=== PATIENT | male | born 1980 | race Caucasian/White ===

== ENCOUNTER → 2020-07-21 14:50 | Outpatient (BNVA) | payer OTHER, SELFPAY | PROVIDERS: PCP Internal Medicine Geriatric Medicine; Referring Provider Internal Medicine Geriatric Medicine; Visit Provider Nurse Practitioner | DX: Z76.89 Persons encountering health services in other specified circumstances (principal) ==

== ENCOUNTER 2020-07-30 10:14 | Outpatient (REF) | payer OTHER, SELFPAY | END 2020-07-30 10:15 | disposition home or self-care (01) | LOC: HO.LAB 10:14 | PROVIDERS: Visit Provider Internal Medicine | DX: Z20.828 Contact with and (suspected) exposure to other viral communicable diseases (principal) | CPT/HCPCS: C9803; U0003 ==

== ENCOUNTER 2021-03-08 15:12 | Emergency (ER) | payer SELFPAY | END 2021-03-08 18:16 | disposition left against medical advice (07) | PROVIDERS: Emergency Provider Emergency Medicine; PCP Internal Medicine Geriatric Medicine | DX: L60.0 Ingrowing nail (principal) ==

== ENCOUNTER 2021-12-03 12:38 | Emergency (ER) | payer MEDICAID, SELFPAY ==
--- NOTE | ~2021-12-03 | US_ITS ---
EXAMINATION: US ABDOMEN LIMITED CLINICAL INFORMATION: Right upper quadrant pain. COMPARISON: 04/14/2019 abdominal ultrasound TECHNIQUE: Real-time imaging of the right upper quadrant abdominal viscera. FINDINGS: PANCREAS: Limited assessment due to overlying bowel gas but where seen the body is grossly unremarkable LIVER: The liver is normal in size. The liver contour is normal. Parenchymal echogenicity is normal. A 1.5 cm slightly hyperechoic possible hemangioma in the posterior right lobe the liver similar to the 2019 study. No new suspicious hepatic lesion. There is no intrahepatic biliary duct dilatation seen. GALLBLADDER: Normal. The gallbladder is physiologically distended without evidence of stones, sludge, polyps, wall thickening or pericholecystic fluid. COMMON BILE DUCT: Normal in caliber measuring 0.2 cm in diameter. RIGHT KIDNEY: Normal. No hydronephrosis. No renal calculi or focal parenchymal lesions. The kidney measures 11.5 cm in maximum dimension. FREE FLUID: None. US/US abdomen limited IMPRESSION: No acute intra-abdominal process. 1.5 cm echogenic probable hemangioma in the posterior right lobe of the liver similar to the prior 2019 study.
[2021-12-03 13:03] VITALS: BP 109/71; PULSE 75; RESP 16; TEMP 35.9; O2SAT 95; BMI 25.4
--- NOTE | 2021-12-03 13:45 | ED_ITS ---
HPI - Abdominal Pain General Chief Complaint: Abdominal Pain Stated Complaint: Gallstones? Time Seen by Provider: 12/03/21 13:27 Source: patient Mode of arrival: ambulatory Limitations: no limitations History of Present Illness HPI narrative: Patient is a 41-year-old male with past medical history of irritable bowel syndrome. He presents emergency department today for evaluation of right upper quadrant pain. The onset of pain was 4 months ago, although it has been increasingly worse over the past 4 days was evaluated at [facility] at PCP office yesterday and there was concern for gallstones. He states that since the medical provider pressed over his right upper quadrant the pain has been significantly worse, and he was advised to come to the emergency department for worsening pain. He reports associated nausea and vomiting in addition to diarrhea but he has a history of irritable bowel syndrome. The nausea and vomiting does seem to be worsened normal. Pain is made worse with prolonged sitting, certain movements. Denies fevers, chills, weight loss, chest pain, palpitations, shortness of breath, difficulty breathing, cough, recent illness, hematuria, urinary frequency/hesitancy/urgency. Related Data Allergies Allergy/AdvReac Type Severity Reaction Status Date / Time cat dander [CAT] Allergy Intermediate SNEEZING, Verified 07/21/20 14:51 THROAT SWOLLEN tacrolimus [From PROTOPIC] Allergy Intermediate HEADACHE,DI Verified 07/21/20 14:51 ZZY,N/V DUST Allergy Intermediate SNEEZING Uncoded 05/13/20 16:41 Review of Systems Review of Systems Constitutional : No Weight loss, No Fever, No Chills ENT/Mouth :? No sore throat, No Rhinorrhea Eyes: No Swelling, No Redness Cardiovascular : No Chest Pain, No SOB, No Edema Respiratory : No Cough, No Sputum, No Wheezing Gastrointestinal : Positive Nausea, Positive Vomiting, positive Diarrhea, positive abdominal pain, No Hematochezia, No Melena Genitourinary : No Dysuria, No Urinary Frequency, No Hematuria, No Urgency? Musculoskeletal : No joint pain, No Myalgias, No Joint Swelling Skin : No Skin Lesions, No rash Neuro : No Weakness, No Numbness, No Dizziness, No Headache Psych : No Anxiety/Panic, No Depression Heme/Lymph: No Bruising, No Lymphadenopathy Endocrine : No Polyuria, No Polydipsia Yes all other systems are reviewed and are negative PMFSH Past Medical History Attestation statement: The following information was validated with the patient. Source: old records reviewed Surgical History H/O esophagogastroduodenoscopy History of colonoscopy Hx of appendectomy Family History Family History Father No problems noted. Mother Mental health problem Fibromyalgia Cancer Maternal Grandfather Cancer Social History Social History Household Members: None Housing: Apartment Alcohol intake: never Patient Tobacco Use Status: Current everyday Tobacco user Use of substances other than those prescribed or required for medical reasons: No Substance Use Type: Marijuana Advance Directives: No Advance Directives Information Provided: No Physical Exam ED Vital Signs: Vital Signs - 24 hr 12/03/21 13:03 12/03/21 14:29 Temperature 96.7 F L 98.5 F Pulse Rate 75 68 Respiratory Rate 16 18 Blood Pressure 109/71 107/65 Pulse Oximetry 95 98 BMI result Body Mass Index 25.4 Vital signs have been reviewed as normal and appeared to be correct. Blood pressure normal.? Heart rate normal.? Respiration rate normal. Temperature norm al.? Oxygen saturation normal. Appearance: Alert.?Oriented to person, place and time. No acute distress.?Normal affect. Eyes: Pupils equal, round and reactive to light.? ENT: Pharynx normal.?? Neck: Normal inspection.? Neck supple.?? CVS: Heart sounds normal. Normal heart rate and rhythm.? Pulses normal.?? Respiratory: No respiratory distress.? Lung sounds clear to auscultation bilaterally?? Abdomen: Soft, RUW tenderness, + Harvey's sign. Normoactive bowel sounds. No pulsatile mass.?? Skin: Skin warm and dry.? Normal skin color.? Normal skin turgor.?? Extremities: No lower extremity edema.? Neuro: Moves all extremities spontaneously. Sensation intact bilaterally. CN II- XII intact. No focal neuro deficits. Ambulates with normal steady gait. Course Course Course Narrative: Patient is a 41-year-old male who is well appearing, nontoxic, afebrile. Hist ory physical exam concerning for cholelithiasis/cholecystitis. Will obtain CBC, CMP, lipase, right upper quadrant ultrasound in addition to urinalysis. Of note patient is on Truvada for HIV prophylaxis, states he has been on this medication for 4 years, therefore will assess LFTs for hepatotoxicity. Ketorolac for pain. Disposition pending results Reevaluation(s) Reevaluation #1: CBC is overall unremarkable mild anemia hemoglobin 13.6 and hematocrit 39.3. Urinalysis reveals no signs of infection or microscopic hematuria. Ultrasound of the right upper quadrant reveals no acute intra-abdominal process. 1.5 cm echogenic probable hemangioma in the right posterior lobe of the liver seen similarly in 2019. CMP is normal, liver function test without concern, lipase is normal. At this time the cause for his pain and symptoms is unclear, although it may be related to his IBS. He is overall well-appearing, nontoxic, afebrile, tolerating p.o. fluids and food. He is already prescribed anti- inflammatories home. Discussed all findings with patient, reviewed plan of care for discharge home and outpatient follow-up with primary care provider. Discussed reasons to return back to the emergency department. MDM - Abdominal Pain Medical Records Attestation: I reviewed the patient's medical records. Lab Data Attestation: I reviewed the patient's lab results. Result diagrams: 12/03/21 14:44 12/03/21 14:44 Labs: Lab Results 12/03/21 12/03/21 12/03/21 Range/Units 14:44 14:44 14:44 WBC 7.8 (4.8-10.8) X10*3/uL RBC 4.06 L (4.60-5.80) X10*6/uL Hgb 13.6 L (14.0-18.0) g/dl Hct 39.3 L (42.0-52.0) % MCV 96.8 (80.0-98.0) fL MCH 33.5 H (27.0-33.0) pg MCHC 34.6 (31.0-36.0) g/dl RDW 11.5 (11.0-16.0) % Plt Count 199 (160-400) X10*3/uL MPV 9.8 (9.4-12.4) fL Immature Gran % (Auto) 0.1 (0.0-0.4) % Neut % (Auto) 63.9 (45-73) % Lymph % (Auto) 24.4 (20-40) % [place] % (Auto) 8.8 (2-11) % Eos % (Auto) 2.0 (0-4) % Baso % (Auto) 0.8 (0-2) % Lymph # (Auto) 1.9 (1.2-4.9) X10*3/uL [place] # (Auto) 0.7 (0.1-1.2) X10*3/uL Eos # (Auto) 0.2 (0.0-0.4) X10*3/uL Baso # (Auto) 0.1 (0.0-0.2) X10*3/uL Abs Immat Gran (auto) 0.01 (0.00-0.03) X10*3/uL Absolute Neuts (auto) 5.0 (2.0-8.3) x10*3/uL Absolute Nucleated RBC 0.000 (0.0-0.012) X10*3/uL Nucleated RBC % (auto) 0.0 (0.0-0.2) /100WBC Sodium 140 (135-145) mmol/L Potassium 3.7 (3.3-5.1) mmol/L Chloride 108 (96-108) mmol/L Carbon Dioxide 24 (22-29) mmol/L Anion Gap 12 (12-20) BUN 16 (9-16) mg/dL Creatinine 1.20 (0.5-1.4) mg/dL Estim Creat Clear Calc 83.6 Estimated GFR > 60 Random Glucose 68 (60-115) mg/dL Calcium 9.1 (8.4-10.2) mg/dL Total Bilirubin 0.3 (0.0-1.0) mg/dL AST 15 (5-37) U/L ALT 14 (0-40) U/L Alkaline Phosphatase 55 (39-117) U/L Total Protein 7.1 (6.5-8.0) g/dL Albumin 4.5 (3.5-5.0) g/dL Lipase 24 (8-78) U/L Urine Color YELLOW Urine Appearance CLEAR Urine pH 6.0 (5.0-8.0) Ur Specific [place] 1.010 (1.005-1.025) Urine Protein NEG (NEG-TRACE) MG/DL Urine Glucose (UA) NEG (NEG) MG/DL Urine Ketones NEG (NEG) MG/DL Urine Blood NEG (NEG) Urine Nitrite NEG (NEG) Ur Leukocyte Esterase NEG (NEG) Imaging Data US - abdomen: Radiologist's impression: US/US abdomen limited IMPRESSION: No acute intra-abdominal process. 1.5 cm echogenic probable hemangioma in the posterior right lobe of the liver similar to the prior 2019 study. Discharge Plan Discharge Clinical Impression: Abdominal pain Patient Disposition: Home, Self-Care Instructions: Acute Abdominal Pain (ED), Abdominal Pain (ED) Additional Instructions: Please contact your primary care provider to schedule a follow-up visit within 2-3 days. You may return to the emergency department with any new or worsening symptoms or concerns. Stand Alone Forms: Work/School Release Interventions: ED Discharge Assessment Last Done: 12/03/21 16:17 Discharge Date/Time: 12/03/21 16:18
[2021-12-03] MEDS: Ondansetron ODT 4 MG TAB.RAPDIS TRANSLINGU (14:28)
[2021-12-03] MEDS: Ketorolac Tromethamine 30 MG/ML VIAL IM (14:28)
[2021-12-03 14:29] VITALS: BP 107/65; PULSE 68; RESP 18; TEMP 36.9; O2SAT 98
--- NOTE | 2021-12-03 14:32 | PC.NURSE ---
ruq pain x 4 months. pt has f/u with deborah sandoval and PCP for IBS. no active vomiting. no grimace noted.
[2021-12-03 14:49] LABS: MANUAL DIFF FLAG NO
[2021-12-03 14:50] LABS: Basophils Absolute Auto 0.1 X10*3/uL (0.0-0.2); Basophils Percent Auto 0.8 % (0-2); Eosinophils Absolute Auto 0.2 X10*3/uL (0.0-0.4); Hematocrit 39.3 % (42.0-52.0); Hemoglobin 13.6 g/dl (14.0-18.0); Imm Gran Abs Auto 0.01 X10*3/uL (0.00-0.03); Imm Gran Pct Auto 0.1 % (0.0-0.4); Lymphocytes Absolute Auto 1.9 X10*3/uL (1.2-4.9); Lymphocytes Percent Auto 24.4 % (20-40); Mean Corpuscular HGB Conc 34.6 g/dl (31.0-36.0); Mean Corpuscular Hemoglobin 33.5 pg (27.0-33.0); Mean Corpuscular Volume 96.8 fL (80.0-98.0); Mean Platelet Volume 9.8 fL (9.4-12.4); Monocytes Absolute Auto 0.7 X10*3/uL (0.1-1.2); Monocytes Percent Auto 8.8 % (2-11); Neutrophils Percent Auto 63.9 % (45-73); Platelet Count 199 X10*3/uL (160-400); Red Blood Count 4.06 X10*6/uL (4.60-5.80); Red Cell Distribution Width 11.5 % (11.0-16.0); White Blood Count 7.8 X10*3/uL (4.8-10.8)
[2021-12-03 14:52] LABS: Appearance Urine CLEAR; Color Urine YELLOW; Glucose Urine UA NEG (NEG); Leukocyte Esterase Urine NEG (NEG); Nitrite Urine NEG (NEG); Urine Blood NEG (NEG); Urine Ketones NEG (NEG); Urine Protein NEG (NEG-TRACE)
[2021-12-03 15:29] LABS: Alanine Aminotransferase 14 U/L (0-40); Albumin Level 4.5 g/dL (3.5-5.0); Alkaline Phosphatase 55 U/L (39-117); Anion Gap 12 (12-20); Aspartate Amino Transferase 15 U/L (5-37); Bilirubin Total 0.3 mg/dL (0.0-1.0); Blood Urea Nitrogen 16 mg/dL (9-16); Calcium 9.1 mg/dL (8.4-10.2); Carbon Dioxide 24 mmol/L (22-29); Chloride 108 mmol/L (96-108); Creatinine Clr Calc Pharmacy 83.6; Estimated Glomerular Filt Rate > 60; Glucose Random 68 mg/dL (60-115); Lipase 24 U/L (8-78); Potassium 3.7 mmol/L (3.3-5.1); Sodium 140 mmol/L (135-145); Total Protein 7.1 g/dL (6.5-8.0)
== END 2021-12-03 16:18 | disposition home or self-care (01) ==
PROVIDERS: Nurse Practitioner Family; Emergency Provider Emergency Medicine; PCP Internal Medicine Geriatric Medicine
DX: R10.11 Right upper quadrant pain (principal); F17.200 Nicotine dependence, unspecified, uncomplicated; F12.90 Cannabis use, unspecified, uncomplicated
CPT/HCPCS: 36415; 76705; 80053; 81003; 83690; 85025; 96372; 99284; J1885

== ENCOUNTER 2021-12-14 07:21 | Outpatient (REF) | payer MEDICAID, SELFPAY ==
--- NOTE | ~2021-12-14 | US_ITS ---
EXAMINATION: US ABDOMEN COMPLETE CLINICAL INFORMATION: Right upper quadrant pain. Rule out gallstones. COMPARISON: Limited abdominal ultrasound 12/03/2021. Ultrasound abdomen 04/14/2019. CT abdomen and pelvis 11/29/2017. TECHNIQUE: Real-time imaging of the abdominal viscera. FINDINGS: PANCREAS: Normal. No abnormal mass or peripancreatic inflammatory change. ABDOMINAL AORTA: The proximal, mid, and distal segments are normal in caliber. INFERIOR VENA CAVA: Visualized portions are normal. LIVER: There is again noted be calcification likely representing calcified granuloma measuring 7 mm in diameter. The liver is normal in size. The liver contour is normal. Parenchymal echogenicity is normal. No focal hepatic lesion. There is no intrahepatic biliary duct dilatation seen. GALLBLADDER: Normal. The gallbladder is physiologically distended without evidence of stones, sludge, polyps, wall thickening or pericholecystic fluid. COMMON BILE DUCT: Normal in caliber measuring 0.4 cm in diameter. RIGHT KIDNEY: Normal. No hydronephrosis. No renal calculi or focal parenchymal lesions. The kidney measures 11.4 cm in maximum dimension. LEFT KIDNEY: Normal. No hydronephrosis. No renal calculi or focal parenchymal lesions. The kidney measures 11.7 cm in maximum dimension. SPLEEN: Normal. The spleen measures 12.2 cm in maximum dimension. FREE FLUID: None. US/US abdomen complete IMPRESSION: No significant abnormality on abdominal ultrasound study. No evidence of acute cholecystitis or pancreatitis.
== END 2021-12-14 07:22 | disposition home or self-care (01) ==
LOC: HO.US 07:21
PROVIDERS: Visit Provider Emergency Medicine
DX: R10.11 Right upper quadrant pain (principal)
CPT/HCPCS: 76700

== ENCOUNTER → 2022-01-06 12:32 | Outpatient (BNVA) | payer MEDICAID, SELFPAY | PROVIDERS: PCP Internal Medicine Geriatric Medicine; Referring Provider Internal Medicine Geriatric Medicine; Visit Provider Nurse Practitioner | DX: K58.2 Mixed irritable bowel syndrome (principal); K21.9 Gastro-esophageal reflux disease without esophagitis; R11.2 Nausea with vomiting, unspecified | CPT/HCPCS: 99212 ==

== ENCOUNTER → 2022-07-26 15:28 | Outpatient (BNVA) | payer MEDICAID, SELFPAY | PROVIDERS: PCP Family Medicine; Visit Provider Urology | DX: N52.9 Male erectile dysfunction, unspecified (principal) | CPT/HCPCS: 99202 ==

== ENCOUNTER → 2022-10-04 13:58 | Outpatient (BNVA) | payer MEDICAID, SELFPAY | PROVIDERS: PCP Family Medicine; Visit Provider Anesthesiology | DX: M46.1 Sacroiliitis, not elsewhere classified (principal); M53.3 Sacrococcygeal disorders, not elsewhere classified; M47.816 Spondylosis without myelopathy or radiculopathy, lumbar region; M47.812 Spondylosis without myelopathy or radiculopathy, cervical region; E83.42 Hypomagnesemia; G89.4 Chronic pain syndrome | CPT/HCPCS: 99202 ==

== ENCOUNTER → 2022-11-28 07:58 | Outpatient (BNVA) | payer MEDICAID, SELFPAY | PROVIDERS: PCP Family Medicine; Visit Provider Nurse Practitioner | DX: K58.2 Mixed irritable bowel syndrome (principal); K21.9 Gastro-esophageal reflux disease without esophagitis; R11.2 Nausea with vomiting, unspecified; R19.7 Diarrhea, unspecified | CPT/HCPCS: 99212 ==

== ENCOUNTER 2022-11-28 08:50 | Outpatient (REF) | payer MEDICAID, SELFPAY ==
[2022-11-28 09:50] LABS: C Reactive Protein < 0.10 mg/dL (< or = 0.50)
== END 2022-11-28 08:51 | disposition home or self-care (01) ==
LOC: HO.LAB 08:50
PROVIDERS: PCP Family Medicine; Visit Provider Nurse Practitioner
DX: K58.2 Mixed irritable bowel syndrome (principal); K21.9 Gastro-esophageal reflux disease without esophagitis; R11.2 Nausea with vomiting, unspecified; R19.7 Diarrhea, unspecified
CPT/HCPCS: 36415; 86140

== ENCOUNTER 2022-12-21 12:05 | Outpatient (REF) | payer MEDICAID, SELFPAY ==
--- NOTE | 2022-12-21 09:45 | EMG_ITS ---
Bilateral median and ulnar motor and sensory studies were performed. Bilateral radial sensory studies were performed and paraspinal muscles were tested with a needle. IMPRESSION: Mild right ulnar neuropathy across cubital tunnel. Otherwise no significant abnormality was noted. MD HILDA Carroll/ESE / [id number]
== END 2022-12-21 12:06 | disposition home or self-care (01) ==
LOC: HO.NEURO 12:05
PROVIDERS: Visit Provider Registered Nurse Community Health
DX: G56.03 Carpal tunnel syndrome, bilateral upper limbs (principal)
CPT/HCPCS: 95886; 95911

== ENCOUNTER → 2023-01-11 14:09 | Outpatient (REF) | payer MEDICAID, SELFPAY | LOC: HO.SL 14:09 | PROVIDERS: PCP Family Medicine; Visit Provider Family Medicine | DX: R06.83 Snoring (principal); G47.30 Sleep apnea, unspecified | CPT/HCPCS: 95806 ==

== ENCOUNTER 2023-01-11 14:47 | Outpatient (REF) | payer MEDICAID, SELFPAY ==
[2022-12-21 14:37] LABS: Adenovirus F 40/41 Not Detected (Not Detect.); Astrovirus Not Detected (Not Detect.); Campylobacter Not Detected (Not Detect.); Cryptosporidium Not Detected (Not Detect.); Cyclospora cayetanensis Not Detected (Not Detect.); E. coli EAEC Not Detected (Not Detect.); E. coli EPEC Not Detected (Not Detect.); E. coli ETEC Not Detected (Not Detect.); E. coli STEC Not Detected (Not Detect.); Entamoeba histolytica Not Detected (Not Detect.); Giardia lamblia Not Detected (Not Detect.); Norovirus GI/GII Not Detected (Not Detect.); Plesiomonas shigelloides Not Detected (Not Detect.); Rotavirus A Not Detected (Not Detect.); Salmonella Not Detected (Not Detect.); Sapovirus Not Detected (Not Detect.); Shigella sp./EIEC Not Detected (Not Detect.); Vibrio Not Detected (Not Detect.); Vibrio Cholerae Not Detected (Not Detect.); Yersinia enterocolitica Not Detected (Not Detect.)
[2022-12-27 00:29] LABS: Calprotectin, Fecal 97 mcg/g
[2022-12-29 16:59] LABS: Pancreatic Elastase-1 107 mcg/g
--- NOTE | ~2023-01-11 | MR_ITS ---
EXAMINATION: MR LUMBAR SPINE WITHOUT CONTRAST CLINICAL INFORMATION: Chronic lower back pain with sciatica. COMPARISON: Lumbar spine MRI from 05/02/2018. TECHNIQUE: MRI of the lumbar spine was obtained using routine sequences without contrast. FINDINGS: Normal anatomic alignment. The intervertebral discs largely remain of normal height and signal. Minimal disc degeneration from L1-L5. Associated minimal mixed Modic type discogenic endplate changes from L2-L4. No suspicious marrow edema. The vertebral body heights are well-maintained. The conus medullaris terminates at the level of L1. The distal spinal cord is normal in appearance. 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 No significant abnormalities of the paraspinal musculature. Limited evaluation of the intra-abdominal structures without significant abnormalities. The abdominal aorta is of normal contour and caliber. AXIAL SPINAL LEVELS: L1-L2: Normal annular contour. There is no facet joint arthropathy. There is no neural foraminal stenosis. There is no spinal canal stenosis. L2-L3: Normal annular contour. There is no facet joint arthropathy. There is no neural foraminal stenosis. There is no spinal canal stenosis. L3-L4: Shallow diffuse disc bulge. There is mild left and no right facet joint arthropathy. There is no neural foraminal stenosis. There is no spinal canal stenosis. L4-L5: Mild diffuse disc bulge with slight osseous ridging and shallow central disc protrusion. There is no facet joint arthropathy. There is mild left and no right neural foraminal stenosis. There is no spinal canal stenosis. L5-S1: Normal annular contour. There is no facet joint arthropathy. There is no neural foraminal stenosis. There is no spinal canal stenosis. 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 No overt spinal canal stenosis or nerve root compression. Overall, degenerative changes appear similar to exam from 2018.
== END 2023-01-11 14:48 | disposition home or self-care (01) ==
LOC: HO.MRI 14:47
PROVIDERS: Nurse Practitioner; PCP Family Medicine; Visit Provider Family Medicine
DX: R19.7 Diarrhea, unspecified (principal); K58.2 Mixed irritable bowel syndrome; M54.50 Low back pain, unspecified
CPT/HCPCS: 72148; 82656; 83993; 87507

== ENCOUNTER → 2023-01-12 09:35 | Outpatient (BNVA) | payer MEDICAID, SELFPAY | PROVIDERS: PCP Family Medicine; Referring Provider Family Medicine; Visit Provider Nurse Practitioner | DX: K21.9 Gastro-esophageal reflux disease without esophagitis (principal); K58.2 Mixed irritable bowel syndrome; R11.2 Nausea with vomiting, unspecified | CPT/HCPCS: 99212 ==

== ENCOUNTER 2023-02-06 08:19 | Emergency (ER) | payer MEDICAID, SELFPAY ==
--- NOTE | ~2023-02-06 | XR_ITS ---
EXAMINATION: XR CHEST CLINICAL INFORMATION: Right-sided pleuritic chest pain COMPARISON: None available. TECHNIQUE: 2 views of the chest were obtained. FINDINGS: No significant abnormality is noted involving the heart, lungs, mediastinum, bony thorax or soft tissues. XR/XR chest 2V IMPRESSION: Unremarkable chest examination.
[2023-02-06 08:23] VITALS: BP 107/69; PULSE 96; RESP 18; TEMP 36.9; O2SAT 95; BMI 25.1
--- NOTE | 2023-02-06 09:01 | ED.ABDPAIN ---
HPI - Abdominal Pain General Chief Complaint: Abdominal Pain Stated Complaint: R Side Pain X 1 Year Time Seen by Provider: 02/06/23 08:43 Source: patient Mode of arrival: ambulatory Limitations: no limitations History of Present Illness HPI narrative: Patient with right lower chest pain and right upper quadrant pain for one year, now getting worse. Patient just had MRI of lumbar spine, multiple CT and US of upper quadrant, has had prior scarring of his liver with prior abnormal LFTs MD elicited complaint: abdominal pain Onset (ago): year(s) Pain Consistency: constant Related Data Home Medications Medication Instructions Recorded Confirmed acetaminophen 500 mg tablet 1,000 mg PO Q8H PRN fever 01/06/22 11/28/22 emtricitabine 200 mg-tenofovir 1 tab PO DAILY 01/06/22 11/28/22 disoproxil fumarate 300 mg tablet levocetirizine 5 mg tablet 5 mg PO QPM 01/06/22 11/28/22 montelukast 10 mg tablet 10 mg PO QPM 01/06/22 11/28/22 nicotine 21 mg/24 hr daily 1 patch topical DAILY 01/06/22 11/28/22 transdermal patch tadalafil 20 mg tablet (Cialis) 20 mg PO DAILY PRN 01/06/22 11/28/22 nabumetone 500 mg tablet 500 mg PO BID PRN 07/26/22 11/28/22 albuterol sulfate 90 mcg/actuation 2 puff inhalation Q4-6H PRN 10/04/22 11/28/22 aerosol inhaler (ProAir HFA) dicyclomine 20 mg tablet 20 mg PO QID PRN 10/04/22 11/28/22 peg [id number] 1 1 drp ophthalmic (eye) TID-QID 10/04/22 11/28/22 %-0.2 %-0.2 % eye drops (Artificial Tears ([id number])) vardenafil 10 mg tablet 10 mg PO DAILY PRN 10/04/22 11/28/22 atomoxetine 40 mg capsule 40 mg PO QAM 01/12/23 (Strattera) baclofen 10 mg tablet 5 mg PO TID PRN 01/12/23 doxepin 10 mg capsule 10 mg PO BEDTIME 01/12/23 duloxetine 30 mg capsule,delayed 30 mg PO DAILY 01/12/23 release fluticasone propionate 50 1 spray intranasal DAILY 01/12/23 mcg/actuation nasal spray,suspension (Allergy Relief (fluticasone)) magnesium 250 mg tablet 250 mg PO DAILY 01/12/23 sertraline 50 mg tablet 50 mg PO BEDTIME 01/12/23 Previous Rx's Medication Instructions Recorded pantoprazole 40 mg tablet,delayed 40 mg PO BID 30 days #60 tabs 11/13/22 release (Protonix) eluxadoline 75 mg tablet (Viberzi) 75 mg PO BID #60 tabs 11/28/22 metoclopramide HCl 5 mg tablet 5 mg PO QIDACHS #120 tabs 11/28/22 (Reglan) simethicone 180 mg capsule 180 mg PO QID 30 days #120 caps 11/28/22 [id number] 1 cap PO . qidac 30 days #120 caps 01/09/23 24,000-76,000-120,000 unit capsule,delayed rel (Creon) rabeprazole 20 mg tablet,delayed 20 mg PO BID 30 days #60 tabs 01/12/23 release (AcipHex) rifaximin 550 mg tablet (Xifaxan) 550 mg PO BID 14 days #28 tabs 01/12/23 naproxen 500 mg tablet (Naprosyn) 500 mg PO BID #20 tabs 02/06/23 Allergies Allergy/AdvReac Type Severity Reaction Status Date / Time cat dander [CAT] Allergy Intermediate SNEEZING, Verified 02/06/23 08:27 THROAT SWOLLEN tacrolimus [From PROTOPIC] Allergy Intermediate HEADACHE,DI Verified 02/06/23 08:27 ZZY,N/V seafood Allergy Mild unknown Verified 02/06/23 08:27 Seasonal Allergies Allergy Unknown Sneezing Verified 02/06/23 08:27 DUST Allergy Intermediate SNEEZING Uncoded 11/28/22 08:09 Review of Systems Review of Systems Yes all other systems are reviewed and are negative Comments: right sided abdominal pain into lower chest PMFSH Past Medical History Medical History History of anal fissures Surgical History H/O esophagogastroduodenoscopy H/O rectal sphincterotomy History of colonoscopy Hx of appendectomy Family History Family History Father No problems noted. Mother Mental health problem Fibromyalgia Cancer Maternal Grandfather Cancer Social History Social History Household Members: None Housing: Apartment Alcohol intake: never Patient Tobacco Use Status: Current everyday Tobacco user Smoked in Last 30 Days: Yes Use of substances other than those prescribed or required for medical reasons: Yes Substance Use Type: Marijuana Substance Use Frequency: Socially Substance Use Frequency Other:: daily Advance Directives: No Advance Directives Information Provided: Yes Physical Exam ED Vital Signs: Vital Signs - 24 hr 02/06/23 08:23 02/06/23 10:00 Temperature 98.5 F 98.5 F Pulse Rate 96 Respiratory Rate 18 18 Blood Pressure 107/69 99/53 L Pulse Oximetry 95 98 Oxygen Delivery Method Room Air Room Air BMI result Body Mass Index 25.1 Const Other: anxious, pain out of proportion to physical findings General: healthy appearing Nutritional Appearance: average body habitus Orientation/consciousness: oriented to person and patient oriented x3 Limitations: no limitations HENMT Head: Yes normal to inspection Ears: external ears normal General nose exam: Normal external nose present Mouth: Normal oral and palatal mucosa present and oropharynx normal Throat: Yes posterior oropharynx normal Eyes General: appearance normal, both eyes and all related structures Neck Neck: Yes normal visual inspection Chest Chest palpation & inspection: normal inspection of the chest Resp Auscultation: clear to auscultation bilaterally Cardio Jugular venous distension: no JVD Rate: regular rate Rhythm: regular rhythm Heart sounds: S1 normal heart sound present and S2 normal heart sound present GI Other: right upper quadrant tenderness Inspection: Yes normal to inspection Palpation (GI): Soft to palpation, Tenderness to palpation present (GI) and No hepatosplenomegaly present Auscultation: normal bowel sounds General: Yes no CVA tenderness Back/Spine/Pelvis Back: no CVA tenderness Skin General skin exam: no rashes or lesions noted Neuro General: oriented to person and patient oriented x3 Cranial nerves: Yes CN's II-XII intact bilaterally Motor exam (neuro): 5/5 motor strength present throughout Extrem General: Yes normal to inspection Psych Appearance: grossly normal Course Reevaluation(s) Reevaluation #1: Patient with long standing right sided discomfort. Prior work up had chronic scaring or liver and a nodule that has not changed. I do not feel this is related to his pain today will dc on NSAIDs and have him follow up with his doctor Time: 10:39 Medical Decision Making Differential Diagnosis Differential Diagnoses: The differential diagnosis associated with the presentation includes (Costrochondritis, pneumonia, biliary colic, pyelonephritis, renal colic were all considered) Admission/Observation Consideration of admission/observation: Escalation of care including admission/observation considered (42 yo male with known liver scaring now with RUQ pain, admission was considered) Lab Data MDM Lab Attestation statement: I reviewed the patient's lab results. 02/06/23 09:18 02/06/23 09:18 Labs: Lab Results 02/06/23 02/06/23 02/06/23 Range/Units 09:18 09:18 09:28 WBC 6.1 (4.8-10.8) X10*3/uL RBC 3.31 L (4.60-5.80) X10*6/uL Hgb 10.8 L D (14.0-18.0) g/dl Hct 32.8 L (42.0-52.0) % MCV 99.1 H (80.0-98.0) fL MCH 32.6 (27.0-33.0) pg MCHC 32.9 (31.0-36.0) g/dl RDW 12.2 (11.0-16.0) % Plt Count 209 (160-400) X10*3/uL MPV 9.4 (9.4-12.4) fL Immature Gran % (Auto) 0.3 (0.0-0.4) % Neut % (Auto) 68.6 (45-73) % Lymph % (Auto) 19.3 L (20-40) % [place] % (Auto) 10.5 (2-11) % Eos % (Auto) 0.8 (0-4) % Baso % (Auto) 0.5 (0-2) % Lymph # (Auto) 1.2 (1.2-4.9) X10*3/uL [place] # (Auto) 0.6 (0.1-1.2) X10*3/uL Eos # (Auto) 0.1 (0.0-0.4) X10*3/uL Baso # (Auto) 0.0 (0.0-0.2) X10*3/uL Abs Immat Gran (auto) 0.02 (0.00-0.03) X10*3/uL Absolute Neuts (auto) 4.2 (2.0-8.3) x10*3/uL Absolute Nucleated RBC 0.000 (0.0-0.012) X10*3/uL Nucleated RBC % (auto) 0.0 (0.0-0.2) /100WBC Sodium 140 (135-145) mmol/L Potassium 4.2 (3.3-5.1) mmol/L Chloride 109 H (96-108) mmol/L Carbon Dioxide 25 (22-29) mmol/L Anion Gap 10 L (12-20) BUN 12 (9-16) mg/dL Creatinine 1.10 (0.5-1.4) mg/dL Estim Creat Clear Calc 90.3 Estimated GFR > 60 Random Glucose 101 (60-115) mg/dL Calcium 9.0 (8.4-10.2) mg/dL Total Bilirubin 0.4 (0.0-1.0) mg/dL AST 27 (5-37) U/L ALT 45 H (0-40) U/L Alkaline Phosphatase 118 H (39-117) U/L Total Protein 6.9 (6.5-8.0) g/dL Albumin 3.9 (3.5-5.0) g/dL Lipase 8 (8-78) U/L Urine Color Yellow Urine Appearance Clear Urine pH 6.0 (5.0-9.0) Ur Specific [place] 1.025 (1.005-1.025) Urine Protein Negative (Neg-Trace) mg/dL Urine Glucose (UA) Negative (Negative) mg/dL Urine Ketones Trace (Negative) mg/dL Urine Blood Negative (Negative) Urine Nitrite Negative (Negative) Ur Leukocyte Esterase Negative (Negative) Independent Interpretation I performed an independent interpretation of an: Plain X-Ray (no infiltrate or PTX) External Record Review External record reviewed: Outpatient record and Prior outpatient labs Tests considered The following testing was considered but not selected: I considered a CT of the Abd and an Ultrasound but patient has had these multiple times, labs normal except for mild LFT elevation, no fever, normal vitals Medications Administered Discontinued Medications Generic Name Dose Route Start Last Admin Trade Name Jakobq PRN Reason Stop Dose Admin Ketorolac Tromethamine 60 mg 02/06/23 09:07 02/06/23 09:24 Ketorolac Tromethamine 60 Mg/2 Ml Vial IM 02/06/23 09:08 60 mg ONCE ONE Administration Discharge Plan Discharge Clinical Impression: Costochondritis, Abnormal LFTs (liver function tests) Patient Disposition: Home, Self-Care Instructions: Costochondritis (ED) Prescriptions: New naproxen [Naprosyn] 500 mg tablet 500 mg PO BID Qty: 20 0RF No Action pantoprazole [Protonix] 40 mg tablet,delayed release (DR/EC) 40 mg PO BID 30 Days Qty: 60 6RF Hold Instructions: Doctor's Order Creon 24,000-76,000 -120,000 unit capsule,delayed release(DR/EC) 1 cap PO . qidac 30 Days Qty: 120 3RF Rx Instructions: administer with meals and/or snacks levocetirizine 5 mg tablet 5 mg PO QPM emtricitabine-tenofovir (TDF) 200-300 mg tablet 1 tab PO DAILY montelukast 10 mg tablet 10 mg PO QPM acetaminophen 500 mg tablet 1,000 mg PO Q8H PRN (Reason: fever) tadalafil [Cialis] 20 mg tablet 20 mg PO DAILY PRN nicotine 21 mg/24 hr patch 24 hour 1 patch topical DAILY duloxetine 30 mg capsule,delayed release(DR/EC) 30 mg PO DAILY Viberzi 75 mg tablet 75 mg PO BID Qty: 60 3RF Rx Instructions: must administer with a meal/food metoclopramide HCl [Reglan] 5 mg tablet 5 mg PO QIDACHS Qty: 120 3RF Rx Instructions: Provider aware of possible interaction and is monitoring simethicone 180 mg capsule 180 mg PO QID 30 Days Qty: 120 3RF Rx Instructions: after meals nabumetone 500 mg tablet 500 mg PO BID PRN vardenafil 10 mg tablet 10 mg PO DAILY PRN Artificial Tears([id number]) 1-0.2-0.2 % drops 1 drp ophthalmic (eye) TID-QID dicyclomine 20 mg tablet 20 mg PO QID PRN albuterol sulfate [ProAir HFA] 90 mcg/actuation HFA aerosol inhaler 2 puff inhalation Q4-6H PRN atomoxetine [Strattera] 40 mg capsule 40 mg PO QAM sertraline 50 mg tablet 50 mg PO BEDTIME baclofen 10 mg tablet 5 mg PO TID PRN doxepin 10 mg capsule 10 mg PO BEDTIME fluticasone propionate [Allergy Relief (fluticasone)] 50 mcg/actuation spray,suspension 1 spray intranasal DAILY Rx Instructions: administer into each nostril magnesium 250 mg tablet 250 mg PO DAILY rabeprazole [AcipHex] 20 mg tablet,delayed release (DR/EC) 20 mg PO BID 30 Days Qty: 60 6RF Xifaxan 550 mg tablet 550 mg PO BID 14 Days Qty: 28 0RF Referrals: Shannen Orellana MD [Primary Care Provider] - 5 days
[2023-02-06 09:22] LABS: MANUAL DIFF FLAG NO
[2023-02-06] MEDS: Ketorolac Tromethamine 60 MG/2 ML VIAL IM (09:24)
[2023-02-06 09:32] LABS: Basophils Percent Auto 0.5 % (0-2); Eosinophils Absolute Auto 0.1 X10*3/uL (0.0-0.4); Eosinophils Percent Auto 0.8 % (0-4); Hematocrit 32.8 % (42.0-52.0); Hemoglobin 10.8 g/dl (14.0-18.0); Imm Gran Abs Auto 0.02 X10*3/uL (0.00-0.03); Imm Gran Pct Auto 0.3 % (0.0-0.4); Lymphocytes Absolute Auto 1.2 X10*3/uL (1.2-4.9); Lymphocytes Percent Auto 19.3 % (20-40); Mean Corpuscular HGB Conc 32.9 g/dl (31.0-36.0); Mean Corpuscular Hemoglobin 32.6 pg (27.0-33.0); Mean Corpuscular Volume 99.1 fL (80.0-98.0); Mean Platelet Volume 9.4 fL (9.4-12.4); Monocytes Absolute Auto 0.6 X10*3/uL (0.1-1.2); Monocytes Percent Auto 10.5 % (2-11); Neutrophils Absolute Auto 4.2 x10*3/uL (2.0-8.3); Neutrophils Percent Auto 68.6 % (45-73); Platelet Count 209 X10*3/uL (160-400); Red Blood Count 3.31 X10*6/uL (4.60-5.80); Red Cell Distribution Width 12.2 % (11.0-16.0); White Blood Count 6.1 X10*3/uL (4.8-10.8)
[2023-02-06 09:38] LABS: Alanine Aminotransferase 45 U/L (0-40); Albumin Level 3.9 g/dL (3.5-5.0); Alkaline Phosphatase 118 U/L (39-117); Anion Gap 10 (12-20); Aspartate Amino Transferase 27 U/L (5-37); Bilirubin Total 0.4 mg/dL (0.0-1.0); Blood Urea Nitrogen 12 mg/dL (9-16); Carbon Dioxide 25 mmol/L (22-29); Chloride 109 mmol/L (96-108); Creatinine Clr Calc Pharmacy 90.3; Estimated Glomerular Filt Rate > 60; Glucose Random 101 mg/dL (60-115); Lipase 8 U/L (8-78); Potassium 4.2 mmol/L (3.3-5.1); Sodium 140 mmol/L (135-145); Total Protein 6.9 g/dL (6.5-8.0)
[2023-02-06 09:54] LABS: Appearance Urine Clear; Color Urine Yellow; Glucose Urine UA Negative (Negative); Leukocyte Esterase Urine Negative (Negative); Nitrite Urine Negative (Negative); Specific Gravity - Urine 1.025 (1.005-1.025); Urine Blood Negative (Negative); Urine Ketones Trace mg/dL (Negative); Urine Protein Negative (Neg-Trace)
[2023-02-06 10:00] VITALS: BP 99/53; RESP 18; TEMP 36.9; O2SAT 98
--- NOTE | 2023-02-06 10:51 | PC.NURSE ---
Pt c/o 06/05 pain to right side ABD. verbalized hx of IBS and appendectomy. Pain meds administered with some effect 02/03. X-ray negative.
== END 2023-02-06 11:13 | disposition home or self-care (01) ==
PROVIDERS: Emergency Provider Emergency Medicine; PCP Family Medicine
DX: M94.0 Chondrocostal junction syndrome [Tietze] (principal); R79.89 Other specified abnormal findings of blood chemistry; R07.89 Other chest pain; Z79.899 Other long term (current) drug therapy
CPT/HCPCS: 36415; 71046; 80053; 81003; 83690; 85025; 96372; 99284; J1885

== ENCOUNTER 2023-02-22 11:21 | Emergency (ER) | payer MEDICAID, SELFPAY ==
--- NOTE | ~2023-02-22 | US_ITS ---
EXAMINATION: US ABDOMEN LIMITED CLINICAL INFORMATION: Right upper quadrant pain. COMPARISON: Abdominal ultrasound dated 12/14/2022. TECHNIQUE: Real-time imaging of the right upper quadrant abdominal viscera. FINDINGS: PANCREAS: Visualized portions unremarkable. LIVER: Small echogenic focus in the left lobe measures 0.9 cm. A less echogenic homogeneous focus in the right lobe posteriorly measures 1.4 cm. Color Doppler showed no abnormal vascular flow. GALLBLADDER: Unremarkable. COMMON BILE DUCT: Normal in caliber measuring 0.5 cm in diameter. RIGHT KIDNEY: 12.2 cm. Unremarkable. FREE FLUID: None. US/US abdomen limited IMPRESSION: Small echogenic calcification the left lobe without interval change. Probable small right hepatic hemangioma demonstrated benign features. No other significant abnormality.
[2023-02-22 11:35] VITALS: BP 128/73; PULSE 92; RESP 16; TEMP 36.6; O2SAT 96; BMI 25.7
--- NOTE | 2023-02-22 11:37 | ED.GENADULT ---
HPI - General Adult General Stated complaint: r side pain into back and abd Related Data Home Medications Medication Instructions Recorded Confirmed acetaminophen 500 mg tablet 1,000 mg PO Q8H PRN fever 01/06/22 11/28/22 emtricitabine 200 mg-tenofovir 1 tab PO DAILY 01/06/22 11/28/22 disoproxil fumarate 300 mg tablet levocetirizine 5 mg tablet 5 mg PO QPM 01/06/22 11/28/22 montelukast 10 mg tablet 10 mg PO QPM 01/06/22 11/28/22 nicotine 21 mg/24 hr daily 1 patch topical DAILY 01/06/22 11/28/22 transdermal patch tadalafil 20 mg tablet (Cialis) 20 mg PO DAILY PRN 01/06/22 11/28/22 nabumetone 500 mg tablet 500 mg PO BID PRN 07/26/22 11/28/22 albuterol sulfate 90 mcg/actuation 2 puff inhalation Q4-6H PRN 10/04/22 11/28/22 aerosol inhaler (ProAir HFA) dicyclomine 20 mg tablet 20 mg PO QID PRN 10/04/22 11/28/22 peg [id number] 1 1 drp ophthalmic (eye) TID-QID 10/04/22 11/28/22 %-0.2 %-0.2 % eye drops (Artificial Tears ([id number])) vardenafil 10 mg tablet 10 mg PO DAILY PRN 10/04/22 11/28/22 atomoxetine 40 mg capsule 40 mg PO QAM 01/12/23 (Strattera) baclofen 10 mg tablet 5 mg PO TID PRN 01/12/23 doxepin 10 mg capsule 10 mg PO BEDTIME 01/12/23 duloxetine 30 mg capsule,delayed 30 mg PO DAILY 01/12/23 release fluticasone propionate 50 1 spray intranasal DAILY 01/12/23 mcg/actuation nasal spray,suspension (Allergy Relief (fluticasone)) magnesium 250 mg tablet 250 mg PO DAILY 01/12/23 sertraline 50 mg tablet 50 mg PO BEDTIME 01/12/23 Previous Rx's Medication Instructions Recorded pantoprazole 40 mg tablet,delayed 40 mg PO BID 30 days #60 tabs 11/13/22 release (Protonix) eluxadoline 75 mg tablet (Viberzi) 75 mg PO BID #60 tabs 11/28/22 metoclopramide HCl 5 mg tablet 5 mg PO QIDACHS #120 tabs 11/28/22 (Reglan) simethicone 180 mg capsule 180 mg PO QID 30 days #120 caps 11/28/22 [id number] 1 cap PO . qidac 30 days #120 caps 01/09/23 24,000-76,000-120,000 unit capsule,delayed rel (Creon) rabeprazole 20 mg tablet,delayed 20 mg PO BID 30 days #60 tabs 01/12/23 release (AcipHex) rifaximin 550 mg tablet (Xifaxan) 550 mg PO BID 14 days #28 tabs 01/12/23 naproxen 500 mg tablet (Naprosyn) 500 mg PO BID #20 tabs 02/06/23 Allergies Allergy/AdvReac Type Severity Reaction Status Date / Time cat dander [CAT] Allergy Intermediate SNEEZING, Verified 02/22/23 11:40 THROAT SWOLLEN tacrolimus [From PROTOPIC] Allergy Intermediate HEADACHE,DI Verified 02/22/23 11:40 ZZY,N/V seafood Allergy Mild unknown Verified 02/22/23 11:40 Seasonal Allergies Allergy Unknown Sneezing Verified 02/22/23 11:40 DUST Allergy Intermediate SNEEZING Uncoded 02/22/23 11:40 PMFSH Past Medical History Medical History History of anal fissures Surgical History H/O esophagogastroduodenoscopy H/O rectal sphincterotomy History of colonoscopy Hx of appendectomy Family History Family History Father No problems noted. Mother Mental health problem Fibromyalgia Cancer Maternal Grandfather Cancer Social History Social History Household Members: None Housing: Apartment Alcohol intake: never Patient Tobacco Use Status: Current everyday Tobacco user Substance Use Type: Marijuana Course Course Course Narrative: This is an RME: Additional HPI, ROS, PE not included below will be deferred to primary provider. 42 year old male with a PMH of IBS, OCD, PTSD, GERD, and erectile dysfuction, and chronic pain syndrome presents with right sided abdominal pain that radiates to the back. Patient denies changes in urination, history of kidney stones. Patient denies nausea, vomiting, fever, chills. History of appendectomy. Plan: labs: urine. Imaging: Discharge Plan Discharge Prescriptions: No Action pantoprazole [Protonix] 40 mg tablet,delayed release (DR/EC) 40 mg PO BID 30 Days Qty: 60 6RF Hold Instructions: Doctor's Order Creon 24,000-76,000 -120,000 unit capsule,delayed release(DR/EC) 1 cap PO . qidac 30 Days Qty: 120 3RF Rx Instructions: administer with meals and/or snacks naproxen [Naprosyn] 500 mg tablet 500 mg PO BID Qty: 20 0RF levocetirizine 5 mg tablet 5 mg PO QPM emtricitabine-tenofovir (TDF) 200-300 mg tablet 1 tab PO DAILY montelukast 10 mg tablet 10 mg PO QPM acetaminophen 500 mg tablet 1,000 mg PO Q8H PRN (Reason: fever) tadalafil [Cialis] 20 mg tablet 20 mg PO DAILY PRN nicotine 21 mg/24 hr patch 24 hour 1 patch topical DAILY duloxetine 30 mg capsule,delayed release(DR/EC) 30 mg PO DAILY Viberzi 75 mg tablet 75 mg PO BID Qty: 60 3RF Rx Instructions: must administer with a meal/food metoclopramide HCl [Reglan] 5 mg tablet 5 mg PO QIDACHS Qty: 120 3RF Rx Instructions: Provider aware of possible interaction and is monitoring simethicone 180 mg capsule 180 mg PO QID 30 Days Qty: 120 3RF Rx Instructions: after meals nabumetone 500 mg tablet 500 mg PO BID PRN vardenafil 10 mg tablet 10 mg PO DAILY PRN Artificial Tears([id number]) 1-0.2-0.2 % drops 1 drp ophthalmic (eye) TID-QID dicyclomine 20 mg tablet 20 mg PO QID PRN albuterol sulfate [ProAir HFA] 90 mcg/actuation HFA aerosol inhaler 2 puff inhalation Q4-6H PRN atomoxetine [Strattera] 40 mg capsule 40 mg PO QAM sertraline 50 mg tablet 50 mg PO BEDTIME baclofen 10 mg tablet 5 mg PO TID PRN doxepin 10 mg capsule 10 mg PO BEDTIME fluticasone propionate [Allergy Relief (fluticasone)] 50 mcg/actuation spray,suspension 1 spray intranasal DAILY Rx Instructions: administer into each nostril magnesium 250 mg tablet 250 mg PO DAILY rabeprazole [AcipHex] 20 mg tablet,delayed release (DR/EC) 20 mg PO BID 30 Days Qty: 60 6RF Xifaxan 550 mg tablet 550 mg PO BID 14 Days Qty: 28 0RF
[2023-02-22 12:02] LABS: Basophils Percent Auto 0.1 % (0-2); Eosinophils Percent Auto 0.1 % (0-4); Hemoglobin 12.1 g/dl (14.0-18.0); Imm Gran Abs Auto 0.05 X10*3/uL (0.00-0.03); Imm Gran Pct Auto 0.3 % (0.0-0.4); Lymphocytes Absolute Auto 0.9 X10*3/uL (1.2-4.9); Lymphocytes Percent Auto 6.3 % (20-40); MANUAL DIFF FLAG SCAN; Mean Corpuscular HGB Conc 32.7 g/dl (31.0-36.0); Mean Corpuscular Hemoglobin 32.5 pg (27.0-33.0); Mean Corpuscular Volume 99.5 fL (80.0-98.0); Mean Platelet Volume 9.2 fL (9.4-12.4); Monocytes Absolute Auto 0.3 X10*3/uL (0.1-1.2); Monocytes Percent Auto 2.3 % (2-11); Neutrophils Absolute Auto 13.4 x10*3/uL (2.0-8.3); Neutrophils Percent Auto 90.9 % (45-73); Platelet Count 293 X10*3/uL (160-400); Red Blood Count 3.72 X10*6/uL (4.60-5.80); SCAN SMEAR FLAG 1; White Blood Count 14.7 X10*3/uL (4.8-10.8)
[2023-02-22 12:23] LABS: Alanine Aminotransferase 47 U/L (0-40); Albumin Level 4.3 g/dL (3.5-5.0); Alkaline Phosphatase 137 U/L (39-117); Anion Gap 14 (12-20); Aspartate Amino Transferase 25 U/L (5-37); Bilirubin Total 0.3 mg/dL (0.0-1.0); Blood Urea Nitrogen 13 mg/dL (9-16); Calcium 9.7 mg/dL (8.4-10.2); Carbon Dioxide 24 mmol/L (22-29); Chloride 106 mmol/L (96-108); Creatinine Clr Calc Pharmacy 101.3; Estimated Glomerular Filt Rate > 60; Glucose Random 112 mg/dL (60-115); Magnesium 2.1 mg/dL (1.6-2.6); Potassium 4.1 mmol/L (3.3-5.1); SLIDE REVIEW VERIFIED; Sodium 140 mmol/L (135-145); Total Protein 7.9 g/dL (6.5-8.0)
--- NOTE | 2023-02-22 14:37 | PC.NURSE ---
pt informed online tutor that he can't wait anymore and decided to leave the ER
== END 2023-02-22 14:53 | disposition left against medical advice (07) ==
PROVIDERS: Physician Assistant; Emergency Provider Emergency Medicine; PCP Family Medicine
DX: R10.11 Right upper quadrant pain (principal)
CPT/HCPCS: 36415; 76705; 80053; 83735; 85025; 99282; 99284

== ENCOUNTER 2023-03-09 10:47 | Outpatient (REF) | payer MEDICAID, SELFPAY ==
--- NOTE | ~2023-03-09 | CT_ITS ---
EXAMINATION: CT ABDOMEN WITHOUT AND WITH CONTRAST CLINICAL INFORMATION: Abdominal pain. COMPARISON: Abdominal ultrasound 02/22/2023. CT abdomen and pelvis 11/29/2017. TECHNIQUE: Contiguous axial thin section helical images of the abdomen were performed before and after the administration of 85 mL of Omnipaque 350 intravenous contrast. The data set was reformatted in the coronal and sagittal planes and reviewed on an independent workstation. This CT examination was performed using dose optimization techniques as appropriate, variously including the following: *Automated exposure control *Adjustment of mA and/or kV according to patient size (this includes techniques or standardized protocols for targeted exams where dose is matched to indication/reason for exam; i.e. extremities or head) *Use of iterative reconstruction technique DLP: 845 mGy-cm FINDINGS: LUNG BASES: No suspicious lung nodules. LIVER, GALLBLADDER, AND BILIARY TREE: Small calcifications in the left hepatic lobe likely reflect prior infection or involuted hemangioma.. Small hemangioma in segment 7 is decreased in size compared to 11/29/2017. Small cyst in segment 4. No suspicious liver mass. No ductal dilatation. PANCREAS: No discrete pancreatic mass. No ductal dilatation. SPLEEN: Unremarkable. ADRENAL GLANDS AND KIDNEYS: No adrenal mass. No nephrolithiasis. Symmetric nephrograms. No hydroureteronephrosis. No discrete renal mass. No perinephric stranding. BOWEL LOOPS: Included segments of small and large bowel are normal in caliber. No mesenteric mass or fluid. LYMPH NODES: No adenopathy. VASCULAR: No aortic aneurysm. BONES: No suspicious osseous lesions. CT/CT abdomen wo/w IV con IMPRESSION: No explanation for abdominal pain. Fleischner guidelines were followed.
[2023-03-09] MEDS: iohexoL 350 MG/ML 100 ML INFUS..BTL IV (11:56)
== END 2023-03-09 10:48 | disposition home or self-care (01) ==
LOC: HO.CT 10:47
PROVIDERS: Visit Provider Family Medicine
DX: R10.9 Unspecified abdominal pain (principal); D18.03 Hemangioma of intra-abdominal structures; G89.29 Other chronic pain
CPT/HCPCS: 74170; Q9967

== ENCOUNTER 2023-03-12 11:58 | Outpatient (REF) | payer MEDICAID, SELFPAY ==
[2023-03-12 14:50] LABS: MANUAL DIFF FLAG NO
[2023-03-12 14:58] LABS: Basophils Absolute Auto 0.1 X10*3/uL (0.0-0.2); Basophils Percent Auto 0.9 % (0-2); Eosinophils Absolute Auto 0.1 X10*3/uL (0.0-0.4); Eosinophils Percent Auto 0.9 % (0-4); Hematocrit 43.7 % (42.0-52.0); Hemoglobin 14.1 g/dl (14.0-18.0); Imm Gran Abs Auto 0.01 X10*3/uL (0.00-0.03); Imm Gran Pct Auto 0.2 % (0.0-0.4); Lymphocytes Absolute Auto 1.7 X10*3/uL (1.2-4.9); Lymphocytes Percent Auto 29.2 % (20-40); Mean Corpuscular HGB Conc 32.3 g/dl (31.0-36.0); Mean Corpuscular Hemoglobin 32.4 pg (27.0-33.0); Mean Corpuscular Volume 100.5 fL (80.0-98.0); Mean Platelet Volume 10.3 fL (9.4-12.4); Monocytes Absolute Auto 0.6 X10*3/uL (0.1-1.2); Monocytes Percent Auto 9.5 % (2-11); Neutrophils Absolute Auto 3.4 x10*3/uL (2.0-8.3); Neutrophils Percent Auto 59.3 % (45-73); Platelet Count 223 X10*3/uL (160-400); Red Blood Count 4.35 X10*6/uL (4.60-5.80); Red Cell Distribution Width 12.4 % (11.0-16.0); White Blood Count 5.8 X10*3/uL (4.8-10.8)
[2023-03-12 15:39] LABS: Alanine Aminotransferase 47 U/L (0-40); Albumin Level 4.9 g/dL (3.5-5.0); Alkaline Phosphatase 100 U/L (39-117); Aspartate Amino Transferase 20 U/L (5-37); Bilirubin Direct 0.2 mg/dL (0.0-0.5); Bilirubin Total 0.4 mg/dL (0.0-1.0); C Reactive Protein < 0.10 mg/dL (< or = 0.50); Lipase 13 U/L (8-78); Total Protein 8.1 g/dL (6.5-8.0)
== END 2023-03-12 11:59 | disposition home or self-care (01) ==
LOC: HO.CHCLDS 11:58
PROVIDERS: Visit Provider Registered Nurse
DX: R10.11 Right upper quadrant pain (principal)
CPT/HCPCS: 36415; 80076; 83690; 85025; 86140

== ENCOUNTER 2023-05-07 16:16 | Outpatient (REF) | payer MEDICAID, SELFPAY ==
[2023-05-07 18:07] LABS: MANUAL DIFF FLAG NO
[2023-05-07 18:11] LABS: Basophils Absolute Auto 0.1 X10*3/uL (0.0-0.2); Eosinophils Absolute Auto 0.3 X10*3/uL (0.0-0.4); Eosinophils Percent Auto 4.4 % (0-4); Hematocrit 41.1 % (42.0-52.0); Hemoglobin 14.1 g/dl (14.0-18.0); Imm Gran Abs Auto 0.01 X10*3/uL (0.00-0.03); Imm Gran Pct Auto 0.2 % (0.0-0.4); Immature Retic Fraction 2.9 % (2.3-13.4); Lymphocytes Absolute Auto 2.4 X10*3/uL (1.2-4.9); Lymphocytes Percent Auto 38.2 % (20-40); Mean Corpuscular HGB Conc 34.3 g/dl (31.0-36.0); Mean Corpuscular Hemoglobin 32.2 pg (27.0-33.0); Mean Corpuscular Volume 93.8 fL (80.0-98.0); Mean Platelet Volume 10.6 fL (9.4-12.4); Monocytes Absolute Auto 0.5 X10*3/uL (0.1-1.2); Monocytes Percent Auto 8.1 % (2-11); Neutrophils Percent Auto 48.1 % (45-73); Platelet Count 191 X10*3/uL (160-400); Red Blood Count 4.38 X10*6/uL (4.60-5.80); Red Cell Distribution Width 12.1 % (11.0-16.0); Reticulocyte Percent 0.7 % (0.5-1.8); Reticulocytes Absolute 0.032 X10*6/uL (0.026-0.095); White Blood Count 6.3 X10*3/uL (4.8-10.8)
[2023-05-07 19:05] LABS: Folate 13.9 ng/mL (> or = 4.0); Vitamin B12 1015 pg/mL (200-900)
== END 2023-05-07 16:17 | disposition home or self-care (01) ==
LOC: HO.CHCLDS 16:16
PROVIDERS: Visit Provider Family Medicine
DX: D75.89 Other specified diseases of blood and blood-forming organs (principal)
CPT/HCPCS: 36415; 82607; 82746; 85025; 85045

== ENCOUNTER 2023-05-25 15:02 | Outpatient (REF) | payer MEDICAID, SELFPAY ==
[2023-05-25 17:22] LABS: MANUAL DIFF FLAG NO
[2023-05-25 17:51] LABS: Basophils Absolute Auto 0.1 X10*3/uL (0.0-0.2); Basophils Percent Auto 0.9 % (0-2); Eosinophils Absolute Auto 0.4 X10*3/uL (0.0-0.4); Eosinophils Percent Auto 5.3 % (0-4); Hematocrit 46.1 % (42.0-52.0); Hemoglobin 15.8 g/dl (14.0-18.0); Imm Gran Abs Auto 0.01 X10*3/uL (0.00-0.03); Imm Gran Pct Auto 0.1 % (0.0-0.4); Lymphocytes Absolute Auto 2.4 X10*3/uL (1.2-4.9); Lymphocytes Percent Auto 29.6 % (20-40); Mean Corpuscular HGB Conc 34.3 g/dl (31.0-36.0); Mean Corpuscular Hemoglobin 31.7 pg (27.0-33.0); Mean Corpuscular Volume 92.4 fL (80.0-98.0); Mean Platelet Volume 10.5 fL (9.4-12.4); Monocytes Absolute Auto 0.7 X10*3/uL (0.1-1.2); Monocytes Percent Auto 8.4 % (2-11); Neutrophils Absolute Auto 4.5 x10*3/uL (2.0-8.3); Neutrophils Percent Auto 55.7 % (45-73); Platelet Count 232 X10*3/uL (160-400); Red Blood Count 4.99 X10*6/uL (4.60-5.80); Red Cell Distribution Width 12.1 % (11.0-16.0); White Blood Count 8.1 X10*3/uL (4.8-10.8)
[2023-05-25 18:18] LABS: Erythrocyte Sedimentation Rate 1 MM/HR (0-15)
[2023-05-25 19:20] LABS: Anion Gap 17 (12-20); Blood Urea Nitrogen 11 mg/dL (9-16); C Reactive Protein < 0.10 mg/dL (< or = 0.50); Calcium 10.2 mg/dL (8.4-10.2); Carbon Dioxide 24 mmol/L (22-29); Chloride 105 mmol/L (96-108); Estimated Glomerular Filt Rate > 60; Potassium 3.7 mmol/L (3.3-5.1); Sodium 142 mmol/L (135-145)
[2023-05-25 19:39] LABS: Glucose Random 55 mg/dL (60-115)
[2023-05-25 19:45] LABS: Vitamin B12 970 pg/mL (200-900)
== END 2023-05-25 15:03 | disposition home or self-care (01) ==
LOC: HO.CHCLDS 15:02
PROVIDERS: Visit Provider Internal Medicine
DX: K12.0 Recurrent oral aphthae (principal)
CPT/HCPCS: 36415; 80048; 82607; 85025; 85652; 86140

== ENCOUNTER 2023-06-15 08:29 | Outpatient (REF) | payer MEDICAID, SELFPAY ==
--- NOTE | 2023-06-15 08:33 | EMG_ITS ---
Chief complaint: Left hand numbness/pain Compared to past EMG, done by Dr. Rogel in 12/21/2022, left upper extremity within normal. Reason for referral: Evaluate for Carpal Tunnel Syndrome Referred by: Dr. Orellana Procedure done: Left upper extremity NCS/EMG Precautions and/or limitations: None The limb temperature was monitored continuously and remained between 32-36 degrees C during the performance of the NCS. FINDINGS: All motor and sensory nerves tested showed normal latencies, amplitudes and conduction velocities. Concentric needle EMG was performed in selected muscles of the left upper extremity and cervical paraspinals. Study did not reveal signs of electric abnormalities as shown in the table below. Nerve Conduction Studies Anti Sensory Summary Table ?Stim Site NR Onset (ms) Norm Onset (ms) Peak (ms) Norm Peak (ms) O-P Amp (?V) Norm O-P Amp Site1 Site2 Delta-0 (ms) Dist (cm) Nj (m/s) Norm Nj (m/s) Left Median Anti Sensory (2nd Digit) Wrist ? 2.3 3.1 <3.6 35.2 >10 Wrist 2nd Digit 2.3 14.0 61 Left Ulnar Anti Sensory (5th Digit) Wrist ? 2.6 3.2 <3.7 24.1 >15.0 Wrist 5th Digit 2.6 14.0 54 Motor Summary Table ?Stim Site NR Onset (ms) Norm Onset (ms) O-P Amp (mV) Norm O-P Amp iAmp (mV) Amp (1st) (%) Site1 Site2 Delta-0 (ms) Dist (cm) Nj (m/s) Norm Nj (m/s) Left Median Motor (Abd Poll Brev) Wrist ? 3.7 <3.9 8.2 >4.5 9.8 100.0 Elbow Wrist 4.3 23.0 53 >45 Elbow ? 8.0 8.2 9.6 100.0 Left Ulnar Motor (Abd Dig Minimi) Wrist ? 2.6 <3.0 10.0 >5 12.3 100.0 B Elbow Wrist 3.6 20.0 56 >45 B Elbow ? 6.2 8.4 10.9 84.0 A Elbow B Elbow 1.5 10.0 67 >45 A Elbow ? 7.7 7.5 10.2 75.0 Comparison Summary Table ?Stim Site NR Peak (ms) Norm Peak (ms) P-T Amp (?V) Site1 Site2 Delta-P (ms) Norm Delta (ms) Left Median/Radial Dig I Comparison (Digit 1 - 10cm) Median ? 2.5 <2.9 47.4 Median Radial -0.3 Radial ? 2.8 <2.8 21.8 EMG ?Side Muscle Nerve Root Ins Act Fibs Psw Amp Dur Poly Recrt Int Pat Comment Left 1stDorInt Ulnar C8-T1 Nml Nml Nml Nml Nml 0 Nml Complete Left FlexCarRad Median C6-7 Nml Nml Nml Nml Nml 0 Nml Complete Left Biceps Musculocut C5-6 Nml Nml Nml Nml Nml 0 Nml Complete Left Triceps Radial C6-7-8 Nml Nml Nml Nml Nml 0 Nml Complete Left Deltoid Axillary C5-6 Nml Nml Nml Nml Nml 0 Nml Complete Paraspinal EMG ?Side Muscle Nerve Root Ins Act Fibs Psw Comment Left Cervical Upper Rami Nml Nml Nml Left Cervical Mid Rami Nml Nml Nml Left Cervical Lower Rami Nml Nml Nml IMPRESSION: 1. This is a normal study. 2. There is no electrodiagnostic evidence for median neuropathy, ulnar neuropathy, brachial plexopathy, or cervical radiculopathy. Thank you for your kind referral. Nina Grijalva MD, EDGARDO Board Certified, [place] [employer] and [employer] (ABPMR) Board Certified, [place] Board [employer] Electrodiagnostic Medicine (ABEM) CODIN [id number] MTDD
== END 2023-06-15 08:30 | disposition home or self-care (01) ==
LOC: HO.NEURO 08:29
PROVIDERS: PCP Family Medicine; Visit Provider Family Medicine
DX: R20.0 Anesthesia of skin (principal); R20.2 Paresthesia of skin
CPT/HCPCS: 95886; 95909

== ENCOUNTER → 2023-06-15 08:33 | Outpatient (BNV) | payer MEDICAID, SELFPAY | PROVIDERS: PCP Family Medicine; Visit Provider Physical Medicine & Rehabilitation | DX: M79.642 Pain in left hand (principal); R20.2 Paresthesia of skin | CPT/HCPCS: 95886; 95909 ==

== ENCOUNTER 2023-08-14 00:50 | Emergency (ER) | payer MEDICAID, SELFPAY ==
--- NOTE | ~2023-08-14 | CT_ITS ---
EXAMINATION: CT ABDOMEN AND PELVIS WITH CONTRAST CLINICAL INFORMATION: Severe right groin pain and reducible hernia site COMPARISON: 03/09/2023 TECHNIQUE: Multidetector volumetric images were obtained from the superior aspect of the liver through the pubic symphysis following administration 85 mL of Omnipaque 350 intravenous contrast. Sagittal and coronal reformatted images were obtained on the technologist's workstation. Oral contrast: No This CT examination was performed using dose optimization techniques as appropriate, variously including the following: *Automated exposure control *Adjustment of mA and/or kV according to patient size (this includes techniques or standardized protocols for targeted exams where dose is matched to indication/reason for exam; i.e. extremities or head) *Use of iterative reconstruction technique DLP: 506 mGy-cm FINDINGS: LUNG BASES: The visualized lung bases are unremarkable. LIVER, GALLBLADDER, AND BILIARY TREE: The liver is normal in size, shape, and attenuation. Mild periportal edema. No focal hepatic lesion or biliary ductal dilatation is present. The gallbladder is unremarkable with no evidence of radiopaque gallstones, gallbladder wall thickening, or obvious pericholecystic inflammatory changes. PANCREAS: Unremarkable. SPLEEN: Unremarkable. ADRENAL GLANDS: Unremarkable. KIDNEYS AND URETERS: The kidneys are normal in size, shape, and attenuation. No hydronephrosis, hydroureter, or calculi seen. No perinephric stranding. BLADDER: Unremarkable. GASTROINTESTINAL TRACT: No bowel related abnormalities. Appendectomy. ABDOMINAL WALL: There is an oval hypodense structure or fluid collection in the right inguinal canal measuring 2.9 x 1.5 x 1.8 cm. No significant hernia is evident. LYMPH NODES: Normal. VASCULAR: Unremarkable. PELVIC VISCERA: Unremarkable. OSSEOUS STRUCTURES: No acute or suspicious osseous abnormalities. CT/CT abdomen pelvis w IV con IMPRESSION: * There is an oval hypodense structure or fluid collection in the right inguinal canal measuring 2.9 x 1.5 x 1.8 cm. This could represent a spermatic cord hydrocele, fluid within a persistent processes vaginalis or small hernia, lymphocele, or possibly an undescended testicle. Please correlate with physical exam. * No additional acute findings within the abdomen or pelvis. Fleischner guidelines were followed.
--- NOTE | ~2023-08-14 | US_ITS ---
EXAMINATION: US SCROTUM CLINICAL INFORMATION: Pain and swelling x4 days. COMPARISON: None available. TECHNIQUE: A sonogram of the scrotum was performed assessing chaudhry-scale appearance and color Doppler flow. Spectral Doppler analysis of the arterial and venous flow were performed in the testes bilaterally. FINDINGS: RIGHT: Right testicle measures 5.6 x 3.0 x 3.7 cm, volume 32.5 mL. No focal testicular parenchymal lesions are visualized. Spectral Doppler analysis of the arterial and venous flow is normal in the right testis. Right epididymal head is normal in size. There are small epididymal head cyst measuring 0.2 x 0.2 x 0.2 cm and 0.1 x 0.1 x 0.2 cm. No right hydrocele or varicocele is seen. Right epididymal Doppler flow is normal.. There is fluid collection seen in the right inguinal canal LEFT: Left testicle measures 5.5 x 2.5 x 3.2 cm, volume 23.5 mL. No focal testicular parenchymal lesions are visualized. Spectral Doppler analysis of the arterial and venous flow is normal in the left testis. Incidental finding of a small scrotal pieter along the mid scrotum. Left epididymal head is normal in size. No left hydrocele or varicocele is seen. Left epididymal Doppler flow is normal. US/US scrotum doppler IMPRESSION: Right epididymal cyst. Small fluid collection noted in the right inguinal canal. Small left scrotal pole. Normal testes and epididymis ultrasound with normal venous and arterial Doppler flow.
--- NOTE | ~2023-08-14 | US_ITS ---
EXAMINATION: US SCROTUM CLINICAL INFORMATION: Pain and swelling x4 days. COMPARISON: None available. TECHNIQUE: A sonogram of the scrotum was performed assessing chaudhry-scale appearance and color Doppler flow. Spectral Doppler analysis of the arterial and venous flow were performed in the testes bilaterally. FINDINGS: RIGHT: Right testicle measures 5.6 x 3.0 x 3.7 cm, volume 32.5 mL. No focal testicular parenchymal lesions are visualized. Spectral Doppler analysis of the arterial and venous flow is normal in the right testis. Right epididymal head is normal in size. There are small epididymal head cyst measuring 0.2 x 0.2 x 0.2 cm and 0.1 x 0.1 x 0.2 cm. No right hydrocele or varicocele is seen. Right epididymal Doppler flow is normal.. There is fluid collection seen in the right inguinal canal LEFT: Left testicle measures 5.5 x 2.5 x 3.2 cm, volume 23.5 mL. No focal testicular parenchymal lesions are visualized. Spectral Doppler analysis of the arterial and venous flow is normal in the left testis. Incidental finding of a small scrotal pieter along the mid scrotum. Left epididymal head is normal in size. No left hydrocele or varicocele is seen. Left epididymal Doppler flow is normal. US/US scrotum IMPRESSION: Right epididymal cyst. Small fluid collection noted in the right inguinal canal. Small left scrotal pole. Normal testes and epididymis ultrasound with normal venous and arterial Doppler flow.
[2023-08-14 01:13] VITALS: BP 110/79; PULSE 98; RESP 20; TEMP 36.5; O2SAT 98; BMI 26.5
--- NOTE | 2023-08-14 02:03 | MHC.EDTECH ---
Patient urine sample collected and sent to lab .
[2023-08-14 02:11] LABS: Appearance Urine Clear; Color Urine Yellow; Glucose Urine UA Negative (Negative); Leukocyte Esterase Urine Negative (Negative); Nitrite Urine Negative (Negative); PH 6.5 (5.0-9.0); Urine Blood Negative (Negative); Urine Ketones Negative (Negative); Urine Protein Negative (Neg-Trace)
[2023-08-14 02:16] LABS: Bacteria Urine None Seen (None Seen); Hyaline Casts Urine 0-2 /LPF (0-2); RBC Urine 0-2 /HPF (0-2); Squamous Epithelial Cell Urine 0-2 /HPF (0-2); WBC Urine 0-5 /HPF (0-5)
--- NOTE | 2023-08-14 03:50 | ED.ABDPAIN ---
HPI - Abdominal Pain General Chief Complaint: General Medical Stated Complaint: hernia Time Seen by Provider: 08/14/23 03:27 Source: patient and old records reviewed Mode of arrival: ambulatory Limitations: no limitations History of Present Illness HPI narrative: 43 yo male with PMH Of OCD, hypomagnesemia, PTSD, chronic pain syndrome, GERD, IBS, prior appendectomy, states he was bent down on Sunday and felt something tear and pull in the right lower groin. He was told by his PCP he has a herni and needs an US. He states he has no issues urinating but he cannot have a BM. He notes the pain is so bad he cannot walk. He notes there has been no mass or anything popped out in the groin. He feels the area in his groin is tingly and numb MD elicited complaint: abdominal pain Pertinent past history: none Onset (ago): day(s) (3) Pain Consistency: constant Location: RLQ Severity: severe Quality: stabbing and fullness Radiation: none Migration to: no migration Exacerbating factors: movement Relieving factors: rest Context: other (started with bending forward) Associated symptoms: other (tingling in area) Related Data Home Medications Medication Instructions Recorded Confirmed acetaminophen 500 mg tablet 1,000 mg PO Q8H PRN fever 01/06/22 11/28/22 emtricitabine 200 mg-tenofovir 1 tab PO DAILY 01/06/22 11/28/22 disoproxil fumarate 300 mg tablet levocetirizine 5 mg tablet 5 mg PO QPM 01/06/22 11/28/22 montelukast 10 mg tablet 10 mg PO QPM 01/06/22 11/28/22 nicotine 21 mg/24 hr daily 1 patch topical DAILY 01/06/22 11/28/22 transdermal patch tadalafil 20 mg tablet (Cialis) 20 mg PO DAILY PRN 01/06/22 11/28/22 nabumetone 500 mg tablet 500 mg PO BID PRN 07/26/22 11/28/22 albuterol sulfate 90 mcg/actuation 2 puff inhalation Q4-6H PRN 10/04/22 11/28/22 aerosol inhaler (ProAir HFA) dicyclomine 20 mg tablet 20 mg PO QID PRN 10/04/22 11/28/22 peg [id number] 1 1 drp ophthalmic (eye) TID-QID 10/04/22 11/28/22 %-0.2 %-0.2 % eye drops (Artificial Tears ([id number])) vardenafil 10 mg tablet 10 mg PO DAILY PRN 10/04/22 11/28/22 atomoxetine 40 mg capsule 40 mg PO QAM 01/12/23 (Strattera) baclofen 10 mg tablet 5 mg PO TID PRN 01/12/23 doxepin 10 mg capsule 10 mg PO BEDTIME 01/12/23 duloxetine 30 mg capsule,delayed 30 mg PO DAILY 01/12/23 release fluticasone propionate 50 1 spray intranasal DAILY 01/12/23 mcg/actuation nasal spray,suspension (Allergy Relief (fluticasone)) magnesium 250 mg tablet 250 mg PO DAILY 01/12/23 sertraline 50 mg tablet 50 mg PO BEDTIME 01/12/23 Previous Rx's Medication Instructions Recorded pantoprazole 40 mg tablet,delayed 40 mg PO BID 30 days #60 tabs 11/13/22 release (Protonix) eluxadoline 75 mg tablet (Viberzi) 75 mg PO BID #60 tabs 11/28/22 [id number] 1 cap PO . qidac 30 days #120 caps 01/09/23 24,000-76,000-120,000 unit capsule,delayed rel (Creon) rabeprazole 20 mg tablet,delayed 20 mg PO BID 30 days #60 tabs 01/12/23 release (AcipHex) rifaximin 550 mg tablet (Xifaxan) 550 mg PO BID 14 days #28 tabs 01/12/23 naproxen 500 mg tablet (Naprosyn) 500 mg PO BID #20 tabs 02/06/23 metoclopramide HCl 5 mg tablet 5 mg PO QID #120 tabs 06/27/23 simethicone 180 mg capsule 180 mg PO QID #120 caps 07/27/23 Allergies Allergy/AdvReac Type Severity Reaction Status Date / Time cat dander [CAT] Allergy Intermediate SNEEZING, Verified 02/22/23 11:40 THROAT SWOLLEN tacrolimus [From PROTOPIC] Allergy Intermediate HEADACHE,DI Verified 02/22/23 11:40 ZZY,N/V seafood Allergy Mild unknown Verified 02/22/23 11:40 Seasonal Allergies Allergy Unknown Sneezing Verified 02/22/23 11:40 DUST Allergy Intermediate SNEEZING Uncoded 02/22/23 11:40 Review of Systems Review of Systems Constitutional : No Weight loss, No Fever, No Chills ENT/Mouth : No sore throat, No Rhinorrhea Eyes: No Swelling, No Redness Cardiovascular : No Chest Pain, No SOB, NoEdema Respiratory : No Cough, No Sputum, No Wheezing Gastrointestinal : no Nausea, no Vomiting, no Diarrhea, positive abdominal Pain, No Hematochezia, No Melena Genitourinary : No Dysuria, No Urinary Frequency, No Hematuria, No Urgency Musculoskeletal : No joint pain, No Myalgias, No Joint Swelling Skin : No Skin Lesions, No rash Neuro : No Weakness, No Numbness, No Dizziness, No Headache Psych : No Anxiety/Panic, No Depression All other systems reviewed and are negative. [facility] Past Medical History Attestation statement: The following information was validated with the patient. Medical History History of anal fissures Surgical History H/O rectal sphincterotomy H/O esophagogastroduodenoscopy History of colonoscopy Hx of appendectomy Family History Family History Father No problems noted. Mother Mental health problem Fibromyalgia Cancer Maternal Grandfather Cancer Social History Social History Household Members: None Housing: Apartment Alcohol intake: never Patient Tobacco Use Status: Current everyday Tobacco user Smoked in Last 30 Days: Yes Use of substances other than those prescribed or required for medical reasons: No Substance Use Type: Marijuana Advance Directives: No Advance Directives Information Provided: No Physical Exam ED Vital Signs: Vital Signs - 24 hr 08/14/23 01:13 08/14/23 03:57 08/14/23 05:15 Temperature 97.7 F 98.8 F 97.9 F Pulse Rate 98 77 69 Respiratory Rate 20 16 16 Blood Pressure 110/79 108/78 106/73 Pulse Oximetry 98 98 93 Oxygen Delivery Method Room Air Room Air Room Air BMI result Body Mass Index 26.5 Appearance: Alert. Oriented X3. No acute distress. Eyes: Pupils equal, round and reactive to light. ENT: Pharynx normal. Neck: Normal inspection. Neck supple. CVS: Normal heart rate and rhythm. Pulses normal. Respiratory: No respiratory distress. Breath sounds normal. Abdomen: Soft and overly tender in right groin, no spermatic cord ttp, R scrotum feels normal, I feel a hernia but it is soft and not protruding only noticeable when he coughs. There is no incarceration. He states the area is tingling and numb but on exam he jumps with any palpation to touch Skin: Skin warm and dry. Normal skin color. Normal skin turgor. Extremities: No lower extremity edema. No calf ttp Neuro: Oriented X 3. No motor deficit. No sensory deficit. Course Course Course Narrative: given CT scan will obtain US of scrotum Reevaluation(s) Reevaluation #1: signed out to Dr. Reis pending US and Dr. Severino input. Medical Decision Making Medical Decision Making [facility] Narrative: 43 yo male with PMH Of OCD, hypomagnesemia, PTSD, chronic pain syndrome, GERD, IBS, prior appendectomy here with very marked ttp in R groin area but no overt incarcerated hernia noted and scrotal/spermatic cord area is not ttp. At this time labs, UA, CT scan for missed pathology such as muscle tear, hernia, mass ordered. Differential Diagnosis Differential Diagnoses: The differential diagnosis associated with the presentation includes hernia, muscle tear, abdominal wall strain Admission/Observation Consideration of admission/observation: Escalation of care including admission/observation considered Consult Healthcare Provider Management of the patient was discussed with: Steward/Stewardess Banquet (Dr. Severino to see patient) Lab Data [facility] Lab Attestation statement: I reviewed the patient's lab results. 08/14/23 03:53 08/14/23 03:53 Labs: Lab Results 08/14/23 08/14/23 Range/Units 02:03 03:53 WBC 7.3 (4.8-10.8) X10*3/uL RBC 3.55 L D (4.60-5.80) X10*6/uL Hgb 11.9 L D (14.0-18.0) g/dl Hct 36.0 L D (42.0-52.0) % MCV 101.4 H (80.0-98.0) fL MCH 33.5 H (27.0-33.0) pg MCHC 33.1 (31.0-36.0) g/dl RDW 11.7 (11.0-16.0) % Plt Count 193 (160-400) X10*3/uL MPV 9.8 (9.4-12.4) fL Immature Gran % (Auto) 0.4 (0.0-0.4) % Neut % (Auto) 51.5 (45-73) % Lymph % (Auto) 32.1 (20-40) % [place] % (Auto) 9.6 (2-11) % Eos % (Auto) 5.4 H (0-4) % Baso % (Auto) 1.0 (0-2) % Lymph # (Auto) 2.3 (1.2-4.9) X10*3/uL [place] # (Auto) 0.7 (0.1-1.2) X10*3/uL Eos # (Auto) 0.4 (0.0-0.4) X10*3/uL Baso # (Auto) 0.1 (0.0-0.2) X10*3/uL Abs Immat Gran (auto) 0.03 (0.00-0.03) X10*3/uL Absolute Neuts (auto) 3.8 (2.0-8.3) x10*3/uL Absolute Nucleated RBC 0.020 H (0.0-0.012) X10*3/uL Nucleated RBC % (auto) 0.3 H (0.0-0.2) /100WBC Sodium 142 (135-145) mmol/L Potassium 4.1 (3.3-5.1) mmol/L Chloride 108 (96-108) mmol/L Carbon Dioxide 24 (22-29) mmol/L Anion Gap 14 (12-20) BUN 17 H (9-16) mg/dL Creatinine 1.06 (0.5-1.4) mg/dL Estim Creat Clear Calc 92.7 Estimated GFR > 60 Random Glucose 91 (60-115) mg/dL Calcium 9.3 D (8.4-10.2) mg/dL Magnesium 2.3 (1.6-2.6) mg/dL Total Bilirubin 0.4 (0.0-1.0) mg/dL Direct Bilirubin 0.1 (0.0-0.5) mg/dL AST 21 (5-37) U/L ALT 42 H (0-40) U/L Alkaline Phosphatase 62 (39-117) U/L Total Protein 6.8 (6.5-8.0) g/dL Albumin 4.4 (3.5-5.0) g/dL Urine Color Yellow Urine Appearance Clear Urine pH 6.5 (5.0-9.0) Ur Specific [place] 1.010 (1.005-1.025) Urine Protein Negative (Neg-Trace) mg/dL Urine Glucose (UA) Negative (Negative) mg/dL Urine Ketones Negative (Negative) mg/dL Urine Blood Negative (Negative) Urine Nitrite Negative (Negative) Ur Leukocyte Esterase Negative (Negative) Urine RBC 0-2 (0-2) /HPF Urine WBC 0-5 (0-5) /HPF Ur Squamous Epith Cells 0-2 (0-2) /HPF Urine Bacteria None Seen (None Seen) Hyaline Casts 0-2 (0-2) /LPF Independent Interpretation I performed an independent interpretation of an: Ultrasound and CT Scan (CT scan fluid collection) Radiology Impression Discussion of test interpretation with radiology: I have reviewed the radiologist's reading. External Record Review External record reviewed: Inpatient record Medications Administered Discontinued Medications Generic Name Dose Route Start Last Admin Trade Name Freq PRN Reason Stop Dose Admin Sodium Chloride 1,000 mls @ 999 mls/hr 08/14/23 03:45 08/14/23 04:55 Ns IV 08/14/23 04:45 Infused .Q1H1M ANDRESSA Infusion Iohexol 85 ml 08/14/23 05:06 08/14/23 05:07 Iohexol 350 Mg/Ml 100 Ml Infus..Btl IV 08/14/23 05:07 85 ml ONCE ONE Administration Morphine Sulfate 4 mg 08/14/23 04:10 08/14/23 04:18 Morphine Sulfate 4 Mg/Ml Cartridge IVPUSH 08/14/23 04:11 4 mg ONCE ONE Administration Protocol Ondansetron HCl 4 mg 08/14/23 04:10 08/14/23 04:18 Ondansetron Hcl 4 Mg/2 Ml Vial IVPUSH 08/14/23 04:11 4 mg ONCE ONE Administration Discharge Plan Discharge Clinical Impression: Groin pain Qualifiers: Laterality: right Qualified Code(s): R10.31 - Right lower quadrant pain Patient Disposition: Still a Patient Prescriptions: No Action pantoprazole [Protonix] 40 mg tablet,delayed release (DR/EC) 40 mg PO BID 30 Days Qty: 60 6RF Hold Instructions: Doctor's Order Creon 24,000-76,000 -120,000 unit capsule,delayed release(DR/EC) 1 cap PO . qidac 30 Days Qty: 120 3RF Rx Instructions: administer with meals and/or snacks metoclopramide HCl 5 mg tablet 5 mg PO QID Qty: 120 3RF simethicone 180 mg capsule 180 mg PO QID Qty: 120 3RF naproxen [Naprosyn] 500 mg tablet 500 mg PO BID Qty: 20 0RF levocetirizine 5 mg tablet 5 mg PO QPM emtricitabine-tenofovir (TDF) 200-300 mg tablet 1 tab PO DAILY montelukast 10 mg tablet 10 mg PO QPM acetaminophen 500 mg tablet 1,000 mg PO Q8H PRN (Reason: fever) tadalafil [Cialis] 20 mg tablet 20 mg PO DAILY PRN nicotine 21 mg/24 hr patch 24 hour 1 patch topical DAILY duloxetine 30 mg capsule,delayed release(DR/EC) 30 mg PO DAILY Viberzi 75 mg tablet 75 mg PO BID Qty: 60 3RF Rx Instructions: must administer with a meal/food nabumetone 500 mg tablet 500 mg PO BID PRN vardenafil 10 mg tablet 10 mg PO DAILY PRN Artificial Tears(dr-qqbo-tzwj) 1-0.2-0.2 % drops 1 drp ophthalmic (eye) TID-QID dicyclomine 20 mg tablet 20 mg PO QID PRN albuterol sulfate [ProAir HFA] 90 mcg/actuation HFA aerosol inhaler 2 puff inhalation Q4-6H PRN atomoxetine [Strattera] 40 mg capsule 40 mg PO QAM sertraline 50 mg tablet 50 mg PO BEDTIME baclofen 10 mg tablet 5 mg PO TID PRN doxepin 10 mg capsule 10 mg PO BEDTIME fluticasone propionate [Allergy Relief (fluticasone)] 50 mcg/actuation spray,suspension 1 spray intranasal DAILY Rx Instructions: administer into each nostril magnesium 250 mg tablet 250 mg PO DAILY rabeprazole [AcipHex] 20 mg tablet,delayed release (DR/EC) 20 mg PO BID 30 Days Qty: 60 6RF Xifaxan 550 mg tablet 550 mg PO BID 14 Days Qty: 28 0RF
[2023-08-14] MEDS: 0.9 % Sodium Chloride 1,000 ML 999 ML IV (03:54)
[2023-08-14 03:57] VITALS: BP 108/78; PULSE 77; RESP 16; TEMP 37.1; O2SAT 98
[2023-08-14 03:59] LABS: MANUAL DIFF FLAG NO
--- NOTE | 2023-08-14 04:00 | PC.NURSE ---
pt from home reporting onset of lower abdominal pain since sunday. pt reports speaking to pcp who recommended pt be seen by provider in ed. pt denies n/v/d at this time. pt reports pain radiates to the left upper leg. pt reports pain worsens with ambulation and movement and reports pain subsides with rest. IV established and labs obtained at this time. pt given warm blanket.
[2023-08-14 04:02] LABS: Basophils Absolute Auto 0.1 X10*3/uL (0.0-0.2); Eosinophils Absolute Auto 0.4 X10*3/uL (0.0-0.4); Eosinophils Percent Auto 5.4 % (0-4); Hemoglobin 11.9 g/dl (14.0-18.0); Imm Gran Abs Auto 0.03 X10*3/uL (0.00-0.03); Imm Gran Pct Auto 0.4 % (0.0-0.4); Lymphocytes Absolute Auto 2.3 X10*3/uL (1.2-4.9); Lymphocytes Percent Auto 32.1 % (20-40); Mean Corpuscular HGB Conc 33.1 g/dl (31.0-36.0); Mean Corpuscular Hemoglobin 33.5 pg (27.0-33.0); Mean Corpuscular Volume 101.4 fL (80.0-98.0); Mean Platelet Volume 9.8 fL (9.4-12.4); Monocytes Absolute Auto 0.7 X10*3/uL (0.1-1.2); Monocytes Percent Auto 9.6 % (2-11); NRBC Pct Auto 0.3 /100WBC (0.0-0.2); Neutrophils Absolute Auto 3.8 x10*3/uL (2.0-8.3); Neutrophils Percent Auto 51.5 % (45-73); Platelet Count 193 X10*3/uL (160-400); Red Blood Count 3.55 X10*6/uL (4.60-5.80); Red Cell Distribution Width 11.7 % (11.0-16.0); White Blood Count 7.3 X10*3/uL (4.8-10.8)
[2023-08-14 04:14] LABS: Alanine Aminotransferase 42 U/L (0-40); Albumin Level 4.4 g/dL (3.5-5.0); Alkaline Phosphatase 62 U/L (39-117); Anion Gap 14 (12-20); Aspartate Amino Transferase 21 U/L (5-37); Bilirubin Direct 0.1 mg/dL (0.0-0.5); Bilirubin Total 0.4 mg/dL (0.0-1.0); Blood Urea Nitrogen 17 mg/dL (9-16); Calcium 9.3 mg/dL (8.4-10.2); Carbon Dioxide 24 mmol/L (22-29); Chloride 108 mmol/L (96-108); Creatinine Clr Calc Pharmacy 92.7; Estimated Glomerular Filt Rate > 60; Glucose Random 91 mg/dL (60-115); Magnesium 2.3 mg/dL (1.6-2.6); Potassium 4.1 mmol/L (3.3-5.1); Sodium 142 mmol/L (135-145); Total Protein 6.8 g/dL (6.5-8.0)
[2023-08-14] MEDS: Morphine Sulfate 4 MG/ML CARTRIDGE IVPUSH (04:18)
[2023-08-14] MEDS: ondansetron HCL 4 MG/2 ML VIAL IVPUSH (04:18)
[2023-08-14] MEDS: iohexoL 350 MG/ML 100 ML INFUS..BTL 85 ML IV (05:07)
[2023-08-14 05:15] VITALS: BP 106/73; PULSE 69; RESP 16; TEMP 36.6; O2SAT 93
[2023-08-14 07:39] VITALS: BP 130/84; PULSE 64; RESP 16; TEMP 36.9; O2SAT 93
--- NOTE | 2023-08-14 07:39 | PM.CNGS ---
History of Present Illness Consult details Consult date: 08/14/23 Narrative: 43-year-old male referred for right groin pain. He had noticed this about 4-5 days ago. He said this started when he bent his torso at that time. He denies any GI complaints. He denies nausea or vomiting. He does not notice any mass in the area. He says the pain seems to radiate to the medial thigh as well. In view of the persistence of pain, he came to the emergency room early this morning. He denies any systemic symptoms. Review of Systems Constitutional: Constitutional: Denies chills and Denies fever(s) Cardiovascular: Cardiovascular: Denies chest pain, Denies dyspnea and Denies dyspnea on exertion Respiratory: Respiratory: Denies cough, Denies dyspnea and Denies dyspnea on exertion Gastrointestinal: Gastrointestinal: Denies hematochezia and Denies change in bowel habits Genitourinary: Genitourinary: Denies hematuria and Denies difficulty urinating Musculoskeletal: Musculoskeletal: Reports back pain, Reports myalgias, Reports arthralgias and Reports limited range of motion Neurologic: Denies focal weakness and Denies convulsions Psychiatric: Psychiatric: Denies depression and Denies mood swings PMF Past Medical History Medical History (Updated 08/15/23 @ 00:02 by Helena Starkey) Right groin pain History of anal fissures Family History Family History Father No problems noted. Mother Mental health problem Fibromyalgia Cancer Maternal Grandfather Cancer Surgical History Surgical History H/O rectal sphincterotomy H/O esophagogastroduodenoscopy History of colonoscopy Hx of appendectomy Social History Social History Household Members: None Housing: Apartment Alcohol intake: never Patient Tobacco Use Status: Current everyday Tobacco user Smoked in Last 30 Days: Yes Use of substances other than those prescribed or required for medical reasons: No Substance Use Type: Marijuana Advance Directives: No Advance Directives Information Provided: No Meds Allergies Allergy/AdvReac Type Severity Reaction Status Date / Time cat dander [CAT] Allergy Intermediate SNEEZING, Verified 02/22/23 11:40 THROAT SWOLLEN tacrolimus [From PROTOPIC] Allergy Intermediate HEADACHE,DI Verified 02/22/23 11:40 ZZY,N/V seafood Allergy Mild unknown Verified 02/22/23 11:40 Seasonal Allergies Allergy Unknown Sneezing Verified 02/22/23 11:40 DUST Allergy Intermediate SNEEZING Uncoded 02/22/23 11:40 Home Medications Medication Instructions Recorded Confirmed Last Taken Type acetaminophen 500 mg tablet 1,000 mg PO Q8H PRN fever 01/06/22 11/28/22 Unknown History emtricitabine 200 mg-tenofovir 1 tab PO DAILY 01/06/22 11/28/22 Unknown History disoproxil fumarate 300 mg tablet levocetirizine 5 mg tablet 5 mg PO QPM 01/06/22 11/28/22 Unknown History montelukast 10 mg tablet 10 mg PO QPM 01/06/22 11/28/22 Unknown History nicotine 21 mg/24 hr daily 1 patch topical DAILY 01/06/22 11/28/22 Unknown History transdermal patch tadalafil 20 mg tablet (Cialis) 20 mg PO DAILY PRN 01/06/22 11/28/22 Unknown History nabumetone 500 mg tablet 500 mg PO BID PRN 07/26/22 11/28/22 Unknown History albuterol sulfate 90 mcg/actuation 2 puff inhalation Q4-6H PRN 10/04/22 11/28/22 Unknown History aerosol inhaler (ProAir HFA) dicyclomine 20 mg tablet 20 mg PO QID PRN 10/04/22 11/28/22 Unknown History peg [id number] 1 1 drp ophthalmic (eye) TID-QID 10/04/22 11/28/22 Unknown History %-0.2 %-0.2 % eye drops (Artificial Tears ([id number])) vardenafil 10 mg tablet 10 mg PO DAILY PRN 10/04/22 11/28/22 Unknown History atomoxetine 40 mg capsule 40 mg PO QAM 01/12/23 Unknown History (Strattera) baclofen 10 mg tablet 5 mg PO TID PRN 01/12/23 Unknown History doxepin 10 mg capsule 10 mg PO BEDTIME 01/12/23 Unknown History duloxetine 30 mg capsule,delayed 30 mg PO DAILY 01/12/23 Unknown History release fluticasone propionate 50 1 spray intranasal DAILY 01/12/23 Unknown History mcg/actuation nasal spray,suspension (Allergy Relief (fluticasone)) magnesium 250 mg tablet 250 mg PO DAILY 01/12/23 Unknown History sertraline 50 mg tablet 50 mg PO BEDTIME 01/12/23 Unknown History Physical Exam Vital Signs: Vital Signs: Last Vital Signs Temp 97.9 F 08/14/23 05:15 Pulse 69 08/14/23 05:15 Resp 16 08/14/23 05:15 BP 106/73 08/14/23 05:15 Pulse Ox 93 08/14/23 05:15 O2 Del Method Room Air 08/14/23 05:15 BMI result Body Mass Index 26.5 Const: General: comfortable and no acute distress Orientation/consciousness: patient oriented x3 Neck: Neck: Yes no lymphadenopathy Resp: Auscultation: clear to auscultation bilaterally Cardio: Rhythm: regular rhythm GI: Other: Point tenderness in a small area of the right groin, no palpable mass, no mass on Valsalva, no significant tenderness in the scrotum or testicle, no skin changes Palpation (GI): Soft to palpation, nontender and no guarding Neuro: General: patient oriented x3 Results Labs 08/14/23 03:53 08/14/23 03:53 Labs: Abnormal lab results 08/14/23 Range/Units 03:53 RBC 3.55 L D (4.60-5.80) X10*6/uL Hgb 11.9 L D (14.0-18.0) g/dl Hct 36.0 L D (42.0-52.0) % MCV 101.4 H (80.0-98.0) fL MCH 33.5 H (27.0-33.0) pg Eos % (Auto) 5.4 H (0-4) % Absolute Nucleated RBC 0.020 H (0.0-0.012) X10*3/uL Nucleated RBC % (auto) 0.3 H (0.0-0.2) /100WBC BUN 17 H (9-16) mg/dL ALT 42 H (0-40) U/L Short CBC 08/14/23 Range/Units 03:53 WBC 7.3 (4.8-10.8) X10*3/uL Hgb 11.9 L D (14.0-18.0) g/dl Hct 36.0 L D (42.0-52.0) % Plt Count 193 (160-400) X10*3/uL BMP 08/14/23 03:53 Sodium 142 Potassium 4.1 Chloride 108 Carbon Dioxide 24 BUN 17 H Creatinine 1.06 Calcium 9.3 D Liver Function 08/14/23 Range/Units 03:53 Total Bilirubin 0.4 (0.0-1.0) mg/dL Direct Bilirubin 0.1 (0.0-0.5) mg/dL AST 21 (5-37) U/L ALT 42 H (0-40) U/L Alkaline Phosphatase 62 (39-117) U/L Albumin 4.4 (3.5-5.0) g/dL Urine 08/14/23 Range/Units 02:03 Urine Color Yellow Urine Appearance Clear Urine pH 6.5 (5.0-9.0) Ur Specific [place] 1.010 (1.005-1.025) Urine Protein Negative (Neg-Trace) mg/dL Urine Glucose (UA) Negative (Negative) mg/dL All other labs normal. Imaging Abdomen CT scan report/results: report reviewed and image reviewed CT scan - pelvis: report reviewed and image reviewed US - pelvic: report reviewed and image reviewed Additional studies: Laboratory Results WBC 7.3 X10*3/uL (4.8-10.8) 08/14/23 03:53 RBC 3.55 X10*6/uL (4.60-5.80) L D 08/14/23 03:53 Hgb 11.9 g/dl (14.0-18.0) L D 08/14/23 03:53 Hct 36.0 % (42.0-52.0) L D 08/14/23 03:53 MCV 101.4 fL (80.0-98.0) H 08/14/23 03:53 MCH 33.5 pg (27.0-33.0) H 08/14/23 03:53 MCHC 33.1 g/dl (31.0-36.0) 08/14/23 03:53 RDW 11.7 % (11.0-16.0) 08/14/23 03:53 Plt Count 193 X10*3/uL (160-400) 08/14/23 03:53 MPV 9.8 fL (9.4-12.4) 08/14/23 03:53 Immature Gran % (Auto) 0.4 % (0.0-0.4) 08/14/23 03:53 Neut % (Auto) 51.5 % (45-73) 08/14/23 03:53 Lymph % (Auto) 32.1 % (20-40) 08/14/23 03:53 [place] % (Auto) 9.6 % (2-11) 08/14/23 03:53 Eos % (Auto) 5.4 % (0-4) H 08/14/23 03:53 Baso % (Auto) 1.0 % (0-2) 08/14/23 03:53 Lymph # (Auto) 2.3 X10*3/uL (1.2-4.9) 08/14/23 03:53 [place] # (Auto) 0.7 X10*3/uL (0.1-1.2) 08/14/23 03:53 Eos # (Auto) 0.4 X10*3/uL (0.0-0.4) 08/14/23 03:53 Baso # (Auto) 0.1 X10*3/uL (0.0-0.2) 08/14/23 03:53 Abs Immat Gran (auto) 0.03 X10*3/uL (0.00-0.03) 08/14/23 03:53 Absolute Neuts (auto) 3.8 x10*3/uL (2.0-8.3) 08/14/23 03:53 Absolute Nucleated RBC 0.020 X10*3/uL (0.0-0.012) H 08/14/23 03:53 Nucleated RBC % (auto) 0.3 /100WBC (0.0-0.2) H 08/14/23 03:53 Sodium 142 mmol/L (135-145) 08/14/23 03:53 Potassium 4.1 mmol/L (3.3-5.1) 08/14/23 03:53 Chloride 108 mmol/L (96-108) 08/14/23 03:53 Carbon Dioxide 24 mmol/L (22-29) 08/14/23 03:53 Anion Gap 14 (12-20) 08/14/23 03:53 BUN 17 mg/dL (9-16) H 08/14/23 03:53 Creatinine 1.06 mg/dL (0.5-1.4) 08/14/23 03:53 Estim Creat Clear Calc 92.7 08/14/23 03:53 Estimated GFR > 60 08/14/23 03:53 Random Glucose 91 mg/dL (60-115) 08/14/23 03:53 Calcium 9.3 mg/dL (8.4-10.2) D 08/14/23 03:53 Magnesium 2.3 mg/dL (1.6-2.6) 08/14/23 03:53 Total Bilirubin 0.4 mg/dL (0.0-1.0) 08/14/23 03:53 Direct Bilirubin 0.1 mg/dL (0.0-0.5) 08/14/23 03:53 AST 21 U/L (5-37) 08/14/23 03:53 ALT 42 U/L (0-40) H 08/14/23 03:53 Alkaline Phosphatase 62 U/L (39-117) 08/14/23 03:53 Total Protein 6.8 g/dL (6.5-8.0) 08/14/23 03:53 Albumin 4.4 g/dL (3.5-5.0) 08/14/23 03:53 Urine Color Yellow 08/14/23 02:03 Urine Appearance Clear 08/14/23 02:03 Urine pH 6.5 (5.0-9.0) 08/14/23 02:03 Ur Specific [place] 1.010 (1.005-1.025) 08/14/23 02:03 Urine Protein Negative mg/dL (Neg-Trace) 08/14/23 02:03 Urine Glucose (UA) Negative mg/dL (Negative) 08/14/23 02:03 Urine Ketones Negative mg/dL (Negative) 08/14/23 02:03 Urine Blood Negative (Negative) 08/14/23 02:03 Urine Nitrite Negative (Negative) 08/14/23 02:03 Ur Leukocyte Esterase Negative (Negative) 08/14/23 02:03 Urine RBC 0-2 /HPF (0-2) 08/14/23 02:03 Urine WBC 0-5 /HPF (0-5) 08/14/23 02:03 Ur Squamous Epith Cells 0-2 /HPF (0-2) 08/14/23 02:03 Urine Bacteria None Seen (None Seen) 08/14/23 02:03 Hyaline Casts 0-2 /LPF (0-2) 08/14/23 02:03 Impressions Abdomen/Pelvis CT 08/14/23 05:04 IMPRESSION: * There is an oval hypodense structure or fluid collection in the right inguinal canal measuring 2.9 x 1.5 x 1.8 cm. This could represent a spermatic cord hydrocele, fluid within a persistent processes vaginalis or small hernia, lymphocele, or possibly an undescended testicle. Please correlate with physical exam. * No additional acute findings within the abdomen or pelvis. Fleischner guidelines were followed. Scrotum Ultrasound 08/14/23 06:45 IMPRESSION: Right epididymal cyst. Small fluid collection noted in the right inguinal canal. Small left scrotal pole. Normal testes and epididymis ultrasound with normal venous and arterial Doppler flow. Assessment and Plan (1) Right groin pain: Status: Acute He is here because of right groin pain of about 45 days duration. He denies any precipitating factors although he does state that this have started when he was bending over. I have reviewed this ultrasound as well as his CAT scan. There is no obvious hernia. There is a small fluid collection for 2 cm in diameter in the right groin that may represent fluid within up patent processus vaginalis. There are no inflammatory changes. There was no torsion of the testicle. His labs are unremarkable His exam is overall benign. I explained to him that at this time, it does not appear that he will require any surgical intervention. I told him to do warm compresses the area. He may benefit from additional pain medications. He says he will be unable to work because of this pain for now. I told him that I will see him in the office follow-up so we can re-evaluate him down the line. He may may benefit from consultation with the urologist down the line if this does not resolve. He is comfortable with the plan. I have reviewed the above with the ER staff. Procedures Date of Service Date of Service: 08/22/23
== END 2023-08-14 08:23 | disposition home or self-care (01) ==
PROVIDERS: Emergency Provider Emergency Medicine; PCP Family Medicine
DX: R10.31 Right lower quadrant pain (principal); R10.30 Lower abdominal pain, unspecified; R10.2 Pelvic and perineal pain; F17.200 Nicotine dependence, unspecified, uncomplicated; Z71.6 Tobacco abuse counseling; Z79.899 Other long term (current) drug therapy
CPT/HCPCS: 36415; 74177; 76870; 80048; 80076; 81001; 83735; 85025; 93975; 96361; 96374; 96375; 99284; J2270; J2405; Q9967

== ENCOUNTER → 2023-08-14 03:29 | Outpatient (BNV) | payer MEDICAID, SELFPAY | PROVIDERS: Emergency Provider Emergency Medicine; PCP Family Medicine; Visit Provider Surgery | DX: R10.31 Right lower quadrant pain (principal) | CPT/HCPCS: 99283 ==

== ENCOUNTER 2023-10-11 15:09 | Outpatient (REF) | payer MEDICAID, SELFPAY ==
[2023-10-11 17:25] LABS: MANUAL DIFF FLAG NO
[2023-10-11 17:33] LABS: Basophils Absolute Auto 0.1 X10*3/uL (0.0-0.2); Eosinophils Absolute Auto 0.3 X10*3/uL (0.0-0.4); Hematocrit 43.4 % (42.0-52.0); Hemoglobin 14.9 g/dl (14.0-18.0); Imm Gran Abs Auto 0.01 X10*3/uL (0.00-0.03); Imm Gran Pct Auto 0.1 % (0.0-0.4); Lymphocytes Absolute Auto 2.3 X10*3/uL (1.2-4.9); Lymphocytes Percent Auto 28.4 % (20-40); Mean Corpuscular HGB Conc 34.3 g/dl (31.0-36.0); Mean Corpuscular Hemoglobin 32.7 pg (27.0-33.0); Mean Corpuscular Volume 95.2 fL (80.0-98.0); Mean Platelet Volume 10.2 fL (9.4-12.4); Monocytes Absolute Auto 0.6 X10*3/uL (0.1-1.2); Monocytes Percent Auto 7.7 % (2-11); Neutrophils Absolute Auto 4.8 x10*3/uL (2.0-8.3); Neutrophils Percent Auto 58.8 % (45-73); Platelet Count 255 X10*3/uL (160-400); Red Blood Count 4.56 X10*6/uL (4.60-5.80); Red Cell Distribution Width 11.4 % (11.0-16.0); White Blood Count 8.2 X10*3/uL (4.8-10.8)
[2023-10-11 17:56] LABS: Alanine Aminotransferase 26 U/L (0-40); Albumin Level 4.7 g/dL (3.5-5.0); Alkaline Phosphatase 74 U/L (39-117); Anion Gap 11 (12-20); Aspartate Amino Transferase 24 U/L (5-37); Bilirubin Total 0.2 mg/dL (0.0-1.0); Blood Urea Nitrogen 10 mg/dL (9-16); Calcium 9.3 mg/dL (8.4-10.2); Carbon Dioxide 23 mmol/L (22-29); Chloride 109 mmol/L (96-108); Cholesterol 190 mg/dL (<200); Estimated Glomerular Filt Rate > 60; Glucose Random 96 mg/dL (60-115); HDL Cholesterol 32 mg/dL (>40); LDL Cholesterol Calculated 117 mg/dL (<100); Potassium 3.8 mmol/L (3.3-5.1); Sodium 139 mmol/L (135-145); Total Protein 7.4 g/dL (6.5-8.0); Triglycerides 209 mg/dL (<150)
[2023-10-11 18:13] LABS: TSH reflex Free T4 1.23 uIU/mL (0.32-4.0)
== END 2023-10-11 15:10 | disposition home or self-care (01) ==
LOC: HO.CHCLDS 15:09
PROVIDERS: Visit Provider Family Medicine
DX: Z13.39 Encounter for screening examination for other mental health and behavioral disorders (principal); Z13.220 Encounter for screening for lipoid disorders; Z13.29 Encounter for screening for other suspected endocrine disorder
CPT/HCPCS: 36415; 80053; 80061; 84443; 85025

== ENCOUNTER 2023-11-01 09:30 | Outpatient (REF) | payer MEDICAID, SELFPAY ==
--- NOTE | ~2023-11-01 | XR_ITS ---
EXAMINATION: XR FOOT, RIGHT CLINICAL INFORMATION: Pain. COMPARISON: None available. TECHNIQUE: AP, lateral, and oblique views of the right foot. FINDINGS: The request reads only pain. It does not describe exactly where pathology is suspected, limiting the study. Recommend clinical correlation. The bones and soft tissues appear unremarkable. No fracture appreciated. Alignment is anatomic. Joint spaces are maintained. XR/XR foot RT min 3V IMPRESSION: Normal plain film examination of the right foot.
--- NOTE | ~2023-11-01 | XR_ITS ---
EXAMINATION: XR FOOT, LEFT CLINICAL INFORMATION: Pain. COMPARISON: None available. TECHNIQUE: AP, lateral, and oblique views of the left foot. FINDINGS: The request reads only pain. It does not describe exactly where pathology is suspected, limiting the study. Recommend clinical correlation. The bones and soft tissues appear unremarkable. No fracture appreciated. Alignment is anatomic. Joint spaces are maintained. XR/XR foot LT min 3V IMPRESSION: Normal plain film examination of the left foot.
--- NOTE | ~2023-11-01 | MR_ITS ---
EXAMINATION: MR CERVICAL SPINE WITHOUT CONTRAST CLINICAL INFORMATION: Cervical radiculopathy COMPARISON: None TECHNIQUE: MRI of the cervical spine was obtained using routine sequences without contrast. FINDINGS: Motion degraded examination. Normal anatomic alignment. No suspicious marrow signal or focal osseous lesion. No significant marrow edema. The vertebral body heights are maintained. The intervertebral discs are of normal height and signal. The cervical spinal cord is normal in caliber and signal Limited evaluation of the soft tissues of the neck without demonstrated abnormalities. The flow voids of the major cervical vessels are maintained. Normal appearance of the cervicomedullary junction and visualized posterior fossa SPINAL LEVELS: C2-C3: No significant spinal canal or neuroforaminal narrowing C3-C4: No significant spinal canal or neuroforaminal narrowing. Mild facet arthropathy. C4-C5: No significant spinal canal or neuroforaminal narrowing. Mild facet arthropathy. C5-C6: Mild facet arthropathy and right greater than left uncovertebral hypertrophy. Moderate to severe right neural foraminal narrowing and mild left neural foraminal narrowing. No significant spinal canal stenosis. C6-C7: Mild uncovertebral hypertrophy. Mild bilateral neural foraminal narrowing. No significant spinal canal stenosis. C7-T1: No significant spinal canal or neuroforaminal narrowing MR/MR cervical spine wo con IMPRESSION: Motion degraded examination. At C5-C6, there is moderate to severe right foraminal narrowing, primarily on the basis of uncovertebral hypertrophy. Additional mild degenerative changes of the cervical spine as detailed above. No significant spinal canal stenosis, cord compression, or additional high-grade foraminal stenosis
== END 2023-11-01 09:31 | disposition home or self-care (01) ==
LOC: HO.MRI 09:30
PROVIDERS: PCP Family Medicine; Visit Provider Family Medicine
DX: M79.671 Pain in right foot (principal); M79.672 Pain in left foot; M54.12 Radiculopathy, cervical region
CPT/HCPCS: 72141; 73630

== ENCOUNTER 2023-11-07 10:00 | Outpatient (REF) | payer MEDICAID, SELFPAY ==
[2023-11-07 14:24] LABS: Hemoglobin 14.5 g/dl (14.0-18.0); Mean Corpuscular HGB Conc 34.5 g/dl (31.0-36.0); Mean Corpuscular Volume 95.7 fL (80.0-98.0); Mean Platelet Volume 9.8 fL (9.4-12.4); Platelet Count 222 X10*3/uL (160-400); Red Blood Count 4.39 X10*6/uL (4.60-5.80); White Blood Count 7.8 X10*3/uL (4.8-10.8)
[2023-11-07 14:53] LABS: C Reactive Protein < 0.10 mg/dL (< or = 0.50); Iron 128 mcg/dL (45-160); Percent Iron Saturation 46 % (15-50); Total Iron Binding Capacity 278 mcg/dL (228-428); Unsaturated Iron Binding 150 ug/dL
[2023-11-07 15:12] LABS: Vitamin B12 571 pg/mL (200-900)
[2023-11-08 12:44] LABS: Transglutaminase IgA <1.0 U/mL
[2023-11-08 13:43] LABS: Immunoglobulin A 167 mg/dL (47-310)
== END 2023-11-07 10:01 | disposition home or self-care (01) ==
LOC: HO.CHCLDS 10:00
PROVIDERS: Visit Provider Nurse Practitioner
DX: R10.11 Right upper quadrant pain (principal); R11.0 Nausea; K58.0 Irritable bowel syndrome with diarrhea
CPT/HCPCS: 36415; 82607; 82784; 83540; 85027; 86140; 86364

== ENCOUNTER 2023-11-21 08:50 | Outpatient (AMB) | payer MEDICAID, SELFPAY ==
--- NOTE | 2023-11-21 09:00 | A.OFFVIS_ITS ---
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 States his right is worse. Patient states his symptoms started in 2018 ago and has worsen since. He explains he has pinched nerve on his neck and has numbness that radiated down his right arm to his hand, weakness and hand cramping. He starting using braces at night time about 2 weeks however it has not made a different. 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 He complains of having numbness in his thumb, index, and middle fingers bilat erally, though his primary complaint is of pain & numbness in his right arm. He also reports a hx of a pinched nerve in his neck, and feels numbness radiate from his neck down his right arm & into his hand. He says his numbness is accompanied by aching & an occasional stabbing pain radiating from his right shoulder down into his fingers, along with hand weakness and a heavy feeling in his arm. He also demonstrated a tiger claw position of his fingers and said that his fingers will get stuck like this in both hands. He also says that he gets these symptoms bilaterally, but was told that the study that he just had on the left arm was negative. He believes there was a positive finding in the study of his right arm previously. He says his NCS done in 2017 found carpal tunnel syndrome, but his recent NCS found no evidence of this. He has a hx of CPS, OCD, & PTSD. He says he has been seen by Pain Management here at [facility] in the past, and is scheduled to see a different pain management c [place] outside of [place]. [facility] Medical History (Updated 11/21/23 @ 09:38 by Epifanio Mosqueda) Right groin pain History of anal fissures Surgical History H/O rectal sphincterotomy H/O esophagogastroduodenoscopy History of colonoscopy Hx of appendectomy Family History Father No problems noted. Mother Mental health problem Fibromyalgia Cancer Maternal Grandfather Cancer Social History (Updated 11/21/23 @ 09:09 by Jen Carias [facility]) Household Members: None Housing: Apartment Alcohol intake: never Patient Tobacco Use Status: Current everyday Tobacco user Substance Use Type: Marijuana Current occupational status: unemployed Current occupation: left handed Review of Systems Const All systems reviewed & are unremarkable except as noted in HPI and below Physical Exam Vital Signs: BMI result Body Mass Index 27.3 Const General: cooperative, healthy appearing and no acute distress Orientation/consciousness: patient oriented x3 HEENT Head: Yes normocephalic and Yes atraumatic Eyes EOM: EOMs intact bilaterally Resp Effort & Inspection: normal respiratory effort and able to speak in complete sentences Cardio Jugular venous distension: no JVD Skin General skin exam: turgor normal Rashes: no rashes Neuro General: patient oriented x3 Extrem Other: Evaluation of Bilateral Upper Extremity: The patient is alert, oriented, and in no acute distress Neuro: Median, Ulnar, Radial nerves motor and sensory intact and sensation is normal to the tips of all digits No thenar or intrinsic wasting Good APB muscle belly firing and good finger cross Vascular: Cap refill brisk ROM: He can make a fist and extend all his digits No locking or catching. Smooth and full range of motion at the wrist bilaterally and without discomfort. Skin: No lacerations or abrasions. General: No Ecchymosis. No Erythema or evidence of infection. Nerve Conduction Studies: Bilateral IMPRESSION: Mild right ulnar neuropathy across cubital tunnel. Otherwise no significant abnormality was noted. Bert Rogel MD 12/21/2022 Left side only IMPRESSION: 1. This is a normal study. 2. There is no electrodiagnostic evidence for median neuropathy, ulnar neuropathy, brachial plexopathy, or cervical radiculopathy. Nina Grijalva MD, EDGARDO 06/15/23 Psych Appearance: grossly normal Affect: normal affect Attitude: cooperative Assessment & Plan Assessment & Plan (1) Cubital tunnel syndrome on right: Code(s): G56.21 - Lesion of ulnar nerve, right upper limb (2) Right arm pain: Code(s): M79.601 - Pain in right arm (3) Right arm numbness: Code(s): R20.0 - Anesthesia of skin Plan Assessment & Plan: 1. Right arm pain & numbness Radiating from his shoulders down to his forearms, wrist and ultimately the thumb index and middle fingers of his hands Symptoms intermittent, but daily Accompanied by pain Etiology unclear, though patient reports a hx of a pinched nerve in his neck Bilateral NCS from 12/21/22 negative for carpal tunnel syndrome bilaterally, and positive for mild right cubital tunnel syndrome. No cubital tunnel symptoms on exam or history. Most recent NCS of the left upper extremity on on 06/15/2023 was within normal limits I spent some time educating him about carpal tunnel and cubital tunnel syndromes, how they present clinically, expected findings on nerve conduction study and typical treatments. I am not recommending operative treatment for either these conditions, and the patient reports that he has not interested in surgery. I discussed a referral to Pain Management for evaluation, but the patient reports he had been seen there and was not satisfied. It looks like they reviewed a C-spine MRI with him. He reports being dissatisfied with [facility] over these issues and notes that he has an appointment at an outside Pain Management facility in the near future He can follow up prn 2. Right cubital tunnel syndrome, mild but asymptomatic Seen on NCS on 12/21/22 No complaints of problems with ulnar-sided hand numbness of numbness in the small finger? I educated him about this condition, and discussed treatment options if he develops any new or worsening symptoms. Scribed for Shelley Galeas MD by Epifanio Mosqueda, medical laboratory technologist, on 11/21/23 at 9:25 AM, EST. Coding Level of Care Code New Pt Level 3 (94587) Diagnoses Cubital tunnel syndrome on right G56.21 Right arm pain M79.601 Right arm numbness R20.0
[2023-11-21 09:01] VITALS: BMI 27.3
== END 2023-11-21 10:49 | disposition home or self-care (01) ==
PROVIDERS: PCP Family Medicine; Visit Provider Orthopaedic Surgery
DX: G56.21 Lesion of ulnar nerve, right upper limb (principal)
CPT/HCPCS: 99203

== ENCOUNTER → 2023-11-21 08:50 | Outpatient (BNVA) | payer MEDICAID, SELFPAY | PROVIDERS: PCP Family Medicine; Visit Provider Orthopaedic Surgery | DX: G56.03 Carpal tunnel syndrome, bilateral upper limbs (principal); M79.601 Pain in right arm; R20.0 Anesthesia of skin | CPT/HCPCS: 99202 ==

== ENCOUNTER 2023-11-26 15:31 | Outpatient (REF) | payer MEDICAID, SELFPAY ==
[2023-12-01 00:44] LABS: Calprotectin, Fecal 100 mcg/g
== END 2023-11-26 15:32 | disposition home or self-care (01) ==
LOC: HO.CHCLNP 15:31
PROVIDERS: Visit Provider Nurse Practitioner
DX: R10.11 Right upper quadrant pain (principal); K58.0 Irritable bowel syndrome with diarrhea; R11.0 Nausea
CPT/HCPCS: 83993

== ENCOUNTER 2024-01-16 10:40 | Outpatient (REF) | payer MEDICAID, SELFPAY ==
--- NOTE | ~2024-01-16 | XR_ITS ---
Exam: X-rays bilateral knees INDICATION: Bilateral knee pain, limited ambulation. Order states chronic pain in both knees, limited ambulation. Patient states he has had problems with his knees as a child, but last 2 years pain has gotten worse. COMPARISON: None TECHNIQUE: 2 views of the left knee. 4 views of the right knee. FINDINGS: Left knee: Trace joint effusion. Mild narrowing of the medial compartment with tiny medial marginal osteophytes. Right knee: Mild to moderate narrowing of the medial compartment with tiny medial marginal osteophytes. Trace joint effusion. XR/XR knee RT 3V IMPRESSION: Mild degenerative changes in the bilateral knees, right greater than left.
--- NOTE | ~2024-01-16 | XR_ITS ---
Exam: X-rays bilateral knees INDICATION: Bilateral knee pain, limited ambulation. Order states chronic pain in both knees, limited ambulation. Patient states he has had problems with his knees as a child, but last 2 years pain has gotten worse. COMPARISON: None TECHNIQUE: 2 views of the left knee. 4 views of the right knee. FINDINGS: Left knee: Trace joint effusion. Mild narrowing of the medial compartment with tiny medial marginal osteophytes. Right knee: Mild to moderate narrowing of the medial compartment with tiny medial marginal osteophytes. Trace joint effusion. XR/XR knee LT 2V IMPRESSION: Mild degenerative changes in the bilateral knees, right greater than left.
== END 2024-01-16 10:41 | disposition home or self-care (01) ==
LOC: HO.HHCX 10:40
PROVIDERS: Visit Provider Internal Medicine
DX: M25.561 Pain in right knee (principal); M25.562 Pain in left knee; G89.29 Other chronic pain
CPT/HCPCS: 73560; 73562

== ENCOUNTER 2024-01-22 10:02 | Outpatient (REF) | payer MEDICAID, SELFPAY ==
[2024-01-22 15:21] LABS: Estimated Glomerular Filt Rate > 60
[2024-01-22 16:44] LABS: CT PCR NOT DETECTED (Not Detect.); NG PCR NOT DETECTED (Not Detect.)
[2024-01-23 08:47] LABS: ~HepC Num1 0.11 S/CO (0.00-0.79); ~Hepatitis C Antibody Nonreactive (Nonreactive)
[2024-01-23 09:16] LABS: Syphilis Screen Reactive (Nonreactive)
[2024-01-26 12:39] LABS: HIV RNA PCR Qn Copies NOT DETECTED copies/mL (NOT DETECTED); HIV RNA PCR Qn Log Copies NOT DETECTED (NOT DETECTED)
[2024-01-27 15:08] LABS: RPR Quantitative Reactive 1:1 (Nonreactive)
[2024-01-27 15:09] LABS: T.Pallidum Particle Agg Test Reactive (Nonreactive)
== END 2024-01-22 10:03 | disposition home or self-care (01) ==
LOC: HO.CHCLDS 10:02
PROVIDERS: Visit Provider Family Medicine
DX: Z11.3 Encounter for screening for infections with a predominantly sexual mode of transmission (principal); Z11.4 Encounter for screening for human immunodeficiency virus [HIV]
CPT/HCPCS: 0353U; 36415; 82565; 86592; 86780; 86803; 87536

== ENCOUNTER 2024-01-24 09:12 | Outpatient (AMB) | payer MEDICAID, SELFPAY ==
--- NOTE | 2024-01-24 09:22 | A.OFFVIS_ITS ---
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 He states he has mental health issues. He states that he has same sex partners. Currently does not have a partner. He states that he feels problem with erections started in 2012 after an appendectomy he was instructed not engage in sexual activity however he did not follow instructions, and after that time he began having problems with maintaining an erection. He states he was seen in the emergency room in July, groin pain and cyst. I have reviewed those records, he had a CT abdomen pelvis which noted a cyst along the spermatic cord and a scrotal ultrasound the testicles were normal. He states that he pain has improved but he continues to feel something in that area on the right side. He also complains of hesitancy with urination. Urinalysis is within normal limits, negative for leukocytes or blood. Discussed trial of Flomax 0.4 mg daily, will check baseline, sex hormones and PSA, follow-up CT pelvis. [facility] Medical History Right groin pain History of anal fissures Surgical History H/O rectal sphincterotomy H/O esophagogastroduodenoscopy History of colonoscopy Hx of appendectomy Family History Father No problems noted. Mother Mental health problem Fibromyalgia Cancer Maternal Grandfather Cancer Social History Household Members: None Housing: Apartment Alcohol intake: never Patient Tobacco Use Status: Current everyday Tobacco user Substance Use Type: Marijuana Current occupational status: unemployed Current occupation: left handed Review of Systems Const All systems reviewed & are unremarkable except as noted in HPI and below Reports no additional complaints Eyes Reports no additional complaints ENT Reports no additional complaints Card Reports no additional complaints Resp Reports no additional complaints GI Reports no additional complaints Reports as per HPI Musc Reports no additional complaints Skin/Breast Reports system reviewed and no additional complaints, except as documented Neuro Reports no additional complaints Psych Reports no additional complaints Endo Reports no additional complaints Jake/Lymph Reports no additional complaints Aller/Immun Reports no additional complaints Physical Exam Const General: healthy appearing, no acute distress and well developed Orientation/consciousness: patient oriented x3 HEENT Head: Yes normocephalic and Yes atraumatic Eyes Conjunctivae: conjunctivae normal Neck Neck: Yes normal visual inspection Chest Chest palpation & inspection: normal inspection of the chest Resp Effort & Inspection: normal respiratory effort Cardio Jugular venous distension: no JVD GI Inspection: Yes normal to inspection Palpation (GI): Soft to palpation Other: Testicles are normal to palpation had I do not feel cyst along the spermatic the Scrotum: scrotum normal Skin General skin exam: no rashes or lesions noted Neuro General: patient oriented x3 Extrem General: No pedal edema Psych Appearance: grossly normal Affect: normal affect Results AMB Urinalysis, Automated UA Leukoctes 0 Abel/uL Last Edit by YISSEL Box on 01/24/24 09:42 UA Nitrite Negative Last Edit by YISSEL Box on 01/24/24 09:42 UA Urobilinogen 0.2 mg/dL Last Edit by YISSEL Box on 01/24/24 09:4 2 UA Protein 0 mg/dL Last Edit by YISSEL Box on 01/24/24 09:42 UA pH 6.0 Last Edit by YISSEL Box on 01/24/24 09:42 UA Blood 0 Gibson/uL Last Edit by YISSEL Box on 01/24/24 09:42 UA Specific Douglas 1.015 Last Edit by YISSEL Box on 01/24/24 09: 42 UA Ketone Negative Last Edit by YISSEL Box on 01/24/24 09:42 UA Bilirubin 0 mg/dL Last Edit by YISSEL Box on 01/24/24 09:42 UA Glucose 0 mg/dL Last Edit by YISSEL Box on 01/24/24 09:42 Results Reviewed Results Reviewed: Laboratory Last Values Urine pH (Auto) 6.0 01/24/24 09:41 Specific Douglas (Auto) 1.015 01/24/24 09:41 Urine Protein (Auto) 0 mg/dL 01/24/24 09:41 Glucose (UA)(Auto) 0 mg/dL 01/24/24 09:41 Urine Ketones (Auto) Negative 01/24/24 09:41 Urine Blood (Auto) 0 Gibson/uL 01/24/24 09:41 Urine Nitrite (Auto) Negative 01/24/24 09:41 Urine Bilirubin (Auto) 0 mg/dL 01/24/24 09:41 Urine Urobilinogen (Auto) 0.2 mg/dL 01/24/24 09:41 Leukocyte Esterase (Auto) 0 Abel/uL 01/24/24 09:41 Date of Service: 08/14/23 EXAMINATION: CT ABDOMEN AND PELVIS WITH CONTRAST CLINICAL INFORMATION: Severe right groin pain and reducible hernia site COMPARISON: 03/09/2023 TECHNIQUE: Multidetector volumetric images were obtained from the superior aspect of the liver through the pubic symphysis following administration 85 mL of Omnipaque 350 intravenous contrast. Sagittal and coronal reformatted images were obtained on the technologist's workstation. Oral contrast: No This CT examination was performed using dose optimization techniques as appropriate, variously including the following: *Automated exposure control *Adjustment of mA and/or kV according to patient size (this includes techniques or standardized protocols for targeted exams where dose is matched to indication/reason for exam; i.e. extremities or head) *Use of iterative reconstruction technique DLP: 506 mGy-cm FINDINGS: LUNG BASES: The visualized lung bases are unremarkable. LIVER, GALLBLADDER, AND BILIARY TREE: The liver is normal in size, shape, and attenuation. Mild periportal edema. No focal hepatic lesion or biliary ductal dilatation is present. The gallbladder is unremarkable with no evidence of radiopaque gallstones, gallbladder wall thickening, or obvious pericholecystic inflammatory changes. PANCREAS: Unremarkable. SPLEEN: Unremarkable. ADRENAL GLANDS: Unremarkable. KIDNEYS AND URETERS: The kidneys are normal in size, shape, and attenuation. No hydronephrosis, hydroureter, or calculi seen. No perinephric stranding. BLADDER: Unremarkable. GASTROINTESTINAL TRACT: No bowel related abnormalities. Appendectomy. ABDOMINAL WALL: There is an oval hypodense structure or fluid collection in the right inguinal canal measuring 2.9 x 1.5 x 1.8 cm. No significant hernia is evident. LYMPH NODES: Normal. VASCULAR: Unremarkable. PELVIC VISCERA: Unremarkable. OSSEOUS STRUCTURES: No acute or suspicious osseous abnormalities. IMPRESSION: * There is an oval hypodense structure or fluid collection in the right inguinal canal measuring 2.9 x 1.5 x 1.8 cm. This could represent a spermatic cord hydrocele, fluid within a persistent processes vaginalis or small hernia, lymphocele, or possibly an undescended testicle. Please correlate with physical exam. * No additional acute findings within the abdomen or pelvis. Date of Service: 08/14/23 EXAMINATION: US SCROTUM CLINICAL INFORMATION: Pain and swelling x4 days. COMPARISON: None available. TECHNIQUE: A sonogram of the scrotum was performed assessing chaudhry-scale appearance and color Doppler flow. Spectral Doppler analysis of the arterial and venous flow were performed in the testes bilaterally. FINDINGS: RIGHT: Right testicle measures 5.6 x 3.0 x 3.7 cm, volume 32.5 mL. No focal testicular parenchymal lesions are visualized. Spectral Doppler analysis of the arterial and venous flow is normal in the right testis. Right epididymal head is normal in size. There are small epididymal head cyst measuring 0.2 x 0.2 x 0.2 cm and 0.1 x 0.1 x 0.2 cm. No right hydrocele or varicocele is seen. Right epididymal Doppler flow is normal.. There is fluid collection seen in the right inguinal canal LEFT: Left testicle measures 5.5 x 2.5 x 3.2 cm, volume 23.5 mL. No focal testicular parenchymal lesions are visualized. Spectral Doppler analysis of the arterial and venous flow is normal in the left testis. Incidental finding of a small scrotal pieter along the mid scrotum. Left epididymal head is normal in size. No left hydrocele or varicocele is seen. Left epididymal Doppler flow is normal. US/US scrotum doppler IMPRESSION: Right epididymal cyst. Small fluid collection noted in the right inguinal canal. Small left scrotal pole. Normal testes and epididymis ultrasound with normal venous and arterial Doppler flow. 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 - Other specified disorders of the male genital organs Category: Medical Plan tamsulosin, labs as noted below Orders: Orders AMB Urinalysis Automated 01/24/24 Z13.9 - Encounter for screening, unspecified Estradiol Ultra Sensitive 01/24/24 N52.9 - Male erectile dysfunction, unspecified Lutenizing Hormone 01/24/24 N52.9 - Male erectile dysfunction, unspecified Glucose Fasting 01/24/24 N52.9 - Male erectile dysfunction, unspecified PSA,Total (Free>4and<10) 01/24/24 Z12.5 - Encounter for screening for malignant neoplasm of prostate Prolactin 01/24/24 Z12.5 - Encounter for screening for malignant neoplasm of prostate Follicle Stimulating Hormone 01/24/24 Z12.5 - Encounter for screening for malignant neoplasm of prostate Testosterone, Free/Total 01/24/24 Z12.5 - Encounter for screening for malignant neoplasm of prostate CT pelvis wo IV con 01/24/24 M67.459 - Ganglion, unspecified hip, N50.89 - Other specified disorders of the male genital organs Medications: New tamsulosin (Flomax) 0.4 mg PO BEDTIME 30 caps 3RF Patient Instructions: The patient had an opportunity to ask questions regarding treatment plan. The patient expressed understanding and agreement with the above treatment plan. The patient is aware they should contact our office by phone for worsening of their current condition or the appearance of new symptoms. Compliance is encouraged with any medications and followup testing that is ordered. It is a privilege to be allowed the opportunity to participate in the urologic care of your patient. If you have any questions or concerns regarding treatment for the above conditions please do not hesitate to contact me. The office telephone contact is [phone]. This note is constructed in part using voice recognition software. While every effort has been made to ensure accuracy order takers supervisor errors may have been included. Yours sincerely, Lino Ruiz MD Coding Level of Care Code New Pt Level 4 (10033) Diagnoses Erectile dysfunction N52.9 Screening PSA (prostate specific antigen) Z12.5 Spermatic cord cyst N50.89
== END 2024-01-24 10:25 | disposition home or self-care (01) ==
PROVIDERS: PCP Family Medicine; Referring Provider Family Medicine; Visit Provider Urology
DX: N52.9 Male erectile dysfunction, unspecified (principal); Z12.5 Encounter for screening for malignant neoplasm of prostate; N50.89 Other specified disorders of the male genital organs
CPT/HCPCS: 99204

== ENCOUNTER → 2024-01-24 09:12 | Outpatient (BNVA) | payer MEDICAID, SELFPAY | PROVIDERS: PCP Family Medicine; Visit Provider Urology | DX: N52.9 Male erectile dysfunction, unspecified (principal); N50.89 Other specified disorders of the male genital organs; Z12.5 Encounter for screening for malignant neoplasm of prostate | CPT/HCPCS: 81003; 99202 ==

== ENCOUNTER 2024-03-12 09:49 | Outpatient (REF) | payer MEDICAID, SELFPAY ==
--- NOTE | ~2024-03-12 | MR_ITS ---
EXAMINATION: MR KNEE WITHOUT CONTRAST, RIGHT CLINICAL INFORMATION: Right knee pain and swelling. COMPARISON: Right knee radiographs dated 01/16/2024. TECHNIQUE: MRI of the knee without contrast was performed using routine sequences on a high-field scanner. FINDINGS: MENISCI: Medial Meniscus: Complex tearing of the meniscal body with attenuation and inner margin blunting as well as a dominant oblique tibial articular surface component. Medial extrusion of the meniscal body with a small meniscal flap anterior inferiorly. Adjacent anteromedial parameniscal cyst measuring up to 1.0 cm. Oblique inner margin tearing extends through the posterior horn and root with a tiny posterior parameniscal cyst measuring up to 0.2 cm. Lateral Meniscus: Intact LIGAMENTS: Cruciate: Increased T2 signal within the anterior cruciate ligament which could represent normal variation versus early mucoid degeneration. No acute injury. Intact posterior cruciate ligament. Collateral: Intact EXTENSOR MECHANISM: Small superior patellar enthesophyte. Intact quadriceps and patellar tendons. ARTICULAR CARTILAGE/BONE: Patellofemoral Compartment: Intact articular cartilage. Medial Compartment: Articular cartilage thinning and minimal signal heterogeneity with tiny marginal osteophytes. Lateral Compartment: Intact articular cartilage. JOINT FLUID AND BURSAE: Trace joint effusion. MR/MR knee RT wo con IMPRESSION: 1. Complex tearing of the medial meniscal body with attenuation and inner margin blunting as well as a dominant oblique tibial articular surface component. Medial extrusion of the meniscal body with a small anterior meniscal flap. Oblique inner margin tearing extends through the posterior horn and root with a tiny posterior parameniscal cyst. 2. Increased T2 signal within the anterior cruciate ligament which could represent normal variation versus early mucoid degeneration. No acute ligament injury. 3. Mild medial compartment arthrosis. Trace joint effusion.
== END 2024-03-12 09:50 | disposition home or self-care (01) ==
LOC: HO.MRI 09:49
PROVIDERS: PCP Family Medicine; Visit Provider Internal Medicine
DX: M25.561 Pain in right knee (principal); G89.29 Other chronic pain
CPT/HCPCS: 73721

== ENCOUNTER 2024-05-04 09:51 | Outpatient (REF) | payer MEDICAID, SELFPAY ==
--- NOTE | ~2024-05-04 | MR_ITS ---
EXAMINATION: MR KNEE WITHOUT CONTRAST, LEFT CLINICAL INFORMATION: Pain COMPARISON: X-ray 01/16/2024 TECHNIQUE: MRI of the knee without contrast was performed using routine sequences on a high-field scanner. FINDINGS: MENISCI: Medial Meniscus: Horizontal and superior surface tear in the posterior horn. Horizontal and undersurface tear in the body. Lateral Meniscus: Small cystic focus adjacent to the anterior root, could reflect a para meniscal cyst or ganglion cyst. Mild fraying/tear of the anterior root. Mild inner margin blunting in the anterior horn.. LIGAMENTS: Cruciate: Intact Collateral: Intact EXTENSOR MECHANISM: Intact ARTICULAR CARTILAGE/BONE: No evidence of significant arthropathy. No fracture. No aggressive marrow replacing lesion. JOINT FLUID AND BURSAE: Small joint fluid. No significant Guevara's cyst. MR/MR knee LT wo con IMPRESSION: 1. Tear of the posterior horn and body of the medial meniscus. 2. Mild fraying/tear of the anterior root of the lateral meniscus. Small cystic focus adjacent to the anterior root, could reflect a para meniscal cyst or ganglion cyst. Mild margin blunting in the anterior horn. Electronically signed by: Mejia Young MD 05/08/2024 04:52 PM EDT
== END 2024-05-04 09:52 | disposition home or self-care (01) ==
LOC: HO.MRI 09:51
PROVIDERS: PCP Family Medicine; Visit Provider Family Medicine
DX: M25.562 Pain in left knee (principal); G89.29 Other chronic pain
CPT/HCPCS: 73721

== ENCOUNTER 2024-05-06 09:53 | Outpatient (REF) | payer MEDICAID, SELFPAY ==
--- NOTE | ~2024-05-06 | XR_ITS ---
EXAMINATION: XR ELBOW, LEFT CLINICAL INFORMATION: Pain in the elbow COMPARISON: None available. TECHNIQUE: AP, lateral, and oblique views of the left elbow. FINDINGS: The bones and soft tissues are normal. No fracture or joint effusion. Alignment is anatomic. Joint spaces are maintained. XR/XR elbow LT min 3V IMPRESSION: Normal left elbow. Electronically signed by: Scott Robledo MD 05/21/2024 06:31 AM EDT
== END 2024-05-06 09:54 | disposition home or self-care (01) ==
LOC: HO.XRAY 09:53
PROVIDERS: PCP Family Medicine; Visit Provider Family Medicine
DX: M25.522 Pain in left elbow (principal); G89.29 Other chronic pain
CPT/HCPCS: 73080

== ENCOUNTER 2024-05-09 14:31 | Outpatient (REF) | payer MEDICAID, SELFPAY ==
--- NOTE | ~2024-05-09 | CT_ITS ---
EXAMINATION: CT PELVIS WITHOUT CONTRAST CLINICAL INFORMATION: Ganglion. COMPARISON: None available. TECHNIQUE: CT abdomen and pelvis 08/14/2023. Scrotal ultrasound 08/14/2023. This CT examination was performed using dose optimization techniques as appropriate, variously including the following: *Automated exposure control *Adjustment of mA and/or kV according to patient size (this includes techniques or standardized protocols for targeted exams where dose is matched to indication/reason for exam; i.e. extremities or head) *Use of iterative reconstruction technique DLP: 338 mGy-cm FINDINGS: The visualized bowel is unremarkable. The appendix appears to have been removed. No retroperitoneal lymphadenopathy is seen. Some minimal calcification is seen in the right common iliac artery. There is no ascites. The prostate and seminal vesicles appear unremarkable. A small ovoid fluid collection is again noted in the right inguinal canal which measures 2.9 x 1.2 x 1.7 cm possibly slightly smaller than prior. A tiny punctate calcification is seen at the inferior aspect of this. A testis is seen in each hemiscrotum. There is no ascites. Osseous structures are unremarkable. CT/CT pelvis wo IV con IMPRESSION: Small fluid collection in the right inguinal canal may be slightly smaller than prior. A concerning finding is not seen. Electronically signed by: Valdez Moya MD 07/10/2024 11:29 AM GURPREET
== END 2024-05-09 14:32 | disposition home or self-care (01) ==
LOC: HO.CT 14:31
PROVIDERS: PCP Family Medicine; Visit Provider Urology
DX: M67.4 Ganglion (principal); N50.89 Other specified disorders of the male genital organs
CPT/HCPCS: 72192

== ENCOUNTER 2024-08-13 09:31 | Outpatient (AMB) | payer MEDICAID, SELFPAY ==
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
[2024-08-13 10:03] VITALS: BP 123/75; PULSE 102; O2SAT 97; BMI 28.0
== END 2024-08-13 10:07 | disposition home or self-care (01) ==
PROVIDERS: PCP Family Medicine; Visit Provider Anesthesiology
DX: M54.12 Radiculopathy, cervical region (principal); M46.1 Sacroiliitis, not elsewhere classified; M06.9 Rheumatoid arthritis, unspecified; M53.3 Sacrococcygeal disorders, not elsewhere classified; G89.4 Chronic pain syndrome
CPT/HCPCS: 99214

== ENCOUNTER → 2024-08-13 09:31 | Outpatient (BNVA) | payer MEDICAID, SELFPAY | PROVIDERS: PCP Family Medicine; Visit Provider Anesthesiology | DX: M54.12 Radiculopathy, cervical region (principal); M46.1 Sacroiliitis, not elsewhere classified; M06.9 Rheumatoid arthritis, unspecified; M53.3 Sacrococcygeal disorders, not elsewhere classified; G89.4 Chronic pain syndrome | CPT/HCPCS: 99212 ==

== ENCOUNTER 2024-09-29 09:24 | Outpatient (AMB) | payer MEDICAID, SELFPAY ==
--- NOTE | 2024-09-29 09:25 | A.SPINEOV_ITS ---
Vital Signs 09/29/24 09:32 Height 5 ft 10 in Weight 195 lb BMI 28.0 Intake Visit Reasons: cervical radiculopathy Intake Note: Mr. Birmingham is here today c/o neck pain that radiates down to the arms. Satellite Television Installer Required: No Allergies cat dander [CAT] Allergy (Intermediate, Verified 09/29/24 09:33) SNEEZING, THROAT SWOLLEN tacrolimus [From PROTOPIC] Allergy (Intermediate, Verified 09/29/24 09:33) HEADACHE,DIZZY,N/V seafood Allergy (Mild, Verified 09/29/24 09:33) unknown Seasonal Allergies Allergy (Unknown, Verified 09/29/24 09:33) Sneezing DUST Allergy (Intermediate, Uncoded 08/13/24 10:02) SNEEZING Physical Exam Vital Signs: BMI result Body Mass Index 28.0 Assessment & Plan Assessment & Plan (1) Cervical radiculopathy: Code(s): M54.12 - Radiculopathy, cervical region Category: Medical Plan Dear Dr Ledesma, Thank you for referring MR Birmingham to our office today. He is a very nice 44-yea r-old gentleman who has had a year or more of right upper extremity pain and radiculopathy going down his arm into his hand with tingling and numbness of his index finger, thumb and middle finger. Had a similar event sometime in 2018 that resolved on its own. The pain has been persistent, he has had a lot of difficulty sleeping, doing any kind of activity or turning his head to the right will give him severe shooting pain down his arm. He underwent an MRI showing degenerative disc disease at C5-6 on the right with compression of the right C6 nerve root was sent for evaluation. To this point he has not done any dedicated conservative treatment other than tincture of time and medication trials including Celebrex, Motrin, Tylenol and gabapentin, muscle relaxers and tramadol. Most of these things are really helping him much at all. No myelopathic complaints. He has not done physical therapy because he has a severe social anxiety disorder that limits his ability to be interactive in groups or with people. PMH: He has a history of tendinitis in his feet, knee problems, PTSD, OCD, depression, anxiety, mood disorder, allergies, IBS, GERD, appendectomy, sphincterotomy. His chart lists a history of rheumatoid arthritis but he has never had a formal diagnosis made with that. No history of heart disease, pulmonary problems, liver disease, major abdominal surgery, kidney disease, coagulopathies, cancer Social hx: Smokes about 1 pack of cigarettes a day and smokes marijuana daily, no alcohol Medications: Watts-3, gabapentin, Cymbalta, Flexeril, Celebrex, Xyzal, Singulair, promethazine, doxepin, Truvada, vitamin-C, Bentyl, Lomotil Allergies: Seafood, cats, dust and Protopic Physical exam: Awake alert oriented no acute distress, some limitations of strength with pain with movement but no focal strength loss, reflexes are normal, Imaging review: Cervical MRI done at [place] shows mild degenerative disc disease throughout the cervical spine but at C5-6 on the right there is narrowing of the right C6 foramen. Impression: 44-year-old male, has had 1 year of right upper extremity radiculopathy going down into his thumb and index finger which seems consistent with a right C6 nerve root. He does have impingement at C5-6 on the right. Although it is not severe, there is compression and narrowing there that think would explain the symptoms. His quality of life does suffer significantly because of the pain, he can not turn his head and he has a lot of difficulty sleeping at night are doing much of activity throughout the day. He has tried multiple different medications and try to wait this out. Unfortunately is not getting better. We talked about options of conservative management including physical therapy, cortisone injections etc., but the patient has a severe anxiety disorder and going to multiple appointments makes this issue significantly worse. He is interested in the idea of surgery, so I will review his imaging with Dr. Lee. Typically he would offer anterior cervical fusion versus total disc arthroplasty. I will review with him see if this meets enough compression for surgical indication. In the meantime, the patient is not sure if he can even have surgery because he will need to find someone who can bring him to surgery and monitor him afterwards. I told him once he find someone who he thinks would be able to help him around the perioperative period, to give me a call and we can finalize a plan for him. I did also admonished him that despite his anxiety disorder, it is very likely the insurance company would not approve surgery without a minimum of at least some physical therapy. Thank you for allowing us to care for your patient. The total time spent with this visit with this patient was 45 minutes reviewing history, physical exam, cervical MRI imaging review, and implementation of treatment plan or further diagnostic testing Jordy Lee MD,PhD [facility] Coding Level of Care Code New Pt Level 4 (67827) Diagnoses Cervical radiculopathy M54.12
[2024-09-29 09:32] VITALS: BMI 28.0
--- OUTSIDE RECORDS SUMMARY | 2024-09-29 09:50 | XMS_ITS | Encounter Summary ---
Author Organization [employer] Address [address] [place] [address] Care Team Providers Care Claims Service Representative Name Role Phone Shannen Orellana MD Primary Care Provider [phone] Encounter Details Date Type Department Care Team ([facility] st Contact Info) Description 11/27/2023 Telephone [facility] MED & PEDS [address] [place], [place] [phone] Shannen Orellana MD [address] [place] [address] Social History Tobacco Use Types Packs/Day Years Used Date Smoking Tobacco: Every Day Cigarettes Passive Smoke Exposure: Current Smokeless Tobacco: Never Alcohol Use Standard Drinks/Week Comments Never 0 (1 standard drink = 0.6 oz pur e alcohol) Depression Answer Date Recorded Patient Health Questionnaire-9 Score 27 10/11/2023 Patient Health Questionnaire-9 Score 27 10/11/2023 Last PHQ-9: Questionnaire Data Not on file 0 10/11/2023 Housing Stability Answer Date Recorded What is your housing situation today? I have housing today, but I am worried about losing housing in the future 11/02/[address] you li ve. Do you have problems with any of the following? None of the above 11/02/2023 Food Insecurity Answer Date Recorded Within the past 12 months, y ou worried that your food would run out before you got money to buy more: Often true 11/02/2023 Within the past 12 months,th e food you bought just didn't last and you didn't have enough money to get more: Often true 03/2024 Transportation Answer Date Recorded In the past 12 months, has l ack of transportation kept you from medical appts, meetings, work or from getting things needed for daily living? Yes, it has kept me from medical appointments or getting medications. 10/05/2023 Utilities Answer Date Recorded In the past 12 months, has t he electric, gas, oil or water company threatened to shut off services in your home? No 06/11/2023 Depression Answer Date Recorded Patient Health Questionnaire-2 Score 6 10/11/2023 Sex and Gender Information Value Date Recorded Sex Assigned at Male 06/26/2022 10:15 AM EDT Legal Sex Male 10:15 AM EDT Gender Identity Male 06/26/2022 10:15 AM EDT Sexual Orientation Lesbian or Mcdowell 06/26/2022 10 :15 AM EDT documented as of this encounter Miscellaneous Notes * Telephone Encounter - Shannen Orellana MD - 12/05/2023 5:16 PM EDT Signed. * Telephone Encounter - Aziza Morales RN - 12/05/2023 3:28 PM EDT PERCY received a VM from pt requesting PCP to send order for MRI ordered by the pain specialist to [facility] he was scheduled a month from now for the MRI. Pt states he cannot wait for a whole month beforegetting his MRI done. PERCY reached out to fredis Wagner and spoke with [place] who states pt is scheduled for December and that appt will be kept. Pt should call to cancel an appt if able to get a sooner appt [place] [facility] Per [place] orders from the pain specialist includes MRI of the lumbar spine, MRI of thoracic spine and MRI of cervical spine with contrast. Per VM received, pt also requested for MRI of the hip. CM reached out to pt for clarification and also reason for request for referral to technology sales consultant but pt did not answer. PERCY LVM requesting a return call. * Telephone Encounter - Anu Owens - 12/03/2023 11:48 AM EDT Please sign office note of 11/25 to complete referrals. Thank you. * Telephone Encounter - Aziza Morales RN - 11/28/2023 3:49 PM EDT Please see referral for 04/02/23. Pt was referred for pruritic rash. PERCY reached out to the technology sales consultant office and was able to schedule pt an appt on 01/19/24 at 10:45am at their [place] office on [address] [place] [address]. P# [phone]. The technology sales consultant office is requesting for recent office note a ddressing these concerns. Pt has an upcoming f/u appt and can discuss with PCP. Office notes can befaxed to . Pt also states he was seen by Spine medicine and the specialist ordered MRI and the plan was for aninjection. Pt is requesting an appt to discuss with PCP if injection is needed since he c/o coccyx pain and not lower back pain. PERCY reached out to the office and spoke with [place] who states pt will be contacted by their radiology department to schedule an appt for the MRI. CM advised pt that message will be sent to PCP to review office notes and if PCP will like an appt to discuss sooner than scheduled appt, then CM will schedule the appt since there is no sooner available appt at this time. Ptverbalizes understanding and agrees to plan. * Telephone Encounter - Shannen Orellana MD - 11/28/2023 1:38 PM EDT Can you please get reason for referral to be able to add to his visit note, please and thanks! * Telephone Encounter - Aziza Morales RN - 11/28/2023 11:53 AM EDT Voice message received from patient, pt states he will need a new referral to allergy and immunology. Pt states he forgot to notify PCP during recent visit. Thanks * Telephone Encounter - Rhea Barnes - 11/27/2023 2:36 PM EDT TC from pt calling to inform was diagnosed with sacrum disorder. States would need to get an MRI and xray done . Please call pt to clarify . documented in this encounter Plan of Treatment Upcoming Encounters Date Type Department Care Team (Late st Contact Info) Description 09/29/2024 11:30 AM EST Office Visit [facility] MED [facility] PEDS [address] [place] [address] Maame Espinal MD [address] [place] [address] documented as of this encounter Visit Diagnoses Not on filedocumented in this encounter Additional Health Concerns Assessment Noted Time PHQ-9 Depression Total Score: 27 024 2:13 PM EST documented as of this encounter Care Teams Claims Service Representative Relationship Specialty Start Date End Date Shannen Orellana MD [address] [place] [phone] PCP - General Family Medicine 08/24/22 Geno Arriaga Independent Living InstructorTie Tamper 02/05/24 Maribell Rehman [address] [place] [phone] Psychologist 06/27/23 Larry Zaldivar Psychiatrist 06/27/24 documented as of this encounter
--- OUTSIDE RECORDS SUMMARY | 2024-09-29 09:50 | XMS_ITS | Encounter Summary ---
Author Organization [employer] Address [address] [place] [address] [address] [place] [address] Care Team Providers Care Laboratory Helper Name Role Phone Shannen Orellana MD Primary Care Provider [phone] Encounter Details Date Type Department Care Team (Late Contact Info) Description 01/29/2023 Orders Only [facility] MEDICINE [address] [place], [place] [phone] Carolynn Rodriguez MD [address] [place], [place] [phone] Social History Tobacco Use Types Packs/Day Years Used Date Smoking Tobacco: Every Day Cigarettes Passive Smoke Exposure: Never Smokeless Tobacco: Never Alcohol Use Standard Drinks/Week Comments Never 0 (1 standard drink = 0.6 oz pur e alcohol) Depression Answer Date Recorded Patient Health Questionnaire-9 Score 24 08/24/2022 Depression Answer Date Recorded Patient Health Questionnaire-2 Score 6 08/24/2022 Sex and Gender Information Value Date Recorded Sex Assigned at Male 06/26/2022 10:15 AM EDT Legal Sex Male 10:15 AM EDT Gender Identity Male 06/26/2022 10:15 AM EDT Sexual Orientation Lesbian or Mcdowell 06/26/2022 10 :15 AM EDT documented as of this encounter Plan of Treatment Upcoming Encounters Date Type Department Care Team (Late st Contact Info) Description 09/29/2024 11:30 AM EST Office Visit [facility] CH[facility] MED & PEDS [address] [place], [place] [phone] Maame Espinal MD [address] [place], [place] [phone] documented as of this encounter Visit Diagnoses Not on filedocumented in this encounter Additional Health Concerns Assessment Noted Time PHQ-9 Depression Total Score: 24 022 4:05 PM EST documented as of this encounter Care Teams Laboratory Helper Relationship Specialty Start Date End Date Shannen Orellana MD [address] [phone] PCP - General Family Medicine 08/24/22 Geno Arriaga Bar TenderSulfate Drier Machine Operator 02/05/24 Maribell Rehman [address] [place] [phone] Psychologist 06/27/23 Larry Zaldivar Psychiatrist 06/27/24 documented as of this encounter
--- OUTSIDE RECORDS SUMMARY | 2024-09-29 09:50 | XMS_ITS | Encounter Summary ---
Author Organization [employer] Address [address] [facility] [address] 7[address] [place] [address] Care Team Providers Care Information Management Manager Name Role Phone Shannen Orellana MD Primary Care Provider [phone] Reason for Visit * Reason Onset Date Comments PT1 09/23/2024 Encounter Details Date Type Department Care Team ([facility] Contact Info) Description 09/23/2024 Telephone [facility] MED & PEDS [address] [place], [place] [phone] Shannen Orellana MD 505 [place] [address] PT1 Social History Tobacco Use Types Packs/Day Years Used Date Smoking Tobacco: Every Day Cigarettes Passive Smoke Exposure: Current Smokeless Tobacco: Never Alcohol Use Standard Drinks/Week Comments Never 0 (1 standard drink = 0.6 oz pur e alcohol) Depression Answer Date Recorded Patient Health Questionnaire-9 Score 27 06/27/2024 Patient Health Questionnaire-9 Score 27 06/27/2024 Last PHQ-9: Questionnaire Data Not on file 1 08/27/2023 Housing Stability Answer Date Recorded What is [...] Date Recorded Patient Health Questionnaire-2 Score 6 06/27/2024 Sex and Gender Information Value Date Recorded Sex Assigned at Male 06/26/2022 10:15 AM EDT Legal Sex Male 10:15 AM EDT Gender Identity Male 06/26/2022 10:15 AM EDT Sexual Orientation Lesbian or Mcdowell 06/26/2022 10 :15 AM EDT documented as of this encounter Miscellaneous Notes * Telephone Encounter - Anu Owens - 09/25/2024 3:25 PM EST PT-1 submitted for patient. They will receive a letter of approval or denial in the mail. * Telephone Encounter - Eddie Mack - 09/23/2024 1:11 PM EST PT1 Renewal [facility] [address] [facility] [address] [facility] 505 [facility] [address] [facility] 230 [facility] [address] Pt also informed FD that there was one generated but it did not have the correct address. [address] [address] documented in this encounter Plan of Treatment Upcoming Encounters Date Type Department Care Team (Late st Contact Info) Description 09/29/2024 11:30 AM EST Office Visit [facility] MED & PEDS 505 [place] [address] Maame Espinal MD 505 [place] [address] documented as of this encounter Visit Diagnoses Not on filedocumented in this encounter Additional Health Concerns Assessment Noted Time PHQ-9 Depression Total Score: 27 024 9:53 AM EDT documented as of this encounter Care Teams Information Management Manager Relationship Specialty Start Date End Date Shannen Orellana MD [address] [place] [address] PCP - General Family Medicine 08/24/22 Geno Arriaga HangersmithSugar Cane Farm Manager 02/05/24 Maribell Rehman [address] [place] [address] Psychologist 06/27/23 Larry Zaldivar Psychiatrist 06/27/24 documented as of this encounter
--- OUTSIDE RECORDS SUMMARY | 2024-09-29 09:51 | XMS_ITS | Encounter Summary ---
Author Organization [employer] Address [address] [facility] [address] 7t [place] [address] Care Team Providers Care Bow Maker Gift Wrapping Name Role Phone Shannen Orellana MD Primary Care Provider [phone] Reason for Visit * Reason Onset Date Comments Referral 06/11/2023 Encounter Details Date Type Department Care Team ([facility] Contact Info) Description 06/11/2023 Telephone [facility] CH[facility] MED & PEDS 505 [place], [place] [phone] Shannen Orellana MD 505 [place] [address] Referral Social History Tobacco Use Types Packs/Day Years Used Date Smoking Tobacco: Every Day Cigarettes Passive Smoke Exposure: Current Smokeless Tobacco: Never Alcohol Use Standard Drinks/Week Comments Never 0 (1 standard drink = 0.6 oz pur e alcohol) Depression Answer Date Recorded Patient Health Questionnaire-9 Score 24 08/24/2022 Housing Stability Answer Date Recorded What is your housing situation today? I have gonz[place] ellison 06/11/[address] you li ve. Do you have problems with any of the following? None of the above 06/11/2023 Food Insecurity Answer Date Recorded Within the past 12 months, y ou worried that your food would run out before you got money to buy more: Never True 06/11/2023 Within the past 12 months,th e food you bought just didn't last and you didn't have enough money to get more: Never True Transportation Answer Date Recorded In the past 12 months, has l ack of transportation kept you from medical appts, meetings, work or from getting things needed for daily living? No 06/11/2023 Utilities Answer Date Recorded In the past [...] encounter Miscellaneous Notes * Telephone Encounter - Valentine Carnes - 06/11/2023 1:11 PM EDT Tc from pt requesting to add visits on referrals for documented in this encounter Plan of Treatment Upcoming Encounters Date Type Department Care Team ([facility] st Contact Info) Description 09/29/2024 11:30 AM EST Office Visit [facility] CH[facility] MED & PEDS 505 [place] [address] Maame Espinal MD 505 [place] [address] documented as of this encounter Visit Diagnoses Not on filedocumented in this encounter Additional Health Concerns Assessment Noted Time PHQ-9 Depression Total Score: 24 022 4:05 PM EST documented as of this encounter Care Teams Bow Maker Gift Wrapping Relationship Specialty Start Date End Date Shannen Orellana MD [address] [place] [address] PCP - General Family Medicine 08/24/22 Geno Arriaga Van Owner OperatorWorkers Compensation Claims Specialist 02/05/24 Maribell Rehman [address] [place] [address] Psychologist 06/27/23 Laryr Zaldivar Psychiatrist 06/27/24 documented as of this encounter
--- OUTSIDE RECORDS SUMMARY | 2024-09-29 09:51 | XMS_ITS | Encounter Summary ---
Author Organization [employer] Address [address] [facility] [address] 7t [place] [address] Care Team Providers Care Embroidery Designer Name Role Phone Shannen Orellana MD Primary Care Provider [phone] Reason for Visit * Reason Onset Date Comments PT-1 07/18/2023 Encounter Details Date Type Department Care Team ([facility] Contact Info) Description 07/18/2023 Telephone [facility] MEDICINE [address] [place] [address] Shannen Orellana MD [address] [place], [place] [phone] PT-1 Social History Tobacco Use Types Packs/Day Years Used Date Smoking Tobacco: Every Day Cigarettes Passive Smoke Exposure: Current Smokeless Tobacco: Never Alcohol Use Standard Drinks/Week Comments Never 0 (1 standard drink = 0.6 oz pur e alcohol) Depression Answer Date Recorded Patient Health Questionnaire-9 Score 24 08/24/2022 Housing Stability Answer Date Recorded What is your housing situation today? I have gonzalo ellison 06/11/[address] you [...] * Telephone Encounter - Anu Owens - 07/18/2023 9:47 AM EST PT-1 submitted for patient. They will receive a letter of approval or denial in the mail. * Telephone Encounter - Arturo Pena - 07/18/2023 8:06 AM EST Tc from patient requesting a PT-1 set up. PT1 Date: 08/07/2023 Time: 1:00 pm Visits:6 Address: [address] [place] [address] Facility: podiatry [facility] Chair: no Verification Engineer Needed: no documented in this encounter Plan of Treatment Upcoming Encounters Date Type Department Care Team (Late st Contact Info) Description 09/29/2024 11:30 AM EST Office Visit [facility] CHC MED & PEDS 505 [place] [address] Maame Espinal MD 505 [place] [address] documented as of this encounter Visit Diagnoses Not on filedocumented in this encounter Additional Health Concerns Assessment Noted Time PHQ-9 Depression Total Score: 24 022 4:05 PM EST documented as of this encounter Care Teams Embroidery Designer Relationship Specialty Start Date End Date Shannen Orellana MD [address] [place] [address] PCP - General Family Medicine 08/24/22 Geno Arriaga Supervisor Sulfuric Acid PlantProduction Machine Operator 02/05/24 Maribell Rehman [address] [place] [address] Psychologist 06/27/23 Larry Zaldivar Psychiatrist 06/27/24 documented as of this encounter
--- OUTSIDE RECORDS SUMMARY | 2024-09-29 09:51 | XMS_ITS | Encounter Summary ---
Author Organization [employer] Address [address] [facility] [address] 7t [place] [address] Care Team Providers Care Pipe Manufacture Supervisor Name Role Phone Shannen Orellana MD Primary Care Provider [phone] Reason for Visit * Reason Onset Date Comments PT-1 05/09/2024 Encounter Details Date Type Department Care Team ([facility] st Contact Info) Description 05/09/[address] [facility] MEDICINE 230 [place] [address] Shannen Orellana MD [address] [place] [address] PT-1 Social History Tobacco Use Types Packs/Day [...] encounter Miscellaneous Notes * Telephone Encounter - Misael Menchaca - 07/01/2024 1:40 PM EST Tc from pt regarding prior message pt states that the pt 1 did not go through. Pt checked online and saw thats nothing had changed. Contact pt at [phone] * Telephone Encounter - Tello Frazier - 05/09/2024 3:13 PM EDT Patient calling requesting PT1 Home Address verified: Y/N: Yes Provider name or facility name: [facility] Facility Address: [address] [place] [address] Escort needed: Y/N: No Do you have a wheelchair: Y/N: No If yes- Manual or electric: N/A Visits: 6 monthly Pt requesting call back if there are any issues with PT1. Contact pt at [phone]. documented in this encounter Plan of Treatment Upcoming Encounters Date Type Department Care Team ([facility] st Contact Info) Description 09/29/2024 11:30 AM EST Office Visit [facility] CHC MED & PEDS 505 [place] [address] Maame Espinal MD 505 [place], [place] [phone] documented as of this encounter Visit Diagnoses Not on filedocumented in this encounter Additional Health Concerns Assessment Noted Time PHQ-9 Depression Total Score: 27 024 2:13 PM EST documented as of this encounter Care Teams Pipe Manufacture Supervisor Relationship Specialty Start Date End Date Shannen Orellana MD [address] [place] [address] PCP - General Family Medicine 08/24/22 Geno Arriaga Section GangSupervisor Tank House 02/05/24 Maribell Rehman [address] [place] [address] Psychologist 06/27/23 Larry Zaldivar Psychiatrist 06/27/24 documented as of this encounter
--- OUTSIDE RECORDS SUMMARY | 2024-09-29 09:51 | XMS_ITS | Encounter Summary ---
Author Organization [employer] Address [address] [facility] [address] 7t [place] [address] Care Team Providers Care Steam Fitter Helper Name Role Phone Shannen Orellana MD Primary Care Provider [phone] Reason for Visit * Reason Comments Med Refill Encounter Details Date Type Department Care Team (Late Contact Info) Description 03/12/2023 Refill [facility] MED & PEDS 505 [place] [address] Name, MD Krzysztof [address] [place] [address] Social History Tobacco Use Types Packs/Day Years [...] or Mcdowell 06/26/2022 10 :15 AM EDT COVID-19 Exposure Response Date Recorded In the last 10 days, have yo u been in contact with someone who was confirmed or suspected to have Coronavirus/COVID-19? No / Unsure 03/01/2023 9:10 AM EDT documented as of this encounter Plan of Treatment Upcoming Encounters Date Type Department Care Team (Late Contact Info) Description 09/29/2024 11:30 AM EST Office Visit [facility] MED & PEDS [address] [place] [address] Maame Espinal MD 505 [place] [address] documented as of this encounter Visit Diagnoses Not on filedocumented in this encounter Additional Health Concerns Assessment Noted Time PHQ-9 Depression Total Score: 24 022 4:05 PM EST documented as of this encounter Care Teams Steam Fitter Helper Relationship Specialty Start Date End Date Shannen Orellana MD [address] [place] [address] PCP - General Family Medicine 08/24/22 Geno Arriaga Art ConservatorColor Sprayer 02/05/24 Maribell Rehman [address] [place] [address] Psychologist 06/27/23 Larry Zaldivar Psychiatrist 06/27/24 documented as of this encounter
--- OUTSIDE RECORDS SUMMARY | 2024-09-29 09:51 | XMS_ITS | Encounter Summary ---
Author Organization [employer] Address [address] [facility] [address] 7[address] [place] [address] Care Team Providers Care Ux Specialist Name Role Phone Shannen Orellana MD Primary Care Provider [phone] Reason for Visit * Reason Onset Date Comments Referral 06/11/2023 Encounter Details Date Type Department Care Team ([facility] Contact Info) Description 06/11/2023 Telephone [facility] CHC MED & PEDS 505 [place], [place] [phone] Shannen Orellana MD 505 [place] [address] Referral Social History Tobacco Use Types Packs/Day [...] Telephone Encounter - Valentine Carnes - 06/11/2023 1:15 PM EDT Tc from pt requesting add visits to referrals. Chronic low back pain. 01/29/2023 Pain Medicine Pain in both feet. 02/06/2023 Kary Mcghee documented in this encounter Plan of Treatment Upcoming Encounters Date Type Department Care Team (Late st Contact Info) Description 09/29/2024 11:30 AM EST Office Visit [facility] CHC MED & PEDS 505 [place] [address] Maame Espinal MD 505 [place] [address] documented as of this encounter Visit Diagnoses Not on filedocumented in this encounter Additional Health Concerns Assessment Noted Time PHQ-9 Depression Total Score: 24 022 4:05 PM EST documented as of this encounter Care Teams Ux Specialist Relationship Specialty Start Date End Date Shannen Orellana MD 230 [place] [address] PCP - General Family Medicine 08/24/22 Geno Arriaga Radiology Practitioner AssistantMachinist Mechanic 02/05/24 Maribell Rehman [address] [place] [address] Psychologist 06/27/23 Larry Zaldivar Psychiatrist 06/27/24 documented as of this encounter
--- OUTSIDE RECORDS SUMMARY | 2024-09-29 09:51 | XMS_ITS | Encounter Summary ---
Author Organization [employer] Address [address] [facility] [address] 7t [place] [address] Care Team Providers Care Interior Wall Assembler Name Role Phone Shannen Orellana MD Primary Care Provider [phone] Reason for Visit * Reason Onset Date Comments PT1 08/28/2024 Encounter Details Date Type Department Care Team ([facility] st Contact Info) Description 08/28/2024 Telephone [facility] MEDICINE 230 [place] [address] Shannen Orellana MD [address] [place] [address] PT1 Social History Tobacco Use Types Packs/Day [...] encounter Miscellaneous Notes * Telephone Encounter - Jaysoncheng Nolanarez - 08/28/2024 11:06 AM EST TC from pt states received letter from Denying PT1 to: Provider name or facility name: [facility] Address: [address] [place] [address] Pt states letter suggesting pcp office to contact directly to give them more details on why pt was referred to [facility] and medical issues behind the referral in order for them to cover transportation . documented in this encounter Plan of Treatment Upcoming Encounters Date Type Department Care Team ([facility] Contact Info) Description 09/29/2024 11:30 AM EST Office Visit [facility] CHC MED & PEDS 505 [place] [address] Maame Espinal MD 505 [place] [address] documented as of this encounter Visit Diagnoses Not on filedocumented in this encounter Additional Health Concerns Assessment Noted Time PHQ-9 Depression Total Score: 27 024 9:53 AM EDT documented as of this encounter Care Teams Interior Wall Assembler Relationship Specialty Start Date End Date Shannen Orellana MD [address] [place] [address] PCP - General Family Medicine 08/24/22 Geno Arriaga Deputy United States MarshalCivil Clerk 02/05/24 Maribell Rehman [address] [place] [address] Psychologist 06/27/23 Larry Zaldivar Psychiatrist 06/27/24 documented as of this encounter
--- OUTSIDE RECORDS SUMMARY | 2024-09-29 09:51 | XMS_ITS | Encounter Summary ---
Author Organization [employer] Address [address] [facility] [address] 7t [place] [address] Care Team Providers Care Deputy Director Of Nursing Name Role Phone Shannen Orellana MD Primary Care Provider [phone] Encounter Details Date Type Department Care Team ([facility] st Contact Info) Description 06/11/2023 Telephone [facility] CHC MED & PEDS [address] [place], [place] [phone] Shnanen Orellana MD [address] [place] [address] Social History Tobacco Use Types Packs/Day Years [...] Description 09/29/2024 11:30 AM EST Office Visit [facility] CHC MED & PEDS 505 [place] [address] Maame Espinal MD 505 [place] [address] documented as of this encounter Visit Diagnoses Not on filedocumented in this encounter Additional Health Concerns Assessment Noted Time PHQ-9 Depression Total Score: 24 022 4:05 PM EST documented as of this encounter Care Teams Deputy Director Of Nursing Relationship Specialty Start Date End Date Shannen Orellana MD [address] [place] [address] PCP - General Family Medicine 08/24/22 Geno Arriaga Sales Consultant InsuranceInstallation Supervisor 02/05/24 Maribell Rehman [address] [place] [address] Psychologist 06/27/23 Larry Zaldivar Psychiatrist 06/27/24 documented as of this encounter
--- OUTSIDE RECORDS SUMMARY | 2024-09-29 09:51 | XMS_ITS | Encounter Summary ---
Author Organization [employer] Address [address] [facility] [address] 7[address] [place] [address] Care Team Providers Care Record Producer Name Role Phone Shannen Orellana MD Primary Care Provider [phone] Reason for Visit * Reason Comments Med Refill Encounter Details Date Type Department Care Team ([facility] st Contact Info) Description 09/04/2024 Refill [facility] CHC MED & PEDS 505 [place], [place] [phone] Shannen Orellana MD 505 [place] [address] Social History Tobacco Use Types Packs/Day Years [...] Description 09/29/2024 11:30 AM EST Office Visit [facility] MED & PEDS 505 [place] [address] Maame Espinal MD 505 [place] [address] documented as of this encounter Visit Diagnoses Not on filedocumented in this encounter Additional Health Concerns Assessment Noted Time PHQ-9 Depression Total Score: 27 024 9:53 AM EDT documented as of this encounter Care Teams Record Producer Relationship Specialty Start Date End Date Shannen Orellana MD [address] [place] [address] PCP - General Family Medicine 08/24/22 Geno Arriaga Home Sales ConsultantChristian Science Nurse 02/05/24 Maribell Rehman [address] [place] [address] Psychologist 06/27/23 Larry Zaldivar Psychiatrist 06/27/24 documented as of this encounter
--- OUTSIDE RECORDS SUMMARY | 2024-09-29 09:51 | XMS_ITS | Encounter Summary ---
Author Organization [employer] Address [address] [facility] [address] 7[address] [place] [address] Care Team Providers Care Hydropulper Operator Name Role Phone Shannen Orellana MD Primary Care Provider [phone] Reason for Visit * Reason Onset Date Comments PT-1 03/20/2024 Encounter Details Date Type Department Care Team ([facility] st Contact Info) Description 03/20/2024 Telephone [facility] MEDICINE 230 [place] [address] Shannen Orellana MD [address] [place] [address] PT-1 Social History Tobacco Use Types Packs/Day [...] encounter Miscellaneous Notes * Telephone Encounter - Bonnie Ansari - 03/21/2024 9:27 AM EDT Tc from pt increase on visits for the Pt1 for [facility] Pt is requesting a call from someone * Telephone Encounter - Jass Edwards - 03/20/2024 1:52 PM EDT Patient calling requesting PT1 - Pt requested no additional passengers during transportation route. Home Address verified: Y/N: Yes Provider name or facility name: [facility]- Dr. Coulter Facility Address: [address] [place] [address] Escort needed: Y/N: No Do you have a wheelchair: Y/N: No If yes- Manual or electric: Visits: 2 times a month Date : 08/25/24 Time : 10am Provider name or facility name: [facility] - Dr. Patricia Facility Address: [address] [place] [address] Escort needed: Y/N: No Do you have a wheelchair: Y/N: No If yes- Manual or electric: Visits: (amount of visits) ( x monthly, weekly, daily) Date: 07/09/24 Time : 11am documented in this encounter Plan of Treatment Upcoming Encounters Date Type Department Care Team (Late st Contact Info) Description 09/29/2024 11:30 AM EST Office Visit [facility] CHC MED & PEDS 505 [place] [address] Maame Espinal MD 505 [place] [address] documented as of this encounter Visit Diagnoses Not on filedocumented in this encounter Additional Health Concerns Assessment Noted Time PHQ-9 Depression Total Score: 27 024 2:13 PM EST documented as of this encounter Care Teams Hydropulper Operator Relationship Specialty Start Date End Date Shannen Orellana MD [address] [place] [address] PCP - General Family Medicine 08/24/22 Geno Arriaga Mat MakerLayout Mechanic 02/05/24 Maribell Rehman [address] [place] [address] Psychologist 06/27/23 Larry Zaldivar Psychiatrist 06/27/24 documented as of this encounter
--- OUTSIDE RECORDS SUMMARY | 2024-09-29 09:51 | XMS_ITS | Encounter Summary ---
Author Organization [employer] Address [address] [facility] [address] 7[address] [place] [address] Care Team Providers Care Director Of Land Name Role Phone Shannen Orellana MD Primary Care Provider [phone] Reason for Visit * Reason Onset Date Comments Referral 07/18/2024 Encounter Details Date Type Department Care Team ([facility] st Contact Info) Description 07/18/2024 Telephone [facility] MEDICINE 230 [place] [address] Shannen Orellana MD [address] [place] [address] Referral Social History Tobacco Use Types Packs/Day [...] encounter Miscellaneous Notes * Telephone Encounter - Nadira Dominguez - 07/30/2024 2:46 PM EST Tc from pt returning call. Pt stated he is willing to go to [place] for podiatry. * Telephone Encounter - Anu Owens - 07/18/2024 2:46 PM EST Message left for patient asking if he is willing to travel to [place] for podiatry. * Telephone Encounter - Tello Frazier - 07/18/2024 12:15 PM EST Tc from pt calling in regards to podiatry referral stating he is [facility] be [facility]. If any questions you can contact pt at [phone]. documented in this encounter Plan of Treatment Upcoming Encounters Date Type Department Care Team ([facility] st Contact Info) Description 09/29/2024 11:30 AM EST Office Visit [facility] MED & PEDS 505 [place], [place] [phone] Maame Espinal MD 505 [place], [place] [phone] documented as of this encounter Visit Diagnoses Not on filedocumented in this encounter Additional Health Concerns Assessment Noted Time PHQ-9 Depression Total Score: 27 024 9:53 AM EDT documented as of this encounter Care Teams Director Of Land Relationship Specialty Start Date End Date Shannen Orellana MD [address] [place] [address] PCP - General Family Medicine 08/24/22 Geno Arriaga Test Engineering TechnicianCivil Engineering Project Manager 02/05/24 Maribell Rehman [address] [place] [address] Psychologist 06/27/23 Larry Zaldivar Psychiatrist 06/27/24 documented as of this encounter
--- OUTSIDE RECORDS SUMMARY | 2024-09-29 09:51 | XMS_ITS | Encounter Summary ---
Author Organization [employer] Address [address] [facility] 7t [place] [address] Care Team Providers Care Munitions Handler Supervisor Name Role Phone Shannen Orellana MD Primary Care Provider [phone] Encounter Details Date Type Department Care Team (Late st Contact Info) Description 02/29/2024 Orders Only [facility] CHC MED & PEDS 505 [place], [place] [phone] Maame Espinal MD 505 [place] [address] Social History Tobacco Use Types Packs/Day Years [...] Upcoming Encounters Date Type Department Care Team ([facility] st Contact Info) Description 09/29/2024 11:30 AM EST Office Visit [facility] CHC MED & PEDS 505 [place] [address] Maame Espinal MD [address] [place] [address] documented as of this encounter Visit Diagnoses Not on filedocumented in this encounter Additional Health Concerns Assessment Noted Time PHQ-9 Depression Total Score: 27 024 2:13 PM EST documented as of this encounter Care Teams Munitions Handler Supervisor Relationship Specialty Start Date End Date Shannen Orellana MD [address] [place] [address] PCP - General Family Medicine 08/24/22 Geno Arriaga Veneer Taping Machine OffbearerProgrammer 02/05/24 Maribell Rehman [address] [place] [address] Psychologist 06/27/23 Larry Zaldivar Psychiatrist 06/27/24 documented as of this encounter
--- OUTSIDE RECORDS SUMMARY | 2024-09-29 09:51 | XMS_ITS | Encounter Summary ---
Author Organization [employer] Address [address] [facility] [address] 7t [place] [address] Care Team Providers Care Flight Hostess Name Role Phone Shannen Orellana MD Primary Care Provider [phone] Reason for Visit * Reason Onset Date Comments Referral 07/02/2023 PT 1 Encounter Details Date Type Department Care Team ([facility] Contact Info) Description 07/02/2023 Telephone [facility] MEDICINE 230 [place] [address] Shannen Orellana MD [address] [place], [place] [phone] Referral (PT 1 1 of 2) Social History Tobacco Use Types Packs/Day Years [...] * Telephone Encounter - Anu Owens - 07/02/2023 10:31 AM EST PT-1 submitted for patient. They will receive a letter of approval or denial in the mail. * Telephone Encounter - Arturo Pena - 07/02/2023 9:40 AM EST Tc from patient requesting a PT 1 PT1 Date: 07/24 Time: 10:30 Visits: 6 Address: [address] [place] [address] Facility: [facility], Specialty: Pain Management with Wheel Chair: no Machine Dyer Needed: no documented in this encounter Plan of Treatment Upcoming Encounters Date Type Department Care Team (Late st Contact Info) Description 09/29/2024 11:30 AM EST Office Visit [facility] CHC MED & PEDS 505 [place] [address] Maame Espinal MD 505 [place] [address] documented as of this encounter Visit Diagnoses Not on filedocumented in this encounter Additional Health Concerns Assessment Noted Time PHQ-9 Depression Total Score: 24 022 4:05 PM EST documented as of this encounter Care Teams Flight Hostess Relationship Specialty Start Date End Date Shannen Orellana MD [address] [place] [address] PCP - General Family Medicine 08/24/22 Geno Arriaga Investor Relations SpecialistMill And Coal Transport Operator 02/05/24 Maribell Rehman [address] [place] [address] Psychologist 06/27/23 Larry Zaldivar Psychiatrist 06/27/24 documented as of this encounter
--- OUTSIDE RECORDS SUMMARY | 2024-09-29 09:51 | XMS_ITS | Encounter Summary ---
Author Organization [employer] Address [address] [facility] [address] 7t [place] [address] Care Team Providers Care Lead Network Engineer Name Role Phone Shannen Orellana MD Primary Care Provider [phone] Reason for Visit * Reason Onset Date Comments cart prep 09/26/2024 Encounter Details Date Type Department Care Team ([facility] Contact Info) Description 09/26/2024 Telephone [facility] CHC MED & PEDS 505 [place] [address] Shannen Orellana MD 505 [place] [address] cart prep (/) Social History Tobacco Use Types Packs/Day Years [...] encounter Miscellaneous Notes * Telephone Encounter - Renea Ahmadi [place] - 09/26/2024 11:43 AM EST .Chart Prep Labs: done Images: done Vaccines due: yes Referrals: complete Screenings: none Overdue care gaps: none documented in this encounter Plan of Treatment Upcoming Encounters Date Type Department Care Team ([facility] st Contact Info) Description 09/29/2024 11:30 AM EST Office Visit [facility] CHC MED & PEDS 505 [place] [address] Maame Espinal MD 505 [place] [address] documented as of this encounter Visit Diagnoses Not on filedocumented in this encounter Additional Health Concerns Assessment Noted Time PHQ-9 Depression Total Score: 27 024 9:53 AM EDT documented as of this encounter Care Teams Lead Network Engineer Relationship Specialty Start Date End Date Shannen Orellana MD [address] [place] [address] PCP - General Family Medicine 08/24/22 Geno Arriaga Rn ParalegalBanbury Mill Operator 02/05/24 Maribell Rehman [address] [place] [address] Psychologist 06/27/23 Larry Zaldivar Psychiatrist 06/27/24 documented as of this encounter
--- OUTSIDE RECORDS SUMMARY | 2024-09-29 09:51 | XMS_ITS | Encounter Summary ---
Author Organization [employer] Address [address] [facility] [address] 7t [place] [address] Care Team Providers Care Supervisor Drapery Hanging Name Role Phone Shannen Orellana MD Primary Care Provider [phone] Reason for Visit * Reason Onset Date Comments PT1 03/10/2024 Encounter Details Date Type Department Care Team ([facility] st Contact Info) Description 03/10/2024 Telephone [facility] MEDICINE 230 [place] [address] Shannen Orellana MD [address] [place] [address] PT1 Social History Tobacco Use Types Packs/Day [...] * Telephone Encounter - Valentine Carnes - 03/10/2024 2:27 PM EDT Patient calling requesting PT1 Home Address verified: Y/N: Yes Provider name or facility name: [facility] Address: [facility] [address], [place] [address] [address] [place] [address] Escort needed: Y/N: No Do you have a wheelchair: Y/N: No If yes- Manual or electric: No Visits: n/a documented in this encounter Plan of Treatment Upcoming Encounters Date Type Department Care Team (Late st Contact Info) Description 09/29/2024 11:30 AM EST Office Visit [facility] MED & PEDS 505 [place] [address] Maame Espinal MD 505 [place] [address] documented as of this encounter Visit Diagnoses Not on filedocumented in this encounter Additional Health Concerns Assessment Noted Time PHQ-9 Depression Total Score: 27 024 2:13 PM EST documented as of this encounter Care Teams Supervisor Drapery Hanging Relationship Specialty Start Date End Date Shannen Orellana MD [address] [place] [address] PCP - General Family Medicine 08/24/22 Geno Arriaga It Project LeadJunior Assistant Manager 02/05/24 Maribell Rehman [address] [place] [address] Psychologist 06/27/23 Larry Zaldivar Psychiatrist 06/27/24 documented as of this encounter
--- OUTSIDE RECORDS SUMMARY | 2024-09-29 09:51 | XMS_ITS | Encounter Summary ---
Author Organization [employer] Address [address] [facility] [address] 7t [place] [address] Care Team Providers Care Back Tender Fourdrinier Name Role Phone Shannen Orellana MD Primary Care Provider Reason for Visit * Reason Onset Date Comments Call Back Request 03/26/2024 Encounter Details Date Type Department Care Team ([facility] Contact Info) Description 03/26/2024 Telephone [facility] MEDICINE 230 [place] [address] Shannen Orellana MD [address] [place], [place] [phone] Call Back Request Social History Tobacco Use Types Packs/Day Years [...] * Telephone Encounter - Valentine Carnes - 03/26/2024 11:02 AM EDT Tc from pt returning call and requesting a call back, please see previous messages. documented in this encounter Plan of Treatment Upcoming Encounters Date Type Department Care Team ([facility] st Contact Info) Description 09/29/2024 11:30 AM EST Office Visit [facility] CHC MED & PEDS 505 [place] [address] Maame Espinal MD 505 [place] [address] documented as of this encounter Visit Diagnoses Not on filedocumented in this encounter Additional Health Concerns Assessment Noted Time PHQ-9 Depression Total Score: 27 024 2:13 PM EST documented as of this encounter Care Teams Back Tender Fourdrinier Relationship Specialty Start Date End Date Shannen Orellana MD [address] [place] [address] PCP - General Family Medicine 08/24/22 Geno Arriaga Hat Block Bench HandHospice Office Coordinator 02/05/24 Maribell Rehman [address] [place] [address] Psychologist 06/27/23 Larry Zaldivar Psychiatrist 06/27/24 documented as of this encounter
--- OUTSIDE RECORDS SUMMARY | 2024-09-29 09:51 | XMS_ITS | Encounter Summary ---
Author Organization [employer] Address [address] [facility] [address] 7t [place] [address] Care Team Providers Care Turret Lathe Set Up Operator Name Role Phone Shannen Orellana MD Primary Care Provider [phone] Reason for Visit * Reason Comments Med Refill Encounter Details Date Type Department Care Team ([facility] st Contact Info) Description 02/22/[address] [facility] MEDICINE 230 [place] [address] Shannen Orellana MD [address] [place], [place] [phone] Social History Tobacco Use Types Packs/Day Years [...] Upcoming Encounters Date Type Department Care Team ([facility] st Contact Info) Description 09/29/2024 11:30 AM EST Office Visit [facility] MED & PEDS 505 [place] [address] Maame Espinal MD 505 [place] [address] documented as of this encounter Visit Diagnoses Not on filedocumented in this encounter Additional Health Concerns Assessment Noted Time PHQ-9 Depression Total Score: 27 024 2:13 PM EST documented as of this encounter Care Teams Turret Lathe Set Up Operator Relationship Specialty Start Date End Date Shannen Orellana MD [address] [place] [address] PCP - General Family Medicine 08/24/22 Geno Arriaga Hot Wort SettlerArmature Tester 02/05/24 Maribell Rehman [address] [place] [address] Psychologist 06/27/23 Larry Zaldivar Psychiatrist 06/27/24 documented as of this encounter
--- OUTSIDE RECORDS SUMMARY | 2024-09-29 09:51 | XMS_ITS | Encounter Summary ---
Author Organization [employer] Address [address] [facility] [address] 7t [place] [address] Care Team Providers Care Customer Support Coordinator Name Role Phone Shannen Orellana MD Primary Care Provider Reason for Visit * Reason Onset Date Comments Med Refill 12/20/2023 Encounter Details Date Type Department Care Team ([facility] st Contact Info) Description 12/20/2023 Refill [facility] CHC MED & PEDS 505 [place] [address] Shannen Orellana MD 505 [place] [address] Pruritic rash Social History Tobacco Use Types Packs/Day Years [...] Upcoming Encounters Date Type Department Care Team ([facility] st Contact Info) Description 09/29/2024 11:30 AM EST Office Visit [facility] MED & PEDS 505 [place] [address] Maame Espinal MD 505 [place] [address] documented as of this encounter Visit Diagnoses Diagnosis Pruritic rash documented in this encounter Additional Health Concerns Assessment Noted Time PHQ-9 Depression Total Score: 27 024 2:13 PM EST documented as of this encounter Care Teams Customer Support Coordinator Relationship Specialty Start Date End Date Shannen Orellana MD [address] [place] [address] PCP - General Family Medicine 08/24/22 Geno Arriaga Numerical Control Drill Press OperatorDonor Relations Manager 02/05/24 Maribell Rehman [address] [place] [address] Psychologist 06/27/23 Larry Zaldivar Psychiatrist 06/27/24 documented as of this encounter
--- OUTSIDE RECORDS SUMMARY | 2024-09-29 09:51 | XMS_ITS | Encounter Summary ---
Author Organization [employer] Address [address] [facility] [facility] [address] 7t [place] [address] Care Team Providers Care Window Glazier Name Role Phone Shannen Orellana MD Primary Care Provider [phone] Reason for Visit * Reason Onset Date Comments ER Follow-up 08/14/2023 Encounter Details Date Type Department Care Team ([facility] Contact Info) Description 08/14/2023 Telephone [facility] CHC MED & PEDS 505 [place], [place] [phone] Shannen Orellana MD 505 [place] [address] ER Follow-up Social History Tobacco Use Types Packs/Day Years [...] encounter Miscellaneous Notes * Telephone Encounter - Kimberly Chester RN - 08/14/2023 4:18 PM EST TC placed to patient to follow up on reported ED visit. No answer. LM to call us back. Routing backto [facility] nurses to try again. * Telephone Encounter - Tello Frazier - 08/14/2023 8:26 AM EST Tc from pt calling to report ED visit on : Date: 08/14/23 Hospital: [facility] Seen for: Groin Pain documented in this encounter Plan of Treatment Upcoming Encounters Date Type Department Care Team (Late st Contact Info) Description 09/29/2024 11:30 AM EST Office Visit [facility] MED & PEDS 505 [place] [address] Maame Espinal MD 505 [place] [address] documented as of this encounter Visit Diagnoses Not on filedocumented in this encounter Additional Health Concerns Assessment Noted Time PHQ-9 Depression Total Score: 24 022 4:05 PM EST documented as of this encounter Care Teams Window Glazier Relationship Specialty Start Date End Date Shannen Orellana MD 230 [place] [address] PCP - General Family Medicine 08/24/22 Geno Arriaga Access NurseDirector Audience Marketing 02/05/24 Maribell Rehman [address] [place] [address] Psychologist 06/27/23 Larry Zaldivar Psychiatrist 06/27/24 documented as of this encounter
--- OUTSIDE RECORDS SUMMARY | 2024-09-29 09:51 | XMS_ITS | Encounter Summary ---
Author Organization [employer] Address [address] [facility] [address] 7t [place] [address] Care Team Providers Care Equipment Operation Instructor Name Role Phone Shannen Orellana MD Primary Care Provider [phone] Encounter Details Date Type Department Care Team ([facility] st Contact Info) Description 05/14/[address] [facility] CHC MED & PEDS 505 [place], [place] [phone] Shannen Orellana MD 505 [place] [address] Social History Tobacco Use Types Packs/Day Years [...] Telephone Encounter - Shannen Orellana MD - 09/12/2024 11:46 AM EST ERROR documented in this encounter Plan of Treatment Upcoming Encounters Date Type Department Care Team (Late st Contact Info) Description 09/29/2024 11:30 AM EST Office Visit [facility] MED & PEDS 505 [place] [address] Maame Espinal MD 505 [place] [address] documented as of this encounter Visit Diagnoses Not on filedocumented in this encounter Additional Health Concerns Assessment Noted Time PHQ-9 Depression Total Score: 27 024 2:13 PM EST documented as of this encounter Care Teams Equipment Operation Instructor Relationship Specialty Start Date End Date Shannen Orellana MD [address] [place] [address] PCP - General Family Medicine 08/24/22 Geno Arriaga Health/Safety Job TitlesAnalytics Lead 02/05/24 Maribell Rehman [address] [place] [address] Psychologist 06/27/23 Larry Zaldivar Psychiatrist 06/27/24 documented as of this encounter
--- OUTSIDE RECORDS SUMMARY | 2024-09-29 09:51 | XMS_ITS | Encounter Summary ---
Author Organization [employer] Address [address] [facility] [address] 7t [place] [address] Care Team Providers Care Tibco Developer Name Role Phone Shannen Orellana MD Primary Care Provider [phone] Reason for Visit * Reason Onset Date Comments Med Refill 02/19/2024 Encounter Details Date Type Department Care Team ([facility] st Contact Info) Description 02/19/2024 Refill [facility] [address] [place], [place] [phone] Dominick, Catia, OD [address] [place] [address] Social History Tobacco Use Types Packs/Day Years [...] 11:30 AM EST Office Visit [facility] MED & PEDS 505 [place] [address] Maame Espinal MD 505 [place] [address] documented as of this encounter Visit Diagnoses Not on filedocumented in this encounter Additional Health Concerns Assessment Noted Time PHQ-9 Depression Total Score: 27 024 2:13 PM EST documented as of this encounter Care Teams Tibco Developer Relationship Specialty Start Date End Date Shannen Orellana MD [address] [place] [address] PCP - General Family Medicine 08/24/22 Geno Arriaga Cutting InspectorChemotherapist 02/05/24 Maribell Rehman [address] [place] [address] Psychologist 06/27/23 Larry Zaldivar Psychiatrist 06/27/24 documented as of this encounter
--- OUTSIDE RECORDS SUMMARY | 2024-09-29 09:51 | XMS_ITS | Encounter Summary ---
Author Organization [employer] Address [address] [facility] [address] 7t [place] [address] Care Team Providers Care Business Intelligence Administrator Name Role Phone Shannen Orellana MD Primary Care Provider [phone] Reason for Visit * Reason Onset Date Comments Referral 07/02/2023 PT 1 2 of 2 Encounter Details Date Type Department Care Team ([facility] Contact Info) Description 07/02/2023 Telephone [facility] MEDICINE 230 [place] [address] Shannen Orellana MD [address] [place], [place] [phone] Referral (PT 1 2 of 2) Social History Tobacco Use Types [...] Telephone Encounter - Anu Owens - 07/02/2023 10:42 AM EST PT-1 submitted for patient. They will receive a letter of approval or denial in the mail. * Telephone Encounter - Arturo Pena - 07/02/2023 9:52 AM EST Tc from patient requesting PT 1 PT1 Date: 07/23 Time: 9:00 Visits:6 Address: [address] [place] [address] Facility[facility] Specialty : Orthopedic surgery with Dr. Galeas Wheel Chair: no Beekeeper Farmer Needed: no documented in this encounter Plan of Treatment Upcoming Encounters Date Type Department Care Team (Late st Contact Info) Description 09/29/2024 11:30 AM EST Office Visit [facility] CHC MED & PEDS 505 [place] [address] Maame Espinal MD 505 [place] [address] documented as of this encounter Visit Diagnoses Not on filedocumented in this encounter Additional Health Concerns Assessment Noted Time PHQ-9 Depression Total Score: 24 022 4:05 PM EST documented as of this encounter Care Teams Business Intelligence Administrator Relationship Specialty Start Date End Date Shannen Orellana MD [address] [place] [address] PCP - General Family Medicine 08/24/22 Geno Arriaga Screen Printing InspectorNote Taker 02/05/24 Maribell Rheman [address] [place] [address] Psychologist 06/27/23 Larry Zaldivar Psychiatrist 06/27/24 documented as of this encounter
--- OUTSIDE RECORDS SUMMARY | 2024-09-29 09:51 | XMS_ITS | Encounter Summary ---
Author Organization [employer] Address [address] [facility] [address] 7t [place] [address] Care Team Providers Care Junior Linux Systems Administrator Name Role Phone Shannen Orellana MD Primary Care Provider [phone] Reason for Visit * Reason Onset Date Comments Created in error 02/22/2024 Encounter Details Date Type Department Care Team ([facility] st Contact Info) Description 02/22/2024 Telephone [facility] MEDICINE 230 [place] [address] Shannen Orellana MD [address] [place] [address] Created in error Social History Tobacco Use Types Packs/Day Years [...] Upcoming Encounters Date Type Department Care Team ([facility] st Contact Info) Description 09/29/2024 11:30 AM EST Office Visit [facility] MED & PEDS 505 [place] [address] Maame Espinal MD 505 [place] [address] documented as of this encounter Visit Diagnoses Not on filedocumented in this encounter Additional Health Concerns Assessment Noted Time PHQ-9 Depression Total Score: 27 024 2:13 PM EST documented as of this encounter Care Teams Junior Linux Systems Administrator Relationship Specialty Start Date End Date Shannen Orellana MD [address] [place] [address] PCP - General Family Medicine 08/24/22 Geno Arriaga Research Engineer Marine EquipmentYeast Fermentation Attendant 02/05/24 Maribell Rehman [address] [place] [address] Psychologist 06/27/23 Larry Zaldivar Psychiatrist 06/27/24 documented as of this encounter
--- OUTSIDE RECORDS SUMMARY | 2024-09-29 09:51 | XMS_ITS | Encounter Summary ---
Author Organization [employer] Address [address] [facility] [address] 7t [place] [address] Care Team Providers Care Knockdown Man Name Role Phone Shannen Orellana MD Primary Care Provider [phone] Reason for Visit * Reason Onset Date Comments PT-1 08/13/2024 Encounter Details Date Type Department Care Team ([facility] Contact Info) Description 08/13/[address] [facility] MEDICINE 230 [place] [address] Shannen Orellana MD [address] [place] [address] PT-1 Social History Tobacco Use Types Packs/Day [...] encounter Miscellaneous Notes * Telephone Encounter - Tello Freddie - 08/13/2024 12:10 PM EST Patient calling requesting PT1 Home Address verified: Y/N: Yes Provider name or facility name: [facility] Facility Address: [address] [place] [address] Escort needed: Y/N: No Do you have a wheelchair: Y/N: No If yes- Manual or electric: N/A Visits: 4 times a month documented in this encounter Plan of Treatment Upcoming Encounters Date Type Department Care Team ([facility] st Contact Info) Description 09/29/2024 11:30 AM EST Office Visit [facility] CHC MED & PEDS 505 [place] [address] Maame Espinal MD 505 [place] [address] documented as of this encounter Visit Diagnoses Not on filedocumented in this encounter Additional Health Concerns Assessment Noted Time PHQ-9 Depression Total Score: 27 024 9:53 AM EDT documented as of this encounter Care Teams Knockdown Man Relationship Specialty Start Date End Date Shannen Orellana MD [address] [place] [address] PCP - General Family Medicine 12/29/22 Geno Arriaga Blanket WasherPail Bailer 02/05/24 Maribell Rehman [address] [place] [address] Psychologist 06/27/23 Larry Zaldivar Psychiatrist 06/27/24 documented as of this encounter
--- OUTSIDE RECORDS SUMMARY | 2024-09-29 09:51 | XMS_ITS | Encounter Summary ---
Author Organization [employer] Address [address] [facility] 7 [place] [address] Care Team Providers Care Mixing Machine Tender Cork Gasket Name Role Phone Shannen Orellana MD Primary Care Provider [phone] Encounter Details Date Type Department Care Team ([facility] Contact Info) Description 09/22/2022 Telephone [facility] MEDICINE [address] [place], [place] [phone] Shannen Orellana MD [address] [place] [address] Social History Tobacco Use Types Packs/Day Years [...] suspected to have Coronavirus/COVID-19? No / Unsure 08/24/2022 1:25 PM EST documented as of this encounter Plan of Treatment Upcoming Encounters Date Type Department Care Team ([facility] Contact Info) Description 09/29/2024 11:30 AM EST Office Visit [facility] CHC MED & PEDS [address] [place] [address] Maame Espinal MD [address] [place] [address] documented as of this encounter Visit Diagnoses Not on filedocumented in this encounter Additional Health Concerns Assessment Noted Time PHQ-9 Depression Total Score: 24 022 4:05 PM EST documented as of this encounter Care Teams Mixing Machine Tender Cork Gasket Relationship Specialty Start Date End Date Shannen Orellana MD [address] [place] [address] PCP - General Family Medicine 08/24/22 Geno Arriaga Canvas Baster JumpbastingEms Helicopter Pilot 02/05/24 Maribell Rehman [address] [place] [address] Psychologist 06/27/23 Larry Zaldivar Psychiatrist 06/27/24 documented as of this encounter
--- OUTSIDE RECORDS SUMMARY | 2024-09-29 09:51 | XMS_ITS | Encounter Summary ---
Author Organization [employer] Address [address] [facility] [address] 7t [place] [address] Care Team Providers Care Dehydrogenation Operator Head Name Role Phone Shannen Orellana MD Primary Care Provider Reason for Visit * Reason Onset Date Comments Call Back Request 04/21/2024 Encounter Details Date Type Department Care Team ([facility] Contact Info) Description 04/21/2024 Telephone [facility] MEDICINE [address] [place] [address] Shannen Orellana MD [address] [place], [place] [phone] Call Back Request Social History Tobacco Use [...] encounter Miscellaneous Notes * Telephone Encounter - Gita Alexandra RN - 04/22/2024 4:06 PM EDT Placed call to pt therapist who's name is Maribell. Maribell stated she has an ZEKE signed by pt and will email it to our facility so PCP can speak with Therapist. Maribell stated she is available any day around 9am. Reviewed schedule for PCP the rest of the week and informed Maribell if release is received prior to 04/24/24, PCP will try to call her as she has admin in the am. Maribell agrees with plan and [phone] is her direct number. * Telephone Encounter - Shannen Orellana MD - 04/22/2024 10:19 AM EDT Please verify if able to and request a call back number and appropriate time for call. If able carve out time in schedule for call will appreciate it, thanks! * Telephone Encounter - Bonnie Ansari - 04/21/2024 12:13 PM EDT Tc from [facility] Therapist requesting to speak with PCP or someone in regards to pt mental health andconcerns, sheet writer tried communicating with RN but call disconnected. documented in this encounter Plan of Treatment Upcoming Encounters Date Type Department Care Team (Late st Contact Info) Description 09/29/2024 11:30 AM EST Office Visit [facility] CHC MED & PEDS [address] [place] [address] Maame Espinal MD [address] [place] [address] documented as of this encounter Visit Diagnoses Not on filedocumented in this encounter Additional Health Concerns Assessment Noted Time PHQ-9 Depression Total Score: 27 024 2:13 PM EST documented as of this encounter Care Teams Dehydrogenation Operator Head Relationship Specialty Start Date End Date Shannen Orellana MD [address] [place] [address] PCP - General Family Medicine 08/24/22 Geno Arriaga Furnace And Wash Equipment OperatorArt Dealer 02/05/24 Maribell Rehman [address] [place] [address] Psychologist 06/27/23 Larry Zaldivar Psychiatrist 06/27/24 documented as of this encounter
--- OUTSIDE RECORDS SUMMARY | 2024-09-29 09:51 | XMS_ITS | Encounter Summary ---
Author Organization [employer] Address [address] [facility] [address] 7t [place] [address] Care Team Providers Care Court Crier Name Role Phone Shannen Orellana MD Primary Care Provider [phone] Reason for Visit * Reason Onset Date Comments PT1 02/11/2024 Encounter Details Date Type Department Care Team ([facility] Contact Info) Description 02/11/2024 Telephone [facility] MED & PEDS [address] [place] [address] Shannen Orellana MD [address] [place] [address] PT1 Social History Tobacco Use Types Packs/Day [...] * Telephone Encounter - Valentine Carnes - 03/18/2024 9:31 AM EDT Tc from pt calling again requesting increase visits to the max for [facility] and other locations. Pt stated if any questions please contact at [phone] * Telephone Encounter - Tello Frazier - 02/11/2024 10:11 AM EDT Tc from pt calling in regards to message prior, also wanted to increase frequency in visits to the maximum amount of visit. This includes PT-1 for [facility] [place] ([address] [place] [address]). If any questions please contact [t at [phone]. * Telephone Encounter - Rose Zuluaga - 02/11/2024 9:49 AM EDT Tc from pt requesting an increase on visits for two Pt1's. Location: [facility] and Curtis Wagner on [address] documented in this encounter Plan of Treatment Upcoming Encounters Date Type Department Care Team ([facility] st Contact Info) Description 09/29/2024 11:30 AM EST Office Visit [facility] CHC MED & PEDS [address] [place] [address] Maame Espinal MD 505 [place] [address] documented as of this encounter Visit Diagnoses Not on filedocumented in this encounter Additional Health Concerns Assessment Noted Time PHQ-9 Depression Total Score: 27 024 2:13 PM EST documented as of this encounter Care Teams Court Crier Relationship Specialty Start Date End Date Shannen Orellana MD [address] [place] [address] PCP - General Family Medicine 08/24/22 Geno Arriaga Water Resources Technical OfficerHand Etcher 02/05/24 Maribell Rehman [address] [place] [address] Psychologist 06/27/23 Larry Zaldivar Psychiatrist 06/27/24 documented as of this encounter
--- OUTSIDE RECORDS SUMMARY | 2024-09-29 09:51 | XMS_ITS | Encounter Summary ---
Author Organization [employer] Address [address] [facility] [address] [place] [address] Care Team Providers Care Sheet Metal Erector Name Role Phone Shannen Orellana MD Primary Care Provider [phone] Reason for Visit * Reason Onset Date Comments Nurse Triage 09/01/2024 Encounter Details Date Type Department Care Team ([facility] st Contact Info) Description 09/01/2024 Telephone [facility] MEDICINE [address] [place] [address] Shannen Orellana MD [address] [place] [address] Nurse Triage Social History Tobacco Use Types Packs/Day Years [...] Miscellaneous Notes * Telephone Encounter - Kimberly Pfeiffer RN - 09/03/2024 10:38 AM EST TC to pt as requested. No answer. VM box full, unable to leave message. * Telephone Encounter - Charley Kiran RN - 09/01/2024 5:21 PM EST Triage call Pt reports bilateral hand/wrist pain of a chronic nature. Pt has been seen for this foryears. Pt reports this pain has been worse for the last 2 weeks and Pt denies injury or over use ofhands. Pt reports the pain especially awakens him at night. Pt reports some numbness when using hands. Pt is taking gabapentin, cymbalta, celebrex and flexerill as prescribed with out relief. Pt is advised to try heat but, reports, I have tried everything . There are no available apts in [facility] tomorrow but, Pt is offered to come to [facility] this evening open till 8pm. Pt declines due to zoom meeting scheduled for 6pm. Pt is offered [facility] tomorrow as well hours 830am -800pm. Pt declines and reports the [facility] can not prescribe pain medication and that would be a waste of time. Pt asks why there are no apts available in [facility]. Pt is advised to call tomorrow or 09/03/24 AM for possible apt in [facility] SDCPt asks why another call. Pt is advised scenario writer is unable to create a miracle for an open apt at this time. Pt again is advised that there are no available apts in [facility] and the only option would be [facility] tonight or tomorrow or [facility] 09/03/24 which is not open for scheduling at this time . Pt is advised to be seen in ED or UC if needed but, doesn't agree to that. Pt requests to speak to sorority supervisor. Pt is advised that [facility] is closed at this time and the sorority supervisor is gone. Pt is advised to call inthe morning when supervisors for [facility] and [facility] are in and Pt can speak with them. Pt requests a call back from the sorority supervisor. Pt is again advised to call back in the morning and Gray Mixing Operator would be available at that time. Pt expressed that this chronic pain has not been addressed adequately. Pt requests that this conversation be documented . Pt is advised documentation will be done. Triage is ended. Protocol Used: Hand Pain (Adult) Protocol-Based Disposition: See in Office or Video Visit within 3 Days Video visit not offered Positive Triage Question: * Patient wants to be seen * All higher-acuity triage questions were negative Care Advice Discussed: * Reassurance and Education - Hand Pain * Pain Medicines * Pain Medicines - Extra Notes and Warnings * Expected Course * Reasons To Call Back - Moderate pain (such as interferes with normal activities) lasts over 3 days - Mild pain lasts over 7 days - Signs of infection occur (such as spreading redness, warmth, fever) - You become worse * Use a Cold Pack for Pain * Use Heat After 48 Hours for Pain * Telephone Encounter - Jayson Valle - 09/01/2024 4:30 PM EST TC from pt reporting having bone pain in fingers and wrist . Pt denies injuring himself . Duration 2 x weeks Also pt reports has been having muscle spasms for the past week / medication not helping . documented in this encounter Plan of Treatment Upcoming Encounters Date Type Department Care Team (Late st Contact Info) Description 09/29/2024 11:30 AM EST Office Visit [facility] CHC MED & PEDS [address] [place] [address] Maame Espinal MD [address] [place] [address] documented as of this encounter Visit Diagnoses Not on filedocumented in this encounter Additional Health Concerns Assessment Noted Time PHQ-9 Depression Total Score: 27 024 9:53 AM EDT documented as of this encounter Care Teams Sheet Metal Erector Relationship Specialty Start Date End Date Shannen Orellana MD [address] [place] [address] PCP - General Family Medicine 08/24/22 Geno Arriaga International Travel ConsultantManager Employee Benefits 02/05/24 Maribell Rehman [address] [place] [address] Psychologist 06/27/23 Larry Zaldivar Psychiatrist 06/27/24 documented as of this encounter
--- OUTSIDE RECORDS SUMMARY | 2024-09-29 09:51 | XMS_ITS | Encounter Summary ---
Author Organization [employer] Address [address] [facility] [address] 7[address] [place] [address] Care Team Providers Care Compounding Technician Name Role Phone Shannen Orellana MD Primary Care Provider [phone] Reason for Visit * Reason Onset Date Comments Med Refill 02/19/2024 Encounter Details Date Type Department Care Team ([facility] st Contact Info) Description 02/19/2024 Refill [facility] MEDICINE [address] [place] [address] Shannen Orellana MD [address] [place], [place] [phone] On pre-exposure prophylaxis for HIV Social History Tobacco Use Types Packs/Day Years [...] Upcoming Encounters Date Type Department Care Team ([facility] st Contact Info) Description 09/29/2024 11:30 AM EST Office Visit [facility] MED & PEDS [address] [place] [address] Maame Espinal MD [address] [place] [address] documented as of this encounter Visit Diagnoses Diagnosis On pre-exposure prophylaxis for HIV documented in this encounter Additional Health Concerns Assessment Noted Time PHQ-9 Depression Total Score: 27 024 2:13 PM EST documented as of this encounter Care Teams Compounding Technician Relationship Specialty Start Date End Date Shannen Orellana MD [address] [place] [address] PCP - General Family Medicine 08/24/22 Geno Arriaga Independent Sales RepresentativeReel Man 02/05/24 Maribell Rehman [address] [place] [address] Psychologist 06/27/23 Larry Zaldivar Psychiatrist 06/27/24 documented as of this encounter
--- OUTSIDE RECORDS SUMMARY | 2024-09-29 09:51 | XMS_ITS | Encounter Summary ---
Author Organization [employer] Address [address] [facility] [address] 7[address] [place] [address] Care Team Providers Care Smoke Eater Name Role Phone Shannen Orellana MD Primary Care Provider [phone] Reason for Visit * Reason Onset Date Comments Med Refill 11/22/2023 Encounter Details Date Type Department Care Team ([facility] st Contact Info) Description 11/22/2023 Refill [facility] MEDICINE [address] [place] [address] Name, MD Krzysztof [address] [place] [address] Social History Tobacco Use Types Packs/Day Years [...] Upcoming Encounters Date Type Department Care Team ([facility] st Contact Info) Description 09/29/2024 11:30 AM EST Office Visit [facility] MED & PEDS [address] [place] [address] Maame Espinal MD [address] [place] [address] documented as of this encounter Visit Diagnoses Not on filedocumented in this encounter Additional Health Concerns Assessment Noted Time PHQ-9 Depression Total Score: 27 024 2:13 PM EST documented as of this encounter Care Teams Smoke Eater Relationship Specialty Start Date End Date Shannen Orellana MD [address] [place] [address] PCP - General Family Medicine 08/24/22 Geno Arriaga File ClerkRotary Drum Dyer 02/05/24 Maribell Rehman [address] [place] [address] Psychologist 06/27/23 Larry Zaldivar Psychiatrist 06/27/24 documented as of this encounter
--- OUTSIDE RECORDS SUMMARY | 2024-09-29 09:51 | XMS_ITS | Encounter Summary ---
Author Organization [employer] Address [address] [facility] [address] 7t [place] [address] Care Team Providers Care Ammonia Box Tender Name Role Phone Shannen Orellana MD Primary Care Provider [phone] Reason for Visit * Reason Onset Date Comments Med Refill 06/11/2024 Encounter Details Date Type Department Care Team ([facility] st Contact Info) Description 06/11/2024 Refill [facility] MEDICINE [address] [place], [place] [phone] Carolynn Rodriguez MD [address] [place], [place] [phone] Social History Tobacco Use Types Packs/Day Years [...] Upcoming Encounters Date Type Department Care Team ([facility] st Contact Info) Description 09/29/2024 11:30 AM EST Office Visit [facility] MED & PEDS [address] [place] [address] Maame Espinal MD [address] [place] [address] documented as of this encounter Visit Diagnoses Not on filedocumented in this encounter Additional Health Concerns Assessment Noted Time PHQ-9 Depression Total Score: 27 024 2:13 PM EST documented as of this encounter Care Teams Ammonia Box Tender Relationship Specialty Start Date End Date Shannen Orellana MD [address] [place] [address] PCP - General Family Medicine 08/24/22 Geno Arriaga Assistant EngineerParts Counter Associate 02/05/24 Maribell Rehman [address] [place] [address] Psychologist 06/27/23 Larry Zaldivar Psychiatrist 06/27/24 documented as of this encounter
--- OUTSIDE RECORDS SUMMARY | 2024-09-29 09:51 | XMS_ITS | Clinical Summary ---
Author Organization [employer] Address [address] [place] [address] Care Team Providers Care Warehouse Director Name Role Phone Shannen Orellana MD Primary Care Provider [phone] Allergies Active Allergy Reactions Criticality Noted Date Comments Cat Dander High 02/06/2023 Other reaction(s): SNEEZING, THROAT SWOLLEN Dust Mite Extract High 11/28/2022 Other reaction(s): SNEEZING Fish-Derived Products 03/08/2018 Shellfish Allergy Unknown Low 02/06/2023 Tacrolimus Nausea And Vomiting High 01/02/2017 Other reaction(s): headaches, nausea Pt has all listed ??reaction to this medication Medications nicotine polacrilex (Commit) 4 MG lozenge take 1 lozenge by oral route every 1-2 hours dissolved slowly in the mouth for 6 weeks, then 1 lozenge every 2-4 hours for 3 weeks, then 1 lozenge every 4-8 hours for 2 weeks. 12/03/19 22 Active sucralfate (Carafate) 1 g tablet Take 1 g by mouth in the morning. 04/11/20 22 Active lidocaine (Lidoderm) 5 % patch Place 1 patch on the skin at bed time. 06/14/20 22 Active RABEprazole (Aciphex) 20 MG EC tablet Take 20 mg by mouth 2 times daily. 01/13/20 23 Active nicotine (Nicoderm, Step 1) 21 MG/24HR patch APPLY 1 PATCH TOPICALLY TO THE SKIN DAILY IN THE MORNING DIRECTED *DO NOT SMOKE WHILE USING PATCH* 30 patch 03/12/20 23 Active Artificial Tears 0.2-0.2-1 % solution Administer 1 drop into both eyes 4 times daily. 03/01/20 23 Active Diclofenac Sodium 1 % gelIndications: Right sided abdominal pain Apply to the affected area 2x/day prn 200 g 05/07/20 23 Active omega-3 acid ethyl esters (Lovaza) 1 g capsule Take 1 capsule (1 g) by mouth 2 times daily. 60 capsule 11 11/23/19 24 025 Active dextran 70-hypromellose (artificial tears) 0.1-0.3 % ophthalmic solution Administer 1 drop into both eyes if needed in the morning, at noon, in the evening, and at bedtime for dry eyes. 15 mL 11 12/19/19 24 025 Active albuterol 108 (90 Base) MCG/ACT inhaler Inhale 2 puffs every 6 (six) hours if needed. Active atomoxetine (Strattera) 80 MG capsule Take 80 mg by mouth in the morning. Active QUEtiapine (SEROquel) 100 MG tablet TAKE ONE TABLET EVERY NIGHT 01/29/20 24 Active Suprep Bowel Prep Kit 17.5-3.13-1.6 GM/177ML solution DRINK 177 ML DAILY FOR 2 DAYS 03/25/20 24 Active tamsulosin (Flomax) 0.4 MG 24 hr capsule Take 0.4 mg by mouth at bedtime. 01/25/20 24 Active hydrocortisone 2.5 % cream APPLY TO THE AFFECTED AREA(S) TWICE DAILY NEEDED 28.35 g 1 04/16/20 24 Active diphenoxylate-a tropine (Lomotil) 2.5-0.025 MG tabletIndicatio ns:Irritable bowel syndrome with diarrhea Take 1 tablet by mouth if needed in the morning, at noon, in the evening, and at bedtime for diarrhea. 120 tablet 2 06/12/20 24 Active dicyclomine (Bentyl) 20 MG tabletIndicatio ns:Irritable bowel syndrome with diarrhea Take 1 tablet (20 mg) by mouth before breakfast, before lunch, before evening meal, and at bedtime. 120 tablet 5 06/12/20 24 Active promethazine (Phenergan) 12.5 MG tablet Take 1 tablet (12.5 mg) by mouth every 6 (six) hours if needed for nausea or vomiting. 120 tablet 5 06/12/20 24 Active levocetirizine (Xyzal) 5 MG tabletIndicatio ns:Rhinosinusit is Take 1 tablet (5 mg) by mouth at bedtime. 90 tablet 1 06/12/20 24 Active doxepin (SINEquan) 25 MG capsuleIndicati ons:Pruritic rash Take 1 capsule (25 mg) by mouth at bedtime. 90 capsule 1 06/12/20 24 Active montelukast (Singulair) 10 MG tablet Take 1 tablet (10 mg) by mouth at bedtime. 90 tablet 1 06/12/20 24 Active celecoxib (CeleBREX) 200 MG capsuleIndicati ons:Other chronic pain,Continuous RUQ abdominal pain TAKE ONE CAPSULE TWICE DAILY 60 capsule 2 06/12/20 24 Active Simethicone Ultra Strength 180 MG capsule Take 1 capsule (180 mg) by mouth if needed in the morning, at noon, and at bedtime for flatulence. 90 capsule 3 06/12/20 24 Active doxycycline (Vibra-Tabs) 100 MG tablet 200 mg of doxycycline taken within 72 hours after sex. Take with a full glass of water and do not lie down for at least 30 minutes after. 20 tablet 11 06/12/20 24 Active vardenafil (Levitra) 10 MG tablet Take 1 tablet (10 mg) by mouth if needed for erectile dysfunction. 10 tablet 1 06/12/20 24 Active PARoxetine (Paxil) 10 MG tablet Take 10 mg by mouth in the morning. 06/11/20 24 Active gabapentin (Neurontin) 600 MG tablet Take 1 tablet (600 mg) by mouth 3 times daily. 90 tablet 1 06/27/20 24 Active cyclobenzaprine (Flexeril) 10 MG tabletIndicatio ns:Right flank pain, chronic Take 1 tablet (10 mg) by mouth 3 times daily. TAKE ONE TABLET THREE TIMES DAILY NEEDED FOR MUSCLE SPASMS 90 tablet 1 06/27/20 24 Active emtricitabine-t enofovir DF (Truvada) 200-300 MG tabletIndicatio ns:On pre-exposure prophylaxis for HIV TAKE 1 TABLET EVERY MORNING 30 tablet 2 07/07/20 24 Active minoxidil (Loniten) 2.5 MG tabletIndicatio ns:Alopecia areata Take 2 tablets (5 mg) by mouth Once per day. 60 tablet 3 07/08/20 24 025 Active hydroquinone 4 % creamIndication s:Melasma Apply topically 2 times daily. 30 mL 3 07/08/20 24 025 Active DULoxetine (Cymbalta) [address] capsule TAKE ONE CAPSULE BY MOUTH TWICE DAILY. DO NOT BREAK, CRUSH, DISSOLVE OR CHEW 180 capsule 1 07/14/20 24 Active Ascorbic Acid (vitamin C) 250 MG tabletIndicatio ns:Aphthous ulcer TAKE ONE TABLET EVERY MORNING 90 tablet 1 07/14/20 24 Active Sodium Fluoride 1.1 % cream Upper Tract teeth for 2 minutes, morning and night. Spit, do not rinse. Do not eat or drink anything for 30 minutes following use. 112 g 3 07/15/20 24 Active Sodium Fluoride (ACT Anticavity Fluoride Rinse) 0.05 % solution Used as directed 17 mL 3 07/15/20 24 Active fluticasone (Flonase) 50 MCG/ACT nasal spray INHALE ONE SPRAY IN EACH NOSTRIL TWICE DAILY 48 g 1 09/04/19 25 Active fluticasone (Flonase) 50 MCG/ACT nasal spray Administer 2 sprays into each nostril 2 times daily. Shake gently. Before first use, prime pump. After use, clean tip and replace cap. 16 g 5 11/23/19 24 025 Discontinued Active Problems Problem Noted Date Diagnosed Date Tendonitis 06/27/2024 Overview (06/28/2024): -Extrensor digitorum longus -Pt is aware of extended waiting time. Relevant orders: Referral to Podiatry Chest wall pain, chronic 06/27/2024 Assessment & Plan (06/28/2024 1:53 AM EDT): -Pt agreed on increasing dosage of Gabapentin from 300 to 600. If Gabapentin doesn't help with pain will consider increasing dosage to 800 or switching to Lyrical. -Advised pt to speak with his therapist of ways of managing his pain exacerbations. Relevant orders: Gabapentin (Neurontin) 600 MG tablet Cyclobenzaprine (Flexeril) 10 MG tablet Referral to Pain Medicine Fibromyalgia 06/27/2024 Chronic pain of left knee 04/07/2024 Assessment & Plan (04/10/2024 1:36 PM EDT): Prescribing Tramadol for Sx. Ordering MRI of left lower extremity for further evaluation. Relevant Medications: Tramadol (Ultram) 50 MG tablet Alopecia areata 04/07/2024 Assessment & Plan (04/10/2024 1:38 PM EDT): Referral to Dermatology for further evaluation of Sx. Chronic pain of both knees 01/16/2024 Assessment & Plan (01/16/2024 11:02 AM EDT): - most likely meniscal compromise, r/o OA - order x-rays - start with PT, hold off on weight lifting and other excerises at the gym - continue Tylenol or Celebrex PRN - f/u with PCP next month Mid back pain 12/05/2023 Assessment & Plan (04/10/2024 1:37 PM EDT): Prescribing Tramadol for Sx. Relevant Medications Tramadol (Ultram) 50 MG tablet Assessment & Plan (12/05/2023 5:16 PM EDT): Patient reports persistent thoracic pain, discuss with patient his MRI results cervical area. Foraminal stenosis of cervical region 11/27/2023 Disorder of sacrum 11/27/2023 Cubital tunnel syndrome, right 11/27/2023 Cervical radiculopathy 10/11/2023 Assessment & Plan (10/11/2023 2:53 PM EST): Patient is suffering from cervical radiculopathy that is interfering with daily life tasks. He reported he hadn't seen a surgeon because he didn't have insurance. At this time I ordered a MRI of Cervical Spine w/o contrast and referred him to general surgery. Overweight 10/11/2023 Assessment & Plan (06/28/2024 2:09 AM EDT): The pt was made aware that due to having Irritable Bowel syndrome Wegovy would not be the best choice. Discussed other potential medications with pt, but advised that he should speak with his psychiatrist first and get their approval. Macrocytosis 05/07/2023 Assessment & Plan (05/07/2023 4:49 PM EDT): Reports concern of macrocytosis noticed on labs drawn by BRANDING SPECIALIST. Will workup and f/up with results Abnormal LFTs (liver function tests) 02/28/2023 Spondylosis of lumbar region without myelopathy or radiculopathy 02/28/2023 Balanitis 02/28/2023 Costochondritis 02/28/2023 GERD (gastroesophageal reflux disease) Sacroiliitis 02/28/2023 OCD (obsessive compulsive disorder) 02/28/2023 PTSD (post-traumatic stress disorder) 02/28/2023 Trauma in childhood 02/28/2023 Spondylosis of cervical joint without myelopathy 02/28/2023 Pruritic rash 02/19/2023 Assessment & Plan (02/19/2023 2:43 PM EDT): Patient with diffused rash with unknown etiology with associated itchiness, fever, and sweating. At this point will start on cetirizine 10 mg, doxepin 25 mg , benadryl 25 mg and refer to prizer hand for further evaluation. Will resend x 5 day trial of prednisone 50 mg. Fever 02/19/2023 Assessment & Plan (02/19/2023 2:43 PM EDT): Will send labs. Right flank pain, chronic 02/06/2023 Assessment & Plan (05/07/2023 4:48 PM EDT): Reviewed imaging, no etiology of symptoms found, given hx likely MSK, will wait on pain management. Consider OMT or acupunture. Assessment & Plan (03/01/2023 10:02 AM EDT): Patient with chronic R sided flank pain exacerbated with sitting or changes in position. RUQ ultrasound revealed hemangioma. Will send for abdominal pelvic CT scan and start on short course of percocet 325 mg for x5 days and soma 350 mg. Assessment & Plan (02/06/2023 2:28 PM EDT): Patient with worsening R abdominal pain, will strongly benefit of inperson evaluation which I have requested MA to do. Also reviewed labs from ED, he denies getting imaging done for his pain, he has mild transaminitis, will order RUQ US Stat to [facility] [place] [place]. Sleep apnea 10/09/2022 Assessment & Plan (10/09/2022 5:19 PM EST): Hx of insomnia, reports prior hx of snoring, apneic episodes and waking up not well rested, will test for sleep apnea. Liver cyst 08/24/2022 Irritable bowel syndrome with diarrhea Assessment & Plan (02/06/2023 2:27 PM EDT): Patient with exacerbation of symptoms. Reports feels current GI in [facility] [place] [place] has not helped his symptoms and will want to see alternative provider in [place]. Assessment & Plan (08/24/2022 2:47 PM EST): Needs refill of his medication. Tenderness on examination. Insomnia 08/24/2022 Assessment & Plan (10/09/2022 5:17 PM EST): Will send trial of doxepin. Will send to sleep specialist and sleep study. F/u in 2-3 weeks to assess if meds have helped his symptoms Health maintenance examination 08/24/2022 Assessment & Plan (08/24/2022 2:45 PM EST): PHQ-9 done and review, patient with therapist & under treatment, Passive SI, no plan Will send for lipid panel IZ: will get influenza vaccination Smoker: restarted, aware of benefits of cessation Reviewed BMI with patient Patient on PrEP Rhinosinusitis 08/24/2022 Assessment & Plan (08/24/2022 2:47 PM EST): Reports more then 10 days of recurrent rhinosinusitis, will send abx and followup as needed Chronic pain of right ankle 08/24/2022 Assessment & Plan (08/24/2022 2:46 PM EST): Normal ROM, tenderness in base of 5th metarsal, anterior and middle lateral ligaments and navicular bone. Send X ray and to podiatry. Chronic pain syndrome 08/15/2022 Carpal tunnel syndrome 05/03/2017 Low back pain without sciatica 03/06/2017 Assessment & Plan (11/26/2023 7:26 PM EDT): Referred to chiropractor for severe mid back pain with cervical and lumbar radiculopathy, concern of progressive issues in his throacic back. Ordered an MRI of complete spine Assessment & Plan (10/09/2022 5:18 PM EST): Patient with chronic back pain, no improvement with conservative therapy, w/ radicular symptoms. Patient concerned of the lack of progress to help with his symptoms, at this point seems prudent to send for MRI of his back and pending results consider referral pain management to [facility] (reports poor rapport in [facility] [place] [place]/[facility]). 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/24 Encounters Date Type Department Care Team Description 09/26/2024 Telephone [facility] [address] [place] [address] Shannen Orellana MD cart prep (/) 09/23/2024 Telephone [facility] [address] [place] [address] Shannen Orellana MD PT1 09/04/2024 Refill [facility] [address] [place] [address] Shannen Orellana MD 09/01/2024 Telephone [facility] [address] [place], [place] [phone] Shannen Orellana MD Nurse Triage 08/28/2024 Patient Outreach [facility] [address] [place] [address] Shannen Orellana MD Care Coordination (CHW outreach for SDOH PT-1 - LVM ) 08/28/[address] [address] Shannen Orellana MD PT1 08/13/2024 Patient Outreach [facility] [address] [place] [address] Shannen Orellana MD Care Coordination (W outreach for [place] PT-1 - LVM ) 08/13/[address] [address] Shannen Orellana MD Order(s) 08/13/[address] [address] Shannen Orellana MD PT-1 07/30/2024 Telephone [facility] [address] [place] [address] Shannen Orellana MD 07/18/[address] [address] Shannen Orellana MD Referral 07/15/2024 8:30 AM EST Office Visit [facility] [address] [place] [address] Estephanie Perez DDS 07/12/2024 Refill [facility] [address] [place] [address] Shannen Orellana MD Aphthous ulcer 07/09/2024 Patient Outreach [facility] [address] [place] [address] Shannen Orellana MD Care Coordination ( Care Plan ) 07/09/2024 Telephone [facility] [address] [place] [address] Shannen Orellana MD 07/08/2024 9:00 AM EST Office Visit [facility] [address] [place] [address] Maame Espinal MD Alopecia areata (Primary Dx); Onur 07/08/2024 Travel 07/06/2024 Refill [facility] [address] [place] [address] Shannen Orellana MD On pre-exposure prophylaxis for HIV from Last 3 Months Immunizations Name Administration Dates Next Due Influenza Injectable Quadriv alant Preservative Free IIV4 MDCK 05/12/2020,06/03/2017 Influenza injectable quadriv alent IIV4 with preservative 08/24/2022 Influenza injectable quadriv alent preservative free 05/07/2023,06/27/2021,06/06/2019 Influenza, IIV3, injectable 06/06/2014 Influenza, seasonal, injecta ble, preservative free 06/27/2024 Moderna Covid-19 Vaccine 12+ 09/20/2020,08/23/20 Pfizer Covid-19 Vaccine 12+ 10/11/2023, Pneumococcal Conjugate PCV 20 06/27/2024 Smallpox Mpox, Live Attenuat ed, Preservative Free 05/16/2022,04/18/2022 Tdap 10/11/2023,04/03/2007 Social History Tobacco Use Types Packs/Day Years Used Date Smoking Tobacco: Every Day Cigarettes Passive Smoke Exposure: Current Smokeless Tobacco: Never Tobacco Cessation:Ready to Q uit: Not Asked; Counseling Given: Not Answered Alcohol Use Standard Drinks/Week Comments Never 0 [...] or Mcdowell 06/26/2022 10 :15 AM EDT Last Filed Vital Signs Vital Sign Reading Time Taken Comments Blood Pressure 124/70 07/15/2024 8:32 AM EST Pulse 97 07/08/2024 9:04 AM EST Temperature 36.7 ??C (98 ??F) 07/08/2024 9:04 AM EST Respiratory Rate 20 07/08/2024 9:04 AM EST Oxygen Saturation 98% 07/08/2024 9:04 AM EST Inhaled Oxygen Concentration - - Weight 88.5 kg (195 lb) 07/08/2024 9:04 AM EST Height 178 cm (5' 10.08 ) 07/08/2024 9:04 AM EST Body Mass Index 27.92 07/08/2024 9:04 AM EST Plan of Treatment Upcoming Encounters Date Type Department Care Team (Late st Contact Info) Description 09/29/2024 11:30 AM EST Office Visit [facility] [address] [place] [address] Maame Espinal MD [address] [place] [address] Health Maintenance Due Date Last Done Comments Family Planning (PISQ) 1995 Hepatitis A Vaccines (1 of 2 - Risk 2-dose series) 1999 Hepatitis B Vaccines (1 of 3 - 19+ 3-dose series) 1999 COVID-19 Vaccine ( season) 2024 10/11/2023, 06/27/2021, 09/20/2020, Additional history exists Dental Oral Exam 05/17/2024 11/14/2023, 08/24/2017 Dental Prophylaxis 05/17/2024 11/14/2023, 0 01/02/2019, 10/09/2017 SDOH Screening 10/05/2024 10/05/2023 Dental X-Ray: Bitewings 11/14/2024 11/14/2023, 08/24 Depression Monitoring (PHQ-9) 12/25/2024 06/27/2024, 06/27/2024 Alcohol/Substance Use Screening 06/27/2025 06/27/2024 Depression Screening 06/27/2025 06/27/2024, 06/27/20 24 Tobacco Screening 07/15/2025 07/15/2024 Dental X-Ray: Full Mouth 11/14/2026 11/14/2023, 07/28 Lipid Panel 10/11/2028 10/11/2023, 11/09/2021 Zoster Vaccines (1 of 2) 2030 DTaP/Tdap/Td Vaccines (3 - Td or Tdap) 10/11/2033 10/11/2023, 04/03/2007 RSV Patients and Patients Aged 60 years or older (1 - 1-dose 75+ series) 2055 HIV Screening Completed 01/22/2024, 01/26, 03/17/2022, Additional history exists Hepatitis C Screening Completed 01/22/2024 , 02/22/2023, 03/17/2022, Additional history exists Influenza Vaccine Completed 06/27/2024, , 08/24/2022, Additional history exists Pneumococcal Vaccine: Pediatrics (0 to 5 Years) and At-Risk Patients (6 to 49) Years) Completed 06/27/2024 HIB Vaccines Aged Out No longer eligi ble based on patient's age to complete this topic HPV Vaccines Aged Out No longer eligi ble based on patient's age to complete this topic IPV Vaccines Aged Out No longer eligi ble based on patient's age to complete this topic Meningococcal Vaccine Aged Out No mayte giovanna eligible based on patient's age to complete this topic RSV under 20 months Aged Out No longe r eligible based on patient's age to complete this topic Rotavirus Vaccines Aged Out No longer eligible based on patient's age to complete this topic Procedures Procedure Name Priority Date/Time Associated Diagnosis Comments 3 B(V) RESTORATIVE - RESIN-BASED COMPOSITE RESTORATIONS - DIRECT - RESIN-BASED COMPOSITE - ONE SURFACE, POSTERIOR Routine 07/15/2024 8:30 AM EST 6 F(V) RESTORATIVE - RESIN-BASED COMPOSITE RESTORATIONS - DIRECT - RESIN-BASED COMPOSITE - ONE SURFACE, ANTERIOR Routine 07/15/2024 8:30 AM EST 4 B(V) RESTORATIVE - RESIN-BASED COMPOSITE RESTORATIONS - DIRECT - RESIN-BASED COMPOSITE - ONE SURFACE, POSTERIOR Routine 07/15/2024 8:30 AM EST 5 B(V) RESTORATIVE - RESIN-BASED COMPOSITE RESTORATIONS - DIRECT - RESIN-BASED COMPOSITE - ONE SURFACE, POSTERIOR Routine 07/15/2024 8:30 AM EST HEPATITIS C AB W/REFL TO HCV RNA, QN, PCR Routine 01/22/2024 10:05 AM EDT Screening for STD (sexually transmitted disease) HIV 1 RNA, QUANTITATIVE REAL TIME PCR Routine 01/22/2024 10:05 AM EDT Screening for STD (sexually transmitted disease) PROPHYLAXIS - ADULT Routine 11/14/2023 9 :00 AM EDT DIAGNOSTIC - DIAGNOSTIC IMAGING - INTRAORAL - COMPREHENSIVE SERIES OF RADIOGRAPHIC IMAGES Routine 11/14/2023 9:00 AM EDT PERIODIC ORAL EVALUATION - ESTABLISHED PATIENT Routine 11/14/2023 9:00 AM EDT LIPID PANEL, STANDARD Routine 10/11/2023 3:14 PM EST Encounter for health-related screening from Last 3 Months or Most Recently Relevant to Health Maintenance Results * Hepatitis C Antibody with Reflex to HCV, RNA, Quantitative, Real-Time PCR (01/22/2024 10:05 AM EDT) Hepatitis C Antibody Nonreactive Nonreactive [facility] Comment:Antibodies to HCV no t detected; does not exclude early acuteHCV infection. Blood Venous blood specimen / Unknown 01/22/2024 10:05 AM EDT 01/22/2024 2:38 PM EDT Shannen Orellana MD LAB BLOOD ORDERABLES Final Re sult Performing Organization Address [facility]/ZIP Co de Phone Number [facility] [address] [place] [phone] * HIV-1 RNA, Quantitative, Real-Time PCR (01/22/2024 10:05 AM EDT) HIV RNA PCR Qn Copies NOT DETECTED NOT DETECTED copies/mL [facility] HIV RNA PCR Qn Log Copies NOT DETECTED NOT DETECTED [facility] Comment:Result Units: Log co pies/mLThis test was performed using Real-Time Polymerase ChainReaction.Reportable Range: 20 copies/mL to 10,000,000 copies/mL(1.30 log copies/mL to 7.00 log copies/mL).THIS TEST WAS PERFORMED AT:[facility] [email or web address] [place] [phone] RUSSELL MD Blood Venous blood specimen / Unknown 01/22/2024 10:05 AM EDT 01/22/2024 2:38 PM EDT us Shannen Orellana MD LAB BLOOD ORDERABLES Final Re sult Performing Organization Address [facility] Co de Phone Number [facility] [address] [place] [phone] * (ABNORMAL) Lipid Panel, Standard (10/11/2023 3:14 PM EST) Triglycerides 209(H) <150 mg/dL [facility] Comment:Desirable Triglyceri de: less than 150 mg/dLBorderline High Triglyceride 150-199 mg/dLHigh Triglyceride: 200-499 mg/dLVery High Triglyceride: greater than or equal to 5OO mg/dL Cholesterol 190 <200 mg/dL [facility] Comment:Desirable Cholestero l: less than 200 mg/dLBorderline High Cholesterol: 200-239 mg/dLHigh Cholesterol: greater than 239 mg/dL LDL Cholesterol Calculated 117(H) <100 mg/dL [facility] Comment:Desirable LDL: less than 100 mg/dLNear Optimal/Above Optimal LDL: 110- 129 mg/dLBorderline High LDL: 130-159 mg/dLHigh LDL: 160-189 mg/dLVery High LDL: greater than or equal to 190 mg/dL HDL Cholesterol 32(L) >40 mg/dL [facility] Comment:Desirable HDL: great er than 40 mg/dL Note: This HDL assay may give artificially low results in patients with liver disease. Blood Venous blood specimen / Unknown 10/11/2023 3:14 PM EST 10/11/2023 5:21 PM EST us Shannen Orellana MD LAB BLOOD ORDERABLES Final Re sult [facility] [address] [place] [phone] from Last 3 Months or Most Recently Relevant to Health Maintenance Insurance [facility] C3 DENTAL-[facility] MEDICAID STAND ADULT Care Teams Warehouse Director Relationship Specialty Start Date End Date Shannen Orellana MD [address] [place] [phone] PCP - General Family Medicine 08/24/22 Geno Arriaga Diamond Setter ApprenticeWax Machine Operator 02/05/24 Maribell Rehman [address] [place] [phone] Psychologist 06/27/23 Larry Zaldivar Psychiatrist 06/27/24
--- OUTSIDE RECORDS SUMMARY | 2024-09-29 09:52 | XMS_ITS | Encounter Summary ---
Author Organization [employer] [facility] Address [address] [place] [address] 7 [place] [address] Care Team Providers Care Control Board Operator Name Role Phone Shannen Orellana MD Primary Care Provider [phone] Encounter Details Date Type Department Care Team ([facility] Contact Info) Description 01/08/2023 Orders Only [facility] PEDS [address] [place] [address] Patricia De Jesus LPN Social History Tobacco Use Types Packs/Day Years [...] 09/29/2024 11:30 AM EST Office Visit [facility] [address] [place] [address] Maame Espinal MD [address] [place] [address] documented as of this encounter Procedures Procedure Name Priority Date/Time Associated Diagnosis Comments MR LUMBAR SPINE WO CONTRAST Routine 01/11/2023 3:42 PM EDT documented in this encounter Results * MR Lumbar Spine w/o Contrast (01/11/2023 3:42 PM EDT) Anatomical Region Laterality Modality Spine, L-spine Magnetic Resonan ce 01/11/2023 3:42 PM EDT Narrative 01/26/2023 4:37 AM EDT ? [facility] ?[address] ?[place] [address] ? Magnetic Resonance Report ? Signed ? Patient: Birmingham,Jonas ?MR#: [id number] ?? 25 ? : 1980 ?Acct:[id number] ? Age/Sex: 42 / M ?ADM Date: 01/11/23 ? Loc: HO.MRI ? Attending Dr: Shannen Orellana MD ? Ordering Physician: Shannen Orellana MD ?? Date of Service: 01/11/23 ?? Procedure(s): MR lumbar spine wo con ?? Accession Number(s): [id number] ? cc: Shannne Orellana MD ? EXAMINATION: ?? MR LUMBAR SPINE WITHOUT CONTRAST ? CLINICAL INFORMATION: ?? Chronic lower back pain with sciatica. ? COMPARISON: ?? Lumbar spine MRI from 05/02/2018. ? TECHNIQUE: ?? MRI of the lumbar spine was obtained using routine sequences without ?? contrast. ? FINDINGS: ?? Normal anatomic alignment. The intervertebral discs largely remain of ?? normal height and signal. Minimal disc degeneration from L1-L5. ?? Associated minimal mixed Modic type discogenic endplate changes from ?? L2-L4. No suspicious marrow edema. The vertebral body heights are ?? well-maintained. The conus medullaris terminates at the level of L1. ?? The distal spinal cord is normal in appearance. Small Tarlov cyst at ?? the level of S2. ? No significant abnormalities of the paraspinal musculature. Limited ?? evaluation of the intra-abdominal structures without significant ?? abnormalities. The abdominal aorta is of normal contour and caliber. ? AXIAL SPINAL LEVELS: ?? L1-L2: Normal annular contour. There is no facet joint arthropathy. ?? There is no neural foraminal stenosis. There is no spinal canal ?? stenosis. ? L2-L3: Normal annular contour. There is no facet joint arthropathy. ?? There is no neural foraminal stenosis. There is no spinal canal ?? stenosis. ? L3-L4: Shallow diffuse disc bulge. There is mild left and no right ?? facet joint arthropathy. There is no neural foraminal stenosis. There ?? is no spinal canal stenosis. ? L4-L5: Mild diffuse disc bulge with slight osseous ridging and shallow ?? central disc protrusion. There is no facet joint arthropathy. There is ?? mild left and no right neural foraminal stenosis. There is no spinal ?? canal stenosis. ? L5-S1: Normal annular contour. There is no facet joint arthropathy. ?? There is no neural foraminal stenosis. There is no spinal canal ?? stenosis. ? MR/MR lumbar spine wo con ?? IMPRESSION: ?? Mild multilevel degenerative spondyloarthropathy of the lumbar spine as ?? described in detail above. No overt spinal canal stenosis or nerve root ?? compression. ? Overall, degenerative changes appear similar to exam from 2018. ? Dictated By: ?Jonas Roldan DO ? Signed By: ?<Electronically signed by Jonas Roldan DO in OV> ? 01/26/23 0434 ? DD/ 1542 ? TD/TT: ? Dry Chain Operator: JL ? Procedure Note Perla, Candie - 01/26/2023 [place] [address] Magnetic Resonance Report Signed Patient: Jonas BirminghamMR#: [id number] 25 : 1980Acct:[id number] Age/Sex: 42 / MADM Date: 01/11/23 Loc: HO.MRI Attending Dr: Shannen Orellana MD Ordering Physician: Shannen Orellana MD Date of Service: 01/11/23 Procedure(s): MR lumbar spine wo con Accession Number(s): [id number] cc: Shannen Orellana MD EXAMINATION: MR LUMBAR SPINE WITHOUT CONTRAST CLINICAL INFORMATION: Chronic lower back pain with sciatica. COMPARISON: Lumbar spine MRI from 05/02/2018. TECHNIQUE: MRI of the lumbar spine was obtained using routine sequences without contrast. FINDINGS: Normal anatomic alignment. The intervertebral discs largely remain of normal height and signal. Minimal disc degeneration from L1-L5. Associated minimal mixed Modic type discogenic endplate changes from L2-L4. No suspicious marrow edema. The vertebral body heights are well-maintained. The conus medullaris terminates at the level of L1. The distal spinal cord is normal in appearance. 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 No significant abnormalities of the paraspinal musculature. Limited evaluation of the intra-abdominal structures without significant abnormalities. The abdominal aorta is of normal contour and caliber. AXIAL SPINAL LEVELS: L1-L2: Normal annular contour. There is no facet joint arthropathy. There is no neural foraminal stenosis. There is no spinal canal stenosis. L2-L3: Normal annular contour. There is no facet joint arthropathy. There is no neural foraminal stenosis. There is no spinal canal stenosis. L3-L4: Shallow diffuse disc bulge. There is mild left and no right facet joint arthropathy. There is no neural foraminal stenosis. There is no spinal canal stenosis. L4-L5: Mild diffuse disc bulge with slight osseous ridging and shallow central disc protrusion. There is no facet joint arthropathy. There is mild left and no right neural foraminal stenosis. There is no spinal canal stenosis. L5-S1: Normal annular contour. There is no facet joint arthropathy. There is no neural foraminal stenosis. There is no spinal canal stenosis. 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 No overt spinal canal stenosis or nerve root compression. Overall, degenerative changes appear similar to exam from 2018. Dictated By: Jonas Roldan DO Signed By: <Electronically signed by Jonas Roldan DO in OV> 01/26/23 0434 DD/ 1542 TD/TT: Dry Chain Operator: [facility] External Provider IMG MRI PROCEDURES Final Result documented in this encounter Visit Diagnoses Not on filedocumented in this encounter Additional Health Concerns Assessment Noted Time PHQ-9 Depression Total Score: 24 08/24/ 022 4:05 PM EST documented as of this encounter Care Teams Control Board Operator Relationship Specialty Start Date End Date Shannen Orellana MD [address] [place] [address] PCP - General Family Medicine 08/24/22 Geno Arriaga Middleware Solutions ArchitectPapier Mache' Molder 02/05/24 Maribell Rehman [address] [place] [address] Psychologist 06/27/23 Larry Zaldivar Psychiatrist 06/27/24 documented as of this encounter
== END 2024-09-29 10:18 | disposition home or self-care (01) ==
PROVIDERS: PCP Family Medicine; Referring Provider Anesthesiology; Visit Provider Physician Assistant
DX: M54.12 Radiculopathy, cervical region (principal)
CPT/HCPCS: 99204

== ENCOUNTER → 2024-09-29 09:24 | Outpatient (BNVA) | payer MEDICAID, SELFPAY | PROVIDERS: PCP Family Medicine; Referring Provider Anesthesiology; Visit Provider Physician Assistant | DX: M54.12 Radiculopathy, cervical region (principal) | CPT/HCPCS: 99212 ==

== ENCOUNTER 2024-10-03 10:16 | Outpatient (REF) | payer MEDICAID, SELFPAY ==
--- OUTSIDE RECORDS SUMMARY | 2024-10-03 11:12 | XMS_ITS | Encounter Summary ---
Author Organization [employer] Address [address] 7t [place] [address] Care Team Providers Care Nurse Orthopaedic Name Role Phone Shannen Orellana MD Primary Care Provider [phone] Reason for Visit * Reason Onset Date Comments Referral 06/11/2023 Encounter Details Date Type Department Care Team ([facility] Contact Info) Description 06/11/2023 Telephone [facility] CH[facility] MED & PEDS [address] [place], [place] [phone] Shannen Orellana MD [address] [place] [address] Referral Social History Tobacco Use Types Packs/Day [...] documented in this encounter Plan of Treatment Not on file documented as of this encounter Visit Diagnoses Not on filedocumented in this encounter Additional Health Concerns Assessment Noted Time PHQ-9 Depression Total Score: 24 022 4:05 PM EST documented as of this encounter Care Teams Nurse Orthopaedic Relationship Specialty Start Date End Date Shannen Orellana MD [address] [place] [address] PCP - General Family Medicine 08/24/22 Geno Arriaga Crusher Plant OperatorSecurity Sergeant 02/05/24 Maribell Rehman [address] [place] [address] Psychologist 06/27/23 Larry Zaldivar Psychiatrist 06/27/24 documented as of this encounter
--- OUTSIDE RECORDS SUMMARY | 2024-10-03 11:12 | XMS_ITS | Encounter Summary ---
Author Organization [employer] Address [address] 7t [place] [address] Care Team Providers Care Repairer Finished Metal Name Role Phone Shannen Orellana MD Primary Care Provider [phone] Encounter Details Date Type Department Care Team ([facility] st Contact Info) Description 06/11/2023 Telephone [facility] CH[facility] MED & PEDS [address] [place], [place] [phone] Shannen Orellana MD [address] [place] [address] Social History Tobacco Use Types Packs/Day Years [...] as of this encounter Plan of Treatment Not on file documented as of this encounter Visit Diagnoses Not on filedocumented in this encounter Additional Health Concerns Assessment Noted Time PHQ-9 Depression Total Score: 24 022 4:05 PM EST documented as of this encounter Care Teams Repairer Finished Metal Relationship Specialty Start Date End Date Shannen Orellana MD [address] [place] [address] PCP - General Family Medicine 08/24/22 Geno Arriaga Bench Tool MakerGmat Instructor 02/05/24 Maribell Rehman [address] [place] [address] Psychologist 06/27/23 Larry Zaldivar Psychiatrist 06/27/24 documented as of this encounter
--- OUTSIDE RECORDS SUMMARY | 2024-10-03 11:12 | XMS_ITS | Encounter Summary ---
Author Organization [employer] Address [address] [facility] 7t [place] [address] Care Team Providers Care Arborer Name Role Phone Shannen Orellana MD Primary Care Provider [phone] Reason for Referral * Consultation (Urgent) - Closed Specialty Diagnoses / Procedures Referred By Emil leal Referred To Contact Psychiatry / Behavioral Health Diagnoses PTSD (post-traumatic stress disorder) Brandie Guillen MD [address] [place] [address] Phone: tel: fax: Referral ID Status Reason Start Date Expiration Date V isits Requested Visits Authorized [id number] Closed Specialty Services Required 09/30/2024 09/30/2025 1 1 Encounter Details Date Type Department Care Team (Late st Contact Info) Description 09/30/2024 Orders Only [facility] [address] [place] [address] Brandie Guillen MD [address] [place], [place] [phone] PTSD (post-traumatic stress disorder) (Primary Dx) Social History Tobacco Use Types Packs/Day Years [...] as of this encounter Plan of Treatment Scheduled Referrals Name Type Priority Associated Diagnoses Order Schedule Referral to Behavioral Health Psychiatry Outpatient Referral Urgent PTSD (post-traumatic stress disorder) Expected: 09/30/2024 (Approximate), Expires: 09/30/2025 documented as of this encounter Visit Diagnoses Diagnosis PTSD (post-traumatic stress disorder)- Primary Posttraumatic stress disorder documented in this encounter Additional Health Concerns Assessment Noted Time PHQ-9 Depression Total Score: 27 024 9:53 AM EDT documented as of this encounter Care Teams Arborer Relationship Specialty Start Date End Date Shannen Orellana MD [address] [place] [address] PCP - General Family Medicine 08/24/22 Geno Arriaga Pizza DriverMarketing And Promotions Manager 02/05/24 Maribell Rehman [address] [place] [address] Psychologist 06/27/23 Larry Zaldivar Psychiatrist 06/27/24 documented as of this encounter
--- OUTSIDE RECORDS SUMMARY | 2024-10-03 11:12 | XMS_ITS | Encounter Summary ---
Author Organization [employer] Address [address] 7t [place] [address] Care Team Providers Care Top Icer Name Role Phone Shannen Orellana MD Primary Care Provider [phone] Reason for Visit * Reason Onset Date Comments ER Follow-up 08/14/2023 Encounter Details Date Type Department Care Team ([facility] Contact Info) Description 08/14/2023 Telephone [facility] MED & PEDS [address] [place], [place] [phone] Shannen Orellana MD [address] [place] [address] ER Follow-up Social History Tobacco Use Types [...] LM to call us back. Routing backto [facility] nurses to try again. * Telephone Encounter - Tello Frazier - 08/14/2023 8:26 AM EST Tc from pt calling to report ED visit on : Date: 08/14/23 Hospital: [facility] Seen for: Groin Pain documented in this encounter Plan of Treatment Not on file documented as of this encounter Visit Diagnoses Not on filedocumented in this encounter Additional Health Concerns Assessment Noted Time PHQ-9 Depression Total Score: 24 022 4:05 PM EST documented as of this encounter Care Teams Top Icer Relationship Specialty Start Date End Date Shannen Orellana MD [address] [place] [address] PCP - General Family Medicine 08/24/22 Geno Arriaga Foundry TenderLocket Maker 02/05/24 Maribell Rehman [address] [place] [address] Psychologist 06/27/23 Larry Zaldivar Psychiatrist 06/27/24 documented as of this encounter
--- OUTSIDE RECORDS SUMMARY | 2024-10-03 11:12 | XMS_ITS | Encounter Summary ---
Author Organization [employer] Address [address] 7t [place] [address] Care Team Providers Care Creative Technologist Name Role Phone Shannen Orellana MD Primary Care Provider [phone] Reason for Visit * Reason Comments Med Refill Encounter Details Date Type Department Care Team ([facility] st Contact Info) Description 02/22/2024 Refill [facility] MEDICINE [address] [place] [address] Shannen Orellana MD [address] [place], [place] [phone] Social History Tobacco Use Types Packs/Day Years [...] documented as of this encounter Care Teams Creative Technologist Relationship Specialty Start Date End Date Shannen Orellana MD [address] [place] [address] PCP - General Family Medicine 08/24/22 Geno Arriaga Stock Plan AdministratorCentrifugal Operator 02/05/24 Maribell Rehman [address] [place] [address] Psychologist 06/27/23 Larry Zaldivar Psychiatrist 06/27/24 documented as of this encounter
--- OUTSIDE RECORDS SUMMARY | 2024-10-03 11:12 | XMS_ITS | Encounter Summary ---
Author Organization [employer] Address [address] 7[address] [place] [address] Care Team Providers Care Seafood Manager Name Role Phone Shannen Orellana MD Primary Care Provider [phone] Reason for Visit * Reason Onset Date Comments Referral 06/11/2023 Encounter Details Date Type Department Care Team ([facility] Contact Info) Description 06/11/2023 Telephone [facility] MED & PEDS [address] [place], [place] [phone] Shannen Orellana MD 505 [place] [address] Referral Social History Tobacco Use Types Packs/Day [...] documented as of this encounter Care Teams Seafood Manager Relationship Specialty Start Date End Date Shannen Orellana MD [address] [place] [address] PCP - General Family Medicine 08/24/22 Geno Arriaga Clerical CoordinatorLine Servicer 02/05/24 Maribell Rehman [address] [place] [address] Psychologist 06/27/23 Larry Zaldivar Psychiatrist 06/27/24 documented as of this encounter
--- OUTSIDE RECORDS SUMMARY | 2024-10-03 11:12 | XMS_ITS | Encounter Summary ---
Author Organization [employer] Address [address] 7[address] [place] [address] Care Team Providers Care Director Of Pulmonary Unit Name Role Phone Shannen Orellana MD Primary Care Provider [phone] Reason for Visit * Reason Onset Date Comments Appointment Request 09/30/2024 Encounter Details Date Type Department Care Team ([facility] st Contact Info) Description 09/30/2024 Telephone [facility] MEDICINE [address] [place] [address] Shannen Orellana MD [address] [place] [address] Appointment Request Social History Tobacco Use Types Packs/Day [...] encounter Miscellaneous Notes * Telephone Encounter - Lexx Crawfords - 09/30/2024 12:45 PM EST Tc from pt stating that he had an appt yesterday schedule and had an uber ordered and a call centerrep placed pt on hold and then told pt that nurse should be reaching out to pt but nurse never did.Pt is requesting to r/s 09/29/2024 appt to something sooner. Pt declined 11/18/2024 appt because appt that schedule was from a triage call. Pt will need transportation to appt. documented in this encounter Plan of Treatment Not on file documented as of this encounter Visit Diagnoses Not on filedocumented in this encounter Additional Health Concerns Assessment Noted Time PHQ-9 Depression Total Score: 27 024 9:53 AM EDT documented as of this encounter Care Teams Director Of Pulmonary Unit Relationship Specialty Start Date End Date Shannen Orellana MD [address] [place] [address] PCP - General Family Medicine 08/24/22 Geno Arriaga Print DecoratorKnitting Machine Operator Automatic 02/05/24 Maribell Rehman [address] [place] [address] Psychologist 06/27/23 Larry Zaldivar Psychiatrist 06/27/24 documented as of this encounter
--- OUTSIDE RECORDS SUMMARY | 2024-10-03 11:12 | XMS_ITS | Encounter Summary ---
Author Organization [employer] Address [address] 7[address] [place] [address] Care Team Providers Care Homicide Squad Sergeant Name Role Phone Shannen Orellana MD Primary Care Provider [phone] Reason for Visit * Reason Onset Date Comments PT-1 08/13/2024 Encounter Details Date Type Department Care Team ([facility] Contact Info) Description 08/13/2024 Telephone [facility] MEDICINE [address] [place] [address] Shannen Orellana MD [address] [place] [address] PT-1 Social History Tobacco Use Types Packs/Day [...] Y/N: Yes Provider name or facility name: [facility] Facility Address: [address] [place] [address] Escort needed: Y/N: No Do you have [...] documented as of this encounter Care Teams Homicide Squad Sergeant Relationship Specialty Start Date End Date Shannen Orellana MD [address] [place] [address] PCP - General Family Medicine 08/24/22 Geno Arriaga Food And Nutrition ProfessorPromotions Executive 02/05/24 Maribell Marcusvaldezdeven [address] [place] [address] Psychologist 06/27/23 Larry Zaldivar Psychiatrist 06/27/24 documented as of this encounter
--- OUTSIDE RECORDS SUMMARY | 2024-10-03 11:12 | XMS_ITS | Encounter Summary ---
Author Organization [employer] Address [address] 7[address] [place] [address] Care Team Providers Care Phone Banker Name Role Phone Shannen Orellana MD Primary Care Provider [phone] Reason for Visit * Reason Onset Date Comments Nurse Triage 09/01/2024 Encounter Details Date Type Department Care Team ([facility] st Contact Info) Description 09/01/2024 Telephone [facility] MEDICINE [address] [place] [address] Shannen Orellana MD [address] [place] [address] Nurse Triage Social History Tobacco Use Types [...] . There are no available apts in [facility] tomorrow but, Pt is offered to come to [facility] this evening open till 8pm. Pt declines due to zoom meeting scheduled for 6pm. Pt is offered [facility] tomorrow as well hours 830am -800pm. Pt declines and reports the [facility] can not prescribe pain medication and that would be a waste of time. Pt asks why there are no apts available in [facility]. Pt is advised to call tomorrow or 09/03/24 AM for possible apt in [facility] SDCPt asks why another call. Pt is advised comic writer is unable to create a miracle for an open apt at this time. Pt again is advised that there are no available apts in [facility] and the only option would be [facility] ton or tomorrow or [facility] 09/03/24 which is not open for scheduling at this time . Pt is advised to be seen in ED or UC if needed but, doesn't agree to that. Pt requests to speak to form setter supervisor. Pt is advised that [facility] is closed at this time and the form setter supervisor is gone. Pt is advised to call inthe morning when supervisors for [facility] and [facility] are in and Pt can speak with them. Pt requests a call back from the form setter supervisor. Pt is again advised to call back in the morning and Feeder Operator would be available at that time. [...] Noted Time PHQ-9 Depression Total Score: 27 11/01/2 024 9:53 AM EDT documented as of this encounter Care Teams Phone Banker Relationship Specialty Start Date End Date Shannen Orellana MD [address] [place] [address] PCP - General Family Medicine 08/24/22 Geno Arriaga Terminal Operations ManagerLepidopterist 02/05/24 Maribell Rehman [address] [place] [address] Psychologist 06/27/23 Larry Zaldivar Psychiatrist 06/27/24 documented as of this encounter
--- OUTSIDE RECORDS SUMMARY | 2024-10-03 11:12 | XMS_ITS | Encounter Summary ---
Author Organization [employer] Address [address] 7[address] [place] [address] Care Team Providers Care Special Warfare Boat Operator Name Role Phone Shannen Orellana MD Primary Care Provider [phone] Reason for Visit * Reason Onset Date Comments Medication Question 09/30/2024 Encounter Details Date Type Department Care Team ([facility] Contact Info) Description 09/30/2024 Telephone [facility] MED & PEDS [address] [place], [place] [phone] Shannen Orellana MD [address] [place] [address] Medication Question Social History Tobacco Use Types Packs/Day Years [...] encounter Miscellaneous Notes * Telephone Encounter - Chelsy Corona RN - 09/30/2024 11:26 AM EST TC from [facility] with [facility] who called to inquire if the pt is currently active witha psychiatric provider and who is the pt PCP now that Dr. Orellana is on maternity leave. RN explained to Maribell that any [facility] provider can see the pt for any future concerns and that [facility] has a psychiatric provider the pt may benefit from. Internal Referral to will be placed by covering provider Brandie Guillen. RN called and spoke to Melissa in who will contact the pt to try and set upa telehealth appt with new psychiatric provider. * Telephone Encounter - Nadira Dominguez - 09/30/2024 8:41 AM EST Tc from [facility] with [facility] requesting to speak to provider regarding medication forpt mental health. Maribell stated it is urgent. Application Programmer Analyst advise will send a message high priority. Contact [phone] documented in this encounter Plan of Treatment Not on file documented as of this encounter Visit Diagnoses Not on filedocumented in this encounter Additional Health Concerns Assessment Noted Time PHQ-9 Depression Total Score: 27 024 9:53 AM EDT documented as of this encounter Care Teams Special Warfare Boat Operator Relationship Specialty Start Date End Date Shannen Orellana MD [address] [place] [address] PCP - General Family Medicine 08/24/22 Geno Arriaga Transportation EngineerHorticultural Farmworker 02/05/24 Maribell Rehman [address] [place] [address] Psychologist 06/27/23 Larry Zaldivar Psychiatrist 06/27/24 documented as of this encounter
--- OUTSIDE RECORDS SUMMARY | 2024-10-03 11:12 | XMS_ITS | Encounter Summary ---
Author Organization [employer] Address [address] [facility] [address] 7t [place] [address] Care Team Providers Care Welding Machine Tender Name Role Phone Shannen Orellana MD Primary Care Provider [phone] Reason for Visit * Reason Onset Date Comments Referral 07/02/2023 PT 1 1 Encounter Details Date Type Department Care Team ([facility] Contact Info) Description 07/02/2023 Telephone [facility] MEDICINE 230 [place] [address] Shannen Orellana MD [address] [place], [place] [phone] Referral (PT 1 1 of 2) Social [...] Date: 07/24 Time: 10:30 Visits: 6 Address: [address] [place] [address] Facility: [facility], Specialty: Pain Management with Wheel Chair: no Carbon Blocks Press Operator Needed: no documented in this encounter Plan of Treatment Not on file documented as of this encounter Visit Diagnoses Not on filedocumented in this encounter Additional Health Concerns Assessment Noted Time PHQ-9 Depression Total Score: 24 022 4:05 PM EST documented as of this encounter Care Teams Welding Machine Tender Relationship Specialty Start Date End Date Shannen Orellana MD [address] [place] [address] PCP - General Family Medicine 08/24/22 Geno Arriaga Health And Wellness DirectorTamping Machine Operator 02/05/24 Maribell Rehman [address] [place] [address] Psychologist 06/27/23 Larry Zaldivar Psychiatrist 06/27/24 documented as of this encounter
--- OUTSIDE RECORDS SUMMARY | 2024-10-03 11:12 | XMS_ITS | Encounter Summary ---
Author Organization [employer] Address [address] [facility] [address] 7t [place] [address] Care Team Providers Care Tungsten Tender Name Role Phone Shannen Orellana MD Primary Care Provider [phone] Reason for Visit * Reason Onset Date Comments Med Refill 02/19/2024 Encounter Details Date Type Department Care Team ([facility] st Contact Info) Description 02/19/2024 Refill [facility] MEDICINE 230 [place] [address] Shannen Orellana MD [address] [place], [place] [phone] On pre-exposure prophylaxis for HIV Social History [...] documented as of this encounter Care Teams Tungsten Tender Relationship Specialty Start Date End Date Shannen Orellana MD [address] [place] [address] PCP - General Family Medicine 08/24/22 Geno Arriaga Primary Care ProviderHat Block Maker 02/05/24 Maribell Agarwal Sherie [address] [place] [address] Psychologist 06/27/23 Larry Zaldivar Psychiatrist 06/27/24 documented as of this encounter
--- OUTSIDE RECORDS SUMMARY | 2024-10-03 11:12 | XMS_ITS | Encounter Summary ---
Author Organization [employer] Address [address] [facility] [address] 7t [place] [address] Care Team Providers Care Lamps Tester And Inspector Name Role Phone Shannen Orellana MD Primary Care Provider [phone] Reason for Visit * Reason Onset Date Comments Med Refill 12/20/2023 Encounter Details Date Type Department Care Team ([facility] st Contact Info) Description 12/20/[address] [facility] CHC MED & PEDS 505 [place] [address] Shannen Orellana MD 505 [place] [address] Pruritic rash Social History Tobacco Use Types [...] documented as of this encounter Care Teams Lamps Tester And Inspector Relationship Specialty Start Date End Date Shannen Orellana MD [address] [place] [address] PCP - General Family Medicine 08/24/22 Geno Arriaag Roof PainterResearch Assistant Member 02/05/24 Maribell Rehman [address] [place] [address] Psychologist 06/27/23 Larry Zaldivar Psychiatrist 06/27/24 documented as of this encounter
--- OUTSIDE RECORDS SUMMARY | 2024-10-03 11:12 | XMS_ITS | Encounter Summary ---
Author Organization [email or web address] Address [address] [facility] [address] 7t [place] [address] Care Team Providers Care Lock Master Name Role Phone Shannen Orellana MD Primary Care Provider [phone] Encounter Details Date Type Department Care Team ([facility] st Contact Info) Description 11/27/2023 Telephone [facility] CHC MED & PEDS 505 [place], [place] [phone] Shannen Orellana MD [address] [place] [address] Social History Tobacco Use Types Packs/Day Years [...] MRI ordered by the pain specialist to [facility] he was scheduled a month from now for the MRI. Pt states he cannot wait for a whole month beforegetting his MRI done. [facility] reached out to fredis Wagner and spoke with [place] who states pt is scheduled for December and that appt will be kept. Pt should call to cancel an appt if able to get a sooner app[place] [facility]. Per Czech orders from the pain specialist includes MRI of the lumbar spine, MRI of thoracic spine and MRI of cervical spine with contrast. Per VM received, pt also requested for MRI of the hip. CM reached out to pt for clarification and also reason for request for referral to electroencephalograph technician but pt did not answer. [facility] LVM requesting a return call. * Telephone Encounter - Anu Owens - 12/03/2023 11:48 AM EDT Please sign office note of 11/25 to complete referrals. Thank you. * Telephone Encounter - Aziza Morales RN - 11/28/2023 3:49 PM EDT Please see referral for 04/02/23. Pt was referred for pruritic rash. [facility] reached out to the electroencephalograph technician office and was able to schedule pt an appt on 01/19/24 at 10:45am at their [place] office on [address] [place] [address]. P# [phone]. The electroencephalograph technician office is requesting for recent office note [...] documented as of this encounter Care Teams Lock Master Relationship Specialty Start Date End Date Shannen Orellana MD [address] [place] [address] PCP - General Family Medicine 08/24/22 Geno Arriaga Multicultural ManagerSpecial Education Educational Assistant 02/05/24 Maribell Rehman [address] [place] [address] Psychologist 06/27/23 Larry Zaldivar Psychiatrist 06/27/24 documented as of this encounter
--- OUTSIDE RECORDS SUMMARY | 2024-10-03 11:12 | XMS_ITS | Encounter Summary ---
Author Organization [employer] Address [address] [facility] 7t [place] [address] Care Team Providers Care Cvor Nurse Name Role Phone Shannen Orellana MD Primary Care Provider [phone] Encounter Details Date Type Department Care Team (Late st Contact Info) Description 02/29/2024 Orders Only [facility] CHC MED & PEDS 505 [place], [place] [phone] Maame Espinal MD 505 [place] [address] Social History Tobacco Use Types Packs/Day Years [...] 10:15 AM EDT Sexual Orientation Lesbian or [place] 06/26/2022 10 :15 AM EDT documented as of this encounter Plan of Treatment Not on file documented as of this encounter Visit Diagnoses Not on filedocumented in this encounter Additional Health Concerns Assessment Noted Time PHQ-9 Depression Total Score: 27 024 2:13 PM EST documented as of this encounter Care Teams Cvor Nurse Relationship Specialty Start Date End Date Shannen Orellana MD [address] [place] [address] PCP - General Family Medicine 08/24/22 Geno Arriaga Personnel AssistantTown Clerk 02/05/24 Maribell Rehman [address] [place] [address] Psychologist 06/27/23 Larry Zaldivar Psychiatrist 06/27/24 documented as of this encounter
--- OUTSIDE RECORDS SUMMARY | 2024-10-03 11:12 | XMS_ITS | Encounter Summary ---
Author Organization [employer] Address [address] [facility] [address] 7t [place] [address] Care Team Providers Care Distance Education Director Name Role Phone Shannen Orellana MD Primary Care Provider [phone] Encounter Details Date Type Department Care Team (Late st Contact Info) Description 09/22/2022 Telephone [facility] 230 [place] [address] Shannen Orellana MD [address] [place] [address] Social History Tobacco Use Types Packs/Day Years [...] documented as of this encounter Care Teams Distance Education Director Relationship Specialty Start Date End Date Shannen Orellana MD 230 [place] [address] PCP - General Family Medicine 08/24/22 Geno Arriaga Acetylene CutterCommercial Real Estate Sales Manager 02/05/24 Maribell Rehman [address] [place] [address] Psychologist 06/27/23 Larry Zaldivar Psychiatrist 06/27/24 documented as of this encounter
--- OUTSIDE RECORDS SUMMARY | 2024-10-03 11:12 | XMS_ITS | Encounter Summary ---
Author Organization [employer] Address [address] [facility] [address] 7t [place] [address] Care Team Providers Care Bulk Driver Name Role Phone Shannen Orellana MD Primary Care Provider [phone] Reason for Visit * Reason Onset Date Comments PT-1 07/18/2023 Encounter Details Date Type Department Care Team ([facility] Contact Info) Description 07/18/2023 Telephone [facility] MEDICINE 230 [place] [address] Shannen Orellana MD [address] [place], [place] [phone] PT-1 Social History Tobacco Use Types Packs/Day [...] Date: 08/07/2023 Time: 1:00 pm Visits:6 Address: [address] [place] [address] Facility: podiatry [facility] Chair: no Hand Miter Operator Needed: no documented in this encounter Plan of Treatment Not on file documented as of this encounter Visit Diagnoses Not on filedocumented in this encounter Additional Health Concerns Assessment Noted Time PHQ-9 Depression Total Score: 24 022 4:05 PM EST documented as of this encounter Care Teams Bulk Driver Relationship Specialty Start Date End Date Shannen Orellana MD [address] [place] [address] PCP - General Family Medicine 08/24/22 Geno Arriaga Manager RelocationUx Ui Designer 02/05/24 Maribell Agarwal Sherie [address] [place] [address] Psychologist 06/27/23 Larry Zaldivar Psychiatrist 06/27/24 documented as of this encounter
--- OUTSIDE RECORDS SUMMARY | 2024-10-03 11:12 | XMS_ITS | Encounter Summary ---
Author Organization [employer] Address [address] [facility] [address] 7t [place] [address] Care Team Providers Care Conservation Technician Name Role Phone Shannen Orellana MD Primary Care Provider [phone] Reason for Visit * Reason Onset Date Comments PT1 08/28/2024 Encounter Details Date Type Department Care Team ([facility] st Contact Info) Description 08/28/2024 Telephone [facility] MEDICINE 230 [place] [address] Shannen Orellana MD [address] [place] [address] PT1 Social History Tobacco Use Types Packs/Day [...] encounter Miscellaneous Notes * Telephone Encounter - Jayson Leonard - 08/28/2024 11:06 AM EST TC from pt states received letter from Denying PT1 to: Provider name or facility name: [facility] Facility Address: [address] [place] [address] Pt states letter suggesting pcp office to contact directly to give them more details on why pt was referred to [facility] and medical issues behind the referral in order for them to cover transportation . documented in this encounter Plan of Treatment Not on file documented as of this encounter Visit Diagnoses Not on filedocumented in this encounter Additional Health Concerns Assessment Noted Time PHQ-9 Depression Total Score: 27 024 9:53 AM EDT documented as of this encounter Care Teams Conservation Technician Relationship Specialty Start Date End Date Shannen Orellana MD 230 [place] [address] PCP - General Family Medicine 08/24/22 Geno Arriaga Network Security OfficerCold Header Operator 02/05/24 Maribell Rehman [address] [place] [address] Psychologist 06/27/23 Larry Zaldivar Psychiatrist 06/27/24 documented as of this encounter
--- OUTSIDE RECORDS SUMMARY | 2024-10-03 11:12 | XMS_ITS | Encounter Summary ---
Author Organization [employer] Address [address] [facility] [address] 7t [place] [address] Care Team Providers Care Master Pilot Name Role Phone Shannen Orellana MD Primary Care Provider [phone] Reason for Visit * Reason Comments Med Refill Encounter Details Date Type Department Care Team ([facility] st Contact Info) Description 09/04/2024 Refill [facility] CHC MED & PEDS 505 [place], [place] [phone] Shannen Orellana MD 505 [place] [address] Social History Tobacco Use Types Packs/Day Years [...] documented as of this encounter Care Teams Master Pilot Relationship Specialty Start Date End Date Shannen Orellana MD [address] [place] [address] PCP - General Family Medicine 08/24/22 Geno Arriaga Clinical SupervisorPerformance Solutions Specialist 02/05/24 Maribell Rehman [address] [place] [address] Psychologist 06/27/23 Larry Zaldivar Psychiatrist 06/27/24 documented as of this encounter
--- OUTSIDE RECORDS SUMMARY | 2024-10-03 11:12 | XMS_ITS | Encounter Summary ---
Author Organization [employer] Address [address] [facility] [address] 7t [place] [address] Care Team Providers Care Regroover Name Role Phone Shannen Orellana MD Primary Care Provider [phone] Reason for Visit * Reason Onset Date Comments cart prep 09/26/2024 Encounter Details Date Type Department Care Team ([facility] Contact Info) Description 09/26/2024 Telephone [facility] CHC MED & PEDS 505 [place] [address] Shannen Orellana MD 505 [place] [address] cart prep (/) Social History Tobacco Use [...] documented as of this encounter Care Teams Regroover Relationship Specialty Start Date End Date Shannen Orellana MD [address] [place] [address] PCP - General Family Medicine 08/24/22 Geno Arriaga Fluid Pump OperatorAnimal Care Giver 02/05/24 Maribell Rehman [address] [place] [address] Psychologist 06/27/23 Larry Zaldivar Psychiatrist 06/27/24 documented as of this encounter
--- OUTSIDE RECORDS SUMMARY | 2024-10-03 11:12 | XMS_ITS | Encounter Summary ---
Author Organization [employer] Address [address] [facility] [address] 7t [place] [address] Care Team Providers Care Radio Board Operator Announcer Name Role Phone Shannen Orellana MD Primary Care Provider [phone] Reason for Visit * Reason Onset Date Comments Created in error 02/22/2024 Encounter Details Date Type Department Care Team ([facility] st Contact Info) Description 02/22/2024 Telephone [facility] MEDICINE 230 [place] [address] Shannen Orellana MD [address] [place] [address] Created in error Social History Tobacco Use [...] documented as of this encounter Care Teams Radio Board Operator Announcer Relationship Specialty Start Date End Date Shannen Orellana MD [address] [place] [address] PCP - General Family Medicine 08/24/22 Geno Arriaga Content StrategistMachine Filler Servicer 02/05/24 Maribell Rehman [address] [place] [address] Psychologist 06/27/23 Larry Zaldivar Psychiatrist 06/27/24 documented as of this encounter
--- OUTSIDE RECORDS SUMMARY | 2024-10-03 11:12 | XMS_ITS | Encounter Summary ---
Author Organization [employer] Address [address] [facility] 7t [place] [address] Care Team Providers Care Machine Ii Trimmer Name Role Phone Shannen Orellana MD Primary Care Provider [phone] Encounter Details Date Type Department Care Team (Late st Contact Info) Description 01/29/2023 Orders Only [facility] MEDICINE 230 [place], [place] [phone] Carolynn Rodriguez MD 230 [place], [place] [phone] Social History Tobacco Use Types Packs/Day Years [...] documented as of this encounter Care Teams Machine Ii Trimmer Relationship Specialty Start Date End Date Shannen Orellana MD [address] [place] [address] PCP - General Family Medicine 08/24/22 Geno Arriaga Glass Etcher HelperShip Scraper 02/05/24 Maribell Rehman [address] [place] [address] Psychologist 06/27/23 Larry Zaldivar Psychiatrist 06/27/24 documented as of this encounter
--- OUTSIDE RECORDS SUMMARY | 2024-10-03 11:12 | XMS_ITS | Encounter Summary ---
Author Organization [employer] Address [address] [facility] [address] 7t [place] [address] Care Team Providers Care Systems Architecture Analyst Name Role Phone Shannen Orellana MD Primary Care Provider Reason for Visit * Reason Onset Date Comments Call Back Request 03/26/2024 Encounter Details Date Type Department Care Team ([facility] Contact Info) Description 03/26/2024 Telephone [facility] MEDICINE 230 [place] [address] Shannen Orellana MD [address] [place], [place] [phone] Call Back Request Social History Tobacco Use [...] documented as of this encounter Care Teams Systems Architecture Analyst Relationship Specialty Start Date End Date Shannen Orellana MD [address] [place] [address] PCP - General Family Medicine 08/24/22 Geno Arriaga Drilling Machine RunnerHousekeeper 02/05/24 Maribell Rehman [address] [place] [address] Psychologist 06/27/23 Larry Zaldivar Psychiatrist 06/27/24 documented as of this encounter
--- OUTSIDE RECORDS SUMMARY | 2024-10-03 11:12 | XMS_ITS | Encounter Summary ---
Author Organization [employer] Address [address] [facility] [address] 7t [place] [address] Care Team Providers Care Chief Pilot Name Role Phone Shannen Orellana MD Primary Care Provider [phone] Reason for Visit * Reason Onset Date Comments PT1 03/10/2024 Encounter Details Date Type Department Care Team ([facility] st Contact Info) Description 03/10/2024 Telephone [facility] MEDICINE 230 [place] [address] Shannen Orellana MD [address] [place] [address] PT1 Social History Tobacco Use Types Packs/Day [...] name: Orthoped[facility] Rehab Facility Address: [facility] [address], [place] [address] [place] [address] Escort needed: Y/N: No Do you have [...] documented as of this encounter Care Teams Chief Pilot Relationship Specialty Start Date End Date Shannen Orellana MD 230 [place] [address] PCP - General Family Medicine 08/24/22 Geno Arriaga Show Design SupervisorDietitian Therapeutic 02/05/24 Maribell Rehman [address] [place] [address] Psychologist 06/27/23 Larry Zaldivar Psychiatrist 06/27/24 documented as of this encounter
--- OUTSIDE RECORDS SUMMARY | 2024-10-03 11:12 | XMS_ITS | Encounter Summary ---
Author Organization [employer] Address [address] [facility] [address] 7t [place] [address] Care Team Providers Care Gas Turbine Mechanic Name Role Phone Shannen Orellana MD Primary Care Provider [phone] Reason for Visit * Reason Onset Date Comments Referral 07/02/2023 PT 1 2 of 2 Encounter Details Date Type Department Care Team ([facility] Contact Info) Description 07/02/2023 Telephone [facility] MEDICINE 230 [place] [address] Shannen Orellana MD [address] [place], [place] [phone] Referral (PT 1 2 of 2) Social [...] PT1 Date: 07/23 Time: 9:00 Visits:6 Address: [address] [place] [address] Facility: [facility], Specialty : Orthopedic surgery with Dr. Galeas Wheel Chair: no City Weighmaster Needed: no documented in this encounter Plan of Treatment Not on file documented as of this encounter Visit Diagnoses Not on filedocumented in this encounter Additional Health Concerns Assessment Noted Time PHQ-9 Depression Total Score: 24 022 4:05 PM EST documented as of this encounter Care Teams Gas Turbine Mechanic Relationship Specialty Start Date End Date Shannen Orellana MD 230 [place] [address] PCP - General Family Medicine 08/24/22 Geno Arriaga Chemist HelperManager Telemetry 02/05/24 Maribell Fourniero Angelinerosemary [address] [place] [address] Psychologist 06/27/23 Larry Zaldivar Psychiatrist 06/27/24 documented as of this encounter
--- OUTSIDE RECORDS SUMMARY | 2024-10-03 11:12 | XMS_ITS | Encounter Summary ---
Author Organization [employer] Address [address] [facility] [address] 7t [place] [address] Care Team Providers Care General Scrap Worker Name Role Phone Shannen Orellana MD Primary Care Provider [phone] Reason for Visit * Reason Onset Date Comments PT-1 03/20/2024 Encounter Details Date Type Department Care Team ([facility] st Contact Info) Description 03/20/2024 Telephone [facility] MEDICINE 230 [place] [address] Shannen Orellana MD [address] [place] [address] PT-1 Social History Tobacco Use Types Packs/Day [...] increase on visits for the Pt1 for [facility] Pt is requesting a call from someone * Telephone Encounter - Jass Edwards - 03/20/2024 1:52 PM EDT Patient calling requesting PT1 - Pt requested no additional passengers during transportation route. Home Address verified: Y/N: Yes Provider name or facility name: [facility]- Dr. Coulter Facility Address: [address] [place] [address] Escort needed: Y/N: No Do you have a wheelchair: Y/N: No If yes- Manual or electric: Visits: 2 times a month Date : 08/25/24 Time : 10am Provider name or facility name: [facility] - Dr. Patricia Facility Address: [address] [place] [address] Escort needed: Y/N: No Do you have [...] documented as of this encounter Care Teams General Scrap Worker Relationship Specialty Start Date End Date Shannen Orellana MD [address] [place] [address] PCP - General Family Medicine 08/24/22 Geno Arriaga Sales And Retail Management RecruiterTransmission And Protection Engineer 02/05/24 Maribell Rehman [address] [place] [address] Psychologist 06/27/23 Larry Zaldivar Psychiatrist 06/27/24 documented as of this encounter
--- OUTSIDE RECORDS SUMMARY | 2024-10-03 11:12 | XMS_ITS | Encounter Summary ---
Author Organization [employer] Address [address] [facility] [address] 7t [place] [address] Care Team Providers Care Shutdown Planner Name Role Phone Shannen Orellana MD Primary Care Provider [phone] Reason for Visit * Reason Onset Date Comments PT1 09/23/2024 Encounter Details Date Type Department Care Team ([facility] Contact Info) Description 09/23/2024 Telephone [facility] CHC MED & PEDS 505 [place], [place] [phone] Shannen Orellana MD 505 [place] [address] PT1 Social History Tobacco Use Types Packs/Day [...] - 09/23/2024 1:11 PM EST PT1 [facility] [address] [facility] [address] [facility] [address] [facility] [address] [facility] 230 [facility] [address] Pt also informed FD that there was one generated but it did not have the correct address. [address] [address] documented in this encounter Plan of Treatment Not on file documented as of this encounter Visit Diagnoses Not on filedocumented in this encounter Additional Health Concerns Assessment Noted Time PHQ-9 Depression Total Score: 27 024 9:53 AM EDT documented as of this encounter Care Teams Shutdown Planner Relationship Specialty Start Date End Date Shannen Orellana MD 230 [place] [address] PCP - General Family Medicine 08/24/22 Geno Arriaga Junior [employer] Math TeacherCan Filling Room Sweeper 02/05/24 Maribell Rehman [address] [place] [address] Psychologist 06/27/23 Larry Zaldivar Psychiatrist 06/27/24 documented as of this encounter
--- OUTSIDE RECORDS SUMMARY | 2024-10-03 11:12 | XMS_ITS | Encounter Summary ---
Author Organization [employer] Address [address] 7t [place] [address] Care Team Providers Care Copy Writer Name Role Phone Shannen Orellana MD Primary Care Provider [phone] Reason for Visit * Reason Onset Date Comments Med Refill 02/19/2024 Encounter Details Date Type Department Care Team ([facility] st Contact Info) Description 02/19/2024 Refill [facility] OPTOMETRY [address] [place], [place] [phone] Dominick, Catia, OD [address] [place] [address] Social History Tobacco Use Types Packs/Day Years [...] documented as of this encounter Care Teams Copy Writer Relationship Specialty Start Date End Date Shannen Orellana MD [address] [place] [address] PCP - General Family Medicine 08/24/22 Geno Arriaga Senior Java ProgrammerHead Baker 02/05/24 Maribell Rehman [address] [place] [address] Psychologist 06/27/23 Larry Zaldivar Psychiatrist 06/27/24 documented as of this encounter
--- OUTSIDE RECORDS SUMMARY | 2024-10-03 11:12 | XMS_ITS | Encounter Summary ---
Author Organization [employer] Address [address] 7t [place] [address] Care Team Providers Care Blender Operator Name Role Phone Shannen Orellana MD Primary Care Provider [phone] Reason for Visit * Reason Onset Date Comments PT1 02/11/2024 Encounter Details Date Type Department Care Team ([facility] Contact Info) Description 02/11/2024 Telephone [facility] CHC MED & PEDS [address] [place] [address] Shannen Orellana MD [address] [place] [address] PT1 Social History Tobacco Use Types Packs/Day [...] requesting increase visits to the max for [facility] and other locations. Pt stated if any questions please contact at [phone] * Telephone Encounter - Tello Frazier - 02/11/2024 10:11 AM EDT Tc from pt calling in regards to message prior, also wanted to increase frequency in visits to the maximum amount of visit. This includes PT-1 for [facility] radiologist ([address] [place] [address]). If any questions please contact [t at [phone]. * Telephone Encounter - Rose Zuluaga - 02/11/2024 9:49 AM EDT Tc from pt requesting an increase on visits for two Pt1's. Location: [facility] and Curtis Wagner on [address] documented in this encounter Plan of Treatment Not on file documented as of this encounter Visit Diagnoses Not on filedocumented in this encounter Additional Health Concerns Assessment Noted Time PHQ-9 Depression Total Score: 27 024 2:13 PM EST documented as of this encounter Care Teams Blender Operator Relationship Specialty Start Date End Date Shannen Orellana MD [address] [place] [address] PCP - General Family Medicine 08/24/22 Geno Arriaga Curtain Hemmer AutomaticAircraft Avionics Technician 02/05/24 Maribell Rehman [address] [place] [address] Psychologist 06/27/23 Larry Zaldivar Psychiatrist 06/27/24 documented as of this encounter
--- OUTSIDE RECORDS SUMMARY | 2024-10-03 11:12 | XMS_ITS | Encounter Summary ---
Author Organization [employer] Address [address] 7t [place] [address] Care Team Providers Care Bench Repair Technician Name Role Phone Shannen Orellana MD Primary Care Provider [phone] Reason for Visit * Reason Comments Med Refill Encounter Details Date Type Department Care Team (Late st Contact Info) Description 03/12/2023 Refill [facility] CH[facility] MED & PEDS [address] [place] [address] Name, MD Krzysztof [address] [place] [address] Social History Tobacco Use Types Packs/Day Years [...] documented as of this encounter Care Teams Bench Repair Technician Relationship Specialty Start Date End Date Shannen Orellana MD [address] [place] [address] PCP - General Family Medicine 08/24/22 Geno Arriaga Market MasterAgricultural Researcher 02/05/24 Maribell Rehman [address] [place] [address] Psychologist 06/27/23 Larry Zaldivar Psychiatrist 06/27/24 documented as of this encounter
--- OUTSIDE RECORDS SUMMARY | 2024-10-03 11:13 | XMS_ITS | Encounter Summary ---
Author Organization [employer] Address [address] 7t [place] [address] Care Team Providers Care Conservation Enforcement Officer Name Role Phone Shannen Orellana MD Primary Care Provider [phone] Reason for Visit * Reason Onset Date Comments Call Back Request 04/21/2024 Encounter Details Date Type Department Care Team ([facility] Contact Info) Description 04/21/2024 Telephone [facility] [address] [place] [address] Shannen Orellana MD [address] [place], [place] [phone] Call Back Request Social History Tobacco Use [...] the am. Maribell agrees with plan and [phone] is her direct number. * Telephone Encounter - Shannen Orellana MD - 04/22/2024 10:19 AM EDT Please verify if able to and request a call back number and appropriate time for call. If able carve out time in schedule for call will appreciate it, thanks! * Telephone Encounter - Bonnie Ansari - 04/21/2024 12:13 PM EDT Tc from [facility] Therapist requesting to speak with PCP or someone in regards to pt mental health andconcerns, investment underwriter tried communicating with RN but call disconnected. documented in this encounter Plan of Treatment Not on file documented as of this encounter Visit Diagnoses Not on filedocumented in this encounter Additional Health Concerns Assessment Noted Time PHQ-9 Depression Total Score: 27 024 2:13 PM EST documented as of this encounter Care Teams Conservation Enforcement Officer Relationship Specialty Start Date End Date Shannen Orellana MD [address] [place] [address] PCP - General Family Medicine 08/24/22 Geno Arriaga Special Education Kindergarten TeacherVoice Intercept Technician 02/05/24 Maribell Rehman [address] [place] [address] Psychologist 06/27/23 Larry Zaldivar Psychiatrist 06/27/24 documented as of this encounter
--- OUTSIDE RECORDS SUMMARY | 2024-10-03 11:13 | XMS_ITS | Encounter Summary ---
Author Organization [employer] Address [address] 7t [place] [address] Care Team Providers Care Flatwork Tier Name Role Phone Shannen Orellana MD Primary Care Provider [phone] Reason for Visit * Reason Onset Date Comments Referral 07/18/2024 Encounter Details Date Type Department Care Team ([facility] st Contact Info) Description 07/18/2024 Telephone [facility] MED[facility] 230 [place] [address] Shannen Orellana MD [address] [place] [address] Referral Social History Tobacco Use Types Packs/Day [...] stated he is willing to go to [place] for podiatry. * Telephone Encounter - Anu Owens - 07/18/2024 2:46 PM EST Message left for patient asking if he is willing to travel to [place] for podiatry. * Telephone Encounter - Tello Frazier - 07/18/2024 12:15 PM EST Tc from pt calling in regards to podiatry referral stating he is [facility]. If any questions you can contact pt at [phone]. documented in this encounter Plan of Treatment Not on file documented as of this encounter Visit Diagnoses Not on filedocumented in this encounter Additional Health Concerns Assessment Noted Time PHQ-9 Depression Total Score: 27 024 9:53 AM EDT documented as of this encounter Care Teams Flatwork Tier Relationship Specialty Start Date End Date Shannen Orellana MD [address] [place] [address] PCP - General Family Medicine 08/24/22 Geno Arriaga Fish Hatchery SupervisorAgricultural Commodities Grader 02/05/24 Maribell Rehman [address] [place] [address] Psychologist 06/27/23 Larry Zaldivar Psychiatrist 06/27/24 documented as of this encounter
--- OUTSIDE RECORDS SUMMARY | 2024-10-03 11:13 | XMS_ITS | Encounter Summary ---
Author Organization [employer] Address [address] 7t [place] [address] Care Team Providers Care Cottonseed Meat Presser Name Role Phone Shannen Orellana MD Primary Care Provider [phone] Encounter Details Date Type Department Care Team ([facility] st Contact Info) Description 05/14/2024 Telephone [facility] CHC MED & PEDS [address] [place], [place] [phone] Shannen Orellana MD 505 [place] [address] Social History Tobacco Use Types Packs/Day Years [...] documented as of this encounter Care Teams Cottonseed Meat Presser Relationship Specialty Start Date End Date Shannen Orellana MD [address] [place] [address] PCP - General Family Medicine 08/24/22 Geno Arriaga Professor Of EngineeringRn Transitional 02/05/24 Maribell Rehman [address] [place] [address] Psychologist 06/27/23 Larry Zaldivar Psychiatrist 06/27/24 documented as of this encounter
--- OUTSIDE RECORDS SUMMARY | 2024-10-03 11:13 | XMS_ITS | Encounter Summary ---
Author Organization [employer] Address [address] 7t [place] [address] Care Team Providers Care Portal Administrator Name Role Phone Shannen Orellana MD Primary Care Provider [phone] Encounter Details Date Type Department Care Team (Late st Contact Info) Description 01/08/2023 Orders Only [facility] CHC MED & PEDS [address] [place] [address] Patricia De Jesus LPN Social History Tobacco [...] on file documented as of this encounter Procedures Procedure Name Priority Date/Time Associated Diagnosis Comments MR LUMBAR SPINE WO CONTRAST Routine 01/11/2023 3:42 PM EDT documented in this encounter Results * MR Lumbar Spine w/o Contrast (01/11/2023 3:42 PM EDT) Anatomical Region Laterality Modality Spine, L-spine Magnetic Resonan ce 01/11/2023 3:42 PM EDT Narrative 01/26/2023 4:37 AM EDT ? [facility] ?[address] ?[place] [address] ? Magnetic Resonance Report ? Signed ? Patient: Birmingham,Jonas ?MR#: [id number] ?? 25 ? : 1980 ?Acct:[id number] ? Age/Sex: 42 / M ?ADM Date: 01/11/23 ? Loc: HO.MRI ? Attending Dr: Shannen Orellana MD ? Ordering Physician: Shannen Orellana MD ?? Date of Service: 01/11/23 ?? Procedure(s): MR lumbar spine wo con ?? Accession Number(s): [id number] ? cc: Shannen Orellana MD ? EXAMINATION: ?? MR LUMBAR [...] 0434 ? DD/ 1542 ? TD/TT: ? Social Work Administrator: JL ? Procedure Note Donviridianater, Image - 01/26/2023 [place] [address] Magnetic Resonance Report Signed Patient: Jonas BirminghamMR#: [id number] 25 : 1980Acct:[id number] Age/Sex: 42 / MADM Date: 01/11/23 Loc: HO.MRI Attending Dr: Shannen Orellana MD Ordering Physician: Shannen Orellana MD Date of Service: 01/11/23 Procedure(s): MR lumbar spine wo con Accession Number(s): [id number] cc: Shannen Orellana MD EXAMINATION: MR LUMBAR [...] in OV> 01/26/23 0434 DD/ 1542 TD/TT: Social Work Administrator: DONTRELL [facility] External Provider IMG MRI PROCEDURES Final Result documented in this encounter Visit Diagnoses Not on filedocumented in this encounter Additional Health Concerns Assessment Noted Time PHQ-9 Depression Total Score: 24 022 4:05 PM EST documented as of this encounter Care Teams Portal Administrator Relationship Specialty Start Date End Date Shannen Orellana MD [address] [place] [address] PCP - General Family Medicine 08/24/22 Geno Arriaga Circuit Board Repair TechnicianLubricating Machine Tender 02/05/24 Maribell Rehman [address] [place] [address] Psychologist 06/27/23 Larry Zaldivar Psychiatrist 06/27/24 documented as of this encounter
--- OUTSIDE RECORDS SUMMARY | 2024-10-03 11:13 | XMS_ITS | Encounter Summary ---
Author Organization [employer] Address [address] 7t [place] [address] Care Team Providers Care Direct Chill Caster Name Role Phone Shannen Orellana MD Primary Care Provider [phone] Reason for Visit * Reason Onset Date Comments Med Refill 06/11/2024 Encounter Details Date Type Department Care Team ([facility] st Contact Info) Description 06/11/2024 Refill [facility] MEDICINE 230 [place], [place] [phone] Carolynn Rodriguez MD [address] [place], [place] [phone] Social History Tobacco Use Types Packs/Day Years [...] documented as of this encounter Care Teams Direct Chill Caster Relationship Specialty Start Date End Date Shannen Orellana MD [address] [place] [address] PCP - General Family Medicine 08/24/22 Geno Arriaga Toe PullerCounterintelligence Specialist 02/05/24 Maribell Rehman [address] [place] [address] Psychologist 06/27/23 Larry Zaldivar Psychiatrist 06/27/24 documented as of this encounter
--- OUTSIDE RECORDS SUMMARY | 2024-10-03 11:13 | XMS_ITS | Clinical Summary ---
Author Organization [employer] [facility] Address [address] [facility] 7t [place] [address] Care Team Providers Care Channeling Machine Runner Name Role Phone Shannen Orellana MD Primary Care Provider [phone] Allergies Active Allergy Reactions Criticality Noted Date Comments Cat Dander High 02/06/2023 Other reaction(s): SNEEZING, THROAT SWOLLEN Dust Mite Extract High 11/28/2022 Other reaction(s): SNEEZING Fish-Derived Products 03/08/2018 Shellfish Allergy Unknown Low 02/06/2023 Tacrolimus Nausea And Vomiting High 01/02/2017 Other reaction(s): headaches, nausea Pt has all listed ??reaction to this medication Medications * This document contains information received from the source organization and may not represent a complete record from that organization. nicotine polacrilex (Commit) 4 MG lozenge take [...] 24 Active Sodium Fluoride 1.1 % cream [place] teeth for 2 minutes, morning and night. [...] of macrocytosis noticed on labs drawn by TELEGRAPH INSPECTOR. Will workup and f/up with results Abnormal [...] , benadryl 25 mg and refer to broadcast meteorologist for further evaluation. Will resend x 5 [...] transaminitis, will order RUQ US Stat to [facility]. Sleep apnea 10/09/2022 Assessment & Plan (10/09/2022 5:19 PM EST): Hx of insomnia, reports prior hx of snoring, apneic episodes and waking up not well rested, will test for sleep apnea. Liver cyst 08/24/2022 Irritable bowel syndrome with diarrhea Assessment & Plan (02/06/2023 2:27 PM EDT): Patient with exacerbation of symptoms. Reports feels current GI in [facility] has not helped his symptoms and will want to see alternative provider in [place]. Assessment & Plan (08/24/2022 2:47 PM EST): [...] to Curtis Garcia (reports poor rapport in [facility]). 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/24 Encounters * This document contains information received from the source organization and may not represent a complete record from that organization. Date Type Department Care Team Description 09/30/2024 Orders Only [facility] [address] [place] [address] Brandie Guillen MD PTSD (post-traumatic stress disorder) (Primary Dx) 09/30/2024 Telephone [facility] [address] [place] [address] Shannen Orellana MD Appointment Request 09/30/2024 Telephone [facility]C MED & PEDS [address] [place] [address] Shannen Orellana MD Medication Question 09/26/2024 Telephone [facility] [address] [place] [address] Shannen Orellana MD cart prep (/) 09/23/2024 Telephone [facility] [address] [place] [address] Shannen Orellana MD PT1 09/04/2024 Refill [facility] [address] [place] [address] Shannen Orellana MD 09/01/2024 Telephone [facility] [address] [place] [address] Shannen Orellana MD Nurse Triage 08/28/2024 Patient Outreach [facility] [address] [place] [address] Shannen Orellana MD Care Coordination (CHW outreach for SDOH PT-1 - LVM ) 08/28/2024 Telephone [facility] [address] [place] [address] Shannen Orellana MD PT1 08/13/2024 Patient Outreach [facility] [address] [place] [address] Shannen Orellana MD Care Coordination (CHW outreach for SDOH PT-1 - LVM ) 08/13/[address] [address] Shannen Orellana MD Order(s) 08/13/2024 Telephone [facility] [address] [place] [address] Shannen Orellana MD PT-1 07/30/2024 Telephone [facility] [address] [place] [address] [phone] Shannen Orellana MD 07/18/[address] [address] Shannen Orellana MD Referral 07/15/2024 8:30 AM EST Office Visit [facility] [address] [place] [address] Estephanie Perez DDS 07/12/2024 Refill [facility] [address] [place] [address] Shannen Orellana MD Aphthous ulcer 07/09/2024 Patient Outreach [facility] [address] [place] [address] Shannen Orellana MD Care Coordination ( Care Plan ) 07/09/2024 Telephone [facility] [address] [place], [place] [phone] Shannen Orellana MD 07/08/2024 9:00 AM EST Office Visit [facility] [address] [place], [place] [phone] Maame Esipnal MD Alopecia areata (Primary Dx); Melasma 07/08/2024 Travel 07/06/2024 Refill [facility] [address] [place], [place] [phone] Shannen Orellana MD On pre-exposure prophylaxis for HIV from Last 3 Months Immunizations Name Administration Dates Next Due Influenza Injectable Quadriv alant Preservative Free IIV4 MDCK 05/12/2020,06/03/2017 Influenza injectable quadriv alent IIV4 with preservative 08/24/2022 Influenza injectable quadriv alent preservative free 05/07/2023,06/27/2021,06/06/2019 Influenza, IIV3, injectable 06/06/2014 Influenza, seasonal, injecta ble, preservative free 06/27/2024 Moderna Covid-19 Vaccine 12+ 09/20/2020,08/23/20 20 Pfizer Covid-19 Vaccine 12+ 10/11/2023, Pneumococcal Conjugate [...] 07/08/2024 9:04 AM EST Plan of Treatment Health Maintenance Due Date Last Done Comments [...] AM EDT) Hepatitis C Antibody Nonreactive Nonreactive [facility] Comment:Antibodies to HCV no t detected; does not exclude early acuteHCV infection. Blood Venous blood specimen / Unknown 01/22/2024 10:05 AM EDT 01/22/2024 2:38 PM EDT Shannen Orellana MD LAB BLOOD ORDERABLES Final Re sult Performing Organization Address [facility]/ZIP Co de Phone Number [facility] [address] [place] [phone] * HIV-1 RNA, Quantitative, Real-Time PCR (01/22/2024 10:05 AM EDT) Pathologist [facility] HIV RNA PCR Qn Copies NOT DETECTED NOT DETECTED copies/mL [facility] HIV RNA PCR Qn Log Copies NOT DETECTED NOT DETECTED [facility] Comment:Result Units: Log co pies/mLThis test was performed using Real-Time Polymerase ChainReaction.Reportable Range: 20 copies/mL to 10,000,000 copies/mL(1.30 log copies/mL to 7.00 log copies/mL).THIS TEST WAS PERFORMED AT:[employer] [place] [phone] RUSSELL MD Blood Venous blood specimen / Unknown 01/22/2024 10:05 AM EDT 01/22/2024 2:38 PM EDT Shannen Orellana MD LAB BLOOD ORDERABLES Final Re sult Performing Organization Address [facility]/ZIP Co de Phone Number [facility] [address] [place] [phone] * (ABNORMAL) Lipid Panel, Standard (10/11/2023 3:14 PM EST) Triglycerides 209(H) <150 mg/dL [facility] Comment:Desirable Triglyceri de: less than 150 mg/dLBorderline High Triglyceride 150-199 mg/dLHigh Triglyceride: 200-499 mg/dLVery High Triglyceride: greater than or equal to 5OO mg/dL Cholesterol 190 <200 mg/dL [facility] Comment:Desirable Cholestero l: less than 200 mg/dLBorderline High Cholesterol: 200-239 mg/dLHigh Cholesterol: greater than 239 mg/dL LDL Cholesterol Calculated 117(H) <100 mg/dL [facility] Comment:Desirable LDL: less than 100 mg/dLNear Optimal/Above Optimal LDL: 110- 129 mg/dLBorderline High LDL: 130-159 mg/dLHigh LDL: 160-189 mg/dLVery High LDL: greater than or equal to 190 mg/dL HDL Cholesterol 32(L) >40 mg/dL [facility] Comment:Desirable HDL: great er than 40 mg/dL Note: This HDL assay may give artificially low results in patients with liver disease. Blood Venous blood specimen / Unknown 10/11/2023 3:14 PM EST 10/11/2023 5:21 PM EST us Shannen Orellana MD LAB BLOOD ORDERABLES Final Re sult [facility] [address] [place] [phone] [phone] from Last 3 Months or Most Recently Relevant to Health Maintenance Insurance [facility] C[place] STAND ADULT [address] [place] [address] Care Teams Channeling Machine Runner Relationship Specialty Start Date End Date Shannen Orellana MD [address] [place] [address] PCP - General Family Medicine 08/24/22 Geno Arriaga Weigher And MixerDenture Waxer 02/05/24 Maribell Rehman [address] [place] [address] Psychologist 06/27/23 Larry Zaldivar Psychiatrist 06/27/24
--- OUTSIDE RECORDS SUMMARY | 2024-10-03 11:13 | XMS_ITS | Encounter Summary ---
Author Organization [employer] Address [address] 7t [place] [address] Care Team Providers Care Partner Integration Planner Name Role Phone Shannen Orellana MD Primary Care Provider [phone] Reason for Visit * Reason Onset Date Comments PT-1 05/09/2024 Encounter Details Date Type Department Care Team ([facility] st Contact Info) Description 05/09/2024 Telephone [facility] [address] [place] [address] Shannen Orellana MD [address] [place] [address] PT-1 Social History Tobacco Use Types Packs/Day [...] thats nothing had changed. Contact pt at [phone] * Telephone Encounter - Tello Frazier - 05/09/2024 3:13 PM EDT Patient calling requesting PT1 Home Address verified: Y/N: Yes Provider name or facility name: [facility] Facility Address: [address] [place] [address] Escort needed: Y/N: No Do you have a wheelchair: Y/N: No If yes- Manual or electric: N/A Visits: 6 monthly Pt requesting call back if there are any issues with PT1. Contact pt at [phone]. documented in this encounter Plan of Treatment Not on file documented as of this encounter Visit Diagnoses Not on filedocumented in this encounter Additional Health Concerns Assessment Noted Time PHQ-9 Depression Total Score: 27 024 2:13 PM EST documented as of this encounter Care Teams Partner Integration Planner Relationship Specialty Start Date End Date Shannen Orellana MD [address] [place] [address] PCP - General Family Medicine 08/24/22 Geno Arriaga Tobacco Wrapping Machine TenderMining Plant Operator 02/05/24 Maribell Rehman [address] [place] [address] Psychologist 06/27/23 Larry Zaldivar Psychiatrist 06/27/24 documented as of this encounter
--- OUTSIDE RECORDS SUMMARY | 2024-10-03 11:13 | XMS_ITS | Encounter Summary ---
Author Organization [employer] Address [address] [facility] [address] [place] [address] Care Team Providers Care C Architect Name Role Phone Shannen Orellana MD Primary Care Provider [phone] Reason for Visit * Reason Onset Date Comments Med Refill 11/22/2023 Encounter Details Date Type Department Care Team ([facility] st Contact Info) Description 11/22/2023 Refill [facility] MED[facility]INE [address] [place] [address] Name, MD Krzysztof [address] [place] [address] Social History Tobacco Use Types Packs/Day Years [...] documented as of this encounter Care Teams C Architect Relationship Specialty Start Date End Date Shannen Orellana MD [address] [place] [id number] PCP - General Family Medicine 08/24/22 Geno Arriaga Frame PolisherCertifed Refrigeration Operator 02/05/24 Maribell Rehman [address] [place] [id number] Psychologist 06/27/23 Larry Zaldivar Psychiatrist 06/27/24 documented as of this encounter
[2024-10-03 12:04] LABS: Glucose Fasting 82 mg/dL (60-99)
[2024-10-03 12:34] LABS: PSA,Total (Free>4and<10) 1.72 ng/mL (0.00-4.00)
[2024-10-04 08:53] LABS: Follicle Stimulating Hormone 5.1 mIU/mL (1.4-12.8); Lutenizing Hormone 7.1 mIU/mL (1.5-9.3); Prolactin 5.2 ng/mL (2.0-18.0)
[2024-10-09 15:49] LABS: Testosterone, Free 63.4 pg/mL (35.0-155.0); Testosterone, Total 511 ng/dL (250-1100)
[2024-10-12 04:17] LABS: Estradiol Ultra Sensitive 21 pg/mL (< OR = 29)
== END 2024-10-03 10:17 | disposition home or self-care (01) ==
LOC: HO.LAB 10:16
PROVIDERS: PCP Family Medicine; Visit Provider Urology
DX: N52.9 Male erectile dysfunction, unspecified (principal); Z12.5 Encounter for screening for malignant neoplasm of prostate
CPT/HCPCS: 36415; 82670; 82947; 83001; 83002; 84146; 84153; 84402; 84403

== ENCOUNTER 2025-01-23 15:11 | Outpatient (AMB) | payer MEDICAID, SELFPAY ==
--- NOTE | 2025-01-23 15:11 | MHC.OFFVIS ---
Intake Visit Reasons: follow up/CT/labs Intake Note: Patient presents today for follow up/CT/labs Urology Meds:None Allergies to Antibiotic:No Known Allergies Blood Thinner:None Photo Engraver Required: No Accompanied by: Self / Same As Patient Allergies cat dander [CAT] Allergy (Intermediate, Verified 01/23/25 15:14) SNEEZING, THROAT SWOLLEN tacrolimus [From PROTOPIC] Allergy (Intermediate, Verified 01/23/25 15:14) HEADACHE,DIZZY,N/V seafood Allergy (Mild, Verified 01/23/25 15:14) unknown Seasonal Allergies Allergy (Unknown, Verified 01/23/25 15:14) Sneezing DUST Allergy (Intermediate, Uncoded 08/13/24 10:02) SNEEZING HPI Comments Details: 01/23/25--March is present for telehealth visit. History of Present Illness The patient is a 44-year-old male presenting with follow-up concerns for groin pain and associated symptoms, including erectile dysfunction and numbness. He initially sought evaluation a year prior due to problems with erections, as well as fullness and pain in his groin. At that time, a CT scan of the pelvis identified a small fluid collection along the spermatic cord, which was considered not clinically significant. Since the last evaluation, the patient continues to report intermittent pain in the right groin which is less intensity. He reports persistent symptoms of numbness in the testicular region and hip, extending towards the thigh. Additionally, pain during ejaculation is reported without consistent patterns in symptom alleviation or exacerbation. The patient's erectile function is impacted due to the sensation loss linked with numbness, and he has a known history of arthritis in the back, neck, and a diagnosis of sacroiliitis. I have discussed the the numbness he has is likely due to the sacroilitis, and likely related to his existing back conditions or potentially non-urological factors. I discussed utilizing medications to relax prostatic urethra, I acknowledged the associated risk of retrograde ejaculation and the patient expressed his preference to avoid pharmacological intervention at this time. 30 minutes spent in review of records pertaining to this visit and including [id number] discussion with the patient and documentation of this visit. Results - Imagin04/2024-- CT pelvis showing small fluid collection along the right spermatic cord, improved from prior imaging. 01/24/2024--Jonas is here with complaints of problems with erections. He states he has mental health issues. He states that he has same sex partners. Currently does not have a partner. He states that he feels problem with erections started in 2012 after an appendectomy he was instructed not engage in sexual activity however he did not follow instructions, and after that time he began having problems with maintaining an erection. He states he was seen in the emergency room in July, groin pain and cyst. I have reviewed those records, he had a CT abdomen pelvis which noted a cyst along the spermatic cord and a scrotal ultrasound the testicles were normal. He states that he pain has improved but he continues to feel something in that area on the right side. He also complains of hesitancy with urination. Urinalysis is within normal limits, negative for leukocytes or blood. Discussed trial of Flomax 0.4 mg daily, will check baseline, sex hormones and PSA, follow-up CT pelvis. [facility] Medical History Right groin pain History of anal fissures Surgical History H/O rectal sphincterotomy H/O esophagogastroduodenoscopy History of colonoscopy Hx of appendectomy Family History Father No problems noted. Mother Mental health problem Fibromyalgia Cancer Maternal Grandfather Cancer Social History Household Members: None Housing: Apartment Alcohol intake: never Patient Tobacco Use Status: Current everyday Tobacco user Substance Use Type: Marijuana Current occupational status: unemployed Current occupation: left handed Review of Systems Const All systems reviewed & are unremarkable except as noted in HPI and below Reports no additional complaints Eyes Reports no additional complaints ENT Reports no additional complaints Card Reports no additional complaints Resp Reports no additional complaints GI Reports no additional complaints Reports as per HPI Musc Reports no additional complaints Skin/Breast Reports system reviewed and no additional complaints, except as documented Neuro Reports no additional complaints Psych Reports no additional complaints Endo Reports no additional complaints Jake/Lymph Reports no additional complaints Aller/Immun Reports no additional complaints Telehealth Telehealth Telehealth Platform: [employer] Location of provider rendering services: practice address Location of patient: address on file Patient Identification confirmed using: Name, : Yes Telehealth method: video Patient verbally consented to treatment: Yes Patient verbally consented to billing insurance company: Yes Patient informed of any privacy concerns related to visit: Yes Results Reviewed Results Reviewed: Date of Service: 05/09/24 CT PELVIS WITHOUT CONTRAST CLINICAL INFORMATION: Ganglion. COMPARISON: None available. TECHNIQUE: CT abdomen and pelvis 08/14/2023. Scrotal ultrasound 08/14/2023. This CT examination was performed using dose optimization techniques as appropriate, variously including the following: *Automated exposure control *Adjustment of mA and/or kV according to patient size (this includes techniques or standardized protocols for targeted exams where dose is matched to indication/reason for exam; i.e. extremities or head) *Use of iterative reconstruction technique DLP: 338 mGy-cm FINDINGS: The visualized bowel is unremarkable. The appendix appears to have been removed. No retroperitoneal lymphadenopathy is seen. Some minimal calcification is seen in the right common iliac artery. There is no ascites. The prostate and seminal vesicles appear unremarkable. A small ovoid fluid collection is again noted in the right inguinal canal which measures 2.9 x 1.2 x 1.7 cm possibly slightly smaller than prior. A tiny punctate calcification is seen at the inferior aspect of this. A testis is seen in each hemiscrotum. There is no ascites. Osseous structures are unremarkable. IMPRESSION: Small fluid collection in the right inguinal canal may be slightly smaller than prior. Date of Service: 08/14/23 EXAMINATION: CT ABDOMEN AND PELVIS WITH CONTRAST CLINICAL INFORMATION: Severe right groin pain and reducible hernia site COMPARISON: 03/09/2023 TECHNIQUE: Multidetector volumetric images were obtained from the superior aspect of the liver through the pubic symphysis following administration 85 mL of Omnipaque 350 intravenous contrast. Sagittal and coronal reformatted images were obtained on the technologist's workstation. Oral contrast: No This CT examination was performed using dose optimization techniques as appropriate, variously including the following: *Automated exposure control *Adjustment of mA and/or kV according to patient size (this includes techniques or standardized protocols for targeted exams where dose is matched to indication/reason for exam; i.e. extremities or head) *Use of iterative reconstruction technique DLP: 506 mGy-cm FINDINGS: LUNG BASES: The visualized lung bases are unremarkable. LIVER, GALLBLADDER, AND BILIARY TREE: The liver is normal in size, shape, and attenuation. Mild periportal edema. No focal hepatic lesion or biliary ductal dilatation is present. The gallbladder is unremarkable with no evidence of radiopaque gallstones, gallbladder wall thickening, or obvious pericholecystic inflammatory changes. PANCREAS: Unremarkable. SPLEEN: Unremarkable. ADRENAL GLANDS: Unremarkable. KIDNEYS AND URETERS: The kidneys are normal in size, shape, and attenuation. No hydronephrosis, hydroureter, or calculi seen. No perinephric stranding. BLADDER: Unremarkable. GASTROINTESTINAL TRACT: No bowel related abnormalities. Appendectomy. ABDOMINAL WALL: There is an oval hypodense structure or fluid collection in the right inguinal canal measuring 2.9 x 1.5 x 1.8 cm. No significant hernia is evident. LYMPH NODES: Normal. VASCULAR: Unremarkable. PELVIC VISCERA: Unremarkable. OSSEOUS STRUCTURES: No acute or suspicious osseous abnormalities. IMPRESSION: * There is an oval hypodense structure or fluid collection in the right inguinal canal measuring 2.9 x 1.5 x 1.8 cm. This could represent a spermatic cord hydrocele, fluid within a persistent processes vaginalis or small hernia, lymphocele, or possibly an undescended testicle. Please correlate with physical exam. * No additional acute findings within the abdomen or pelvis. Date of Service: 08/14/23 EXAMINATION: US SCROTUM CLINICAL INFORMATION: Pain and swelling x4 days. COMPARISON: None available. TECHNIQUE: A sonogram of the scrotum was performed assessing chaudhry-scale appearance and color Doppler flow. Spectral Doppler analysis of the arterial and venous flow were performed in the testes bilaterally. FINDINGS: RIGHT: Right testicle measures 5.6 x 3.0 x 3.7 cm, volume 32.5 mL. No focal testicular parenchymal lesions are visualized. Spectral Doppler analysis of the arterial and venous flow is normal in the right testis. Right epididymal head is normal in size. There are small epididymal head cyst measuring 0.2 x 0.2 x 0.2 cm and 0.1 x 0.1 x 0.2 cm. No right hydrocele or varicocele is seen. Right epididymal Doppler flow is normal.. There is fluid collection seen in the right inguinal canal LEFT: Left testicle measures 5.5 x 2.5 x 3.2 cm, volume 23.5 mL. No focal testicular parenchymal lesions are visualized. Spectral Doppler analysis of the arterial and venous flow is normal in the left testis. Incidental finding of a small scrotal pieter along the mid scrotum. Left epididymal head is normal in size. No left hydrocele or varicocele is seen. Left epididymal Doppler flow is normal. US/US scrotum doppler IMPRESSION: Right epididymal cyst. Small fluid collection noted in the right inguinal canal. Small left scrotal pole. Normal testes and epididymis ultrasound with normal venous and arterial Doppler flow. Assessment & Plan Assessment & Plan (1) Numbness: Code(s): R20.0 - Anesthesia of skin Category: Medical (2) Pain with ejaculation: Code(s): N53.12 - Painful ejaculation Category: Medical Plan The patient's erectile function is impacted due to the sensation loss linked with numbness, and he has a known history of arthritis in the back, neck, and a diagnosis of sacroiliitis. I have discussed the the numbness he has is likely due to the sacroilitis, and likely related to his existing back conditions or potentially non-urological factors. Discussed will not schedule a follow-up at this time. Patient Instructions: The patient had an opportunity to ask questions regarding treatment plan. The patient expressed understanding and agreement with the above treatment plan. The patient is aware they should contact our office by phone for worsening of their current condition or the appearance of new symptoms. Compliance is encouraged with any medications and followup testing that is ordered. It is a privilege to be allowed the opportunity to participate in the urologic care of your patient. If you have any questions or concerns regarding treatment for the above conditions please do not hesitate to contact me. The office telephone contact is [phone]. This note is constructed in part using voice recognition software. While every effort has been made to ensure accuracy cloud automation tester errors may have been included. Yours sincerely, Lino Ruiz MD Coding Level of Care Code Tele Est Pt Level 4 (42376) Diagnoses Numbness R20.0 Pain with ejaculation N53.12
--- OUTSIDE RECORDS SUMMARY | 2025-01-23 15:13 | XMS_ITS | Encounter Summary ---
Author Organization [employer] Address [address] [facility] [address] [address] [place] [address] Care Team Providers Care National Account Manager Name Role Phone Shannen Orellana MD Primary Care Provider [phone] Reason for Visit * Reason Onset Date Comments PT1 08/28/2024 Encounter Details Date Type Department Care Team ([facility] st Contact Info) Description 08/28/2024 Telephone [facility] MEDICINE [address] [place] [address] Shannen Orellana MD [address] [place] [address] PT1 Social History Tobacco Use Types Packs/Day [...] housing situation today? I have gonzalo ellison 11/10/[address] you li ve. Do you have problems with any of the following? None of the above 11/10/2024 Food Insecurity Answer Date Recorded Within the past 12 months, y ou worried that your food would run out before you got money to buy more: Never True 11/10/2024 Within the past 12 months,th e food you bought just didn't last and you didn't have enough money to get more: Never True Transportation Answer Date Recorded In the past 12 months, has l ack of transportation kept you from medical appts, meetings, work or from getting things needed for daily living? No 11/10/2024 Utilities Answer Date Recorded In the past 12 months, has t he electric, gas, oil or water company threatened to shut off services in your home? No 11/10/2024 Depression Answer Date Recorded Patient Health Questionnaire-2 Score 6 06/27/2024 Internet Access Answer Date Recorded Internet Access Q1 Yes 11/10/2024 Internet Access Q2 Not on file 11/10/2024 Sex and Gender Information Value Date Recorded Sex Assigned at Male 06/26/2022 10:15 AM EDT Legal Sex Male 10:15 AM EDT Gender Identity Male 06/26/2022 10:15 AM EDT Sexual Orientation Lesbian or Mcdowell 06/26/2022 10 :15 AM EDT documented as of this encounter Miscellaneous Notes * Telephone Encounter - Jayson Nolanarez - 08/28/2024 11:06 AM EST TC from pt states received letter from Denying PT1 to: Provider name or facility name: [facility] Facility Address: [address] [place] [address] Pt states letter suggesting pcp office to contact directly to give them more details on why pt was referred to [facility] and medical issues behind the referral in order for them to cover transportation . documented in this encounter Plan of Treatment Upcoming Encounters Date Type Department Care Team ([facility] st Contact Info) Description 02/23/2025 9:15 AM EDT Office Visit [facility] [address] [place] [address] Shannen Orellana MD [address] [place] [address] documented as of this encounter Visit Diagnoses Not on filedocumented in this encounter Additional Health Concerns Assessment Noted Time PHQ-9 Depression Total Score: 27 024 9:53 AM EDT documented as of this encounter Care Teams National Account Manager Relationship Specialty Start Date End Date Shannen Orellana MD [address] [place] [id number] PCP - General Family Medicine 08/24/22 Geno Arriaga Outreach ClinicianPatient Registration Representative 02/05/24 Maribell Rehman [address] [place] [address] Psychologist 06/27/23 Larry Zaldivar Psychiatrist 06/27/24 documented as of this encounter
== END 2025-01-23 15:45 | disposition home or self-care (01) ==
LOC: HO.HUSH 15:11
PROVIDERS: PCP Family Medicine; Visit Provider Urology
DX: R20.0 Anesthesia of skin (principal); N53.12 Painful ejaculation
CPT/HCPCS: 99214

== ENCOUNTER → 2025-01-23 15:11 | Outpatient (BNVA) | payer MEDICAID, SELFPAY | PROVIDERS: PCP Family Medicine; Visit Provider Urology ==

== ENCOUNTER → 2025-04-24 07:27 | Outpatient (BNV) | payer MEDICAID, SELFPAY | PROVIDERS: PCP Family Medicine; Visit Provider Radiology Diagnostic Radiology | DX: G57.92 Unspecified mononeuropathy of left lower limb (principal); M19.072 Primary osteoarthritis, left ankle and foot | CPT/HCPCS: 73718; 73721 ==

== ENCOUNTER 2025-04-24 07:31 | Outpatient (REF) | payer MEDICAID, SELFPAY ==
--- NOTE | ~2025-04-24 | MR_ITS ---
CLINICAL HISTORY: Neuropathy Exam: MRI of the left foot without intravenous contrast. Comparison: MR - MR ANKLE LT WO CON - 04/24/25 07:43 EDT CR/SR - XR FOOT 3 OR MORE VIEWS LEFT - 11/01/23 09:52 EST Findings: Alignment of the Lisfranc articulation is anatomic. No acute fracture or bony destructive changes seen. Mild scattered degenerative changes of the metatarsophalangeal joints and interphalangeal joints, most pronounced at the 1st metatarsophalangeal joint. Small joint effusion of the 1st metatarsophalangeal joint. No discrete erosion. Mild edema within the flexor muscle to the great toe. No other areas of muscle edema are identified. No muscle atrophy. No mass lesions are seen along the interspaces to suggest a Newsome's neuroma. Impression: 1. Scattered degenerative changes as above without acute bony abnormality. Degenerative changes most pronounced of the 1st metatarsophalangeal joint. 2. Grade 1 muscle strain of the flexor muscle to the great toe without muscle/tendon tear or muscle atrophy. 3. No erosions. This document has been electronically signed by: Sanchez Khoury MD on 04/24/2025 10:07:58
--- NOTE | ~2025-04-24 | MR_ITS ---
CLINICAL HISTORY: NEUROPATHIC PAIN OF LEFT ANKLE AND FOOT MR left ankle without gadolinium Comparison: MR - MR FOOT LT WO CON - 04/24/25 07:43 EDT CR/SR - XR FOOT 3 OR MORE VIEWS LEFT - 11/01/23 09:52 EST Findings: No fracture or bone marrow edema is identified. No periosteal reaction. Overall alignment is anatomic. Achilles tendon is intact. Anterior tendons are intact. No tear of the peroneal tendons is identified. No significant tendinopathy of the peroneal tendons. Medial tendons are intact. Mild thickening of the anterior talofibular ligament, likely related to posttraumatic fibrosis. Posterior talofibular ligament and tibiofibular ligaments are intact. Calcaneofibular ligament is intact. Deltoid ligament and spring ligaments are intact. No focal cartilage defects of the ankle joint. Is a physiologic amount of fluid within the ankle joint. Plantar fascia is intact. IMPRESSION: 1. No tendon or ligament tear. 2. 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 3. No fracture or bone marrow edema. This document has been electronically signed by: Sanchez Khoury MD on 04/24/2025 10:00:33
--- OUTSIDE RECORDS SUMMARY | 2025-04-24 07:33 | XMS_ITS | Encounter Summary ---
Author Organization [employer] Address [address] [facility] [facility] [address] [address] [place] [address] Care Team Providers Care Shot Hole Shooter Name Role Phone Shannen Orellana MD Primary Care Provider [phone] Reason for Visit * Reason Onset Date Comments PT-1 08/13/2024 Encounter Details Date Type Department Care Team ([facility] Contact Info) Description 08/13/2024 Telephone [facility] MEDICINE [address] [place] [address] Shannen Orellana MD [address] [place] [address] PT-1 Social History Tobacco Use Types Packs/Day [...] Miscellaneous Notes * Telephone Encounter - Tello Frazier - 08/13/2024 12:10 PM EST Patient calling requesting PT1 Home Address verified: Y/N: Yes Provider name or facility name: [facility] Facility Address: [address] [place] [address] Escort needed: Y/N: No Do you have [...] documented as of this encounter Care Teams Shot Hole Shooter Relationship Specialty Start Date End Date Shannen Orellana MD [address] [place] [address] PCP - General Family Medicine 08/24/22 Geno Arriaga Account AssistantStockroom Attendant 02/05/24 Maribell Rehman [address] [place] [id number] Psychologist 06/27/23 Larry Zaldivar Psychiatrist 06/27/24 documented as of this encounter
--- OUTSIDE RECORDS SUMMARY | 2025-04-24 07:33 | XMS_ITS | Clinical Summary ---
Author Organization [facility] Address [address] [place] [phone] Phone Care Team Providers Care Parachute Panel Joiner Name Role Phone Shannen Orellana MD Primary Care Provider [phone] Allergies Active Allergy Reactions Criticality Noted Date Comments Cat Dander 03/08/2018 House Dust 03/08/2018 Tacrolimus High 03/08/2018 Fish Derived 03/08/2018 Medications emtricitabine-t enofovir DF (TRUVADA) 200-300 mg per tablet Take 1 tablet by mouth daily. Active docusate sodium (COLACE) 50 MG capsule Take by mouth daily. Active sildenafil (VIAGRA) 100 mg tablet Take 100 mg by mouth daily as needed for erectile dysfunction. Active oxyCODONE HCl 10 mg Tab Take 10 mg by mouth every 4 (four) hours as needed. Active nabumetone (RELAFEN) 500 MG tablet Take 500 mg by mouth 2 (two) times a day. Active PARoxetine (PAXIL) 10 MG tablet TAKE ONE TABLET EVERY NIGHT 4 Active gabapentin (NEURONTIN) 300 MG capsule Take 300 mg by mouth. 4 Active dicyclomine (BENTYL) 20 mg tablet Take 20 mg by mouth. 4 Active fluticasone propionate (FLONASE) 50 mcg/actuation nasal spray 2 sprays. 4 Active promethazine (PHENERGAN) 12.5 MG tablet Take 12.5 mg by mouth every 6 (six) hours as needed. 4 Active hydrocortisone 2.5 % cream APPLY TO THE AFFECTED AREA(S) TWICE DAILY NEEDED 4 Active vardenafiL (LEVITRA) 10 MG tablet TAKE 1 TABLET 1 HOUR BEFORE SEXUAL RELATIONS ONCE DAILY NEEDED. 3 Active cyclobenzaprine (FLEXERIL) 10 MG tablet Take 10 mg by mouth 3 (three) times a day as needed. 4 Active doxepin (SINEQUAN) 25 MG capsule Take 1 capsule by mouth nightly at bedtime. 4 Active levocetirizine (XYZAL) 5 MG tablet Take 5 mg by mouth every evening. Active celecoxib (CELEBREX) 200 MG capsule 200 mg 2 (two) times a day. Active montelukast (SINGULAIR) 10 mg tablet TAKE ONE TABLET EVERY EVENING Active ascorbic acid, vitamin C, (VITAMIN C) 250 MG tablet 250 mg every morning. Active DULoxetine (CYMBALTA) 30 MG capsule Take 30 mg by mouth daily. Active atomoxetine (STRATTERA) 40 MG capsule 40 mg 2 (two) times a day. Active eluxadoline (VIBERZI) 75 mg tablet TAKE ONE TABLET BY MOUTH TWICE DAILY WITH FOOD OR MEAL 3 Active metoclopramide HCl (REGLAN) 5 MG tablet TAKE ONE TABLET FOUR TIMES DAILY Active simethicone (MYLICON,GAS-X) 180 mg capsule TAKE ONE CAPSULE FOUR TIMES DAILY Active RABEprazole (ACIPHEX) 20 mg tablet Take 20 mg by mouth 2 (two) times a day. Active diphenoxylate-a tropine (LOMOTIL) 2.5-0.025 mg per tablet TAKE ONE TABLET FOUR TIMES DAILY NEEDED FOR DIARRHEA 3 Active albuterol 90 mcg/actuation inhaler Inhale 2 puffs into the lungs every 6 (six) hours as needed for wheezing. Active Active Problems Problem Noted Date Diagnosed Date Foraminal stenosis of cervical region 11/27/2023 Cubital tunnel syndrome, right 11/27/2023 Disorder of sacrum 11/27/2023 Thoracic facet joint syndrome 03/08/2018 Sacroiliitis, not elsewhere classified 8 Myalgia 03/08/2018 Social History Tobacco Use Types Packs/Day Years Used Date Smoking Tobacco: Every Day Cigarettes Smokeless Tobacco: Never Alcohol Use Standard Drinks/Week Comments Yes 0 (1 standard drink = 0.6 oz pur e alcohol) SOCIALLY Education Answer Date Recorded Are you interested in more education? Not on raven e 12/22/2022 Are you concerned about learning? Not on file 12/22/2022 No 12/22/2022 No 12/22/2022 Digital Access Answer Date Recorded No 01/20/2023 No 01/20/2023 No 01/20/2023 Reliable internet access at home? Not on file 01/20/2023 Device with a working camera? Not on file Sex and Gender Information Value Date Recorded Sex Assigned at Male 01/28/2024 4:38 PM EDT Legal Sex Male 8:43 AM EDT Gender Identity Male 01/28/2024 4:38 PM EDT Sexual Orientation Lesbian or Mcdowell 01/28/2024 4: 38 PM EDT Last Filed Vital Signs Vital Sign Reading Time Taken Comments Blood Pressure - - Pulse 80 11/27/2023 9:40 AM EDT Temperature 36.9 C (98.5 F) 11/27/2023 9:40 AM EDT Respiratory Rate - - Oxygen Saturation 98% 11/27/2023 9:40 AM EDT Inhaled Oxygen Concentration - - Weight 88.5 kg (195 lb) 12/31/2023 1:01 PM EDT Height 177.8 cm (5' 10 ) 12/31/2023 1:01 PM EDT Body Mass Index 27.98 12/31/2023 1:01 PM EDT Plan of Treatment Health Maintenance Due Date Last Done Comments DEPRESSION SCREENING 1992 SMOKING Hx and SMOKELESS TOBACCO SCREENING 1993 HEPATITIS C SCREENING 1998 HIV ONE-TIME SCREENING (18-6 5 YEARS) 1998 HEPATITIS A VACCINES (1 of 2 - Risk 2-dose series) 1999 PNEUMOCOCCAL VACCINES (0-49 years) (1 of 2 - PCV) 1999 SCREENING FOR DIABETES 2015 COVID-19 VACCINE ( - 2023-2 5 season) 2024 09/20/2020, 08/23/2020 LIPID PANEL 10/11/2028 10/11/2023 Adult Td,Tdap Booster 10/11/2033 10/11/2023 , 04/03/2007 HIB VACCINES Aged Out No longer eligi ble based on patient's age to complete this topic MENINGOCOCCAL VACCINES (ACWY) Aged Out No longer eligible based on patient's age to complete this topic MENINGOCOCCAL VACCINES (B) Aged Out N o longer eligible based on patient's age to complete this topic Medical Devices Not on file Insurance C3 ACO C3 ACO C3 ACO C3 ACO C3 ACO C3 ACO [employer] Care Teams Parachute Panel Joiner Relationship Specialty Start Date End Date Shannen Orellana MD [address] [place] [id number] PCP - General Family Medicine 11/27/23 Additional Source Comments The information contained in this document represents components of the legal health record. It is not the complete legal health record.[facility]
--- OUTSIDE RECORDS SUMMARY | 2025-04-24 07:33 | XMS_ITS | Encounter Summary ---
Author Organization [facility] Address [address] [place] [address] Phone Care Team Providers Care Primer Waterproofing Machine Adjuster Name Role Phone Shannen Orellana MD Primary Care Provider [phone] Encounter Details Date Type Department Care Team (Late st Contact Info) Description 11/28/2023 Procedure Pass [facility], [address] [address] Social History Tobacco Use Types Packs/Day Years [...] or [place]cd[place] 01/28/2024 4: 38 PM EDT documented as of this encounter Plan of Treatment Not on file documented as of this encounter Visit Diagnoses Not on filedocumented in this encounter Care Teams Primer Waterproofing Machine Adjuster Relationship Specialty Start Date End Date Shannen Orellana MD [address] [place] [address] PCP - General Family Medicine 11/27/23 documented as of this encounter Additional Source Comments The information contained in this document represents components of the legal health record. It is not the complete legal health record.[facility]
--- OUTSIDE RECORDS SUMMARY | 2025-04-24 07:33 | XMS_ITS | Encounter Summary ---
Author Organization [facility] Address [address] [place] [address] Phone Care Team Providers Care Distribution Warehouse Manager Name Role Phone Shannen Orellana MD Primary Care Provider [phone] Reason for Referral * MRI/CAT Scan - Closed Specialty Diagnoses / Procedures Referred By Contac t Referred To Contact Radiology Diagnoses Mid back pain Procedures MRI Total Spine MRI Lumbar Spine MRI THORACIC SPINE MRI CERVICAL SPINE Shannen Orellana MD [address] [place] [address] Phone: tel: fax: Referral ID Status Reason Start Date Expiration Date Visits Re quested Visits Authorized [id number] Closed 11/28/2023 11/26/2024 1 1 Encounter Details Date Type Department Care Team (Latest Contact Info) Description 11/28/2023 Transcribe Orders Virtual Department [address] [place] [address] Shannen Orellana MD [address] [place] [address] Mid back pain (Primary Dx) Social History Tobacco Use Types [...] on file documented as of this encounter Results * MRI CERVICAL/THORACIC/LUMBAR SPINE WITHOUT CONTRAST (02/11/2024 8:49 AM EDT) Anatomical Region Laterality Modality T-spine Magnetic Resonan ce 02/17/2024 10:1 1 PM EDT Impressions 02/19/2024 6:40 AM EDT No evidence of significant spinal canal stenosis. Moderate right foraminal stenosis at C5-C6. Mild left foraminal stenosis at L5-S1. Otherwise unremarkable MRI of the cervical, thoracic, and lumbar spine. Narrative 02/19/2024 6:40 AM EDT MRI CERVICAL/THORACIC/LUMBAR SPINE WITHOUT CONTRAST Referring clinician's provided indication for this examination in Epic: Outside Radiology Order; mid back pain TECHNIQUE: MRI CERVICAL/THORACIC/LUMBAR SPINE WITHOUT CONTRAST Multi-sequence, multi-planar MRI of the cervical spine was performed without intravenous contrast. Multi-sequence, multi-planar MRI of the thoracic spine was performed without intravenous contrast. Multi-sequence, multi-planar MRI of the lumbar spine was performed without intravenous contrast. COMPARISON: None FINDINGS: CERVICAL SPINE: Discs and Endplates: No significant disc space narrowing. Vertebrae: Normal. No compression fracture. No bone marrow replacing lesion. No scoliosis. Spinal Cord: No spinal cord compression or signal abnormality. Soft Tissue: Normal. No prevertebral edema, mass or fluid collection. Findings by level: C2-C3: Normal. No spinal canal or foraminal stenosis. C3-C4: Normal. No spinal canal or foraminal stenosis. C4-C5: Normal. No spinal canal or foraminal stenosis. C5-C6: Minimal posterior disc calcified thrombus. Moderate right foraminal stenosis. No significant spinal canal stenosis. C6-C7: Normal. No spinal canal or foraminal stenosis. C7-T1: Normal. No spinal canal or foraminal stenosis. THORACIC SPINE: Vertebrae: Scattered mild facet arthropathy. No compression fracture. No bone marrow replacing lesion. No scoliosis. Spinal Cord: Normal. No spinal cord compression or signal abnormality. Soft Tissue: Normal. No prevertebral edema, mass or fluid collection. LUMBAR SPINE: Vertebrae: Normal. No compression fracture. No bone marrow replacing lesion. No scoliosis. Conus: Normal position. No signal abnormality. Soft Tissue: Normal. No paraspinal edema, mass or fluid collection. Findings by level: T12-L1: Normal. Normal disc height and contour. Normal facet joints. No listhesis. No bone marrow edema. No stenosis or nerve impingement. L1-L2: Normal. Normal disc height and contour. Normal facet joints. No listhesis. No bone marrow edema. No stenosis or nerve impingement. L2-L3: Normal. Normal disc height and contour. Normal facet joints. No listhesis. No bone marrow edema. No stenosis or nerve impingement. L3-L4: Normal. Normal disc height and contour. Normal facet joints. No listhesis. No bone marrow edema. No stenosis or nerve impingement. L4-L5: Normal. Normal disc height and contour. Normal facet joints. No listhesis. No bone marrow edema. No stenosis or nerve impingement. L5-S1: Minimal diffuse disc bulge. Mild left foraminal stenosis. No significant spinal canal stenosis. Procedure Note Reji García MD - 02/19/2024 MRI CERVICAL/THORACIC/LUMBAR SPINE WITHOUT CONTRAST Referring clinician's provided indication for this examination in Epic:Outside Radiology Order; mid back pain TECHNIQUE: MRI CERVICAL/THORACIC/LUMBAR SPINE WITHOUT CONTRAST Multi-sequence, multi-planar MRI of the cervical spine was performedwithout intravenous contrast. Multi-sequence, multi-planar MRI of the thoracic spine was performedwithout intravenous contrast. Multi-sequence, multi-planar MRI of the lumbar spine was performed withoutintravenous contrast. COMPARISON: None FINDINGS: CERVICAL SPINE: Discs and Endplates: No significant disc space narrowing. Vertebrae: Normal. No compression fracture. No bone marrow replacinglesion. No scoliosis. Spinal Cord: No spinal cord compression or signal abnormality. Soft Tissue: Normal. No prevertebral edema, mass or fluid collection. Findings by level: C2-C3: Normal. No spinal canal or foraminal stenosis. C3-C4: Normal. No spinal canal or foraminal stenosis. C4-C5: Normal. No spinal canal or foraminal stenosis. C5-C6: Minimal posterior disc calcified thrombus. Moderate right foraminalstenosis. No significant spinal canal stenosis. C6-C7: Normal. No spinal canal or foraminal stenosis. C7-T1: Normal. No spinal canal or foraminal stenosis. THORACIC SPINE: Vertebrae: Scattered mild facet arthropathy. No compression fracture. Nobone marrow replacing lesion. No scoliosis. Spinal Cord: Normal. No spinal cord compression or signal abnormality. Soft Tissue: Normal. No prevertebral edema, mass or fluid collection. LUMBAR SPINE: Vertebrae: Normal. No compression fracture. No bone marrow replacinglesion. No scoliosis. Conus: Normal position. No signal abnormality. Soft Tissue: Normal. No paraspinal edema, mass or fluid collection. Findings by level: T12-L1: Normal. Normal disc height and contour. Normal facet joints. Nolisthesis. No bone marrow edema. No stenosis or nerve impingement. L1-L2: Normal. Normal disc height and contour. Normal facet joints. Nolisthesis. No bone marrow edema. No stenosis or nerve impingement. L2-L3: Normal. Normal disc height and contour. Normal facet joints. Nolisthesis. No bone marrow edema. No stenosis or nerve impingement. L3-L4: Normal. Normal disc height and contour. Normal facet joints. Nolisthesis. No bone marrow edema. No stenosis or nerve impingement. L4-L5: Normal. Normal disc height and contour. Normal facet joints. Nolisthesis. No bone marrow edema. No stenosis or nerve impingement. L5-S1: Minimal diffuse disc bulge. Mild left foraminal stenosis. Nosignificant spinal canal stenosis. IMPRESSION: No evidence of significant spinal canal stenosis. Moderate right foraminal stenosis at C5-C6. Mild left foraminal stenosis at L5-S1. Otherwise unremarkable MRI of the cervical, thoracic, and lumbar spine. Shannen Orellana MD [facility] MR XSPECIALTY Final Resul t documented in this encounter Visit Diagnoses Diagnosis Mid back pain- Primary documented in this encounter Care Teams Distribution Warehouse Manager Relationship Specialty Start Date End Date Shannen Orellana MD [address] [place] [address] PCP - General Family Medicine 11/27/23 documented as of this encounter Additional Source Comments The information contained in this document represents components of the legal health record. It is not the complete legal health record.[facility]
--- OUTSIDE RECORDS SUMMARY | 2025-04-24 07:34 | XMS_ITS | Encounter Summary ---
Author Organization [employer] Address [address] [place] [address] Care Team Providers Care Portable Machine Sander Name Role Phone Shannen Orellana MD Primary Care Provider [phone] Reason for Visit * Reason Onset Date Comments Call back requesting 04/22/2025 Encounter Details Date Type Department Care Team ([facility] Contact Info) Description 04/22/2025 Telephone [facility] MEDICINE [address] [place] [address] Shannen Orellana MD [address] [place] [address] Call back requesting Social History Tobacco Use Types Packs/Day Years [...] encounter Miscellaneous Notes * Telephone Encounter - Linnea Cobos RN - 04/22/2025 3:16 PM EDT Author took call transferred from call center. Advised pt he was previously advised by team RN to go to ER and expect called in. Pt verbalized understanding and stated will go to ER but wanted to make sure refill request was in. * Telephone Encounter - Mago Lofton - 04/22/2025 11:48 AM EDT Tc from pt requesting a call back in regards of RABEprazole (Aciphex) 20 MG EC tablet Contact pt at [phone] documented in this encounter Plan of Treatment Not on file documented as of this encounter Visit Diagnoses Not on filedocumented in this encounter Additional Health Concerns Assessment Noted Time PHQ-9 Depression Total Score: 27 024 9:53 AM EDT documented as of this encounter Care Teams Portable Machine Sander Relationship Specialty Start Date End Date Shannen Orellana MD [address] [place] [address] PCP - General Family Medicine 08/24/22 Geno Arriaga Pattern DesignerRubber Attacher 02/05/24 Maribell Rehman [address] [place] [address] Psychologist 06/27/23 Larry Zaldivar Psychiatrist 06/27/24 documented as of this encounter
--- OUTSIDE RECORDS SUMMARY | 2025-04-24 07:34 | XMS_ITS | Encounter Summary ---
Author Organization [employer] Address [address] 7[address] [place] [address] Care Team Providers Care Pool Table Operator Name Role Phone Shannen Orellana MD Primary Care Provider [phone] Reason for Visit * Reason Onset Date Comments Referral 07/02/2023 PT 1 2 of 2 Encounter Details Date Type Department Care Team ([facility] st Contact Info) Description 07/02/2023 Telephone [facility] MEDICINE [address] [place] [address] Shannen Orellana MD [address] [place] [address] Referral (PT 1 2 of 2) Social [...] PT1 Date: 07/23 Time: 9:00 Visits:6 Address: [address] [place] [address] Facility: [facility] Specialty : Orthopedic surgery with Dr. Galeas Wheel Chair: no Flat Examiner Needed: no documented in this encounter Plan of Treatment Not on file documented as of this encounter Visit Diagnoses Not on filedocumented in this encounter Additional Health Concerns Assessment Noted Time PHQ-9 Depression Total Score: 24 022 4:05 PM EST documented as of this encounter Care Teams Pool Table Operator Relationship Specialty Start Date End Date Shannen Orellana MD [address] [place] [address] PCP - General Family Medicine 08/24/22 Geno Arriaga President + PublisherManagement Accounts Manager 02/05/24 Maribell Rehman [address] [place] [address] Psychologist 06/27/23 Larry Zaldivar Psychiatrist 06/27/24 documented as of this encounter
--- OUTSIDE RECORDS SUMMARY | 2025-04-24 07:34 | XMS_ITS | Encounter Summary ---
Author Organization [employer] Address [address] 7[address] [place] [address] Care Team Providers Care Frame Runner Name Role Phone Shannen Orellana MD Primary Care Provider [phone] Reason for Visit * Reason Onset Date Comments Referral 06/11/2023 Encounter Details Date Type Department Care Team ([facility] Contact Info) Description 06/11/2023 Telephone [facility] CHC MED & PEDS [address] [place], [place] [phone] Shannen Orellana MD [address] [place] [address] Referral Social History Tobacco Use Types Packs/Day [...] documented as of this encounter Care Teams Frame Runner Relationship Specialty Start Date End Date Shannen Orellana MD [address] [place] [address] PCP - General Family Medicine 08/24/22 Geno Arriaga Manager IntegrationQuantitative Developer 02/05/24 Maribell Rehman [address] [place] [address] Psychologist 06/27/23 Larry Zaldivar Psychiatrist 06/27/24 documented as of this encounter
--- OUTSIDE RECORDS SUMMARY | 2025-04-24 07:34 | XMS_ITS | Encounter Summary ---
Author Organization [employer] Address [address] 7t [place] [address] Care Team Providers Care Ledge Man Name Role Phone Shannen Orellana MD Primary Care Provider [phone] Encounter Details Date Type Department Care Team ([facility] st Contact Info) Description 11/27/2023 Telephone [facility] CHC MED & PEDS [address] [place], [place] [phone] Shannen Orellana MD [address] [place], [place] [phone] Social History Tobacco Use Types Packs/Day Years [...] Morales RN - 12/05/2023 3:28 PM EDT CM received a VM from pt requesting PCP to send order for MRI ordered by the pain specialist to [facility] he was scheduled a month from now for the MRI. Pt states he cannot wait for a whole month beforegetting his MRI done. CM reached out to [facility] Wagner and spoke with [place] who states pt is scheduled for December and that appt will be kept. Pt should call to cancel an appt if able to get a sooner appt at [facility]. Per Slovak orders from the pain specialist includes MRI of the lumbar spine, MRI of thoracic spine and MRI of cervical spine with contrast. Per VM received, pt also requested for MRI of the hip. CM reached out to pt for clarification and also reason for request for referral to pilot captain but pt did not answer. PERCY LVM requesting a return call. * Telephone Encounter - Anu Owens - 12/03/2023 11:48 AM EDT Please sign office note of 04/01 to complete referrals. Thank you. * Telephone Encounter - Aziza Morales RN - 11/28/2023 3:49 PM EDT Please see referral for 04/02/23. Pt was referred for pruritic rash. CM reached out to the pilot captain office and was able to schedule pt an appt on 01/19/24 at 10:45am at their [place] office on [address] [place] [address]. P# [phone]. The pilot captain office is requesting for recent office note [...] documented as of this encounter Care Teams Ledge Man Relationship Specialty Start Date End Date Shannen Orellana MD [address] [place] [address] PCP - General Family Medicine 08/24/22 Geno Arriaga Senior Core Java DeveloperFlexo Press Operator 02/05/24 Maribell Rehman [address] [place] [address] Psychologist 06/27/23 Larry Zaldivar Psychiatrist 06/27/24 documented as of this encounter
--- OUTSIDE RECORDS SUMMARY | 2025-04-24 07:34 | XMS_ITS | Encounter Summary ---
Author Organization [employer] Address [address] [facility] [facility] [address] 7[address] [place] [address] Care Team Providers Care Oracle Manager Name Role Phone Shannen Orellana MD Primary Care Provider [phone] Reason for Visit * Reason Onset Date Comments Med Refill 02/19/2024 Encounter Details Date Type Department Care Team (Late st Contact Info) Description 02/19/2024 Refill [facility] OPTOMETRY [address] [place] [address] Dominick, Catia, OD [address] [place] [address] Social History Tobacco Use Types Packs/Day Years [...] documented as of this encounter Care Teams Oracle Manager Relationship Specialty Start Date End Date Shannen Orellana MD [address] [place] [address] PCP - General Family Medicine 08/24/22 Geno Arriaga Legal Operations ManagerRefueling Rampman 02/05/24 Maribell Agarwal Sherie [address] [place] [address] Psychologist 06/27/23 Larry Zaldivar Psychiatrist 06/27/24 documented as of this encounter
--- OUTSIDE RECORDS SUMMARY | 2025-04-24 07:34 | XMS_ITS | Encounter Summary ---
Author Organization [employer] Address [address] [facility] [address] 7[address] [place] [address] Care Team Providers Care Photographer Apprentice Lithographic Name Role Phone Shannen Orellana MD Primary Care Provider [phone] Reason for Visit * Reason Onset Date Comments Med Refill 02/19/2024 Encounter Details Date Type Department Care Team ([facility] st Contact Info) Description 02/19/[address] [facility] MEDICINE [address] [place] [address] Shannen Orelalna MD [address] [place] [address] On pre-exposure prophylaxis for HIV Social History [...] documented as of this encounter Care Teams Photographer Apprentice Lithographic Relationship Specialty Start Date End Date Shannen Orellana MD [address] [place] [address] PCP - General Family Medicine 08/24/22 Geno Arriaga Head Of Sales PromotionJewelry Jobber 02/05/24 Maribell Rehman [address] [place] [address] Psychologist 06/27/23 Larry Zaldivar Psychiatrist 06/27/24 documented as of this encounter
--- OUTSIDE RECORDS SUMMARY | 2025-04-24 07:34 | XMS_ITS | Encounter Summary ---
Author Organization [employer] Address [address] [place] [address] Care Team Providers Care Wood Pile Driver Operator Name Role Phone Shannen Orellana MD Primary Care Provider [phone] Encounter Details Date Type Department Care Team (Late st Contact Info) Description 09/22/2022 Telephone [facility] MEDICINE [address] [place] [address] Shannen Orellana MD [address] [place] [address] Social History Tobacco Use Types Packs/Day Years [...] documented as of this encounter Care Teams Wood Pile Driver Operator Relationship Specialty Start Date End Date Shannen Orellana MD [address] [place] [address] PCP - General Family Medicine 08/24/22 Geno Arriaga Weighmaster LeadEvent Marketing Intern 02/05/24 Maribell Rehman [address] [place] [address] Psychologist 06/27/23 Larry Zaldivar Psychiatrist 06/27/24 documented as of this encounter
--- OUTSIDE RECORDS SUMMARY | 2025-04-24 07:34 | XMS_ITS | Encounter Summary ---
Author Organization [employer] Address [address] [facility] [address] [place] [address] Care Team Providers Care Neurology Manager Name Role Phone Shannen Orellana MD Primary Care Provider [phone] Reason for Visit * Reason Onset Date Comments Pt-1 04/08/2025 Encounter Details Date Type Department Care Team ([facility] Contact Info) Description 04/08/2025 Telephone [facility] MEDICINE [address] [place] [address] Shannen Orellana MD [address] [place] [address] Pt-1 Social History Tobacco Use Types Packs/Day Years [...] * Telephone Encounter - Tello Frazier - 04/08/2025 2:52 PM EDT Patient calling requesting PT1 Home Address verified: Y/N: Yes Provider name or facility name: [facility] Facility Address: [address] [facility] Escort needed: Y/N: Yes Do you have a wheelchair: Y/N: No If yes- Manual or electric: N/A Visits: Twice a month - Patient calling requesting PT1 Home Address verified: Y/N: Yes Provider name or facility name: [facility] Facility Address: [address] [facility] Escort needed: Y/N: Yes Do you have a wheelchair: Y/N: No If yes- Manual or electric: N/A Visits: Twice a month - Patient calling requesting PT1 Home Address verified: Y/N: Yes Provider name or facility name: [facility] Facility Address: [address] [facility] Escort needed: Y/N: Yes Do you have a wheelchair: Y/N: No If yes- Manual or electric: N/A Visits: Once a month - Patient calling requesting PT1 Home Address verified: Y/N: Yes Provider name or facility name: [facility] Facility Address: [address] [place] [address] [place] [address] Escort needed: Y/N: Yes Do you have a wheelchair: Y/N: No If yes- Manual or electric: N/A Visits: Once a month documented in this encounter Plan of Treatment Not on file documented as of this encounter Visit Diagnoses Not on filedocumented in this encounter Additional Health Concerns Assessment Noted Time PHQ-9 Depression Total Score: 27 024 9:53 AM EDT documented as of this encounter Care Teams Neurology Manager Relationship Specialty Start Date End Date Shannen Orellana MD [address] [place] [address] PCP - General Family Medicine 08/24/22 Geno Arriaga Concrete Mixer Operator HelperBootmaker Hand 02/05/24 Maribell Rehman [address] [place] [address] Psychologist 06/27/23 Larry Zaldivar Psychiatrist 06/27/24 documented as of this encounter
--- OUTSIDE RECORDS SUMMARY | 2025-04-24 07:34 | XMS_ITS | Encounter Summary ---
Author Organization [email or web address] Address [address] [facility] [address] [facility] [address] 7[address] [place] [address] Care Team Providers Care Laborer Driver Name Role Phone Shannen Orellana MD Primary Care Provider Encounter Details Date Type Department Care Team (Late st Contact Info) Description 02/29/2024 Orders Only [facility] CHC MED & PEDS [address] [place], [place] [phone] Maame Espinal MD [address] [place] [address] Social History Tobacco Use Types Packs/Day Years [...] documented as of this encounter Care Teams Laborer Driver Relationship Specialty Start Date End Date Shannen Orellana MD [address] [place] [address] PCP - General Family Medicine 08/24/22 Geno Arriaga Grades 1 Through 5 TeacherDice Table Person 02/05/24 Maribell Rehman [address] [place] [address] Psychologist 06/27/23 Larry Zaldivar Psychiatrist 06/27/24 documented as of this encounter
--- OUTSIDE RECORDS SUMMARY | 2025-04-24 07:34 | XMS_ITS | Encounter Summary ---
Author Organization [employer] Address [address] [facility] [address] 7t [place] [address] Care Team Providers Care Slat Basket Maker Helper Name Role Phone Shannen Orellana MD Primary Care Provider [phone] Reason for Visit * Reason Onset Date Comments Prior Authorization 04/22/2025 Encounter Details Date Type Department Care Team ([facility] Contact Info) Description 04/22/2025 Telephone [facility] MEDICINE [address] [place] [address] Shannen Orellana MD [address] [place] [address] Prior Authorization Social History Tobacco Use Types Packs/Day Years [...] encounter Miscellaneous Notes * Telephone Encounter - Erum Venegas LPN - 04/23/2025 11:19 AM EDT Pa generated and placed on PCP desk for added information. Tc from pt needing a PA for RABEprazole (Aciphex) 20 MG EC tablet Contact pt at [phone] * Telephone Encounter - Mago Lofton - 04/22/2025 11:46 AM EDT Tc from pt needing a PA for RABEprazole (Aciphex) 20 MG EC tablet Contact pt at [phone] documented in this encounter Plan of Treatment Not on file documented as of this encounter Visit Diagnoses Not on filedocumented in this encounter Additional Health Concerns Assessment Noted Time PHQ-9 Depression Total Score: 27 024 9:53 AM EDT documented as of this encounter Care Teams Slat Basket Maker Helper Relationship Specialty Start Date End Date Shannen Orellana MD [address] [place] [address] PCP - General Family Medicine 08/24/22 Geno Arriaga Farm Equipment EngineerSoda Dialyzer 02/05/24 Maribell Rehman [address] [place] [address] Psychologist 06/27/23 Larry Zaldivar Psychiatrist 06/27/24 documented as of this encounter
--- OUTSIDE RECORDS SUMMARY | 2025-04-24 07:34 | XMS_ITS | Encounter Summary ---
Author Organization [employer] Address [address] [facility] [address] 7t [place] [address] Care Team Providers Care Automobile Mechanic Name Role Phone Shannen Orellana MD Primary Care Provider [phone] Encounter Details Date Type Department Care Team (Late st Contact Info) Description 10/03/2024 Telephone [facility] MEDICINE 230 [place] [address] Shannen Orellana MD [address] [place] [address] Social History Tobacco Use Types Packs/Day Years [...] worried about losing housing in the future 10/06/[address] you li ve. Do you have problems with any of the following? Not on file 10/06/2024 Food Insecurity Answer Date Recorded Within the [...] documented as of this encounter Care Teams Automobile Mechanic Relationship Specialty Start Date End Date Shannen Orellana MD [address] [place] [address] PCP - General Family Medicine 08/24/22 Geno Arriaga Student Finance SpecialistMelting Supervisor 02/05/24 Maribell Rehman [address] [place] [address] Psychologist 06/27/23 Larry Zaldivar Psychiatrist 06/27/24 documented as of this encounter
--- OUTSIDE RECORDS SUMMARY | 2025-04-24 07:34 | XMS_ITS | Encounter Summary ---
Author Organization [employer] Address [address] [facility] [address] 7t [place] [address] Care Team Providers Care Custodial Aide Name Role Phone Shannen Orellana MD Primary Care Provider [phone] Encounter Details Date Type Department Care Team ([facility] st Contact Info) Description 04/22/2025 Telephone [facility] CHC MED & PEDS [address] [place], [place] [phone] Shannen Orellana MD 505 [place], [place] [phone] Social History Tobacco Use Types Packs/Day Years [...] AM EDT documented as of this encounter Last Filed Vital Signs Vital Sign Reading Time Taken Comments Blood Pressure 136/82 04/22/2025 11:30 AM EDT Pulse 80 04/22/2025 11:30 AM EDT Temperature - - Respiratory Rate 18 04/22/2025 11:30 AM EDT Oxygen Saturation 97% 04/22/2025 11:30 AM EDT Inhaled Oxygen Concentration - - Weight - - Height - - Body Mass Index - - documented in this encounter Miscellaneous Notes * Telephone Encounter - Anuja Sutherland RN - 04/22/2025 11:37 AM EDT Patient walk-in. Patient stated he has been having chest pain for few months. He states it is stabbing in nature. Denies pressure. States it radiates from center of chest and is tingling down both arms to this finger tips. Patient does endorse severe anxiety and denies currently being on anti-anxiety medications d/t being out because he is waiting for new psychiatrist. VSS. No SOB, or excessivesweating noted. Informed patient that it was nursing judgement to send him to ER to be evaluated d/t the chest pain. Patient was in agreement with this and stated he is going to [facility]. Will call expect to [facility]. documented in this encounter Plan of Treatment Not on file documented as of this encounter Visit Diagnoses Not on filedocumented in this encounter Additional Health Concerns Assessment Noted Time PHQ-9 Depression Total Score: 27 024 9:53 AM EDT documented as of this encounter Care Teams Custodial Aide Relationship Specialty Start Date End Date Shannen Orellana MD 230 [place] [address] PCP - General Family Medicine 08/24/22 Geno Arriaga Barrel Charrer HelperRetail Client Manager 02/05/24 Maribell Rehman [address] [place] [address] Psychologist 06/27/23 Larry Zaldivar Psychiatrist 06/27/24 documented as of this encounter
--- OUTSIDE RECORDS SUMMARY | 2025-04-24 07:34 | XMS_ITS | Encounter Summary ---
Author Organization [employer] Address [address] [facility] [address] 7t [place] [address] Care Team Providers Care Dam Tender Assistant Name Role Phone Shannen Orellana MD Primary Care Provider [phone] Reason for Visit * Reason Comments Med Refill Encounter Details Date Type Department Care Team ([facility] Contact Info) Description 03/08/2025 Refill [facility] MEDICINE 230 [place] [address] Margarita Villanueva MD 505 [place], [place] [phone] On pre-exposure prophylaxis for HIV Social History [...] encounter Miscellaneous Notes * Telephone Encounter - Oleg Zavala RN - 03/11/2025 8:01 AM EDT Per PrEP navigator, pt stopped taking PrEP in Sep 2024 documented in this encounter Plan of Treatment Not on file documented as of this encounter Visit Diagnoses Diagnosis On pre-exposure prophylaxis for HIV documented in this encounter Additional Health Concerns Assessment Noted Time PHQ-9 Depression Total Score: 27 024 9:53 AM EDT documented as of this encounter Care Teams Dam Tender Assistant Relationship Specialty Start Date End Date Shannen Orellana MD [address] [place] [address] PCP - General Family Medicine 08/24/22 Geno Arriaga Sourcing AssistantMultimedia Artist 02/05/24 Maribell Rehman [address] [place] [address] Psychologist 06/27/23 Larry Zaldivar Psychiatrist 06/27/24 documented as of this encounter
--- OUTSIDE RECORDS SUMMARY | 2025-04-24 07:34 | XMS_ITS | Encounter Summary ---
Author Organization [employer] Address [address] [facility] [address] 7t [place] [address] Care Team Providers Care Digital Product Specialist Name Role Phone Shannen Orellana MD Primary Care Provider [phone] Reason for Visit * Reason Onset Date Comments Med Refill 01/06/2025 Encounter Details Date Type Department Care Team ([facility] [place] [address] Contact Info) Description 01/06/2025 Refill [facility] CHC MED & PEDS 505 [place] [address] Suzanne Monique MD 505 [place] [address] Social History Tobacco Use Types Packs/Day Years [...] documented as of this encounter Care Teams Digital Product Specialist Relationship Specialty Start Date End Date Shannen Orellana MD [address] [place] [address] PCP - General Family Medicine 08/24/22 Geno Arriaga Unit ControllerTank Truck Mechanic 02/05/24 Maribell Rehman [address] [place] [address] Psychologist 06/27/23 Larry Zaldivar Psychiatrist 06/27/24 documented as of this encounter
--- OUTSIDE RECORDS SUMMARY | 2025-04-24 07:34 | XMS_ITS | Encounter Summary ---
Author Organization [employer] Address [address] [facility] [address] 7t [place] [address] Care Team Providers Care Svp Marketing Name Role Phone Shannen Orellana MD Primary Care Provider [phone] Reason for Visit * Reason Onset Date Comments Created in error 02/22/2024 Encounter Details Date Type Department Care Team ([facility] Contact Info) Description 02/22/2024 Telephone [facility] MEDICINE 230 [place] [address] Shannen Orellana MD [address] [place] [address] Created in error Social History Tobacco Use [...] documented as of this encounter Care Teams Svp Marketing Relationship Specialty Start Date End Date Shannen Orellana MD [address] [place] [address] PCP - General Family Medicine 08/24/22 Geno Arriaga Special Forces Weapons SergeantInnovations Paraprofessional 02/05/24 Maribell Rehman [address] [place] [address] Psychologist 06/27/23 Larry Zaldivar Psychiatrist 06/27/24 documented as of this encounter
--- OUTSIDE RECORDS SUMMARY | 2025-04-24 07:34 | XMS_ITS | Encounter Summary ---
Author Organization [employer] Address [address] [facility] [address] 7t [place] [address] Care Team Providers Care Computer Support Specialist Name Role Phone Shannen Orellana MD Primary Care Provider [phone] Reason for Visit * Reason Onset Date Comments Med Refill 12/20/2023 Encounter Details Date Type Department Care Team ([facility] Contact Info) Description 12/20/2023 Refill [facility] CHC MED & PEDS [address] [place] [address] Shannen Orellana MD 505 [place] [address] Pruritic rash Social History Tobacco Use Types [...] documented as of this encounter Care Teams Computer Support Specialist Relationship Specialty Start Date End Date Shannen Orellana MD [address] [place] [address] PCP - General Family Medicine 08/24/22 Geno Arriaga Hosted Services AnalystSr. Vendor Management Associate 02/05/24 Maribell Rehman [address] [place] [address] Psychologist 06/27/23 Larry Zaldivar Psychiatrist 06/27/24 documented as of this encounter
--- OUTSIDE RECORDS SUMMARY | 2025-04-24 07:34 | XMS_ITS | Encounter Summary ---
Author Organization [id number] Address [address] [facility] [address] 7t [place] [address] Care Team Providers Care Coconut Boiler Name Role Phone Shannen Orellana MD Primary Care Provider [phone] Reason for Visit * Reason Onset Date Comments PT1 02/11/2024 Encounter Details Date Type Department Care Team ([facility] Contact Info) Description 02/11/2024 Telephone C [facility] MED & PEDS 505 [place] [address] Shannen Orellana MD 505 [place] [address] PT1 Social History Tobacco Use Types Packs/Day [...] requesting increase visits to the max for [facility] and other locations. Pt stated if any questions please contact at [phone] * Telephone Encounter - Tello Frazier - 02/11/2024 10:11 AM EDT Tc from pt calling in regards to message prior, also wanted to increase frequency in visits to the maximum amount of visit. This includes PT-1 for [facility] radiologist ([address] [place] [address]). If any questions please contact [t at [phone]. * Telephone Encounter - Rose Zuluaga - 02/11/2024 9:49 AM EDT Tc from pt requesting an increase on visits for two Pt1's. Location: [facility] and Curtis Wagner on [address] documented in this encounter Plan of Treatment Not on file documented as of this encounter Visit Diagnoses Not on filedocumented in this encounter Additional Health Concerns Assessment Noted Time PHQ-9 Depression Total Score: 27 024 2:13 PM EST documented as of this encounter Care Teams Coconut Boiler Relationship Specialty Start Date End Date Shannen Orellana MD [address] [place] [address] PCP - General Family Medicine 08/24/22 Geno Arriaga Roof Panel HangerImporter Or Exporter 02/05/24 Maribell Rehman [address] [place] [address] Psychologist 06/27/23 Larry Zaldivar Psychiatrist 06/27/24 documented as of this encounter
--- OUTSIDE RECORDS SUMMARY | 2025-04-24 07:34 | XMS_ITS | Encounter Summary ---
Author Organization [employer] Address [address] [facility] [address] 7t [place] [address] Care Team Providers Care Hot Car Charger Name Role Phone Shannen Orellana MD Primary Care Provider [phone] Encounter Details Date Type Department Care Team ([facility] st Contact Info) Description 06/11/2023 Telephone [facility] CHC MED & PEDS 505 [place], [place] [phone] Shannen Orellana MD 505 [place], [place] [phone] Social History Tobacco Use Types Packs/Day Years [...] documented as of this encounter Care Teams Hot Car Charger Relationship Specialty Start Date End Date Shannen Orellana MD [address] [place] [address] PCP - General Family Medicine 08/24/22 Geno Arriaga Cane StripperCustomer Management Specialist 02/05/24 Maribell Rehman [address] [place] [address] Psychologist 06/27/23 Larry Zaldivar Psychiatrist 06/27/24 documented as of this encounter
--- OUTSIDE RECORDS SUMMARY | 2025-04-24 07:34 | XMS_ITS | Encounter Summary ---
Author Organization [employer] Address [address] [facility] [address] 7t [place] [address] Care Team Providers Care Miner Operator Name Role Phone Shannen Orellana MD Primary Care Provider [phone] Reason for Visit * Reason Comments Med Refill Encounter Details Date Type Department Care Team ([facility] Contact Info) Description 01/09/2025 Refill [facility] MEDICINE 230 [place] [address] Shannen Orellana MD 505 [place], [place] [phone] Social History Tobacco Use Types Packs/Day Years [...] documented as of this encounter Care Teams Miner Operator Relationship Specialty Start Date End Date Shannen Orellana MD [address] [place] [address] PCP - General Family Medicine 08/24/22 Geno Arriaga Coal Pipeline OperatorRetort Engineer 02/05/24 Maribell Rehman [address] [place] [address] Psychologist 06/27/23 Larry Zaldivar Psychiatrist 06/27/24 documented as of this encounter
--- OUTSIDE RECORDS SUMMARY | 2025-04-24 07:34 | XMS_ITS | Encounter Summary ---
Author Organization [employer] Address [address] [facility] [address] 7t [place] [address] Care Team Providers Care Fire Loss Prevention Engineer Name Role Phone Shannen Orellana MD Primary Care Provider [phone] Reason for Visit * Reason Onset Date Comments PT1 03/10/2024 Encounter Details Date Type Department Care Team ([facility] Contact Info) Description 03/10/2024 Telephone [facility] MEDICINE 230 [place] [address] Shannen Orellana MD [address] [place] [address] PT1 Social History Tobacco Use Types Packs/Day [...] name: [facility] Address: [address], [place] [address] [address] [place] [address] Escort needed: Y/N: No Do you have [...] documented as of this encounter Care Teams Fire Loss Prevention Engineer Relationship Specialty Start Date End Date Shannen Orellana MD [address] [place] [address] PCP - General Family Medicine 08/24/22 Geno Arriaga Assistant Hvac MechanicCatering Barista 02/05/24 Mairbell Rehman [address] [place] [address] Psychologist 06/27/23 Larry Zaldivar Psychiatrist 06/27/24 documented as of this encounter
--- OUTSIDE RECORDS SUMMARY | 2025-04-24 07:34 | XMS_ITS | Encounter Summary ---
Author Organization [email or web address] Address [address] [facility] [address] 7t [place] [address] Care Team Providers Care Air Brush Artist Name Role Phone Shannen Orellana MD Primary Care Provider [phone] Reason for Visit * Reason Onset Date Comments Call Back Request 03/26/2024 Encounter Details Date Type Department Care Team ([facility] Contact Info) Description 03/26/[address] [facility] MEDICINE 230 [place] [address] Shannen Orellana MD [address] [place] [address] Call Back Request Social History Tobacco Use [...] documented as of this encounter Care Teams Air Brush Artist Relationship Specialty Start Date End Date Shannen Orellana MD [address] [place] [address] PCP - General Family Medicine 08/24/22 Geno Arriaga Light Industrial SupervisorMarine Engine Machinist Apprentice 02/05/24 Maribell Rehman [address] [place] [address] Psychologist 06/27/23 Larry Zaldivar Psychiatrist 06/27/24 documented as of this encounter
--- OUTSIDE RECORDS SUMMARY | 2025-04-24 07:34 | XMS_ITS | Encounter Summary ---
Author Organization [employer] Address [address] [facility] [address] 7t [place] [address] Care Team Providers Care Scale Mechanic Name Role Phone Shannen Orellana MD Primary Care Provider [phone] Reason for Visit * Reason Comments Med Refill Encounter Details Date Type Department Care Team ([facility] Contact Info) Description 03/12/[address] [facility] CHC MED & PEDS [address] [place], [place] [phone] Name, MD Krzysztof 230 [place] [address] Social History Tobacco Use Types Packs/Day Years [...] documented as of this encounter Care Teams Scale Mechanic Relationship Specialty Start Date End Date Shannen Orellana MD 230 [place] [address] PCP - General Family Medicine 08/24/22 Geno Arriaga Optical Glass InspectorDirector Industrial Relations 02/05/24 Maribell Rehman [address] [place] [address] Psychologist 06/27/23 Larry Zaldivar Psychiatrist 06/27/24 documented as of this encounter
--- OUTSIDE RECORDS SUMMARY | 2025-04-24 07:34 | XMS_ITS | Encounter Summary ---
Author Organization [employer] Address [address] [facility] 7t [place] [address] Care Team Providers Care Nurse Wound Care Name Role Phone Shannen Orellana MD Primary Care Provider [phone] Encounter Details Date Type Department Care Team (Late st Contact Info) Description 01/29/2023 Orders Only [facility] MEDICINE [address] [place] [address] [phone] Carolynn Rodriguez MD 230 [place], [place] [phone] Social History Tobacco Use Types Packs/Day Years [...] as of this encounter Care Teams Nurse Wound Care Relationship Specialty Start Date End Date Shannen Orellana MD [address] [place] [address] PCP - General Family Medicine 08/24/22 Geno Arriaga Farmer Cash GrainSenior Media Planner 02/05/24 Maribell Rehman [address] [place] [address] Psychologist 06/27/23 Larry Zaldivar Psychiatrist 06/27/24 documented as of this encounter
--- OUTSIDE RECORDS SUMMARY | 2025-04-24 07:34 | XMS_ITS | Encounter Summary ---
Author Organization [employer] Address [address] [facility] [address] 7t [place] [address] Care Team Providers Care Resume Specialist Name Role Phone Shannen Orellana MD Primary Care Provider [phone] Reason for Visit * Reason Comments Med Refill Encounter Details Date Type Department Care Team ([facility] Contact Info) Description 02/22/2024 Refill [facility] MEDICINE 230 [place] [address] Shannen Orellana MD [address] [place], [place] [phone] Social History Tobacco Use Types Packs/Day Years [...] documented as of this encounter Care Teams Resume Specialist Relationship Specialty Start Date End Date Shannen Orellana MD [address] [place] [address] PCP - General Family Medicine 08/24/22 Geno Arriaga [employer] PrincipalBundle Tier 02/05/24 Maribell Rehman [address] [place] [address] Psychologist 06/27/23 Larry Zaldivar Psychiatrist 06/27/24 documented as of this encounter
--- OUTSIDE RECORDS SUMMARY | 2025-04-24 07:35 | XMS_ITS | Encounter Summary ---
Author Organization [employer] Address [address] [facility] [address] 7t [place] [address] Care Team Providers Care Pharmaceutical Worker Name Role Phone Shannen Orellana MD Primary Care Provider [phone] Reason for Visit * Reason Onset Date Comments Med Refill 06/11/2024 Encounter Details Date Type Department Care Team ([facility] st Contact Info) Description 06/11/2024 Refill [facility] MEDICINE 230 [place], [place] [phone] Carolynn Rodriguez MD 230 [place] [address] Social History Tobacco Use Types Packs/Day Years [...] documented as of this encounter Care Teams Pharmaceutical Worker Relationship Specialty Start Date End Date Shannen Orellana MD [address] [place] [address] PCP - General Family Medicine 08/24/22 Geno Arriaga Lead Software Development EngineerGoldbeater 02/05/24 Maribell Agarwal Sherie [address] [place] [address] Psychologist 06/27/23 Larry Zaldivar Psychiatrist 06/27/24 documented as of this encounter
--- OUTSIDE RECORDS SUMMARY | 2025-04-24 07:35 | XMS_ITS | Encounter Summary ---
Author Organization [employer] Address [address] [facility] [address] 7t [place] [address] Care Team Providers Care Head Well Puller Name Role Phone Shannen Orellana MD Primary Care Provider [phone] Reason for Visit * Reason Onset Date Comments ER Follow-up 08/14/2023 Encounter Details Date Type Department Care Team ([facility] Contact Info) Description 08/14/2023 Telephone [facility] CHC MED & PEDS 505 [place], [place] [phone] Shannen Orellana MD 505 [place] [address] ER Follow-up Social History Tobacco Use Types [...] LM to call us back. Routing backto [facility] nurses to try again. * Telephone Encounter - Tello Frazier - 08/14/2023 8:26 AM EST Tc from pt calling to report ED visit on : Date: 08/14/23 Hospital: [facility] Seen for: Groin Pain documented in this encounter Plan of Treatment Not on file documented as of this encounter Visit Diagnoses Not on filedocumented in this encounter Additional Health Concerns Assessment Noted Time PHQ-9 Depression Total Score: 24 022 4:05 PM EST documented as of this encounter Care Teams Head Well Puller Relationship Specialty Start Date End Date Shannen Orellana MD [address] [place] [address] PCP - General Family Medicine 08/24/22 Geno Arriaga Foreign Banknote TellerPattern Maker Programer 02/05/24 Maribell Agarwal Sherie [address] [place] [address] Psychologist 06/27/23 Larry Zaldivar Psychiatrist 06/27/24 documented as of this encounter
--- OUTSIDE RECORDS SUMMARY | 2025-04-24 07:35 | XMS_ITS | Encounter Summary ---
Author Organization [employer] Address [address] [facility] [address] [place] [address] Care Team Providers Care Junior Administrative Assistant Name Role Phone Shannen Orellana MD Primary Care Provider [phone] Encounter Details Date Type Department Care Team (Late st Contact Info) Description 01/08/2023 Orders Only [facility] CHC MED & PEDS [address] [place] [address] Patricia De Jesus LPN Social History Tobacco [...] PM EDT Narrative 01/26/2023 4:37 AM EDT [address] [address] Magnetic Resonance Report Signed Patient: Jonas Birmingham MR#: [id number] 25 : 1980 Acct:[id number] Age/Sex: 42 / M ADM Date: 01/11/23 Loc: HO.MRI Attending Dr: Shannen Orellana MD Ordering Physician: Shannen Orellana MD Date of Service: 01/11/23 Procedure(s): MR lumbar spine wo con Accession Number(s): [id number] cc: Shannen Orellana MD EXAMINATION: MR LUMBAR [...] in OV> 01/26/23 0434 DD/ 1542 TD/TT: Collect On Delivery Clerk: DONTRELL Procedure Note Donotuseinterpreter, Image - 01/26/[address] [address] Magnetic Resonance Report Signed Patient: Jonas BirminghamMR#: [id number] 25 : 1980Acct:[id number] Age/Sex: 42 / MADM Date: 01/11/23 Loc: HO.MRI Attending Dr: Shannen Orellana MD Ordering Physician: Shannen Orellana MD Date of Service: 01/11/23 Procedure(s): MR lumbar spine wo con Accession Number(s): [id number] cc: Shannen Orellana MD EXAMINATION: MR LUMBAR [...] in OV> 01/26/23 0434 DD/ 1542 TD/TT: Collect On Delivery Clerk: DONTRELL [facility] External Provider IMG MRI PROCEDURES Final Result documented in this encounter Visit Diagnoses Not on filedocumented in this encounter Additional Health Concerns Assessment Noted Time PHQ-9 Depression Total Score: 24 022 4:05 PM EST documented as of this encounter Care Teams Junior Administrative Assistant Relationship Specialty Start Date End Date Shannen Orellana MD [address] [place] [address] PCP - General Family Medicine 08/24/22 Geno Arriaga Tavern Car AttendantAudio Recording Engineer 02/05/24 Maribell Rehman [address] [place] [address] Psychologist 06/27/23 Larry Zaldivar Psychiatrist 06/27/24 documented as of this encounter
--- OUTSIDE RECORDS SUMMARY | 2025-04-24 07:35 | XMS_ITS | Encounter Summary ---
Author Organization [employer] Address [address] [facility] [address] [place] [address] Care Team Providers Care On Line Csr Name Role Phone Shannen Orellana MD Primary Care Provider [phone] Reason for Visit * Reason Onset Date Comments Call Back Request 04/21/2024 Encounter Details Date Type Department Care Team ([facility] Contact Info) Description 04/21/2024 Telephone [facility] MEDICINE [address] [place] [address] Shannen Orellana MD [address] [place] [address] Call Back Request Social History Tobacco Use [...] the am. Maribell agrees with plan and [phone] is her direct number. * Telephone Encounter - Shannen Orellana MD - 04/22/2024 10:19 AM EDT Please verify if able to and request a call back number and appropriate time for call. If able carve out time in schedule for call will appreciate it, thanks! * Telephone Encounter - Bonnie Ansari - 04/21/2024 12:13 PM EDT Tc from [facility] Therapist requesting to speak with PCP or someone in regards to pt mental health andconcerns, documentation writer tried communicating with RN but call disconnected. documented in this encounter Plan of Treatment Not on file documented as of this encounter Visit Diagnoses Not on filedocumented in this encounter Additional Health Concerns Assessment Noted Time PHQ-9 Depression Total Score: 27 024 2:13 PM EST documented as of this encounter Care Teams On Line Csr Relationship Specialty Start Date End Date Shannen Orellana MD [address] [place] [address] PCP - General Family Medicine 08/24/22 Geno Arriaga DelineatorOphthalmic Photographer 02/05/24 Maribell Rehman [address] [place] [address] Psychologist 06/27/23 Larry Zaldivar Psychiatrist 06/27/24 documented as of this encounter
--- OUTSIDE RECORDS SUMMARY | 2025-04-24 07:35 | XMS_ITS | Encounter Summary ---
Author Organization [employer] Address [address] [address] 7[address] [place] [address] Care Team Providers Care Floor Person Name Role Phone Shannen Orellana MD Primary Care Provider [phone] Reason for Visit * Reason Onset Date Comments Referral 06/11/2023 Encounter Details Date Type Department Care Team ([facility] Contact Info) Description 06/11/2023 Telephone [facility] CHC MED & PEDS [address] [place], [place] [phone] Shannen Orellana MD [address] [place] [address] Referral Social History Tobacco Use Types Packs/Day [...] documented as of this encounter Care Teams Floor Person Relationship Specialty Start Date End Date Shannen Orellana MD [address] [place] [address] PCP - General Family Medicine 08/24/22 Geno Arriaga Embossing ToolsetterSap Business Objects Consultant 02/05/24 Maribell Rehman [address] [place] [address] Psychologist 06/27/23 Larry Zaldivar Psychiatrist 06/27/24 documented as of this encounter
--- OUTSIDE RECORDS SUMMARY | 2025-04-24 07:35 | XMS_ITS | Encounter Summary ---
Author Organization [employer] Address [address] [facility] [address] [facility] [address] [place] [address] Care Team Providers Care Tube Draw Helper Name Role Phone Shannen Orellana MD Primary Care Provider [phone] Reason for Visit * Reason Onset Date Comments Referral 07/02/2023 PT 1 1 Encounter Details Date Type Department Care Team ([facility] st Contact Info) Description 07/02/2023 Telephone [facility] MEDICINE [address] [place] [address] Shannen Orellana MD [address] [place] [address] Referral (PT 1 1 of 2) Social [...] Date: 07/24 Time: 10:30 Visits: 6 Address: [address] [place] [address] Facility: [facility], Specialty: Pain Management with Wheel Chair: no Mate First Needed: no documented in this encounter Plan of Treatment Not on file documented as of this encounter Visit Diagnoses Not on filedocumented in this encounter Additional Health Concerns Assessment Noted Time PHQ-9 Depression Total Score: 24 022 4:05 PM EST documented as of this encounter Care Teams Tube Draw Helper Relationship Specialty Start Date End Date Shannen Orellana MD [address] [place] [address] PCP - General Family Medicine 08/24/22 Geno Arriaga Carpet Floor Layer ApprenticeJava Application Developer 02/05/24 Maribell Rehman [address] [place] [address] Psychologist 06/27/23 Larry Zaldivar Psychiatrist 06/27/24 documented as of this encounter
--- OUTSIDE RECORDS SUMMARY | 2025-04-24 07:35 | XMS_ITS | Encounter Summary ---
Author Organization [employer] Address [address] [facility] [facility] [address] [place] [address] Care Team Providers Care Stem Lead Former Name Role Phone Shannen Orellana MD Primary Care Provider [phone] Reason for Visit * Reason Onset Date Comments Referral 07/18/2024 Encounter Details Date Type Department Care Team ([facility] Contact Info) Description 07/18/2024 Telephone [facility] MEDICINE [address] [place] [address] Shannen Orellana MD [address] [place] [address] Referral Social History Tobacco Use Types Packs/Day [...] stated he is willing to go to [place] for podiatry. * Telephone Encounter - Anu Owens - 07/18/2024 2:46 PM EST Message left for patient asking if he is willing to travel to [place] for podiatry. * Telephone Encounter - Tello Frazier - 07/18/2024 12:15 PM EST Tc from pt calling in regards to podiatry referral stating he is unable to be [facility] by [facility]. If any questions you can contact pt at [phone]. documented in this encounter Plan of Treatment Not on file documented as of this encounter Visit Diagnoses Not on filedocumented in this encounter Additional Health Concerns Assessment Noted Time PHQ-9 Depression Total Score: 27 024 9:53 AM EDT documented as of this encounter Care Teams Stem Lead Former Relationship Specialty Start Date End Date Shannen Orellana MD [address] [place] [address] PCP - General Family Medicine 08/24/22 Geno Arriaga News Copy EditorTransit Mixer Operator 02/05/24 Maribell Rehman [address] [place] [address] Psychologist 06/27/23 Larry Zaldivar Psychiatrist 06/27/24 documented as of this encounter
--- OUTSIDE RECORDS SUMMARY | 2025-04-24 07:35 | XMS_ITS | Encounter Summary ---
Author Organization [employer] Address [address] [place] [address] Care Team Providers Care Air Director Name Role Phone Shannen Orellana MD Primary Care Provider [phone] Reason for Visit * Reason Onset Date Comments PT-1 05/09/2024 Encounter Details Date Type Department Care Team ([facility] Contact Info) Description 05/09/[address] [facility] MEDICINE [address] [place] [address] Shannen Orellana MD [address] [place] [address] PT-1 Social History Tobacco Use Types Packs/Day [...] thats nothing had changed. Contact pt at [phone] * Telephone Encounter - Tello Frazier - 05/09/2024 3:13 PM EDT Patient calling requesting PT1 Home Address verified: Y/N: Yes Provider name or facility name: [facility] Facility Address: [address] [place] [address] Escort needed: Y/N: No Do you have a wheelchair: Y/N: No If yes- Manual or electric: N/A Visits: 6 monthly Pt requesting call back if there are any issues with PT1. Contact pt at [phone]. documented in this encounter Plan of Treatment Not on file documented as of this encounter Visit Diagnoses Not on filedocumented in this encounter Additional Health Concerns Assessment Noted Time PHQ-9 Depression Total Score: 27 024 2:13 PM EST documented as of this encounter Care Teams Air Director Relationship Specialty Start Date End Date Shannen Orellana MD [address] [place] [address] PCP - General Family Medicine 08/24/22 Geno Arriaga Lining IronerTemple Marker 02/05/24 Maribell Rehman [address] [place] [address] Psychologist 06/27/23 Larry Zaldivar Psychiatrist 06/27/24 documented as of this encounter
--- OUTSIDE RECORDS SUMMARY | 2025-04-24 07:35 | XMS_ITS | Encounter Summary ---
Author Organization [employer] Address [address] [facility] [address] [place] [address] Care Team Providers Care Switch Tender Name Role Phone Shannen Orellana MD Primary Care Provider Reason for Visit * Reason Onset Date Comments PT-1 07/18/2023 Encounter Details Date Type Department Care Team ([facility] Contact Info) Description 07/18/2023 Telephone [facility] MEDICINE [address] [place] [address] Shannen Orellana MD [address] [place] [address] PT-1 Social History Tobacco Use Types Packs/Day [...] Date: 08/07/2023 Time: 1:00 pm Visits:6 Address: [address] [place] [address] Facility: podiatry Dr. [facility] Wheel Chair: no Lamp Developer Needed: no documented in this encounter Plan of Treatment Not on file documented as of this encounter Visit Diagnoses Not on filedocumented in this encounter Additional Health Concerns Assessment Noted Time PHQ-9 Depression Total Score: 24 022 4:05 PM EST documented as of this encounter Care Teams Switch Tender Relationship Specialty Start Date End Date Shannen Orellana MD [address] [place] [address] PCP - General Family Medicine 08/24/[address] Sql DeveloperLock Tender 02/05/24 Maribell Rehman [address] [place] [address] Psychologist 06/27/23 Larry Zaldivar Psychiatrist 06/27/24 documented as of this encounter
--- OUTSIDE RECORDS SUMMARY | 2025-04-24 07:35 | XMS_ITS | Encounter Summary ---
Author Organization [employer] Address [address] [facility] [address] [place] [address] Care Team Providers Care Salesperson Floor Coverings Name Role Phone Shannen Orellana MD Primary Care Provider [phone] Reason for Visit * Reason Onset Date Comments Med Refill 11/22/2023 Encounter Details Date Type Department Care Team ([facility] st Contact Info) Description 11/22/2023 Refill [facility] MEDICINE [address] [place], [place] [id number] Name, MD Krzysztof [address] [place] [address] Social History Tobacco Use Types Packs/Day Years [...] documented as of this encounter Care Teams Salesperson Floor Coverings Relationship Specialty Start Date End Date Shannen Orellana MD [address] [place] [address] PCP - General Family Medicine 08/24/22 Geno Arriaga Wire Mill OperatorSpecial Services Coordinator 02/05/24 Maribell Marcusvaldezdeven [address] [place] [address] Psychologist 06/27/23 Larry Zaldivar Psychiatrist 06/27/24 documented as of this encounter
--- OUTSIDE RECORDS SUMMARY | 2025-04-24 07:35 | XMS_ITS | Clinical Summary ---
Author Organization [employer] Address [address] [facility] [address] [place] [address] Care Team Providers Care Banbury Operator Name Role Phone Shannen Orellana MD Primary Care Provider [phone] Allergies Active Allergy Reactions Criticality Noted Date Comments Cat Dander High 02/06/2023 Other reaction(s): SNEEZING, THROAT SWOLLEN Dust Mite Extract High 11/28/2022 Other reaction(s): SNEEZING Fish-Derived Products 03/08/2018 Shellfish Allergy Unknown Low 02/06/2023 Tacrolimus Nausea And Vomiting High 01/02/2017 Other reaction(s): headaches, nausea Pt has all listed reaction to this medication Medications * This document [...] skin at bed time. 06/14/20 22 Active Artificial Tears 0.2-0.2-1 % solution Administer 1 drop into both eyes 4 times daily. 03/01/20 23 Active Diclofenac Sodium 1 % gelIndications :Right sided abdominal pain Apply to the affected area 2x/day prn 200 g 05/07/20 23 Active albuterol 108 (90 Base) MCG/ACT inhaler Inhale 2 puffs every 6 (six) hours if needed. Active atomoxetine (Strattera) 80 MG capsule Take 80 mg by mouth in the morning. Active Suprep Bowel Prep Kit 17.5-3.13-1.6 GM/177ML solution DRINK 177 ML DAILY FOR 2 DAYS 03/25/20 24 Active tamsulosin (Flomax) 0.4 MG 24 hr capsule Take 0.4 mg by mouth at bedtime. 01/25/20 24 Active hydrocortisone 2.5 % cream APPLY TO THE AFFECTED AREA(S) TWICE DAILY NEEDED 28.35 g 1 04/16/20 24 Active diphenoxylate- atropine (Lomotil) 2.5-0.025 MG tabletIndicati ons:Irritable bowel syndrome with diarrhea Take 1 tablet by mouth if needed in the morning, at noon, in the evening, and at bedtime for diarrhea. 120 tablet 2 06/12/20 24 Active dicyclomine (Bentyl) 20 MG tabletIndicati ons:Irritable bowel syndrome with diarrhea Take 1 tablet (20 mg) by mouth before breakfast, before lunch, before evening meal, and at bedtime. 120 tablet 5 06/12/20 24 Active promethazine (Phenergan) 12.5 MG tablet Take 1 tablet (12.5 mg) by mouth every 6 (six) hours if needed for nausea or vomiting. 120 tablet 5 06/12/20 24 Active Simethicone Ultra Strength 180 [...] after. 20 tablet 11 06/12/20 24 Active cyclobenzaprin e (Flexeril) 10 MG tabletIndicati ons:Right flank pain, chronic Take 1 tablet (10 mg) by mouth 3 times daily. TAKE ONE TABLET THREE TIMES DAILY NEEDED FOR MUSCLE SPASMS 90 tablet 1 06/27/20 24 Active minoxidil (Loniten) 2.5 MG tabletIndicati ons:Alopecia areata Take 2 tablets (5 mg) by mouth Once per day. 60 tablet 3 07/08/20 24 Active hydroquinone 4 % creamIndicatio ns:Melasma Apply topically 2 times daily. 30 mL 3 07/08/20 24 025 Active Sodium Fluoride 1.1 % cream [place] teeth for 2 minutes, morning and night. [...] DAILY 48 g 1 09/04/19 25 Active vardenafil (Levitra) 10 MG tablet Take 1 tablet (10 mg) by mouth if needed for erectile dysfunction. 10 tablet 1 10/21/19 25 Active escitalopram (Lexapro) 5 MG tabletIndicati ons:Depressive disorder,PTSD (post-traumati c stress disorder) Take 1 tablet (5 mg) by mouth in the morning. 30 tablet 11/05/19 25 Active pseudoephedrin e (Sudafed) 30 MG tablet Take 1 tablet (30 mg) by mouth every 4 (four) hours if needed for congestion for up to 10 days. 30 tablet 11/11/19 25 Active azelastine (Astelin) 0.1 % nasal spray Administer 1 spray into each nostril 2 times daily. Use in each nostril as directed 30 mL 12 11/11/19 25 026 Active emtricitabine- tenofovir DF (Truvada) 200-300 MG tabletIndicati ons:On pre-exposure prophylaxis for HIV TAKE 1 TABLET EVERY MORNING 30 tablet 2 11/15/19 25 Active propranolol (Inderal) 10 MG tabletIndicati ons:RICHARD (generalized anxiety disorder) Take 1 tablet (10 mg) by mouth if needed in the morning and at bedtime (Anxiety). 60 tablet 1 11/13/19 25 Active celecoxib (CeleBREX) 200 MG capsuleIndicat ions:Other chronic pain,Continuou s RUQ abdominal pain TAKE ONE CAPSULE TWICE DAILY 60 capsule 2 12/03/19 25 Active nicotine (Nicoderm, Step 1) 21 MG/24HR patch APPLY 1 PATCH TOPICALLY TO THE SKIN DAILY IN THE MORNING DIRECTED. DO NOT SMOKE WHILE USING PATCH. 30 patch 01/08/20 25 Active pregabalin (Lyrica) 25 MG capsule TAKE 1 CAPSULE BY MOUTH EVERY DAY 30 capsule 2 01/08/20 25 Active levocetirizine (Xyzal) 5 MG tabletIndicati ons:Rhinosinus itis TAKE ONE TABLET AT BEDTIME 90 tablet 1 01/16/20 25 Active Ascorbic Acid (vitamin C) 250 MG tabletIndicati ons:Aphthous ulcer TAKE ONE TABLET EVERY MORNING 90 tablet 1 02/01/20 25 Active doxepin (SINEquan) 50 MG capsuleIndicat ions:Pruritic rash Take 1 capsule (50 mg) by mouth at bedtime. 90 capsule 1 02/14/20 25 Active omega-3 acid ethyl esters (Lovaza) 1 g capsule TAKE ONE CAPSULE TWICE DAILY 180 capsule 1 02/18/20 25 Active acetaminophen (Tylenol) 500 MG tablet Take 500 mg by mouth every 8 (eight) hours if needed. 11/07/19 24 Active montelukast (Singulair) 10 MG tablet TAKE ONE TABLET AT BEDTIME 90 tablet 1 04/02/20 25 Active RABEprazole (Aciphex) 20 MG EC tablet TAKE 1 TABLET BY MOUTH TWICE A DAY 180 tablet 04/08/20 25 Active montelukast (Singulair) 10 MG tablet Take 1 tablet (10 mg) by mouth at bedtime. 90 tablet 1 06/12/20 24 025 Discontinued RABEprazole (Aciphex) 20 MG EC tablet TAKE 1 TABLET BY MOUTH TWICE A DAY 180 tablet 01/08/20 25 025 Discontinued(R eorder (will not trigger notification to Pharmacy)) Active Problems Problem Noted Date Diagnosed Date RICHARD (generalized anxiety disorder) 11/12/2024 Tendonitis 06/27/2024 Overview (06/28/2024): -Extrensor digitorum longus [...] of macrocytosis noticed on labs drawn by ASSEMBLER INSULATOR. Will workup and f/up with results Abnormal [...] , benadryl 25 mg and refer to lost and found clerk for further evaluation. Will resend x 5 [...] transaminitis, will order RUQ US Stat to [facility]. Sleep apnea 10/09/2022 Assessment & Plan (10/09/2022 5:19 PM EST): Hx of insomnia, reports prior hx of snoring, apneic episodes and waking up not well rested, will test for sleep apnea. Liver cyst 08/24/2022 Irritable bowel syndrome with diarrhea Assessment & Plan (02/06/2023 2:27 PM EDT): Patient with exacerbation of symptoms. Reports feels current GI in [facility] has not helped his symptoms and will [...] to Curtis Garcia (reports poor rapport in [facility]). Numbness of hand 03/06/2017 Assessment & Plan [...] organization. Date Type Department Care Team Description 04/22/2025 Telephone [facility] Rewarding Return [address] [place] [address] Shannen Orellana MD Call back requesting 04/22/2025 Telephone [facility] MEDICINE [address] [place] [phone] Shannen Orellana MD Prior Authorization 04/22/2025 Telephone [facility] [address] [place] [address] Shannen Orellana MD 04/13/2025 Telephone [facility] MED [facility] PEDS [address] [place] [address] Shannen Orellana MD PT-1 04/09/2025 Patient Outreach [facility] MEDICINE [address] [place] [phone] Shannen Orellana MD Care Coordination ([facility] outreach for SDOH PT-1 - LVM ) 04/08/2025 Refill [facility] MED & PEDS [address] [place] [address] Shannen Orellana MD 04/08/[address] [phone] Shannen Orellana MD Pt-1 04/02/2025 Refill [facility] MED & PEDS [address] [place] [address] Shannen Orellana MD 03/11/2025 Telephone [facility] MED [facility] PEDS [address] [place] [address] Shannen Orellana MD Referral 03/08/[address] [phone] Margarita Villanueva MD On pre-exposure prophylaxis for HIV 02/23/2025 Telephone [facility] MEDICINE [address] [place] [phone] Shannen Orellana MD No Show 02/14/2025 Refill [facility] MED & PEDS [address] [place] [address] Shannen Orellana MD 02/13/2025 Patient Outreach [address] [phone] Shannen Orellana MD Pre-visit Planning (SDOH screening completed on 11/10/24) 02/13/2025 Refill [facility] MED & PEDS [address] [place] [address] Shannen Orellana MD Pruritic rash 02/11/2025 Telephone [facility] MED & PEDS [address] [place] [address] Shannen Orellana MD Insurance referral 01/30/2025 Refill [facility] MED & PEDS [address] [place] [address] Shannen Orellana MD Aphthous ulcer from Last 3 Months Immunizations Immunization Administration Dates Next Due Influenza Injectable Quadriv [...] Pulse 80 04/22/2025 11:30 AM EDT Temperature 37.1 C (98.8 F) 11/10/2024 8:55 AM EDT Respiratory Rate 18 04/22/2025 11:30 AM EDT Oxygen Saturation 97% 04/22/2025 11:30 AM EDT Inhaled Oxygen Concentration - - Weight 88.7 kg (195 lb 9.6 oz) 11/10/2024 8:55 A M EDT Height 177.8 cm (5' 10 ) 11/10/2024 8:55 AM EDT Body Mass Index 28.07 11/10/2024 8:55 AM EDT Plan of Treatment Health Maintenance Due Date Last Done Comments Family Planning (PISQ) 1995 HPV Vaccines (1 - Male 3-dose series) 1995 Hepatitis A Vaccines (1 of 2 - Risk 2-dose series) 1999 Hepatitis B Vaccines (1 of 3 - 19+ 3-dose series) 1999 COVID-19 Vaccine ( season) 2024 10/11/2023, 06/27/2021, 09/20/2020, Additional history exists Depression Monitoring 12/25/2024 06/27/2024, 024 Influenza Vaccine (#1) 2025 , 05/07/2023, 08/24/2022, Additional history exists Dental Oral Exam 06/05/2025 12/03/2024, , 08/24/2017 Dental Prophylaxis 06/05/2025 12/03/2024, 0 11/14/2023, 01/02/2019, Additional history exists Disability Screening 11/04/2025 11/04/2024 Alcohol/Substance Use Screening 11/10/2025 11/10/2024 SDOH Screening 11/10/2025 11/10/2024 Dental X-Ray: Bitewings 12/04/2025 12/04/19, 11/14/2023, 08/24/2017 Tobacco Screening 01/15/2026 01/15/2025 Dental X-Ray: Full Mouth 11/14/2026 11/14/2023, 07/28 Lipid Panel 10/11/2028 10/11/2023, 11/09/2021 Zoster Vaccines (1 of 2) 2030 DTaP/Tdap/Td Vaccines (3 - Td or Tdap) 10/11/2033 10/11/2023, 04/03/2007 RSV Patients and Patients Aged 60 years or older (1 - 1-dose 75+ series) 2055 HIV Screening Completed 01/22/2024, 01/26, 03/17/2022, Additional history exists Hepatitis C Screening Completed 01/22/2024 , 02/22/2023, 03/17/2022, Additional history exists Pneumococcal Vaccine: Pediatrics (0 to 5 Years) and At-Risk Patients (6 to 49) Years Completed 06/27/2024 HIB Vaccines Aged Out No longer eligi ble based on patient's age to complete this topic IPV Vaccines Aged Out No longer eligi ble based on patient's age to complete this topic Meningococcal B Vaccine Aged Out No l onger eligible based on patient's age to complete [...] Procedure Name Priority Date/Time Associated Diagnosis Comments Full PROPHYLAXIS - ADULT Routine 12/03/2024 8:00 AM EDT BITEWINGS - 4 RADIOGRAPHIC IMAGES Routine 12/03/2024 8:00 AM EDT PERIODIC ORAL EVALUATION - ESTABLISHED PATIENT Routine 12/03/2024 8:00 AM EDT HEPATITIS C AB W/REFL TO HCV RNA, QN, PCR Routine 01/22/2024 10:05 AM EDT Screening for STD (sexually transmitted disease) HIV 1 RNA, QUANTITATIVE REAL TIME PCR Routine 01/22/2024 10:05 AM EDT Screening for STD (sexually transmitted disease) INTRAORAL - COMPLETE SERIES OF RADIOGRAPHIC IMAGES Routine 11/14/2023 9:00 AM EDT LIPID PANEL, STANDARD Routine 10/11/2023 3:14 PM EST Encounter for health-related screening from Last 3 Months or Most Recently Relevant to Health Maintenance Results * Hepatitis C Antibody with Reflex to HCV, RNA, Quantitative, Real-Time PCR (01/22/2024 10:05 AM EDT) Hepatitis C Antibody Nonreactive Nonreactive [facility] Comment:Antibodies to HCV no t detected; does not exclude early acuteHCV infection. Blood Venous blood specimen / Unknown 01/22/2024 10:05 AM EDT 01/22/2024 2:38 PM EDT us Shannen Orellana MD LAB BLOOD ORDERABLES Final Re sult [facility] [address] [place] [phone] * HIV-1 RNA, Quantitative, Real-Time PCR (01/22/2024 10:05 AM EDT) HIV RNA PCR Qn Copies NOT DETECTED NOT DETECTED copies/mL [facility] HIV RNA PCR Qn Log Copies NOT DETECTED NOT DETECTED [facility] Comment:Result Units: Log co pies/mLThis test was performed using Real-Time Polymerase ChainReaction.Reportable Range: 20 copies/mL to 10,000,000 copies/mL(1.30 log copies/mL to 7.00 log copies/mL).THIS TEST WAS PERFORMED AT:[employer] [place] [phone] RUSSELL MD Blood Venous blood specimen / Unknown 01/22/2024 10:05 AM EDT 01/22/2024 2:38 PM EDT us Shannen Orellana MD LAB BLOOD ORDERABLES Final Re sult [facility] [address] [place] [phone] * (ABNORMAL) Lipid Panel, Standard (10/11/2023 3:14 PM EST) Triglycerides 209(H) <150 mg/dL [facility] Comment:Desirable Triglyceri de: less than 150 mg/dLBorderline High Triglyceride 150-199 mg/dLHigh Triglyceride: 200-499 mg/dLVery High Triglyceride: greater than or equal to 5OO mg/dL Cholesterol 190 <200 mg/dL [facility] Comment:Desirable Cholestero l: less than 200 mg/dLBorderline High Cholesterol: 200-239 mg/dLHigh Cholesterol: greater than 239 mg/dL LDL Cholesterol Calculated 117(H) <100 mg/dL [facility] Comment:Desirable LDL: less than 100 mg/dLNear Optimal/Above Optimal LDL: 110- 129 mg/dLBorderline High LDL: 130-159 mg/dLHigh LDL: 160-189 mg/dLVery High LDL: greater than or equal to 190 mg/dL HDL Cholesterol 32(L) >40 mg/dL [facility] Comment:Desirable HDL: great er than 40 mg/dL Note: This HDL assay may give artificially low results in patients with liver disease. Blood Venous blood specimen / Unknown 10/11/2023 3:14 PM EST 10/11/2023 5:21 PM EST us Shannen Orellana MD LAB BLOOD ORDERABLES Final Re sult [facility] [address] [place] [phone] from Last 3 Months or Most Recently Relevant to Health Maintenance Insurance [facility] C3 [facility] [place] [address] [place] [address] Care Teams Banbury Operator Relationship Specialty Start Date End Date Shannen Orellana MD [address] [place] [phone] PCP - General Family Medicine 08/24/22 Geno Arriaga Payroll ProcessorGenerating Plant Superintendent 02/05/24 Maribell Rehman [address] [place] [phone] Psychologist 06/27/23 Larry Zaldivar Psychiatrist 06/27/24
== END 2025-04-24 07:32 | disposition home or self-care (01) ==
LOC: HO.MRI 07:31
PROVIDERS: PCP Family Medicine; Visit Provider Student in an Organized Health Care Education/Training Program
DX: M79.672 Pain in left foot (principal); M79.2 Neuralgia and neuritis, unspecified
CPT/HCPCS: 73718; 73721

== ENCOUNTER 2025-06-15 11:55 | Outpatient (REF) | payer MEDICAID, SELFPAY ==
[2025-06-15 14:39] LABS: MANUAL DIFF FLAG NO
[2025-06-15 14:55] LABS: Hematocrit 40.7 % (42.0-52.0); Hemoglobin 13.6 g/dl (14.0-18.0); Imm Gran Abs Auto 0.02 X10*3/uL (0.00-0.03); Imm Gran Pct Auto 0.2 % (0.0-0.4); Lymphocytes Absolute Auto 2.5 X10*3/uL (1.2-4.9); Mean Corpuscular HGB Conc 33.4 g/dl (31.0-36.0); Mean Corpuscular Hemoglobin 32.1 pg (27.0-33.0); Mean Corpuscular Volume 96.0 fL (80.0-98.0); NRBC Abs Auto 0.000 X10*3/uL (0.0-0.012); NRBC Pct Auto 0.0 /100WBC (0.0-0.2); Platelet Count 250 X10*3/uL (160-400); Red Blood Count 4.24 X10*6/uL (4.60-5.80); White Blood Count 8.5 X10*3/uL (4.8-10.8)
[2025-06-15 15:21] LABS: Alanine Aminotransferase 24 U/L (0-40); Albumin Level 5.2 g/dL (3.5-5.0); Alkaline Phosphatase 65 U/L (39-117); Anion Gap 13 (12-20); Aspartate Amino Transferase 21 U/L (5-37); Blood Urea Nitrogen 12 mg/dL (9-16); Calcium 9.7 mg/dL (8.4-10.2); Carbon Dioxide 26 mmol/L (22-29); Chloride 106 mmol/L (96-108); Estimated Glomerular Filt Rate > 60; Potassium 3.9 mmol/L (3.3-5.1); Sodium 141 mmol/L (135-145); Total Protein 7.5 g/dL (6.5-8.0)
== END 2025-06-15 11:56 | disposition home or self-care (01) ==
LOC: HO.CHCLDS 11:55
PROVIDERS: Visit Provider Internal Medicine
DX: J32.0 Chronic maxillary sinusitis (principal); R63.4 Abnormal weight loss
CPT/HCPCS: 36415; 80053; 84443; 85025

== ENCOUNTER 2025-07-29 08:50 | Outpatient (AMB) | payer MEDICAID, SELFPAY ==
--- OUTSIDE RECORDS SUMMARY | 2025-07-27 09:00 | XMS_ITS | Encounter Summary ---
Author Organization [employer] Address [address] [facility] 7t [place] [address] Care Team Providers Care Hydroelectric Station Chief Name Role Phone Shannen Orellana MD Primary Care Provider [phone] Reason for Referral * Cardiac Stress Testing (Routine) - Authorized Specialty Diagnoses / Procedures Referred By Contbren t Referred To Contact Diagnoses Atypical chest pain Procedures Stress test Shannen Orellana MD [address] [place] [address] Phone: tel: fax: [address] [address] Phone: tel: fax: Referral ID Status Reason Start Date Expiration Date V isits Requested Visits Authorized [id number] Authorized 07/27/2025 07/27/2026 1 1 Reason for Visit * Reason Comments Follow-up Encounter Details Date Type Department Care Team ([facility] Contact Info) Description 07/27/2025 9:00 AM EST Telemedicine [facility] [address] [place], [place] [phone] Shannen Orellana MD [address] [place], [place] [phone] Chronic obstructive pulmonary disease with acute exacerbation (CMS/HCC) (HCC) (Primary Dx); Atypical chest pain Social History Tobacco Use Types Packs/Day Years Used Date Smoking Tobacco: Every Day Cigarettes Passive Smoke Exposure: Current Smokeless Tobacco: Never Alcohol Use Standard Drinks/Week Comments Never 0 (1 standard drink = 0.6 oz pur e alcohol) Depression Answer Date Recorded Patient Health Questionnaire-9 Score 24 07/27/2025 Patient Health Questionnaire-9 Score 24 07/27/2025 Last PHQ-9: Questionnaire Data Not on file 1 09/27/2024 Housing Stability Answer Date Recorded What is [...] Answer Date Recorded Patient Health Questionnaire-2 Score 3 07/27/2025 Internet Access Answer Date Recorded Internet Access Q1 Yes 11/10/2024 Internet Access Q2 Not on file 11/10/2024 Sex and Gender Information Value Date Recorded Sex Assigned at Male 06/26/2022 10:15 AM EDT Legal Sex Male 10:15 AM EDT Gender Identity Male 06/26/2022 10:15 AM EDT Sexual Orientation Lesbian or Mcdowell 06/26/2022 10 :15 AM EDT documented as of this encounter Functional Status * Over the past 2 weeks, how often have you been bothered by any of the following problems? Question Answer Date of Assessment Author Patient Health Questionnaire-2 Score 3 08/2024 8:54 AM Becca Green [place] * Little interest or pleasure in doing things Answer Date of Assessment Author Not at all 07/27/2025 8:54 AM Becca Green [place] * Feeling down, depressed, or hopeless Answer Date of Assessment Author Nearly every day 07/27/2025 8:54 AM Becca Green [place] * Trouble falling or staying asleep, or sleeping too much Answer Date of Assessment Author Nearly every day 07/27/2025 8:54 AM Becca Green MA * Feeling tired or having little energy Answer Date of Assessment Author Nearly every day 07/27/2025 8:54 AM Becca Green [place] * Poor appetite or overeating Answer Date of Assessment Author Nearly every day 07/27/2025 8:54 AM Becca Green [place] * Feeling bad about yourself - or that you are a failure or have let yourself or your family down Answer Date of Assessment Author Nearly every day 07/27/2025 8:54 AM Becca Green [place] * Trouble concentrating on things, such as reading the newspaper or watching television Answer Date of Assessment Author Nearly every day 07/27/2025 8:54 AM Becca Green [place] * Moving or speaking so slowly that other people could have noticed? Or the opposite - being so fidgety or restless that you have been moving around a lot more than usual. Answer Date of Assessment Author Nearly every day 07/27/2025 8:54 AM Becca Green MA * Thoughts that you would be better off or hurting yourself in some way Answer Date of Assessment Author Nearly every day 07/27/2025 8:54 AM Becca Green MA * Patient Health Questionnaire-9 Score Answer Date of Assessment Author 24 07/27/2025 8:54 AM Becca Green MA * How difficult have these problems made it for you to do your work, take care of things at home, or get along with other people? Answer Date of Assessment Author Somewhat difficult 07/27/2025 8:54 AM Becca Hardy MA documented as of this encounter Progress Notes * Shannen Orellana MD - 07/27/2025 9:00 AM EST Subjective Patient ID: Ferny Birmingham is a 45 y.o. male who presents for No chief complaint on file.. The patient had reported a severe headache to Robin Stephenson and was prescribed prednisone and antibiotics for a previous COPD exacerbation. The patient initially felt improvement but reported recurrence of symptoms three days ago. The patient experienced dark green and brownish sputum, chest pre ssure, and pain. The patient described the pain as a long-standing issue with a stabbing sensation radiating to the right arm and difficulty breathing. The pain was aggravated by chest wall movement and palpation. The patient stated that the pain started in [id number] and persisted despite cessationof workouts four years ago. The patient reported possible musculoskeletal pain, possibly linked to a previous workout routine. The patient expressed concern about potential cardiac involvement, although breathing did not alter the pain. The patient experienced intermittent palpitations, but no nausea, numbness, or rash. The patient mentioned worsening issues with the hands and shoulders, possiblylinked to the chest pain. Review of Systems Constitutional: Negative for fatigue and fever. HENT: Negative for congestion. Respiratory: Positive for cough and shortness of breath. Cardiovascular: Positive for chest pain and palpitations. Gastrointestinal: Negative for abdominal pain and anal bleeding. Assessment/Plan Problem List Items Addressed This Visit None Visit Diagnoses Chronic obstructive pulmonary disease with acute exacerbation (CMS/HCC) ([facility]) - Primary Relevant Medications predniSONE (Deltasone) 50 MG tablet doxycycline (Vibra-Tabs) 100 MG tablet Atypical chest pain Relevant Orders Stress test XR Chest 2 Views 1. Musculoskeletal Chest Pain: The patient's symptoms were consistent with musculoskeletal chest pain, possibly costochondritis or myofascial pain syndrome, due to pain reproducing with chest wall movement and palpation. 2. COPD Exacerbation: The recurrence of coughing and sputum production suggested a possible COPD exacerbation, warranting modification of the antibiotic regimen. 3. Atypical Chest Pain: Although the presentation was atypical for cardiac pain, a stress test was necessary to rule out coronary artery disease due to the persistence and characteristics of the pain. PLAN: Treatment: - Prescribed doxycycline 100mg twice daily for five days. - Increased prednisone to 50mg daily. - Initiated Wellbutrin 150mg once daily for three days, then 150mg twice daily to aid in smoking cessation. Tests: - Ordered a stress test to evaluate for coronary artery disease. - Scheduled a chest X-ray to assess for any pulmonary abnormalities. Patient Education: - Advised the patient to discuss chest and hand pain with the upcoming rheumatology appointment, as it could be related to fibromyalgia or another musculoskeletal issue. - Discussed the potential impact of smoking on respiratory health and encouraged cessation efforts. Follow-Up: - Scheduled an in-person follow-up ejro ointchrissy for September 07 to assess progress with Wellbutrin and evaluate chest pain further. Disposition: - The patient was advised to seek further evaluation if symptoms worsened or did not improvewith the current treatment plan. documented in this encounter Plan of Treatment Upcoming Encounters Date Type Department Care Team ([facility] st Contact Info) Description 08/06/2025 8:00 AM EST Office Visit [facility] [address] [place] [address] Kvng Wang [address] [place] [address] 09/07/2025 9:00 AM EST Office Visit [facility] [address] [place], [place] [phone] Shannen Orellana MD [address] [place], [place] [phone] 01/01/2026 8:00 AM EDT Office Visit [facility] [address] [place] [address] Lydia Carter Scheduled Orders Name Type Priority Associated Diagnoses Orde r Schedule Stress test Cardiac Services Routine Atypical chest pain Expected: 07/27/2025 (Approximate), Expires: 07/27/2027 XR Chest 2 Views Imaging Routine Atypical chest pain Expected: 07/27/2025, Expires: 07/27/2026 documented as of this encounter Visit Diagnoses Diagnosis Chronic obstructive pulmonary disease with acute exacerbation (CMS/HCC) (HCC)- Primary Atypical chest pain Other chest pain documented in this encounter Additional Health Concerns Assessment Noted Time PHQ-9 Depression Total Score: 24 025 8:54 AM EST documented as of this encounter Care Teams Hydroelectric Station Chief Relationship Specialty Start Date End Date Shannen Orellana MD [address] [place] [address] PCP - General Family Medicine 08/24/22 Geno Arriaga Dock Operations SupervisorHead Of Data 02/05/24 Maribell Rehman [address] [place] [address] Psychologist 06/27/23 Larry Zaldivar Psychiatrist 06/27/24 documented as of this encounter
[2025-07-29 08:55] VITALS: BP 120/68; PULSE 88; O2SAT 95; BMI 27.3
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
--- OUTSIDE RECORDS SUMMARY | 2025-07-29 09:13 | XMS_ITS | Encounter Summary ---
Author Organization [employer] Address [address] [facility] [facility] [address] 7[address] [place] [address] Care Team Providers Care Cooling Tower Operator Name Role Phone Shannen Orellana MD Primary Care Provider [phone] Reason for Visit * Reason Comments Med Refill Encounter Details Date Type Department Care Team ([facility] st Contact Info) Description 02/22/2024 Refill [facility] MEDICINE [address] [place] [address] Shannen Orellana MD [address] [place] [address] Social History Tobacco Use Types Packs/Day Years [...] Care Team (Late st Contact Info) Description 08/06/2025 8:00 AM EST Office Visit [facility] [address] [place] [address] Kvng Wang [address] [place] [address] 09/07/2025 9:00 AM EST Office Visit [facility] [address] [place] [address] Shannen Orellana MD [address] [place] [address] 01/01/2026 8:00 AM EDT Office Visit [facility] [address] [place] [address] Lydia Carter documented as of this encounter Visit Diagnoses Not on filedocumented in this encounter Additional Health Concerns Assessment Noted Time PHQ-9 Depression Total Score: 27 024 2:13 PM EST documented as of this encounter Care Teams Cooling Tower Operator Relationship Specialty Start Date End Date Shannen Orellana MD [address] [place] [address] PCP - General Family Medicine 08/24/22 Geno Arriaga PeriodontistWindows Vmware Engineer 02/05/24 Maribell Rehman [address] [place] [address] Psychologist 06/27/23 Larry Zaldivar Psychiatrist 06/27/24 documented as of this encounter
--- OUTSIDE RECORDS SUMMARY | 2025-07-29 09:13 | XMS_ITS | Encounter Summary ---
Author Organization [employer] Address [address] [facility] [address] 7[address] [place] [address] Care Team Providers Care Digital Developer Name Role Phone Shannen Orellana MD Primary Care Provider [phone] Reason for Visit * Reason Onset Date Comments PT-1 08/13/2024 Encounter Details Date Type Department Care Team ([facility] Contact Info) Description 08/13/2024 Telephone [facility] MEDICINE [address] [place] [address] Shannen Orellana MD [address] [place] [address] PT-1 Social History Tobacco Use Types Packs/Day [...] Y/N: Yes Provider name or facility name: [facility] Facility Address: [address] [place] [address] Escort needed: Y/N: No Do you have a wheelchair: Y/N: No If yes- Manual or electric: N/A Visits: 4 times a month documented in this encounter Plan of Treatment Upcoming Encounters Date Type Department Care Team ([facility] st Contact Info) Description 08/06/2025 8:00 AM EST Office Visit [facility] ADULT DENTAL [address] [place] [address] Kvng Wang [address] [place] [address] 09/07/2025 9:00 AM EST Office Visit [facility] MED & PEDS [address] [place] [address] Shannen Orellana MD [address] [place] [address] 01/01/2026 8:00 AM EDT Office Visit [facility] ADULT DENT[facility] [address] [place] [address] Lydia Carter documented as of this encounter Visit Diagnoses Not on filedocumented in this encounter Additional Health Concerns Assessment Noted Time PHQ-9 Depression Total Score: 27 024 9:53 AM EDT documented as of this encounter Care Teams Digital Developer Relationship Specialty Start Date End Date Shannen Orellana MD [address] [place] [address] PCP - General Family Medicine 08/24/22 Geno Arriaga Manager SolutionSuperintendent Pipelines 02/05/24 Maribell Rehman [address] [place] [address] Psychologist 06/27/23 Larry Zaldivar Psychiatrist 06/27/24 documented as of this encounter
--- OUTSIDE RECORDS SUMMARY | 2025-07-29 09:13 | XMS_ITS | Encounter Summary ---
Author Organization [employer] Address [address] [facility] [address] [place] [address] Care Team Providers Care Supervisor Scrap Preparation Name Role Phone Shannen Orellana MD Primary Care Provider [phone] Reason for Visit * Reason Comments Med Refill Encounter Details Date Type Department Care Team ([facility] st Contact Info) Description 01/09/2025 Refill [facility] MEDICINE [address] [place] [address] Shannen Orellana MD [address] [place], [place] [phone] Social History Tobacco Use Types Packs/Day Years [...] Upcoming Encounters Date Type Department Care Team ([facility] st Contact Info) Description 08/06/2025 8:00 AM EST Office Visit [facility] ADULT DENTAL [address] [place] [address] Kvng Wang [address] [place] [address] 09/07/2025 9:00 AM EST Office Visit [facility] MED & PEDS [address] [place] [address] Shannen Orellana MD [address] [place] [address] 01/01/2026 8:00 AM EDT Office Visit [facility] ADULT DENTAL [address] [place] [address] Lydia Carter documented as of this encounter Visit Diagnoses Not on filedocumented in this encounter Additional Health Concerns Assessment Noted Time PHQ-9 Depression Total Score: 27 024 9:53 AM EDT documented as of this encounter Care Teams Supervisor Scrap Preparation Relationship Specialty Start Date End Date Shannen Orellana MD [address] [place] [address] PCP - General Family Medicine 08/24/22 Geno Arriaga Extruder Operator VerticalGis Manager 02/05/24 Maribell Rehman [address] [place] [address] Psychologist 06/27/23 Larry Zaldivar Psychiatrist 06/27/24 documented as of this encounter
--- OUTSIDE RECORDS SUMMARY | 2025-07-29 09:13 | XMS_ITS | Encounter Summary ---
Author Organization [email or web address] Address [address] 7[address] [place] [address] Care Team Providers Care Conservation Science Officer Name Role Phone Shannen Orellana MD Primary Care Provider [phone] Reason for Visit * Reason Onset Date Comments PT1 03/10/2024 Encounter Details Date Type Department Care Team ([facility] st Contact Info) Description 03/10/[address] [facility] MEDICINE [address] [place] [address] Shannen Orellana MD [address] [place] [address] PT1 Social History Tobacco Use Types Packs/Day [...] name: Orthopedics [facility] Team Rehab Facility Address: [facility] [address], [place] [address] [address] [place] [address] Escort needed: Y/N: No Do you have a wheelchair: Y/N: No If yes- Manual or electric: No Visits: n/a documented in this encounter Plan of Treatment Upcoming Encounters Date Type Department Care Team (Late st Contact Info) Description 08/06/2025 8:00 AM EST Office Visit [facility]ULT [facility] [address] [place] [address] Kvng Wang [address] [place] [address] 09/07/2025 9:00 AM EST Office Visit [facility] MED & PEDS [address] [place] [address] Shannen Orellana MD [address] [place] [address] 01/01/2026 8:00 AM EDT Office Visit [facility] [address] [place] [address] Lydia Carter documented as of this encounter Visit Diagnoses Not on filedocumented in this encounter Additional Health Concerns Assessment Noted Time PHQ-9 Depression Total Score: 27 024 2:13 PM EST documented as of this encounter Care Teams Conservation Science Officer Relationship Specialty Start Date End Date Shannen Orellana MD [address] [place] [address] PCP - General Family Medicine 08/24/22 Geno Arriaga Awning Frame MakerSet Up Operator Tool 02/05/24 Maribell Rehman [address] [place] [address] Psychologist 06/27/23 Larry Zaldivar Psychiatrist 06/27/24 documented as of this encounter
--- OUTSIDE RECORDS SUMMARY | 2025-07-29 09:13 | XMS_ITS | Encounter Summary ---
Author Organization [employer] Address 75 [facility] 7t [place] [address] Care Team Providers Care Pattern And Chain Maker Name Role Phone Shannen Orellana MD Primary Care Provider [phone] Encounter Details Date Type Department Care Team ([facility] st Contact Info) Description 06/15/2025 Orders Only [facility] CHC MED & PEDS [address] [place], [place] [phone] Maame Espinal MD 505 [place] [address] Normocytic anemia (Primary Dx) Social History Tobacco Use Types [...] Description 08/06/2025 8:00 AM EST Office Visit [facility] AD[facility]AL [address] [place] [address] Kvng Wang 505 [place] [address] 09/07/2025 9:00 AM EST Office Visit [facility] MED & PEDS [address] [place] [address] Shannen Orellana MD 505 [place] [address] 01/01/2026 8:00 AM EDT Office Visit [facility] AD[facility] 505 [place] [address] Lydia Carter Scheduled Orders Name Type Priority Associated Diagnoses Orde r Schedule Vitamin B12/Folate, Serum Panel Lab Routine Normocytic anemia Expected: 06/15/2025, Expires: 06/15/2026 Iron And Total Iron Binding Capacity Lab Routine Normocytic anemia Expected: 06/15/2025, Expires: 06/15/2026 Ferritin Lab Routine Normocytic anemia Expected: 06/15/2025, Expires: 06/15/2026 Reticulocyte Count Lab Routine Normocytic anemia Expected: 06/15/2025, Expires: 06/15/2026 documented as of this encounter Visit Diagnoses Diagnosis Normocytic anemia- Primary Unspecified anemia documented in this encounter Additional Health Concerns Assessment Noted Time PHQ-9 Depression Total Score: 27 024 9:53 AM EDT documented as of this encounter Care Teams Pattern And Chain Maker Relationship Specialty Start Date End Date Shannen Orellana MD [address] [place] [address] PCP - General Family Medicine 08/24/22 Geno Arriaga Crusher FeederLead Php Developer 02/05/24 Maribell Rehman [address] [place] [address] Psychologist 06/27/23 Larry Zaldivar Psychiatrist 06/27/24 documented as of this encounter
--- OUTSIDE RECORDS SUMMARY | 2025-07-29 09:13 | XMS_ITS | Encounter Summary ---
Author Organization [employer] Address 75 [facility] 7t [place] [address] Care Team Providers Care Egyptologist Name Role Phone Shannen Orellana MD Primary Care Provider [phone] Encounter Details Date Type Department Care Team (Late Contact Info) Description 09/22/2022 Telephone [facility] MEDICINE [address] [place], [place] [phone] Shannen Orellana MD 505 [place], [place] [phone] Social History Tobacco Use Types Packs/Day Years [...] Department Care Team (Late Contact Info) Description 08/06/2025 8:00 AM EST Office Visit [facility] CHC ADULT DENTAL 505 [place], [place] [phone] Kvng Wang 505 [place] [address] 09/07/2025 9:00 AM EST Office Visit [facility] MED & PEDS 505 [place] [address] Shannen Orellana MD 505 [place] [address] 01/01/2026 8:00 AM EDT Office Visit [facility] ADULT DENTAL 505 [place] [address] Lydia Carter documented as of this encounter Visit Diagnoses Not on filedocumented in this encounter Additional Health Concerns Assessment Noted Time PHQ-9 Depression Total Score: 24 022 4:05 PM EST documented as of this encounter Care Teams Egyptologist Relationship Specialty Start Date End Date Shannen Orellana MD [address] [place] [address] PCP - General Family Medicine 08/24/22 Geno Arriaga Purchaser Automotive PartsOutside Upholsterer 02/05/24 Maribell Rehman [address] [place] [address] Psychologist 06/27/23 Larry Zaldivar Psychiatrist 06/27/24 documented as of this encounter
--- OUTSIDE RECORDS SUMMARY | 2025-07-29 09:13 | XMS_ITS | Encounter Summary ---
Author Organization [employer] Address [address] [facility] [address] 7t [place] [address] Care Team Providers Care Dependency Counselor Name Role Phone Shannen Orellana MD Primary Care Provider [phone] Encounter Details Date Type Department Care Team (Late st Contact Info) Description 10/03/2024 Telephone [facility] MEDICINE 230 [place] [address] Shannen Orellana MD [address] [place] [address] Social History Tobacco Use Types Packs/Day Years [...] Description 08/06/2025 8:00 AM EST Office Visit [facility] ADULT DENTAL 505 [place] [address] Kvng Wang 505 [place] [address] 09/07/2025 9:00 AM EST Office Visit [facility] MED & PEDS 505 [place] [address] Shannen Orellana MD 505 [place] [address] 01/01/2026 8:00 AM EDT Office Visit [facility] ADULT DENTAL 505 [place] [address] Lydia Carter documented as of this encounter Visit Diagnoses Not on filedocumented in this encounter Additional Health Concerns Assessment Noted Time PHQ-9 Depression Total Score: 27 024 9:53 AM EDT documented as of this encounter Care Teams Dependency Counselor Relationship Specialty Start Date End Date Shannen Orellana MD [address] [place] [address] PCP - General Family Medicine 08/24/22 Geno Arriaga Elevator ConductorOutside Physical Damage Appraiser 02/05/24 Maribell Rehman [address] [place] [address] Psychologist 06/27/23 Larry Zaldivar Psychiatrist 06/27/24 documented as of this encounter
--- OUTSIDE RECORDS SUMMARY | 2025-07-29 09:13 | XMS_ITS | Encounter Summary ---
Author Organization [employer] Address [address] [facility] [address] 7t [place] [address] Care Team Providers Care Sewer Pipe Offbearer Name Role Phone Shannen Orellana MD Primary Care Provider Reason for Visit * Reason Onset Date Comments PT1 02/11/2024 Encounter Details Date Type Department Care Team ([facility] Contact Info) Description 02/11/2024 Telephone [facility] CHC MED & PEDS 505 [place] [address] Shannen Orellana MD 505 [place] [address] PT1 Social History Tobacco Use Types Packs/Day [...] requesting increase visits to the max for [facility] and other locations. Pt stated if any questions please contact at [phone] * Telephone Encounter - Tello Frazier - 02/11/2024 10:11 AM EDT Tc from pt calling in regards to message prior, also wanted to increase frequency in visits to the maximum amount of visit. This includes PT-1 for [facility] radiologist ([address] [place] [address]). If any questions please contact [t at [phone]. * Telephone Encounter - Rose Zuluaga - 02/11/2024 9:49 AM EDT Tc from pt requesting an increase on visits for two Pt1's. Location: [facility] and Curtis Wagner on [address] documented in this encounter Plan of Treatment Upcoming Encounters Date Type Department Care Team ([facility] st Contact Info) Description 08/06/2025 8:00 AM EST Office Visit [facility] CHC ADULT DENTAL 505 [place] [address] Torey Wangio 505 [place] [address] 09/07/2025 9:00 AM EST Office Visit [facility] MED & PEDS 505 [place] [address] Shannen Orellana MD 505 [place] [address] 01/01/2026 8:00 AM EDT Office Visit [facility] ADULT DENTAL 505 [place] [address] Lydia Carter documented as of this encounter Visit Diagnoses Not on filedocumented in this encounter Additional Health Concerns Assessment Noted Time PHQ-9 Depression Total Score: 27 024 2:13 PM EST documented as of this encounter Care Teams Sewer Pipe Offbearer Relationship Specialty Start Date End Date Shannen Orellana MD [address] [place] [address] PCP - General Family Medicine 08/24/22 Geno Arriaga A Class LinemanPattern Clerk 02/05/24 Maribell Rehman [address] [place] [address] Psychologist 06/27/23 Larry Zaldivar Psychiatrist 06/27/24 documented as of this encounter
--- OUTSIDE RECORDS SUMMARY | 2025-07-29 09:13 | XMS_ITS | Encounter Summary ---
Author Organization [employer] Address [address] [facility] [address] 7t [place] [address] Care Team Providers Care Scientist Electronics Name Role Phone Shannen Orellana MD Primary Care Provider [phone] Reason for Visit * Reason Onset Date Comments Med Refill 12/20/2023 Encounter Details Date Type Department Care Team ([facility] st Contact Info) Description 12/20/2023 Refill [facility] CHC MED & PEDS 505 [place] [address] Shannen Orellana MD 505 [place] [address] Pruritic rash Social History Tobacco Use Types [...] 8:00 AM EST Office Visit [facility] ADULT DENTAL 505 [place] [address] Kvng Wang 505 [place] [address] 09/07/2025 9:00 AM EST Office Visit [facility] MED & PEDS [address] [place] [address] Shannen Orellana MD 505 [place] [address] 01/01/2026 8:00 AM EDT Office Visit [facility] ADULT DENTAL 505 [place] [address] Lydia Carter documented as of this encounter Visit Diagnoses Diagnosis Pruritic rash documented in this encounter Additional Health Concerns Assessment Noted Time PHQ-9 Depression Total Score: 27 024 2:13 PM EST documented as of this encounter Care Teams Scientist Electronics Relationship Specialty Start Date End Date Shannen Orellana MD [address] [place] [address] PCP - General Family Medicine 08/24/22 Geno Arriaga Meter ReaderHose Handler 02/05/24 Maribell Rehman [address] [place] [address] Psychologist 06/27/23 Larry Zaldivar Psychiatrist 06/27/24 documented as of this encounter
--- OUTSIDE RECORDS SUMMARY | 2025-07-29 09:13 | XMS_ITS | Encounter Summary ---
Author Organization [email or web address] Address [address] [facility] [address] 7t [place] [address] Care Team Providers Care Certified Alcohol Drug Counselor Name Role Phone Shannen Orellana MD Primary Care Provider [phone] Reason for Visit * Reason Onset Date Comments Med Refill 02/19/2024 Encounter Details Date Type Department Care Team ([facility] st Contact Info) Description 02/19/2024 Refill [facility] OPTOMETRY [address] [place], [place] [phone] Dominick, Catia, OD [address] [place] [address] Social History Tobacco Use Types Packs/Day Years [...] Description 08/06/2025 8:00 AM EST Office Visit [facility] ADULT DENTAL 505 [place] [address] Kvng Wang 505 [place] [address] 09/07/2025 9:00 AM EST Office Visit [facility] MED & PEDS 505 [place] [address] Shannen Orellana MD 505 [place] [address] 01/01/2026 8:00 AM EDT Office Visit [facility] ADULT DENTAL [address] [place] [address] Lydia Carter documented as of this encounter Visit Diagnoses Not on filedocumented in this encounter Additional Health Concerns Assessment Noted Time PHQ-9 Depression Total Score: 27 024 2:13 PM EST documented as of this encounter Care Teams Certified Alcohol Drug Counselor Relationship Specialty Start Date End Date Shannen Orellana MD 230 [place] [address] PCP - General Family Medicine 08/24/22 Geno Arriaga Shipfitter HelperPsychiatric Aides Teacher 02/05/24 Maribell Rehman [address] [place] [address] Psychologist 06/27/23 Larry Zaldivar Psychiatrist 06/27/24 documented as of this encounter
--- OUTSIDE RECORDS SUMMARY | 2025-07-29 09:13 | XMS_ITS | Encounter Summary ---
Author Organization [employer] Address [address] [facility] [address] 7t [place] [address] Care Team Providers Care Dyeing Machine Feeder Name Role Phone Shannen Orellana MD Primary Care Provider [phone] Reason for Visit * Reason Onset Date Comments PT-1 07/09/2025 Encounter Details Date Type Department Care Team ([facility] Contact Info) Description 07/09/2025 Telephone [facility] MEDICINE [address] [place] [address] Shannen Orellana MD [address] [place] [address] PT-1 Social History Tobacco Use Types Packs/Day [...] encounter Miscellaneous Notes * Telephone Encounter - Della Mack - 07/09/2025 12:21 PM EST Patient calling requesting PT1 Home Address verified: Y/N: Yes Provider name or facility name: [facility] Gastroenterology [facility] Facility Address: [address] [address] Escort needed: Y/N: Yes Do you have a wheelchair: Y/N: No If yes- Manual or electric: / Visits: (amount of visits) ( x monthly, weekly, daily) Patient calling requesting PT1 Home Address verified: Y/N: Yes Provider name or facility name: [facility] rheumatology Facility Address: [address] [place], [place] Escort needed: Y/N: No Do you have a wheelchair: Y/N: No If yes- Manual or electric: / Visits: (amount of visits) ( x monthly, weekly, daily) PCP DR. Orellana documented in this encounter Plan of Treatment Upcoming Encounters Date Type Department Care Team ([facility] st Contact Info) Description 08/06/2025 8:00 AM EST Office Visit [facility] ADULT DENTAL 505 [place] [address] Kvng Wang 505 [place] [address] 09/07/2025 9:00 AM EST Office Visit [facility] MED & PEDS 505 [place] [address] Shannen Orellana MD 505 [place] [address] 01/01/2026 8:00 AM EDT Office Visit [facility] ADULT [facility]ENTAL 505 [place] [address] Lydia Carter documented as of this encounter Visit Diagnoses Not on filedocumented in this encounter Additional Health Concerns Assessment Noted Time PHQ-9 Depression Total Score: 27 024 9:53 AM EDT documented as of this encounter Care Teams Dyeing Machine Feeder Relationship Specialty Start Date End Date Shannen Orellana MD [address] [place] [address] PCP - General Family Medicine 08/24/22 Geno Arriaga Breaker EngineerSilver Miner Blasting 02/05/24 Maribell Rehman [address] [place] [address] Psychologist 06/27/23 Larry Zaldivar Psychiatrist 06/27/24 documented as of this encounter
--- OUTSIDE RECORDS SUMMARY | 2025-07-29 09:13 | XMS_ITS | Clinical Summary ---
Author Organization [facility] Address [address] [place] [address] Phone Care Team Providers Care Casting Machine Set Up Operator Name Role Phone Shannen Orellana MD Primary Care Provider [phone] Allergies Active Allergy Reactions Criticality Noted Date [...] HEPATITIS C SCREENING 1998 HIV ONE-TIME SCREENING (18-65 YEARS) 1998 HEPATITIS A VACCINES (1 of 2 - Risk 2-dose series) 1999 PNEUMOCOCCAL VACCINES (0-49 years) (1 of 2 - PCV) 1999 SCREENING FOR DIABETES 2015 INFLUENZA VACCINE (#1) 2025 , 06/06/2019, 06/03/2017, Additional history exists COVID-19 VACCINE (3 - season) 2025 09/20/2020, 08/23/2020 COLOGUARD 2025 COLONOSCOPY 2025 COLORECTAL CANCER SCREENING 2025 FIT TEST 2025 FOBT 2025 SIGMOIDOSCOPY 2025 VIRTUAL COLONOSCOPY 2025 LIPID PANEL 10/11/2028 10/11/2023 Adult Td,Tdap Booster 10/11/2033 10/11/2023, 007 HIB VACCINES Aged Out No longer eligi [...] ACO C3 ACO C3 ACO C3 ACO [facility] Care Teams Casting Machine Set Up Operator Relationship Specialty Start Date End Date Shannen Orellana MD [address] [place] [address] PCP - General Family Medicine 11/27/23 Additional Source Comments The information contained in this document represents components of the legal health record. It is not the complete legal health record.[facility]
--- OUTSIDE RECORDS SUMMARY | 2025-07-29 09:13 | XMS_ITS | Encounter Summary ---
Author Organization [employer] Address [address] [facility] [address] 7t [place] [address] Care Team Providers Care Manager Economic Name Role Phone Shannen Orellana MD Primary Care Provider [phone] Encounter Details Date Type Department Care Team ([facility] st Contact Info) Description 11/27/2023 Telephone [facility] CHC MED & PEDS 505 [place], [place] [phone] Shannen Orellana MD [address] [place] [address] Social History Tobacco Use Types Packs/Day Years [...] PM EDT Signed. * Telephone Encounter - Azzia Morales RN - 12/05/2023 3:28 PM EDT PERCY received a VM from pt requesting PCP to send order for MRI ordered by the pain specialist to [facility] he was scheduled a month from now for the MRI. Pt states he cannot wait for a whole month beforegetting his MRI done. PERCY reached out to fredis Wagner and spoke with Luxembourger who states pt is scheduled for December and that appt will be kept. Pt should call to cancel an appt if able to get a sooner appt at [facility]. Per Luxembourger orders from the pain specialist includes MRI of the lumbar spine, MRI of thoracic spine and MRI of cervical spine with contrast. Per VM received, pt also requested for MRI of the hip. CM reached out to pt for clarification and also reason for request for referral to chief credit officer but pt did not answer. PERCY LVM requesting a return call. * Telephone Encounter - Anu Owens - 12/03/2023 11:48 AM EDT Please sign office note of 11/25 to complete referrals. Thank you. * Telephone Encounter - Aziza Morales RN - 11/28/2023 3:49 PM EDT Please see referral for 04/02/23. Pt was referred for pruritic rash. PERCY reached out to the chief credit officer office and was able to schedule pt an appt on 01/19/24 at 10:45am at their [place] office on [address] [place] [address]. P# [phone]. The chief credit officer office is requesting for recent office note [...] 08/06/2025 8:00 AM EST Office Visit [facility] ADULT DENTAL 505 [place] [address] Kvng Wang 505 [place] [address] 09/07/2025 9:00 AM EST Office Visit [facility] MED & PEDS 505 [place] [address] Shannen Orellana MD 505 [place] [address] 01/01/2026 8:00 AM EDT Office Visit [facility] ADULT DENTAL 505 [place] [address] Lydia Carter documented as of this encounter Visit Diagnoses Not on filedocumented in this encounter Additional Health Concerns Assessment Noted Time PHQ-9 Depression Total Score: 27 024 2:13 PM EST documented as of this encounter Care Teams Manager Economic Relationship Specialty Start Date End Date Shannen Orellana MD [address] [place] [address] PCP - General Family Medicine 08/24/22 Geno Arriaga Line LeaderDairy Manager 02/05/24 Maribell Rehman [address] [place] [address] Psychologist 06/27/23 Larry Zaldivar Psychiatrist 06/27/24 documented as of this encounter
--- OUTSIDE RECORDS SUMMARY | 2025-07-29 09:13 | XMS_ITS | Encounter Summary ---
Author Organization [employer] Address [address] [facility] [address] 7t [place] [address] Care Team Providers Care Water Commissioner Name Role Phone Shannen Orellana MD Primary Care Provider [phone] Reason for Visit * Reason Onset Date Comments Call Back Request 05/05/2025 Encounter Details Date Type Department Care Team ([facility] Contact Info) Description 05/05/2025 Telephone [facility] CHC MED & PEDS 505 [place] [address] Shannen Orellana MD 505 [place] [address] Call Back Request Social History Tobacco Use [...] encounter Miscellaneous Notes * Telephone Encounter - Inderjit Garza - 05/05/2025 1:08 PM EDT Tc from pt requesting a call back regarding my chart message Contact pt at [phone] documented in this encounter Plan of Treatment Upcoming Encounters Date Type Department Care Team (Late st Contact Info) Description 08/06/2025 8:00 AM EST Office Visit [facility] ADULT DENTAL 505 [place] [address] Kvng Wang 505 [place] [address] 09/07/2025 9:00 AM EST Office Visit [facility] MED & PEDS 505 [place] [address] Shannen Orellana MD 505 [place] [address] 01/01/2026 8:00 AM EDT Office Visit [facility] ADULT DENTAL 505 [place] [address] Lydia Carter documented as of this encounter Visit Diagnoses Not on filedocumented in this encounter Additional Health Concerns Assessment Noted Time PHQ-9 Depression Total Score: 27 024 9:53 AM EDT documented as of this encounter Care Teams Water Commissioner Relationship Specialty Start Date End Date Shannen Orellana MD [address] [place] [address] PCP - General Family Medicine 08/24/22 Geno Arriaga Propagation ManagerNon Destructive Testing Inspector 02/05/24 Maribell Rehman [address] [place] [address] Psychologist 06/27/23 Larry Zaldivar Psychiatrist 06/27/24 documented as of this encounter
--- OUTSIDE RECORDS SUMMARY | 2025-07-29 09:13 | XMS_ITS | Encounter Summary ---
Author Organization [facility] Address [address] [place] [address] Phone Care Team Providers Care Finisher Brush Name Role Phone Shannen Orellana MD Primary Care Provider [phone] Reason for Referral * MRI/CAT Scan - Closed Specialty Diagnoses / Procedures Referred By Contac t Referred To Contact Radiology Diagnoses Mid back pain Procedures MRI Total Spine MRI Lumbar Spine MRI THORACIC SPINE MRI CERVICAL SPINE Shannen Orellana MD [address] [place] [address] Phone: tel: fax: Referral ID Status Reason Start Date Expiration Date Visits Re quested Visits Authorized [id number] Closed 11/28/2023 11/26/2024 1 1 Encounter Details Date Type Department Care Team (Latest Contact Info) Description 11/28/2023 Transcribe Orders Virtual Department [address] [place] [address] Shannen Orellana MD [address] [place] [address] Mid back pain (Primary Dx) Social History [...] thoracic, and lumbar spine. Shannen Orellana MD [facility] MR XSPECIALTY Final Resul t documented in this encounter Visit Diagnoses Diagnosis Mid back pain- Primary documented in this encounter Care Teams Finisher Brush Relationship Specialty Start Date End Date Shannen Orellana MD [address] [place] [address] PCP - General Family Medicine 11/27/23 documented as of this encounter Additional Source Comments The information contained in this document represents components of the legal health record. It is not the complete legal health record.[facility]
--- OUTSIDE RECORDS SUMMARY | 2025-07-29 09:13 | XMS_ITS | Encounter Summary ---
Author Organization [employer] Address [address] 7[address] [place] [address] Care Team Providers Care Senior Network Security Engineer Name Role Phone Shannen Orellana MD Primary Care Provider [phone] Reason for Visit * Reason Comments Med Refill Encounter Details Date Type Department Care Team ([facility] st Contact Info) Description 03/08/2025 Refill [facility] MED[facility]INE [address] [place] [address] Margarita Villanueva MD [address] [place] [address] On pre-exposure prophylaxis for HIV Social History [...] Upcoming Encounters Date Type Department Care Team ([facility] st Contact Info) Description 08/06/2025 8:00 AM EST Office Visit [facility] [address] [place] [address] Kvng Wang [address] [place] [address] 09/07/2025 9:00 AM EST Office Visit [facility] [address] [place] [address] Shannen Orellana MD 505 [place] [address] 01/01/2026 8:00 AM EDT Office Visit [facility] [address] [place] [address] Lydia Carter documented as of this encounter Visit Diagnoses Diagnosis On pre-exposure prophylaxis for HIV documented in this encounter Additional Health Concerns Assessment Noted Time PHQ-9 Depression Total Score: 27 024 9:53 AM EDT documented as of this encounter Care Teams Senior Network Security Engineer Relationship Specialty Start Date End Date Shannen Orellana MD [address] [place] [address] PCP - General Family Medicine 08/24/22 Geno Arriaga Lipstick MolderCash Manager 02/05/24 Maribell Rehman [address] [place] [address] Psychologist 06/27/23 Larry Zaldivar Psychiatrist 06/27/24 documented as of this encounter
--- OUTSIDE RECORDS SUMMARY | 2025-07-29 09:13 | XMS_ITS | Encounter Summary ---
Author Organization [facility] Address [address] [place] [address] Phone Care Team Providers Care Rand Butting Machine Operator Name Role Phone Shannen Orellana MD Primary Care Provider [phone] Encounter Details Date Type Department Care Team (Late st Contact Info) Description 11/28/2023 Procedure [facility], [address] [address] Social History Tobacco Use Types Packs/Day Years [...] on filedocumented in this encounter Care Teams Rand Butting Machine Operator Relationship Specialty Start Date End Date Shannen Orellana MD [address] [place] [address] PCP - General Family Medicine 11/27/23 documented as of this encounter Additional Source Comments The information contained in this document represents components of the legal health record. It is not the complete legal health record.[facility]
--- OUTSIDE RECORDS SUMMARY | 2025-07-29 09:13 | XMS_ITS | Encounter Summary ---
Author Organization [employer] Address [address] [facility] 7t [place] [address] Care Team Providers Care Envelope Folding Machine Adjuster Name Role Phone Shannen Orellana MD Primary Care Provider [phone] Encounter Details Date Type Department Care Team (Late Contact Info) Description 01/29/2023 Orders Only [facility] MEDICINE [address] [place], [place] [phone] Carolynn Rodriguez MD [address] [place] [address] Social History Tobacco Use Types Packs/Day Years [...] 8:00 AM EST Office Visit [facility] [address] [place], [place] [phone] Kvng Wang 505 [place], [place] [phone] 09/07/2025 9:00 AM EST Office Visit [facility] [address] [place], [place] [phone] Shannen Orellana MD [address] [place] [address] 01/01/2026 8:00 AM EDT Office Visit [facility] [address] [place] [address] Lydia Carter documented as of this encounter Visit Diagnoses Not on filedocumented in this encounter Additional Health Concerns Assessment Noted Time PHQ-9 Depression Total Score: 022 4:05 PM EST documented as of this encounter Care Teams Envelope Folding Machine Adjuster Relationship Specialty Start Date End Date Shannen Orellana MD [address] [place] [address] PCP - General Family Medicine 08/24/22 Geno Arriaga Vault ClerkAlarm Signal Operator 02/05/24 Maribell Rehman [address] [place] [address] Psychologist 06/27/23 Larry Zaldivar Psychiatrist 06/27/24 documented as of this encounter
--- OUTSIDE RECORDS SUMMARY | 2025-07-29 09:13 | XMS_ITS | Encounter Summary ---
Author Organization [employer] Address [address] 7[address] [place] [address] Care Team Providers Care Feeder Switchboard Operator Name Role Phone Shannen Orellana MD Primary Care Provider [phone] Reason for Visit * Reason Onset Date Comments Med Refill 02/19/2024 Encounter Details Date Type Department Care Team ([facility] st Contact Info) Description 02/19/2024 Refill [facility] MEDICINE 230 [place] [address] Shannen Orellana MD [address] [place], [place] [phone] On pre-exposure prophylaxis for HIV Social History [...] Description 08/06/2025 8:00 AM EST Office Visit [facility] ADULT D[facility]AL 505 [place] [address] Kvng Wang 505 [place] [address] 09/07/2025 9:00 AM EST Office Visit [facility] MED & PEDS [address] [place] [address] Shannen Orellana MD 505 [place] [address] 01/01/2026 8:00 AM EDT Office Visit [facility] ADULT D[facility] [address] [place] [address] Lydia Carter documented as of this encounter Visit Diagnoses Diagnosis On pre-exposure prophylaxis for HIV documented in this encounter Additional Health Concerns Assessment Noted Time PHQ-9 Depression Total Score: 27 024 2:13 PM EST documented as of this encounter Care Teams Feeder Switchboard Operator Relationship Specialty Start Date End Date Shannen Orellana MD [address] [place] [address] PCP - General Family Medicine 08/24/22 Geno Arriaga Textile Machine MechanicStripper And Taper 02/05/24 Maribell Rehman [address] [place] [address] Psychologist 06/27/23 Larry Zaldivar Psychiatrist 06/27/24 documented as of this encounter
--- OUTSIDE RECORDS SUMMARY | 2025-07-29 09:13 | XMS_ITS | Encounter Summary ---
Author Organization [employer] Address [address] 7[address] [place] [address] Care Team Providers Care Software Manager Name Role Phone Shannen Orellana MD Primary Care Provider [phone] Encounter Details Date Type Department Care Team (Latest Contact Info) Description 06/16/2025 Results Follow-Up [facility]ED[facility] [address] [place] [address] Linnea Cobos RN CBC auto differential, Comprehensive Metabolic Panel, TSH with Reflex to Free T4 Social History Tobacco Use Types Packs/Day Years [facility] Description 08/06/2025 8:00 AM EST Office Visit [facility] [address] [place] [address] Kvng Wang 505 [place] [address] 09/07/2025 9:00 AM EST Office Visit [facility] MED [facility]ED[facility] [address] [place] [address] Shannen Orellana MD 505 [place] [address] 01/01/2026 8:00 AM EDT Office Visit [facility] [address] [place] [address] Lydia Carter documented as of this encounter Visit Diagnoses Not on filedocumented in this encounter Additional Health Concerns Assessment Noted Time PHQ-9 Depression Total Score: 27 024 9:53 AM EDT documented as of this encounter Care Teams Software Manager Relationship Specialty Start Date End Date Shannen Orellana MD [address] [place] [address] PCP - General Family Medicine 08/24/22 Geno Arriaga Central Supply ClerkIndustrial Maintenance Repairer Helper 02/05/24 Maribell Rehman [address] [place] [address] Psychologist 06/27/23 Larry Zaldivar Psychiatrist 06/27/24 documented as of this encounter
--- OUTSIDE RECORDS SUMMARY | 2025-07-29 09:13 | XMS_ITS | Encounter Summary ---
Author Organization [employer] Address [address] 7t [place] [address] Care Team Providers Care Facilities Flight Check Pilot Name Role Phone Shannen Orellana MD Primary Care Provider [phone] Reason for Visit * Reason Onset Date Comments Med Refill 01/06/2025 Encounter Details Date Type Department Care Team ([facility] Contact Info) Description 01/06/2025 Refill [facility] [address] [place] [address] Suzanne Monique MD [address] [place] [address] Social History Tobacco Use Types Packs/Day Years [...] EST Office Visit [facility] [address] [place] [address] Kvng Wang 505 [place] [address] 09/07/2025 9:00 AM EST Office Visit [facility] [address] [place] [address] Shannen Orellana MD [address] [place] [address] 01/01/2026 8:00 AM EDT Office Visit [facility] [address] [place] [address] Lydia Carter documented as of this encounter Visit Diagnoses Not on filedocumented in this encounter Additional Health Concerns Assessment Noted Time PHQ-9 Depression Total Score: 27 024 9:53 AM EDT documented as of this encounter Care Teams Facilities Flight Check Pilot Relationship Specialty Start Date End Date Shannen Orellana MD [address] [place] [address] PCP - General Family Medicine 08/24/22 Geno Arriaga Stove TenderPrimary Clinician 02/05/24 Maribell Rehman [address] [place] [address] Psychologist 06/27/23 Larry Zaldivar Psychiatrist 06/27/24 documented as of this encounter
--- OUTSIDE RECORDS SUMMARY | 2025-07-29 09:14 | XMS_ITS | Encounter Summary ---
Author Organization [employer] Address [address] [facility] 7t [place] [address] Care Team Providers Care Continuous Process Rotary Drum Tanner Name Role Phone Shannen Orellana MD Primary Care Provider [phone] Encounter Details Date Type Department Care Team (Late st Contact Info) Description 02/29/[address] [facility]EDS 505 [place], [place] [phone] Maame Espinal MD 505 [place] [address] Social History Tobacco Use Types Packs/Day Years [...] Description 08/06/2025 8:00 AM EST Office Visit [facility] [address] [place] [address] Kvng Wang [address] [place] [address] 09/07/2025 9:00 AM EST Office Visit [facility] P[facility] [address] [place] [address] Shannen Orellana MD 505 [place] [address] 01/01/2026 8:00 AM EDT Office Visit [facility] ADULT [facility] [address] [place] [address] Lydia Carter documented as of this encounter Visit Diagnoses Not on filedocumented in this encounter Additional Health Concerns Assessment Noted Time PHQ-9 Depression Total Score: 27 024 2:13 PM EST documented as of this encounter Care Teams Continuous Process Rotary Drum Tanner Relationship Specialty Start Date End Date Shannen Orellana MD [address] [place] [address] PCP - General Family Medicine 08/24/22 Geno Arriaga Tar ManInsulation Worker 02/05/24 Maribell Rehman [address] [place] [address] Psychologist 06/27/23 Larry Zaldivar Psychiatrist 06/27/24 documented as of this encounter
--- OUTSIDE RECORDS SUMMARY | 2025-07-29 09:14 | XMS_ITS | Encounter Summary ---
Author Organization [employer] Address [address] [place] [address] Care Team Providers Care Outer Diameter Grinder Name Role Phone Shannen Orellana MD Primary Care Provider [phone] Encounter Details Date Type Department Care Team ([facility] st Contact Info) Description 06/11/2023 Telephone [facility]EDS [address] [place], [place] [phone] Shannen Orellana MD [address] [place] [address] Social History Tobacco Use Types Packs/Day Years Used Date Smoking Tobacco: Every Day Cigarettes Passive Smoke Exposure: Current Smokeless Tobacco: Never Alcohol Use Standard Drinks/Week Comments Never 0 (1 standard drink = 0.6 oz pur e alcohol) Depression Answer Date Recorded Patient Health Questionnaire-9 Score 24 08/24/2022 Housing Stability Answer Date Recorded What is your housing situation today? I have [place] 06/11/[address] you [...] 08/06/2025 8:00 AM EST Office Visit [facility] [address] [place] [address] Oksana Wangricio 505 [place] [address] 09/07/2025 9:00 AM EST Office Visit [facility] [address] [place] [address] Shannen Orellana MD 505 [place] [address] 01/01/2026 8:00 AM EDT Office Visit [facility] [address] [place] [address] Lydia Carter documented as of this encounter Visit Diagnoses Not on filedocumented in this encounter Additional Health Concerns Assessment Noted Time PHQ-9 Depression Total Score: 24 022 4:05 PM EST documented as of this encounter Care Teams Outer Diameter Grinder Relationship Specialty Start Date End Date Shannen Orellana MD [address] [place] [address] PCP - General Family Medicine 08/24/22 Geno Arriaga Tail Board ManService Rig Operator 02/05/24 Maribell Rehman [address] [place] [address] Psychologist 06/27/23 Larry Zaldivar Psychiatrist 06/27/24 documented as of this encounter
--- OUTSIDE RECORDS SUMMARY | 2025-07-29 09:14 | XMS_ITS | Clinical Summary ---
Author Organization [facility] Address [address] [facility] [address] [place] [address] Care Team Providers Care Flatwork Catcher Name Role Phone Shannen Orellana MD Primary Care Provider [phone] Allergies Active Allergy Reactions Criticality Noted Date Comments Cat Dander High 02/06/2023 Other reaction(s): SNEEZING, THROAT SWOLLEN Dust Mite Extract High 11/28/2022 Other reaction(s): SNEEZING Fish Protein-Containing Drug Products 03/08/2018 Shellfish Allergy Unknown Low 02/06/2023 [...] lozenge every 4-8 hours for 2 weeks. Active sucralfate (Carafate) 1 g tablet Take 1 g by mouth in the morning. 022 Active lidocaine (Lidoderm) 5 % patch Place 1 patch on the skin at bed time. 022 Active Artificial Tears 0.2-0.2-1 % solution Administer 1 drop into both eyes 4 times daily. 023 Active Diclofenac Sodium 1 % gelIndications:Ri ght sided abdominal pain Apply to the affected area 2x/day prn 200 g 023 Active albuterol 108 (90 Base) MCG/ACT inhaler Inhale 2 puffs every 6 (six) hours if needed. Active atomoxetine (Strattera) 80 MG capsule Take 80 mg by mouth in the morning. Active Suprep Bowel Prep Kit 17.5-3.13-1.6 GM/177ML solution DRINK 177 ML DAILY FOR 2 DAYS Active tamsulosin (Flomax) 0.4 MG 24 hr capsule Take 0.4 mg by mouth at bedtime. 024 Active hydrocortisone 2.5 % cream APPLY TO THE AFFECTED AREA(S) TWICE DAILY NEEDED 28.35 g 1 024 Active cyclobenzaprine (Flexeril) 10 MG tabletIndications :Right flank pain, chronic Take 1 tablet (10 mg) by mouth 3 times daily. TAKE ONE TABLET THREE TIMES DAILY NEEDED FOR MUSCLE SPASMS 90 tablet 1 024 Active minoxidil (Loniten) 2.5 MG tabletIndications :Alopecia areata Take 2 tablets (5 mg) by mouth Once per day. 60 tablet 3 024 Active Sodium Fluoride 1.1 % cream [place] teeth for 2 minutes, morning and night. Spit, do not rinse. Do not eat or drink anything for 30 minutes following use. 112 g 3 024 Active Sodium Fluoride (ACT Anticavity Fluoride Rinse) 0.05 % solution Used as directed 17 mL 3 024 Active fluticasone (Flonase) 50 MCG/ACT nasal spray INHALE ONE SPRAY IN EACH NOSTRIL TWICE DAILY 48 g 1 025 Active escitalopram (Lexapro) 5 MG tabletIndications :Depressive disorder,PTSD (post-traumatic stress disorder) Take 1 tablet (5 mg) by mouth in the morning. 30 tablet 025 Active pseudoephedrine (Sudafed) 30 MG tablet Take 1 tablet (30 mg) by mouth every 4 (four) hours if needed for congestion for up to 10 days. 30 tablet 025 Active azelastine (Astelin) 0.1 % nasal spray Administer 1 spray into each nostril 2 times daily. Use in each nostril as directed 30 mL 12 025 2025 Active propranolol (Inderal) 10 MG tabletIndications :RICHARD (generalized anxiety disorder) Take 1 tablet (10 mg) by mouth if needed in the morning and at bedtime (Anxiety). 60 tablet 1 025 Active nicotine (Nicoderm, Step 1) 21 MG/24HR patch APPLY 1 PATCH TOPICALLY TO THE SKIN DAILY IN THE MORNING DIRECTED. DO NOT SMOKE WHILE USING PATCH. 30 patch 025 Active Ascorbic Acid (vitamin C) 250 MG tabletIndications :Aphthous ulcer TAKE ONE TABLET EVERY MORNING 90 tablet 1 025 Active doxepin (SINEquan) 50 MG capsuleIndication s:Pruritic rash Take 1 capsule (50 mg) by mouth at bedtime. 90 capsule 1 025 Active omega-3 acid ethyl esters (Lovaza) 1 g capsule TAKE ONE CAPSULE TWICE DAILY 180 capsule 1 025 Active acetaminophen (Tylenol) 500 MG tablet Take 500 mg by mouth every 8 (eight) hours if needed. 024 Active montelukast (Singulair) 10 MG tablet TAKE ONE TABLET AT BEDTIME 90 tablet 1 025 Active RABEprazole (Aciphex) 20 MG EC tablet TAKE 1 TABLET BY MOUTH TWICE A DAY 180 tablet 025 Active pregabalin (Lyrica) 25 MG capsule TAKE 1 CAPSULE BY MOUTH EVERY DAY 30 capsule 2 025 Active promethazine (Phenergan) 12.5 MG tablet TAKE ONE TABLET EVERY 6 HOURS NEEDED FOR NAUSEA AND VOMITING 120 tablet 5 025 Active Simethicone Ultra Strength 180 MG capsule TAKE ONE CAPSULE THREE TIMES DAILY IN THE MORNING, AT NOON, AND AT BEDTIME FOR flatulence 90 capsule 3 025 Active celecoxib (CeleBREX) 200 MG capsuleIndication s:Other chronic pain,Continuous RUQ abdominal pain TAKE ONE CAPSULE TWICE DAILY 60 capsule 2 025 Active pantoprazole (Protonix) 20 MG EC tablet Take 1 tablet (20 mg) by mouth in the morning and at bedtime. Do not crush, chew, or split. 60 tablet 11 025 2025 Active vardenafil (Levitra) 10 MG tablet TAKE 1 TABLET 1 HOUR BEFORE SEXUAL RELATIONS ONCE DAILY NEEDED. 10 tablet 1 5 10:06 AM EST 025 Active emtricitabine-ten ofovir DF (Truvada) 200-300 MG tabletIndications :On pre-exposure prophylaxis for HIV Take 1 tablet by mouth in the morning. 30 tablet 2 5 10:06 AM EST Active doxycycline (Vibra-Tabs) 100 MG tablet TAKE TWO TABLETS BY MOUTH WITHIN 72 HOURS AFTER SEXUAL ACTIVITY, TAKE WITH full GLASS OF WATER AND food DO not lie down FOR AT least 30 MINUTES AFTER 20 tablet 11 Active azithromycin (Zithromax) 250 MG tabletIndications :COPD exacerbation (CMS/HCC) ([facility]) 500 mg in a single loading dose on day 1, followed by 250 mg once daily on days 2 to 5 5 tablet Active albuterol 108 (90 Base) MCG/ACT inhalerIndication s:COPD exacerbation (CMS/HCC) (HCC) Inhale 2 puffs every 4 (four) hours if needed for wheezing. 18 g 025 2025 Active ibuprofen 600 MG tabletIndications :Acute nonintractable headache, unspecified headache type Take 1 tablet (600 mg) by mouth 3 times daily. 90 tablet 025 2024 Active predniSONE (Deltasone) 50 MG tabletIndications :Chronic obstructive pulmonary disease with acute exacerbation (CMS/HCC) (HCC) Take 1 tablet (50 mg) by mouth Once per day. 5 tablet 5 10:06 AM EST Active doxycycline (Vibra-Tabs) 100 MG tabletIndications :Chronic obstructive pulmonary disease with acute exacerbation (CMS/HCC) (HCC) Take 1 tablet (100 mg) by mouth 2 times daily for 5 days. Take with a full glass of water and do not lie down for at least 30 minutes after. 10 tablet 5 10:06 AM EST 025 2024 Active buPROPion SR (Wellbutrin SR) 150 MG 12 hr tablet Take 1 tablet (150 mg) by mouth 2 times daily. Do not crush, chew, or split. 60 tablet 3 5 10:06 AM EST Active dicyclomine (Bentyl) 20 MG tabletIndications :Irritable bowel syndrome with diarrhea TAKE ONE TABLET BEFORE BREAKFAST, LUNCH AND dinner AND AT BEDTIME 120 tablet 5 Active levocetirizine (Xyzal) 5 MG tabletIndications :Rhinosinusitis TAKE ONE TABLET AT BEDTIME 90 tablet 5 Active diphenoxylate-atr opine (Lomotil) 2.5-0.025 MG tabletIndications :Irritable bowel syndrome with diarrhea TAKE ONE TABLET FOUR TIMES DAILY NEEDED FOR DIARRHEA 120 tablet 5 025 Active diphenoxylate-atr opine (Lomotil) 2.5-0.025 MG tabletIndications :Irritable bowel syndrome with diarrhea Take 1 tablet by mouth if needed in the morning, at noon, in the evening, and at bedtime for diarrhea. 120 tablet 2 024 2024 Discontinued(R eorder (will not trigger notification to Pharmacy)) dicyclomine (Bentyl) 20 MG tabletIndications :Irritable bowel syndrome with diarrhea Take 1 tablet (20 mg) by mouth before breakfast, before lunch, before evening meal, and at bedtime. 120 tablet 5 024 2024 Discontinued(R eorder (will not trigger notification to Pharmacy)) hydroquinone 4 % creamIndications: Melasma Apply topically 2 times daily. 30 mL 3 024 2024 levocetirizine (Xyzal) 5 MG tabletIndications :Rhinosinusitis TAKE ONE TABLET AT BEDTIME 90 tablet 1 025 2024 Discontinued(R eorder (will not trigger notification to Pharmacy)) predniSONE (Deltasone) 20 MG tabletIndications :COPD exacerbation (CMS/HCC) (HCC) Take 2 tablets (40 mg) by mouth Once per day for 5 days. 10 tablet 025 2024 Active Problems Problem Noted Date Diagnosed Date [...] of macrocytosis noticed on labs drawn by NIGHT TIME BABYSITTER. Will workup and f/up with results Abnormal [...] , benadryl 25 mg and refer to bingo attendant for further evaluation. Will resend x 5 [...] transaminitis, will order RUQ US Stat to [place]. Sleep apnea 10/09/2022 Assessment & Plan (10/09/2022 5:19 PM EST): Hx of insomnia, reports prior hx of snoring, apneic episodes and waking up not well rested, will test for sleep apnea. Liver cyst 08/24/2022 Irritable bowel syndrome with diarrhea Assessment & Plan (02/06/2023 2:27 PM EDT): Patient with exacerbation of symptoms. Reports feels current GI in [place] has not helped his symptoms and will want to see alternative provider in [place]. Assessment & Plan (08/24/2022 2:47 PM EST): [...] to Curtis Garcia (reports poor rapport in [place]/[facility]). Numbness of hand 03/06/2017 Assessment & [...] organization. Date Type Department Care Team Description 07/28/2025 Telephone [facility] [address] [place] [address] Shannen Orellana MD Call Back Request 07/28/2025 Telephone [facility] [address] [place] [address] Shannen Orellana MD Medication Question 07/28/2025 Refill [facility] [address] [place] [address] Shannen Orellana MD Irritable bowel syndrome with diarrhea; Rhinosinusitis 07/27/2025 9:00 AM EST Telemedicine [facility] [address] [place] [address] Shannen Orellana MD Chronic obstructive pulmonary disease with acute exacerbation (CMS/HCC) (HCC) (Primary Dx); Atypical chest pain 07/27/2025 Travel 07/21/2025 Telephone [facility] [address] [place] [address] Shannen Orellana MD chart prep 07/14/2025 5:20 PM EST Office Visit [facility] [address] [place] [phone] Ricardo Stephenson CNP Acute nonintractable headache, unspecified headache type (Primary Dx); COPD exacerbation (CMS/HCC) (HCC) 07/14/2025 Travel 07/14/[address] [address] Shannen Orellana MD Nurse Triage 07/09/2025 Patient Outreach [address] [address] Shannen Orellana MD Care Coordination ([facility] outreach for SDOH PT-1 and food needs-referral completed /) 07/09/[address] [address] Shannen Orellana MD Nurse Triage 07/09/[address] [address] Shannen Orellana MD PT-1 07/01/2025 9:00 AM EST Office Visit [facility] [address], [place] [phone] Brijesh, Judy 07/01/2025 Travel 06/24/2025 Refill [facility] [address], [place] [phone] Shannen Orellana MD 06/16/2025 Results Follow-Up [facility] [address] [place] [address] Linnea Cobos, RIYA CBC auto differential, Comprehensive Metabolic Panel, TSH with Reflex to Free T4 06/15/2025 11:15 AM EDT Office Visit [facility] [address], [place] [phone] Maame Espinal MD Unintentional weight loss (Primary Dx); Chronic maxillary sinusitis; Smoking addiction; Encounter for immunization 06/15/2025 Orders Only [facility] [address], [place] [phone] Maame Espinal MD Normocytic anemia (Primary Dx) 06/15/2025 Travel 06/10/2025 Telephone [facility] [address], [place] [phone] Shannen Orellana MD Appointment Request 05/28/2025 Telephone [facility] [address], [place] [phone] Shannen Orellana MD PT-1 05/28/2025 Telephone [facility] [address], [place] [phone] Shannen Orellana MD PT-1 05/22/2025 Results Follow-Up [facility] [address], [place] [phone] Shannen Orellana MD HIV Ab/Ag ([place] DPH) 05/19/2025 Orders Only [facility] [address] [place] [phone] Sara Max RN 05/18/2025 Refill [facility] [address] [place] [address] Judy Rdz, RN On pre-exposure prophylaxis for HIV 05/13/2025 Refill [facility] [address] [place] [address] Maame Espinal MD 05/07/2025 9:00 AM EDT Telemedicine [facility] [address] [place] [address] Maame Espinal MD Gastroesophageal reflux disease with esophagitis, unspecified whether hemorrhage (Primary Dx); Irritable bowel syndrome with diarrhea 05/07/2025 Patient Outreach [facility] () Department [address] [place] [address] [phone] Lizabeth [facility] 05/07/2025 Travel 05/06/2025 Patient Outreach [facility] [address] [place] [address] Lizabeth Heaton [facility] 05/05/2025 Telephone [facility] [address] [place] [address] Shannen Orellana MD Call Back Request 05/04/2025 Telephone [facility] [address] [place] [address] Shannen Orellana MD call back needed 05/03/2025 Refill [facility] [address] [place] [address] Shannen Orellana MD Other chronic pain; Continuous RUQ abdominal pain 05/03/2025 Refill [facility] [address] [place] [address] Suzanne Monique MD Other chronic pain; Continuous RUQ abdominal pain 04/29/2025 Results Follow-Up [facility] [address] [place] [address] Shannen Orellana MD MR Brown w/o Contrast Left from Last 3 Months Immunizations Immunization Administration Dates Next Due Influenza Injectable Quadriv alant Preservative Free IIV4 MDCK 05/12/2020,06/03/2017 Influenza injectable quadriv alent IIV4 with preservative 08/24/2022 Influenza injectable quadriv alent preservative free 05/07/2023,06/27/2021,06/06/2019 Influenza, IIV3, injectable 06/06/2014 Influenza, seasonal, injecta ble, preservative free 06/15/2025,06/27/2024 Moderna Covid-19 Vaccine 12+ 09/20/2020,08/23/20 Pfizer Covid-19 Vaccine 12+ 06/15/2025,,06/27/2021 Pneumococcal Conjugate PCV 20 06/27/2024 Smallpox Mpox, [...] Sign Reading Time Taken Comments Blood Pressure 116/82 07/14/2025 5:39 PM EST Pulse 90 07/14/2025 5:39 PM EST Temperature 36.3 C (97.4 F) 07/14/2025 5:39 PM EST Respiratory Rate 20 07/14/2025 5:39 PM EST Oxygen Saturation 96% 07/14/2025 5:39 PM EST Inhaled Oxygen Concentration - - Weight 84.8 kg (187 lb) 07/14/2025 5:39 PM EST Height 177.8 cm (5' 10 ) 07/14/2025 5:39 PM EST Body Mass Index 26.83 07/14/2025 5:39 PM EST Plan of Treatment Upcoming Encounters Date Type Department Care Team (Late st Contact Info) Description 08/06/2025 8:00 AM EST Office Visit [facility] [address] [place] [address] Kvng Wang [address] [place] [address] 09/07/2025 9:00 AM EST Office Visit [facility] [address] [place] [address] Shannen Orellana MD [address] [place] [address] 01/01/2026 8:00 AM EDT Office Visit [facility] [address] [place] [address] Lydia Carter Health Maintenance Due Date Last Done Comments CT Colonography 1980 Colonoscopy 1980 Colorectal Cancer Screening 1980 FIT DNA/Cologuard 1980 FIT 1980 FOBT 1980 Sigmoidoscopy 1980 Family Planning (PISQ) 1995 HPV Vaccines (1 - Male 3-dose series) 1995 Hepatitis A Vaccines (1 of 2 - Risk 2-dose series) 1999 Hepatitis B Vaccines (1 of 3 - 19+ 3-dose series) 1999 Dental Oral Exam 06/05/2025 12/03/2024, , 08/24/2017 SDOH Screening 11/10/2025 11/10/2024 Dental X-Ray: Bitewings 12/04/2025 12/04/19 25, 11/14/2023, 08/24/2017 Dental Prophylaxis 12/30/2025 07/01/2025, 0 12/03/2024, 11/14/2023, Additional history exists Depression Monitoring 01/25/2026 07/27/2025, 025 Alcohol/Substance Use Screening 07/27/2026 07/27/2025 Disability Screening 07/27/2026 07/27/2025 Tobacco Screening 07/27/2026 07/27/2025 Dental X-Ray: Full Mouth 11/14/2026 11/14/2023, 07/28 Lipid Panel 10/11/2028 10/11/2023, 11/09/2021 Zoster Vaccines (1 of 2) 2030 DTaP/Tdap/Td Vaccines (3 - Td or Tdap) 10/11/2033 10/11/2023, 04/03/2007 RSV Patients and Patients Aged 60 years or older (1 - 1-dose 75+ series) 2055 Pneumococcal Vaccine: Pediatrics (0 to 5 Years) and At-Risk Patients (6 to 49) Years Completed 06/27/2024 HIV Screening Completed 05/13/2025, 12/26, 02/22/2023, Additional history exists Hepatitis C Screening Completed 05/13/2025 , 01/22/2024, 02/22/2023, Additional history exists COVID-19 Vaccine Completed 06/15/2025, , 06/27/2021, Additional history exists Influenza Vaccine Completed 06/15/2025, , 05/07/2023, Additional history exists HIB Vaccines Aged Out No longer eligi [...] Procedure Name Priority Date/Time Associated Diagnosis Comments POCT INFLUENZA B (ID NOW RAPID MOLECULAR) Routine 07/14/2025 5:47 PM EST COPD exacerbation (CMS/HCC) (HCC) POCT INFLUENZA A (ID NOW RAPID MOLECULAR) Routine 07/14/2025 5:47 PM EST COPD exacerbation (CMS/HCC) (HCC) POC GELLER ID NOW STREP A Routine 07/14/2025 5:46 PM EST COPD exacerbation (CMS/HCC) (HCC) POCT RAPID COVID ANTIGEN Routine 07/14/2025 5:43 PM EST COPD exacerbation (CMS/HCC) (HCC) CASE PRESENTATION, DETAILED AND EXTENSIVE TREATMENT PLANNING Routine 07/01/2025 9:00 AM EST PROPHYLAXIS - ADULT Routine 07/01/2025 9 :00 AM EST TSH W/REFLEX TO FT4 Routine 06/15/2025 1 1:57 AM EDT Unintentional weight loss COMPREHENSIVE METABOLIC PANEL Routine 06/15/2025 11:57 AM EDT Unintentional weight loss CBC WITH AUTO DIFFERENTIAL Routine 06/15/2025 11:57 AM EDT Unintentional weight loss Chronic maxillary sinusitis HIV ANTIBODY/ANTIGEN ([place] DPH) Routine 05/13/2025 HEPATITIS C ANTIBODY ([place] DPH) Routine 05/13/2025 SYPHILIS ABS ([place] D[facility]) Routine 05/13/2025 CHLAMYDIA/GONORRHEA - URINE ([facility]) Routine 05/13/2025 CHLAMYDIA/GONORRHEA THROAT SWAB ([facility]) Routine 05/13/2025 CHLAMYDIA/GONORRHEA RECTAL SWAB ([facility]) Routine 05/13/2025 BITEWINGS - 4 RADIOGRAPHIC IMAGES Routine 12/03/2024 8:00 AM EDT PERIODIC ORAL EVALUATION - ESTABLISHED PATIENT Routine 12/03/2024 8:00 AM EDT INTRAORAL - COMPLETE SERIES OF RADIOGRAPHIC IMAGES Routine 11/14/2023 9:00 AM EDT LIPID PANEL, STANDARD Routine 10/11/2023 3:14 PM EST Encounter for health-related screening from Last 3 Months or Most Recently Relevant to Health Maintenance Results * POCT Rapid Influenza B GELLER ID NOW (07/14/2025 5:47 PM EST) Influenza B Negative Negative, Indeterminate [facility] QC Media Lot # [id number] [facility] Lot# Expiration Date [facility] Swab 07/14/2025 5:47 PM EST us Shereen Bishop DO POINT OF CARE TEST ENTER/YUE T ORDERABLES Final Result [facility] [address] [place] [phone] * POCT Rapid Influenza A GELLER ID NOW (07/14/2025 5:47 PM EST) Influenza A Negative Negative, Indeterminate [facility] QC Media Lot # [id number] [facility] Lot# Expiration Date [facility] Swab 07/14/2025 5:47 PM EST us Shereen Bishop DO POINT OF CARE TEST ENTER/YUE T ORDERABLES Final Result [facility] [address] [place] [address] [phone] * POCT Rapid Strep A GELLER ID NOW (07/14/2025 5:46 PM EST) [facility] Rapid Strep A Screen Negative Negative, None Detected QC Media Lot # [id number] Lot# Expiration Date Swab 07/14/2025 5:46 PM EST Shereen Dario DO POINT OF CARE TEST ENTER/YUE T ORDERABLES Final Result * POCT Rapid Covid-19 BinaxNOW (07/14/2025 5:43 PM EST) [facility] Rapid COVID Ag Negative QC Media Lot # [id number] Lot# Expiration Date Swab 07/14/2025 5:43 PM EST Shereen Bishop DO POINT OF CARE TEST ENTER/YUE T ORDERABLES Final Result * TSH with Reflex to Free T4 (06/15/2025 11:57 AM EDT) [facility] TSH reflex Free T4 2.21 0.32 - 4.0 uIU/mL [facility] Blood Venous blood specimen / Unknown 06/15/2025 11:57 AM EDT 06/15/2025 2:40 PM EDT Maame Espinal MD LAB BLOOD ORDERABLES Final Result [facility] [address] [place] [phone] * (ABNORMAL) CBC auto differential (06/15/2025 11:57 AM EDT) [facility] White Blood Count 8.5 4.8 - 10.8 X10*3/uL [facility] Red Blood Count 4.24(L) 4.60 - 5.80 X10*6/uL [facility] Hemoglobin 13.6(L) 14.0 - 18.0 g/dl [facility] Hematocrit 40.7(L) 42.0 - 52.0 % [facility] Mean Corpuscular Volume 96.0 80.0 - 98.0 fL [facility] Mean Corpuscular Hemoglobin 32.1 27.0 - 33.0 pg [facility] Mean Corpuscular HGB Conc 33.4 31.0 - 36.0 g/dl [facility] Red Cell Distribution Width 12.1 11.0 - 16.0 % [facility] Platelet Count 250 160 - 400 X10*3/uL [facility] Mean Platelet Volume 10.2 9.4 - 12.4 fL [facility] Neutrophils Percent Auto 57.4 45 - 73 % [facility] Imm Gran Pct Auto 0.2 0.0 - 0.4 % [facility] Lymphocytes Percent Auto 29.4 20 - 40 % [facility] Monocytes Percent Auto 8.3 2 - 11 % [facility] Eosinophils Percent Auto 3.9 0 - 4 % [facility] Basophils Percent Auto 0.8 0 - 2 % [facility] NRBC Pct Auto 0.0 0.0 - 0.2 /100WBC [facility] Neutrophils Absolute Auto 4.9 2.0 - 8.3 x10*3/uL [facility] Imm Gran Abs Auto 0.02 0.00 - 0.03 X10*3/uL [facility] Lymphocytes Absolute Auto 2.5 1.2 - 4.9 X10*3/uL [facility] Monocytes Absolute Auto 0.7 0.1 - 1.2 X10*3/uL [facility] Eosinophils Absolute Auto 0.3 0.0 - 0.4 X10*3/uL [facility] Basophils Absolute Auto 0.1 0.0 - 0.2 X10*3/uL [facility] NRBC Abs Auto 0.000 0.0 - 0.012 X10*3/uL [facility] Blood Venous blood specimen / Unknown 06/15/2025 11:57 AM EDT 06/15/2025 2:35 PM EDT us Maame Espinal MD LAB BLOOD ORDERABLES Final Result [facility] [address] [place] [address] [phone] * (ABNORMAL) Comprehensive Metabolic Panel (06/15/2025 11:57 AM EDT) Sodium 141 135 - 145 mmol/L [facility] Potassium 3.9 3.3 - 5.1 mmol/L [facility] Chloride 106 96 - 108 mmol/L [facility] Carbon Dioxide 26 22 - 29 mmol/L [facility] Anion Gap 13 12 - 20 [facility] Urea Nitrogen (BUN) 12 9 - 16 mg/dL [facility] Creatinine, Serum 1.17 0.5 - 1.4 mg/dL [facility] Estimated Glomerular Filt Rate >60 [facility] Comment:Chronic Kidney Disea se: Estimated GFR < 60 mL/min/1.21u0[place]wb[place] Kidney Disease: Estimated GFR < 15 mL/min/1.73m2 Glucose 75 60 - 115 mg/dL [facility] Calcium 9.7 8.4 - 10.2 mg/dL [facility] Bilirubin, Total 0.5 0.0 - 1.0 mg/dL [facility] Aspartate Amino Transferase 21 5 - 37 U/L [facility] Alanine Aminotransferase 24 0 - 40 U/L [facility] Total Protein 7.5 6.5 - 8.0 g/dL [facility] Albumin Level 5.2(H) 3.5 - 5.0 g/dL [facility] Alkaline Phosphatase 65 39 - 117 U/L [facility] Blood Venous blood specimen / Unknown 06/15/2025 11:57 AM EDT 06/15/2025 2:40 PM EDT Maame Espinal MD LAB BLOOD ORDERABLES Final Result [facility] [address] [place] [phone] [phone] * Chlamydia/Gonorrhea, Rectal Swab ([place] DPH) (05/13/2025) Chlamydia Rectal Swab Negative Negative, Indeterminate, None Detected, Invalid, Specimen unsatisfactory for evaluation, 2+ Gonorrhea Rectal Swab Negative Negative, Indeterminate, None Detected, Invalid, Specimen unsatisfactory for evaluation, 2+ Swab 05/13/2025 Result [facility] Provider LAB MICROBIOLOGY - GENERA L ORDERABLES Final Result * Chlamydia/Gonorrhea Throat Swab ([place] DPH) (05/13/2025) Chlamydia Throat Swab Negative Gonorrhea Throat Swab Negative Swab 05/13/2025 Result [facility] Provider LAB MICROBIOLOGY - GENERA L ORDERABLES Final Result * Chlamydia/Gonorrhea, Urine ([place] [facility]) (05/13/2025) Chlamydia, Urine Negative Negative, Indeterminate, None Detected, Invalid, Specimen unsatisfactory for evaluation, Weakly Positive, 2+ Gonorrhea, Urine Negative Negative, Indeterminate, None Detected, Invalid, Specimen unsatisfactory for evaluation, Weakly Positive, 2+ Urine 05/13/2025 Historical Provider LAB URINE ORDERABLES Sandy l Result * (ABNORMAL) Syphilis Antibodies (DPH) (05/13/2025) Syphilis Abs Reactive(A) Borderline, Nonreactive, Weakly Reactive, Inconclusive, Specimen unsatisfactory for evaluation Syphilis RPR Nonreactive Blood Venous blood specimen / Unknown 05/13/2025 Result [facility] Historical Provider MD LAB BLOOD ORDERABLES Sandy l Result * Hepatitis C Antibody ([facility]) (05/13/2025) Hepatitis C Ab Nonreactive Blood 05/13/2025 Result [facility] Historical Provider MD LAB BLOOD ORDERABLES Sandy l Result * HIV Ab/Ag ([facility]) (05/13/2025) Pathologist [facility] HIV Ag/Ab Nonreactive Blood 05/13/2025 Result [facility] Provider MD LAB BLOOD ORDERABLES Sandy l Result * (ABNORMAL) Lipid Panel, Standard (10/11/2023 3:14 PM EST) Pathologist [facility] Triglycerides 209(H) <150 mg/dL [facility] Comment:Desirable Triglyceri de: less than 150 mg/dLBorderline High Triglyceride 150-199 mg/dLHigh Triglyceride: 200-499 mg/dLVery High Triglyceride: greater than or equal to 5OO mg/dL Cholesterol 190 <200 mg/dL [facility] Comment:Desirable Cholestero l: less than 200 mg/dLBorderline High Cholesterol: 200-239 mg/dLHigh Cholesterol: greater than 239 mg/dL LDL Cholesterol Calculated 117(H) <100 mg/dL [facility] Comment:Desirable LDL: less than 100 mg/dLNear Optimal/Above Optimal LDL: 110- 129 mg/dLBorderline High LDL: 130-159 mg/dLHigh LDL: 160-189 mg/dLVery High LDL: greater than or equal to 190 mg/dL HDL Cholesterol 32(L) >40 mg/dL [facility] Comment:Desirable HDL: great er than 40 mg/dL Note: This HDL assay may give artificially low results in patients with liver disease. Blood Venous blood specimen / Unknown 10/11/2023 3:14 PM EST 10/11/2023 5:21 PM EST Result [facility] Shannen Orellana MD LAB BLOOD ORDERABLES Final Re sult [facility] [address] [place] [address] [phone] from Last 3 Months or Most Recently Relevant to Health Maintenance Insurance [facility] C3 DENTAL-[facility] MEDICAID STAND ADULT Care Teams Flatwork Catcher Relationship Specialty Start Date End Date Shannen Orellana MD [address] [place] [address] PCP - General Family Medicine 08/24/22 Geno Arriaga Hopper FeederFacility Service Manager 02/05/24 Maribell Rehman [address] [place] [address] Psychologist 06/27/23 Larry Zaldivar Psychiatrist 06/27/24
--- OUTSIDE RECORDS SUMMARY | 2025-07-29 09:14 | XMS_ITS | Encounter Summary ---
Author Organization [employer] Address [address] [facility] [address] 7t [place] [address] Care Team Providers Care Reo Asset Manager Name Role Phone Shannen Orellana MD Primary Care Provider [phone] Reason for Visit * Reason Onset Date Comments Pt-1 04/08/2025 Encounter Details Date Type Department Care Team ([facility] st Contact Info) Description 04/08/2025 Telephone [facility] MEDICINE [address] [place] [address] Shannen Orellana MD [address] [place] [address] Pt-1 Social History Tobacco Use Types Packs/Day [...] Y/N: Yes Provider name or facility name: [facility] Facility Address: [address] [facility] Escort needed: Y/N: Yes Do you have a wheelchair: Y/N: No If yes- Manual or electric: N/A Visits: Twice a month - Patient calling requesting PT1 Home Address verified: Y/N: Yes Provider name or facility name: [facility] Facility Address: [address] [facility] Escort needed: Y/N: Yes Do you have a wheelchair: Y/N: No If yes- Manual or electric: N/A Visits: Twice a month - Patient calling requesting PT1 Home Address verified: Y/N: Yes Provider name or facility name: [facility] Facility Address: [address] [facility] Escort needed: Y/N: Yes Do you have a wheelchair: Y/N: No If yes- Manual or electric: N/A Visits: Once a month - Patient calling requesting PT1 Home Address verified: Y/N: Yes Provider name or facility name: [facility] Facility Address: [address] [place] [address] [place] [address] Escort needed: Y/N: Yes Do you have a wheelchair: Y/N: No If yes- Manual or electric: N/A Visits: Once a month documented in this encounter Plan of Treatment Upcoming Encounters Date Type Department Care Team (Late st Contact Info) Description 08/06/2025 8:00 AM EST Office Visit [facility]AL [address] [place] [address] Torey Wangio 505 [place] [address] 09/07/2025 9:00 AM EST Office Visit [facility] MED & PEDS [address] [place], [place] [phone] Shannen Orellana MD [address] [place], [place] [phone] 01/01/2026 8:00 AM EDT Office Visit [facility] [address] [place] [address] Lydia Carter documented as of this encounter Visit Diagnoses Not on filedocumented in this encounter Additional Health Concerns Assessment Noted Time PHQ-9 Depression Total Score: 27 024 9:53 AM EDT documented as of this encounter Care Teams Reo Asset Manager Relationship Specialty Start Date End Date Shannen Orellana MD [address] [place] [address] PCP - General Family Medicine 08/24/22 Geno Arriaga Veterinary Laboratory DiagnosticianPower House Engineer 02/05/24 Maribell Rehman [address] [place] [address] Psychologist 06/27/23 Larry Zaldivar Psychiatrist 06/27/24 documented as of this encounter
--- OUTSIDE RECORDS SUMMARY | 2025-07-29 09:14 | XMS_ITS | Encounter Summary ---
Author Organization [employer] Address [address] [facility] [address] 7t [place] [address] Care Team Providers Care Yoker Machine Operator Name Role Phone Shannen Orellana MD Primary Care Provider [phone] Reason for Visit * Reason Onset Date Comments Call Back Request 04/21/2024 Encounter Details Date Type Department Care Team ([facility] Contact Info) Description 04/21/2024 Telephone [facility] MEDICINE [address] [place] [address] Shannen Orellana MD [address] [place], [place] [phone] Call Back Request Social History Tobacco Use [...] the am. Maribell agrees with plan and [phone] is her direct number. * Telephone Encounter - Shannen Orellana MD - 04/22/2024 10:19 AM EDT Please verify if able to and request a call back number and appropriate time for call. If able carve out time in schedule for call will appreciate it, thanks! * Telephone Encounter - Bonnie Ansari - 04/21/2024 12:13 PM EDT Tc from [facility] Therapist requesting to speak with PCP or someone in regards to pt mental health andconcerns, sheet writer tried communicating with RN but call disconnected. documented in this encounter Plan of Treatment Upcoming Encounters Date Type Department Care Team (Late st Contact Info) Description 08/06/2025 8:00 AM EST Office Visit [facility] ADULT DENTAL [address] [place] [address] KathleenOksanaKvng [address] [place] [address] 09/07/2025 9:00 AM EST Office Visit [facility] MED & PEDS [address] [place], [place] [phone] Shannen Orellana MD 505 [place] [address] 01/01/2026 8:00 AM EDT Office Visit [facility] ADULT DENTAL [address] [place], [place] [phone] Lydia Carter documented as of this encounter Visit Diagnoses Not on filedocumented in this encounter Additional Health Concerns Assessment Noted Time PHQ-9 Depression Total Score: 27 024 2:13 PM EST documented as of this encounter Care Teams Yoker Machine Operator Relationship Specialty Start Date End Date Shannen Orellana MD [address] [place] [address] PCP - General Family Medicine 08/24/22 Geno Arriaga Blocker PolishingArtists' Booking Representative 02/05/24 Maribell Rehman [address] [place] [address] Psychologist 06/27/23 Larry Zaldivar Psychiatrist 06/27/24 documented as of this encounter
--- OUTSIDE RECORDS SUMMARY | 2025-07-29 09:14 | XMS_ITS | Encounter Summary ---
Author Organization [employer] Address [address] [facility] [address] 7t [place] [address] Care Team Providers Care Catering Server Name Role Phone Shannen Orellana MD Primary Care Provider [phone] Reason for Visit * Reason Onset Date Comments Medication Question 07/28/2025 Encounter Details Date Type Department Care Team ([facility] Contact Info) Description 07/28/2025 Telephone [facility] CHC MED & PEDS [address] [place] [address] Shannen Orellana MD 505 [place] [address] Medication Question Social History Tobacco Use Types [...] Telephone Encounter - Linnea Cobos RN - 07/28/2025 2:43 PM EST TC to pt. Pt asked if he should continue smoking on wellbutrin or to quit abruptly. Author re educated pt on mechanism of action for wellbutrin, advised for pt to reduce smoking, advised on smoking cessation plans are individualized and pt needs to be proactive in consciously avoiding smoking whilemedication aids in reducing cravings. Pt verbalized understanding and agreement with plan. * Telephone Encounter - Inderjit Garza - 07/28/2025 12:48 PM EST Tc from pt requesting a call back to giovanna clarifications on how to take buPROPion SR (Wellbutrin SR)150 MG 12 hr tablet Contact pt at [phone] documented in this encounter Plan of Treatment Upcoming Encounters Date Type Department Care Team ([facility] st Contact Info) Description 08/06/2025 8:00 AM EST Office Visit [facility] [address] [place] [address] Kvng Wang 505 [place] [address] 09/07/2025 9:00 AM EST Office Visit [facility] MED [facility] PEDS 505 [place] [address] Shannen Orellana MD 505 [place] [address] 01/01/2026 8:00 AM EDT Office Visit [facility] ADULT D[facility] 505 [place] [address] Lydia Carter documented as of this encounter Visit Diagnoses Not on filedocumented in this encounter Additional Health Concerns Assessment Noted Time PHQ-9 Depression Total Score: 24 025 8:54 AM EST documented as of this encounter Care Teams Catering Server Relationship Specialty Start Date End Date Shannen Orellana MD [address] [place] [address] PCP - General Family Medicine 08/24/22 Geno Arriaga Fire TenderYard Spotter 02/05/24 Maribell Rehman [address] [place] [address] Psychologist 06/27/23 Larry Zaldivar Psychiatrist 06/27/24 documented as of this encounter
--- OUTSIDE RECORDS SUMMARY | 2025-07-29 09:14 | XMS_ITS | Encounter Summary ---
Author Organization [employer] Address [address] 7[address] [place] [address] Care Team Providers Care Law Instructor Name Role Phone Shannen Orellana MD Primary Care Provider [phone] Reason for Visit * Reason Onset Date Comments ER Follow-up 08/14/2023 Encounter Details Date Type Department Care Team ([facility] Contact Info) Description 08/14/2023 Telephone [facility] CHC MED & PEDS [address] [place], [place] [phone] Shannen Orellana MD 505 [place] [address] ER Follow-up Social History Tobacco Use Types [...] LM to call us back. Routing backto [facility] nurses to try again. * Telephone Encounter - Tello Frazier - 08/14/2023 8:26 AM EST Tc from pt calling to report ED visit on : Date: 08/14/23 Hospital: [facility] Seen for: Groin Pain documented in this encounter Plan of Treatment Upcoming Encounters Date Type Department Care Team (Late st Contact Info) Description 08/06/2025 8:00 AM EST Office Visit [facility] ADULT DENTAL [address] [place] [address] Kvng Wang 505 [place] [address] 09/07/2025 9:00 AM EST Office Visit [facility] MED & PEDS [address] [place] [address] Shannen Orellana MD 505 [place] [address] 01/01/2026 8:00 AM EDT Office Visit [facility] ADULT DENTAL [address] [place] [address] Lydia Carter documented as of this encounter Visit Diagnoses Not on filedocumented in this encounter Additional Health Concerns Assessment Noted Time PHQ-9 Depression Total Score: 24 022 4:05 PM EST documented as of this encounter Care Teams Law Instructor Relationship Specialty Start Date End Date Shannen Orellana MD [address] [place] [address] PCP - General Family Medicine 08/24/22 Geno Arriaga Molded Goods Embossing Press OperatorUtility Porter 02/05/24 Maribell Rehman [address] [place] [address] Psychologist 06/27/23 Larry Zaldivar Psychiatrist 06/27/24 documented as of this encounter
--- OUTSIDE RECORDS SUMMARY | 2025-07-29 09:14 | XMS_ITS | Encounter Summary ---
Author Organization [employer] Address [address] [facility] [address] 7t [place] [address] Care Team Providers Care Asset Card Clerk Name Role Phone Shannen Orellana MD Primary Care Provider [phone] Reason for Visit * Reason Onset Date Comments Med Refill 06/11/2024 Encounter Details Date Type Department Care Team ([facility] st Contact Info) Description 06/11/2024 Refill [facility] MEDICINE 230 [place], [place] [phone] Carolynn Rodriguez MD 230 [place], [place] [phone] Social History Tobacco Use Types Packs/Day Years [...] [facility] ADULT DENTAL 505 [place] [address] Kvng Wang 505 [place] [address] 09/07/2025 9:00 AM EST Office Visit [facility] MED & PEDS 505 [place] [address] Shannen Orellana MD 505 [place] [address] 01/01/2026 8:00 AM EDT Office Visit [facility] ADULT DENTAL 505 [place] [address] Lydia Carter documented as of this encounter Visit Diagnoses Not on filedocumented in this encounter Additional Health Concerns Assessment Noted Time PHQ-9 Depression Total Score: 27 024 2:13 PM EST documented as of this encounter Care Teams Asset Card Clerk Relationship Specialty Start Date End Date Shannen Orellana MD 230 [place] [address] PCP - General Family Medicine 08/24/22 Geno Arriaga Weather Strip InstallerLead Tinner 02/05/24 Maribell Rehman [address] [place] [address] Psychologist 06/27/23 Larry Zaldivar Psychiatrist 06/27/24 documented as of this encounter
--- OUTSIDE RECORDS SUMMARY | 2025-07-29 09:14 | XMS_ITS | Encounter Summary ---
Author Organization [employer] Address [address] [facility] [address] 7t [place] [address] Care Team Providers Care Tape Coater Name Role Phone Shannen Orellana MD Primary Care Provider [phone] Reason for Visit * Reason Onset Date Comments Created in error 02/22/2024 Encounter Details Date Type Department Care Team ([facility] st Contact Info) Description 02/22/2024 Telephone [facility] MEDICINE [address] [place] [address] Shannen Orellana MD [address] [place] [address] Created in error Social History Tobacco Use [...] 08/06/2025 8:00 AM EST Office Visit [facility] ADULT DENTAL 505 [place] [address] Kvng Wang 505 [place] [address] 09/07/2025 9:00 AM EST Office Visit [facility] MED & PEDS [address] [place] [address] Shannen Orellana MD 505 [place] [address] 01/01/2026 8:00 AM EDT Office Visit [facility] ADULT DENTAL [address] [place] [address] Lydia Carter documented as of this encounter Visit Diagnoses Not on filedocumented in this encounter Additional Health Concerns Assessment Noted Time PHQ-9 Depression Total Score: 27 024 2:13 PM EST documented as of this encounter Care Teams Tape Coater Relationship Specialty Start Date End Date Shannen Orellana MD [address] [place] [address] PCP - General Family Medicine 08/24/22 Geno Arriaga Facilities Mechanical Design EngineerGround Crewman Mission Support 02/05/24 Maribell Rehman [address] [place] [address] Psychologist 06/27/23 Larry Zaldivar Psychiatrist 06/27/24 documented as of this encounter
--- OUTSIDE RECORDS SUMMARY | 2025-07-29 09:14 | XMS_ITS | Encounter Summary ---
Author Organization [employer] Address [address] [facility] [address] 7t [place] [address] Care Team Providers Care Muff Winder Name Role Phone Shannen Orellana MD Primary Care Provider [phone] Reason for Visit * Reason Onset Date Comments Referral 07/02/2023 PT 1 Encounter Details Date Type Department Care Team ([facility] Contact Info) Description 07/02/2023 Telephone [facility] MEDICINE 230 [place] [address] Shannen Orellana MD [address] [place], [place] [phone] Referral (PT 1 1 of 2) Social [...] Date: 07/24 Time: 10:30 Visits: 6 Address: [address] [place] [address] Facility: [facility], Specialty: Pain Management with Wheel Chair: no Computer Science Intern Needed: no documented in this encounter Plan of Treatment Upcoming Encounters Date Type Department Care Team (Late st Contact Info) Description 08/06/2025 8:00 AM EST Office Visit [facility] ADULT DENTAL 505 [place] [address] Kvng Wang 505 [place] [address] 09/07/2025 9:00 AM EST Office Visit [facility] MED & PEDS 505 [place] [address] Shannen Orellana MD 505 [place] [address] 01/01/2026 8:00 AM EDT Office Visit [facility] ADULT DENTAL 505 [place] [address] Lydia Carter documented as of this encounter Visit Diagnoses Not on filedocumented in this encounter Additional Health Concerns Assessment Noted Time PHQ-9 Depression Total Score: 24 022 4:05 PM EST documented as of this encounter Care Teams Muff Winder Relationship Specialty Start Date End Date Shannen Orellana MD [address] [place] [address] PCP - General Family Medicine 08/24/22 Geno Arriaga Supervisor Electronic Testing3Rd Grade Teacher 02/05/24 Maribell Rehman [address] [place] [address] Psychologist 06/27/23 Larry Zaldivar Psychiatrist 06/27/24 documented as of this encounter
--- OUTSIDE RECORDS SUMMARY | 2025-07-29 09:14 | XMS_ITS | Encounter Summary ---
Author Organization [employer] Address [address] 7t [place] [address] Care Team Providers Care Teaching Associate Name Role Phone Shannen Orellana MD Primary Care Provider [phone] Reason for Visit * Reason Onset Date Comments Referral 06/11/2023 Encounter Details Date Type Department Care Team ([facility] Contact Info) Description 06/11/2023 Telephone [facility] MED [facility]ED[facility] [address] [place], [place] [phone] Shannen Orellana MD 505 [place] [address] Referral Social History Tobacco Use Types Packs/Day [facility] [address] [place] [address] Kvng Wang 505 [place] [address] 09/07/2025 9:00 AM EST Office Visit [facility]EDS [address] [place] [address] Shannen Orellana MD 505 [place] [address] 01/01/2026 8:00 AM EDT Office Visit [facility] [address] [place] [address] Lydia Carter documented as of this encounter Visit Diagnoses Not on filedocumented in this encounter Additional Health Concerns Assessment Noted Time PHQ-9 Depression Total Score: 24 022 4:05 PM EST documented as of this encounter Care Teams Teaching Associate Relationship Specialty Start Date End Date Shannen Orellana MD [address] [place] [address] PCP - General Family Medicine 08/24/22 Geno Arriaga Continuous Wave OperatorYoga Instructor 02/05/24 Maribell Rehman [address] [place] [address] Psychologist 06/27/23 Larry Zaldivar Psychiatrist 06/27/24 documented as of this encounter
--- OUTSIDE RECORDS SUMMARY | 2025-07-29 09:14 | XMS_ITS | Encounter Summary ---
Author Organization [employer] Address [address] [facility] [address] 7t [place] [address] Care Team Providers Care Senior Executive Assistant Name Role Phone Shannen Orellana MD Primary Care Provider [phone] Reason for Visit * Reason Onset Date Comments Referral 07/02/2023 PT 1 2 of 2 Encounter Details Date Type Department Care Team ([facility] Contact Info) Description 07/02/2023 Telephone [facility] MEDICINE 230 [place] [address] Shannen Orellana MD [address] [place], [place] [phone] Referral (PT 1 2 of 2) Social [...] PT1 Date: 07/23 Time: 9:00 Visits:6 Address: [address] [place] [address] Facility: [facility], Specialty : Orthopedic surgery with Dr. Galeas Wheel Chair: no Milk Hauler Needed: no documented in this encounter Plan of Treatment Upcoming Encounters Date Type Department Care Team (Late st Contact Info) Description 08/06/2025 8:00 AM EST Office Visit [facility] ADULT DENTAL [address] [place], [place] [phone] Kvng Wang [address] [place], [place] 09/07/2025 9:00 AM EST Office Visit [facility] MED & PEDS [address] [place], [place] [phone] Shannen Orellana MD 505 [place], [place] 01/01/2026 8:00 AM EDT Office Visit [facility] ADULT DENTAL [address] [place], [place] [phone] Lydia Carter documented as of this encounter Visit Diagnoses Not on filedocumented in this encounter Additional Health Concerns Assessment Noted Time PHQ-9 Depression Total Score: 24 022 4:05 PM EST documented as of this encounter Care Teams Senior Executive Assistant Relationship Specialty Start Date End Date Shannen Orellana MD [address] [place] [address] PCP - General Family Medicine 08/24/22 Geno Arriaga Shank ThreaderIt Communications Manager 02/05/24 Maribell Rehman [address] [place] [address] Psychologist 06/27/23 Larry Zaldivar Psychiatrist 06/27/24 documented as of this encounter
--- OUTSIDE RECORDS SUMMARY | 2025-07-29 09:14 | XMS_ITS | Encounter Summary ---
Author Organization [employer] Address [address] [facility] [address] 7[address] [place] [address] Care Team Providers Care Public Accountant Name Role Phone Shannen Orellana MD Primary Care Provider [phone] Encounter Details Date Type Department Care Team (Latest Contact Info) Description 07/27/2025 Travel Social History Tobacco Use Types Packs/Day Years [...] [place] documented as of this encounter Plan of Treatment Upcoming Encounters Date Type Department Care Team (Late st Contact Info) Description 08/06/2025 8:00 AM EST Office [facility] ADULT DENTAL 505 [place] [address] Kvng Wang 505 [place] [address] 09/07/2025 9:00 AM EST Office [facility] MED & PEDS 505 [place] [address] Shannen Orellana MD 505 [place] [address] 01/01/2026 8:00 AM EDT Office Visit [facility] ADULT DENTAL 505 [place] [address] Lydia Carter documented as of this encounter Visit Diagnoses Not on filedocumented in this encounter Additional Health Concerns Assessment Noted Time PHQ-9 Depression Total Score: 24 025 8:54 AM EST documented as of this encounter Care Teams Public Accountant Relationship Specialty Start Date End Date Shannen Orellana MD 230 [place] [address] PCP - General Family Medicine 08/24/22 Geno Arriaga Plant OperatorAuthors Motivational 02/05/24 Maribell Rehman [address] [place] [address] Psychologist 06/27/23 Larry Zaldivar Psychiatrist 06/27/24 documented as of this encounter
--- OUTSIDE RECORDS SUMMARY | 2025-07-29 09:14 | XMS_ITS | Encounter Summary ---
Author Organization [employer] Address [address] 7t [place] [address] Care Team Providers Care Beehive Kiln Charcoal Burner Name Role Phone Shannen Orellana MD Primary Care Provider [phone] Reason for Visit * Reason Comments Med Refill Encounter Details Date Type Department Care Team ([facility] st Contact Info) Description 07/28/2025 Refill [facility] MED & PEDS [address] [place], [place] [phone] Shannen Orellana MD 505 [place] [address] Irritable bowel syndrome with diarrhea; Rhinosinusitis Social History Tobacco Use Types Packs/Day Years [...] Description 08/06/2025 8:00 AM EST Office Visit [facility] ADULT DENTAL 505 [place] [address] Kvng Wang 505 [place] [address] 09/07/2025 9:00 AM EST Office Visit [facility] MED & PEDS 505 [place] [address] Shannen Orellana MD 505 [place] [address] 01/01/2026 8:00 AM EDT Office Visit [facility] ADULT DENTAL [address] [place] [address] Lydia Carter documented as of this encounter Visit Diagnoses Diagnosis Irritable bowel syndrome with diarrhea Irritable bowel syndrome Rhinosinusitis documented in this encounter Additional Health Concerns Assessment Noted Time PHQ-9 Depression Total Score: 24 025 8:54 AM EST documented as of this encounter Care Teams Beehive Kiln Charcoal Burner Relationship Specialty Start Date End Date Shannen Orellana MD [address] [place] [address] PCP - General Family Medicine 08/24/22 Geno Arriaga Foot And Ankle SurgeonMysql Database Developer 02/05/24 Maribell Marcusvaldezdeven [address] [place] [address] Psychologist 06/27/23 Larry Zaldivar Psychiatrist 06/27/24 documented as of this encounter
--- OUTSIDE RECORDS SUMMARY | 2025-07-29 09:14 | XMS_ITS | Encounter Summary ---
Author Organization [employer] Address [address] 7t [place] [address] Care Team Providers Care Electric Lineman Name Role Phone Shannen Orellana MD Primary Care Provider [phone] Reason for Visit * Reason Onset Date Comments Call Back Request 03/26/2024 Encounter Details Date Type Department Care Team ([facility] Contact Info) Description 03/26/2024 Telephone [facility] MEDICINE [address] [place] [address] Shannen Orellana MD [address] [place], [place] [phone] Call Back Request Social History Tobacco Use [...] Description 08/06/2025 8:00 AM EST Office Visit [facility] ADULT [facility] 505 [place] [address] Kvng Wang 505 [place] [address] 09/07/2025 9:00 AM EST Office Visit [facility] MED [facility]EDS [address] [place] [address] Shannen Orellana MD 505 [place] [address] 01/01/2026 8:00 AM EDT Office Visit [facility] ADULT [facility] 505 [place] [address] Lydia Carter documented as of this encounter Visit Diagnoses Not on filedocumented in this encounter Additional Health Concerns Assessment Noted Time PHQ-9 Depression Total Score: 27 024 2:13 PM EST documented as of this encounter Care Teams Electric Lineman Relationship Specialty Start Date End Date Shannen Orellana MD 230 [place] [address] PCP - General Family Medicine 08/24/22 Geno Arriaga Director Of TestingPrinted Products Assembler 02/05/24 Maribell Rehman [address] [place] [address] Psychologist 06/27/23 Larry Zaldivar Psychiatrist 06/27/24 documented as of this encounter
--- OUTSIDE RECORDS SUMMARY | 2025-07-29 09:14 | XMS_ITS | Encounter Summary ---
Author Organization [employer] Address [address] 7[address] [place] [address] Care Team Providers Care Color Matcher Name Role Phone Shannen Orellana MD Primary Care Provider [phone] Reason for Visit * Reason Comments Med Refill Encounter Details Date Type Department Care Team (Late Contact Info) Description 03/12/2023 Refill [facility] MED & PEDS [address] [place], [place] [phone] Name, MD Krzysztof 230 [place] [address] Social History Tobacco Use Types Packs/Day Years [...] [facility] 505 [place] [address] Kvng Wang 505 [place] [address] 09/07/2025 9:00 AM EST Office Visit [facility] MED & PEDS 505 [place] [address] Shannen Orellana MD 505 [place] [address] 01/01/2026 8:00 AM EDT Office Visit [facility] ADULT DENTAL [address] [place] [address] Lydia Carter documented as of this encounter Visit Diagnoses Not on filedocumented in this encounter Additional Health Concerns Assessment Noted Time PHQ-9 Depression Total Score: 24 022 4:05 PM EST documented as of this encounter Care Teams Color Matcher Relationship Specialty Start Date End Date Shannen Orellana MD [address] [place] [address] PCP - General Family Medicine 08/24/22 Geno Arriaga Fun House OperatorAcetylene Cylinder Packing Mixer 02/05/24 Maribell Rehman [address] [place] [address] Psychologist 06/27/23 Larry Zaldivar Psychiatrist 06/27/24 documented as of this encounter
--- OUTSIDE RECORDS SUMMARY | 2025-07-29 09:14 | XMS_ITS | Encounter Summary ---
Author Organization [employer] Address [address] 7t [place] [address] Care Team Providers Care Typewriter Assembly And Parts Inspector Name Role Phone Shannen Orellana MD Primary Care Provider [phone] Reason for Visit * Reason Onset Date Comments Referral 06/11/2023 Encounter Details Date Type Department Care Team ([facility] Contact Info) Description 06/11/2023 Telephone [facility] CHC MED & PEDS 505 [place], [place] [phone] Shannen Orellana MD 505 [place] [address] Referral Social History Tobacco Use Types Packs/Day [...] EST Office Visit [facility] ADULT DENTAL 505 [place] [address] Kvng Wang 505 [place] [address] 09/07/2025 9:00 AM EST Office Visit [facility] MED & PEDS 505 [place] [address] Shannen Orellana MD 505 [place] [address] 01/01/2026 8:00 AM EDT Office Visit [facility] ADULT DENTAL 505 [place] [address] Lydia Carter documented as of this encounter Visit Diagnoses Not on filedocumented in this encounter Additional Health Concerns Assessment Noted Time PHQ-9 Depression Total Score: 24 022 4:05 PM EST documented as of this encounter Care Teams Typewriter Assembly And Parts Inspector Relationship Specialty Start Date End Date Shannen Orellana MD 230 [place] [address] PCP - General Family Medicine 08/24/22 Geno Arriaga Regulatory Affairs SpecialistHand Candle Molder 02/05/24 Maribell Rehman [address] [place] [address] Psychologist 06/27/23 Larry Zaldivar Psychiatrist 06/27/24 documented as of this encounter
--- OUTSIDE RECORDS SUMMARY | 2025-07-29 09:14 | XMS_ITS | Encounter Summary ---
Author Organization [employer] Address [address] 7[address] [place] [address] Care Team Providers Care Tamping Machine Operator Name Role Phone Shannen Orellana MD Primary Care Provider [phone] Reason for Visit * Reason Onset Date Comments Med Refill 11/22/2023 Encounter Details Date Type Department Care Team ([facility] st Contact Info) Description 11/22/2023 Refill [facility] MEDICINE 230 [place], [place] [phone] Name, MD Krzysztof 230 [place] [address] Social History Tobacco Use Types Packs/Day Years [...] 8:00 AM EST Office Visit [facility] ADULT DENTAL 505 [place] [address] Kvng Wang 505 [place] [address] 09/07/2025 9:00 AM EST Office Visit [facility] MED & PEDS 505 [place] [address] Shannen Orellana MD 505 [place] [address] 01/01/2026 8:00 AM EDT Office Visit [facility] ADULT DENTAL 505 [place] [address] Lydia Carter documented as of this encounter Visit Diagnoses Not on filedocumented in this encounter Additional Health Concerns Assessment Noted Time PHQ-9 Depression Total Score: 27 024 2:13 PM EST documented as of this encounter Care Teams Tamping Machine Operator Relationship Specialty Start Date End Date Shannen Orellana MD 230 [place] [address] PCP - General Family Medicine 08/24/22 Geno Arriaga Human Resources ReceptionistShipping And Receiving Clerk 02/05/24 Maribell Rehman [address] [place] [address] Psychologist 06/27/23 Larry Zaldivar Psychiatrist 06/27/24 documented as of this encounter
--- OUTSIDE RECORDS SUMMARY | 2025-07-29 09:14 | XMS_ITS | Encounter Summary ---
Author Organization [employer] Address [address] 7t [place] [address] Care Team Providers Care It Service Technician Name Role Phone Shannen Orellana MD Primary Care Provider [phone] Reason for Visit * Reason Onset Date Comments PT-1 07/18/2023 Encounter Details Date Type Department Care Team ([facility] Contact Info) Description 07/18/[address] [facility] MEDICINE 230 [place] [address] Shannen Orellana MD [address] [place] [address] PT-1 Social History Tobacco Use Types Packs/Day [...] Date: 08/07/2023 Time: 1:00 pm Visits:6 Address: [address] [place] [address] Facility: podiatry Dr. Watson Wheel Chair: no Integrated Marketing Intern Needed: no documented in this encounter Plan of Treatment Upcoming Encounters Date Type Department Care Team (Late st Contact Info) Description 08/06/2025 8:00 AM EST Office Visit [facility] ADULT DENTAL 505 [place] [address] Kvng Wang 505 [place] [address] 09/07/2025 9:00 AM EST Office Visit [facility] MED & PEDS 505 [place] [address] Shannen Orellana MD 505 [place] [address] 01/01/2026 8:00 AM EDT Office Visit [facility] ADULT DENTAL 505 [place] [address] Lydia Carter documented as of this encounter Visit Diagnoses Not on filedocumented in this encounter Additional Health Concerns Assessment Noted Time PHQ-9 Depression Total Score: 24 022 4:05 PM EST documented as of this encounter Care Teams It Service Technician Relationship Specialty Start Date End Date Shannen Orellana MD 230 [place] [address] PCP - General Family Medicine 08/24/22 Geno Arriaga Safety TechFire Prevention Research Engineer 02/05/24 Maribell Rehman [address] [place] [address] Psychologist 06/27/23 Larry Zaldivar Psychiatrist 06/27/24 documented as of this encounter
--- OUTSIDE RECORDS SUMMARY | 2025-07-29 09:14 | XMS_ITS | Encounter Summary ---
Author Organization [employer] Address [address] [facility] 7t [place] [address] Care Team Providers Care Upper And Bottom Lacer Hand Name Role Phone Shannen Orellana MD Primary Care Provider [phone] Encounter Details Date Type Department Care Team (Late Contact Info) Description 01/08/2023 Orders Only [facility] MED & PEDS [address] [place] [address] Patricia De Jesus LPN Social History Tobacco [...] 8:00 AM EST Office Visit [facility] ADULT DENTAL [address] [place] [address] Kvng Wang 505 [place] [address] 09/07/2025 9:00 AM EST Office Visit [facility] MED & PEDS [address] [place] [address] Shannen Orellana MD 505 [place] [address] 01/01/2026 8:00 AM EDT Office Visit [facility] ADULT DENTAL [address] [place] [address] Lydia Carter documented as of this encounter Procedures Procedure Name Priority Date/Time Associated Diagnosis Comments MR LUMBAR SPINE WO CONTRAST Routine 01/11/2023 3:42 PM EDT documented in this encounter Results * MR Lumbar Spine w/o Contrast (01/11/2023 3:42 PM EDT) Anatomical Region Laterality Modality Spine, L-spine Magnetic Resonan ce 01/11/2023 3:42 PM EDT Narrative 01/26/2023 4:37 AM EDT [facility] [address] [place] [address] Magnetic Resonance Report Signed Patient: Jonas Birmingham MR#: [id number] 25 : 1980 Acct:[id number] Age/Sex: 42 / M ADM Date: 01/11/23 Loc: HO.MRI Attending Dr: Shannen Orellana MD Ordering Physician: Shannen Orellana MD Date of Service: 01/11/23 Procedure(s): MR lumbar spine wo con Accession Number(s): [id number] cc: Shannen Orellana MD EXAMINATION: MR LUMBAR [...] in OV> 01/26/23 0434 DD/ 1542 TD/TT: Structural Steel Equipment Erector: DONTRELL Procedure Note Donotuseinterpreter, Image - 01/26/2023 [place] [address] Magnetic Resonance Report Signed Patient: Jonas BirminghamMR#: [id number] 25 : 1980Acct:[id number] Age/Sex: 42 / MADM Date: 01/11/23 Loc: HO.MRI Attending Dr: Shannen Orellana MD Ordering Physician: Shannen Orellana MD Date of Service: 01/11/23 Procedure(s): MR lumbar spine wo con Accession Number(s): [id number] cc: Shannen Orellana MD EXAMINATION: MR LUMBAR [...] in OV> 01/26/23 0434 DD/ 1542 TD/TT: Structural Steel Equipment Erector: DONTRELL [facility] External Provider IMG MRI PROCEDURES Final Result documented in this encounter Visit Diagnoses Not on filedocumented in this encounter Additional Health Concerns Assessment Noted Time PHQ-9 Depression Total Score: 24 08/24/ 022 4:05 PM EST documented as of this encounter Care Teams Upper And Bottom Lacer Hand Relationship Specialty Start Date End Date Shannen Orellana MD [address] [place] [address] PCP - General Family Medicine 08/24/22 Geno Arriaga Rn Occupational HealthJointer Operator 02/05/24 Maribell Rehman [address] [place] [address] Psychologist 06/27/23 Larry Zaldivar Psychiatrist 06/27/24 documented as of this encounter
--- OUTSIDE RECORDS SUMMARY | 2025-07-29 09:14 | XMS_ITS | Encounter Summary ---
Author Organization [employer] Address [address] 7t [place] [address] Care Team Providers Care Data Coder Operator Name Role Phone Shannen Orellana MD Primary Care Provider [phone] Reason for Visit * Reason Onset Date Comments Referral 07/18/2024 Encounter Details Date Type Department Care Team ([facility] st Contact Info) Description 07/18/2024 Telephone [facility] MEDICINE [address] [place] [address] Shannen Orellana MD [address] [place] [address] Referral Social History Tobacco Use Types Packs/Day [...] stated he is willing to go to [place] for podiatry. * Telephone Encounter - Anu Owens - 07/18/2024 2:46 PM EST Message left for patient asking if he is willing to travel to [place] for podiatry. * Telephone Encounter - Tello Frazier - 07/18/2024 12:15 PM EST Tc from pt calling in regards to podiatry referral stating he is [facility]. If any questions you can contact pt at [phone]. documented in this encounter Plan of Treatment Upcoming Encounters Date Type Department Care Team (Late st Contact Info) Description 08/06/2025 8:00 AM EST Office Visit [facility] ADULT DENTAL 505 [place] [address] Kvng Wang 505 [place] [address] 09/07/2025 9:00 AM EST Office Visit [facility] MED & PEDS [address] [place] [address] Shannen Orellana MD 505 [place] [address] 01/01/2026 8:00 AM EDT Office Visit [facility] ADULT DENTAL 505 [place] [address] Lydia Carter documented as of this encounter Visit Diagnoses Not on filedocumented in this encounter Additional Health Concerns Assessment Noted Time PHQ-9 Depression Total Score: 27 024 9:53 AM EDT documented as of this encounter Care Teams Data Coder Operator Relationship Specialty Start Date End Date Shannen Orellana MD [address] [place] [address] PCP - General Family Medicine 08/24/22 Geno Arriaga Birth Certificate ClerkOptical Element Coater 02/05/24 Maribell Rehman [address] [place] [address] Psychologist 06/27/23 Larry Zaldivar Psychiatrist 06/27/24 documented as of this encounter
--- OUTSIDE RECORDS SUMMARY | 2025-07-29 09:14 | XMS_ITS | Encounter Summary ---
Author Organization [email or web address] Address [address] [place] [address] Care Team Providers Care Talent Management Manager Name Role Phone Shannen Orellana MD Primary Care Provider [phone] Reason for Visit * Reason Onset Date Comments call back needed 05/04/2025 Encounter Details Date Type Department Care Team ([facility] Contact Info) Description 05/04/2025 Telephone [facility] MEDICINE 230 [place] [address] Shannen Orellana MD [address] [place] [address] call back needed Social History Tobacco Use Types Packs/Day Years [...] * Telephone Encounter - Jayson Leonard - 05/04/2025 3:56 PM EDT TC from pt wanting a call back from Nurse Fish Processing Supervisor regarding PA for RABEprazole (Aciphex) 20 MG EC tablet . Pt was advised that Provider is not going forward with Pa and recommended to schedule a visit with PCP to go over alternatives. Per pt : This is unacceptable and is requesting a call back from group manager as soon as tomorrow. 05/05/25 If does not receive a call from group manager by tomorrow will show up on Sunday. Pt reports I have a lactation coordinator documented in this encounter Plan of Treatment Upcoming Encounters Date Type Department Care Team (Late st Contact Info) Description 08/06/2025 8:00 AM EST Office Visit [facility] ADULT DENTAL 505 [place] [address] Kvng Wang 505 [place] [address] 09/07/2025 9:00 AM EST Office Visit [facility] MED & PEDS 505 [place] [address] Shannen Orellana MD 505 [place] [address] 01/01/2026 8:00 AM EDT Office Visit [facility] ADULT DENTAL [address] [place] [address] Lydia Carter documented as of this encounter Visit Diagnoses Not on filedocumented in this encounter Additional Health Concerns Assessment Noted Time PHQ-9 Depression Total Score: 27 024 9:53 AM EDT documented as of this encounter Care Teams Talent Management Manager Relationship Specialty Start Date End Date Shannen Orellana MD [address] [place] [address] PCP - General Family Medicine 08/24/22 Geno Arriaga Civil Engineering DirectorDirector Of Quality Improvement 02/05/24 Maribell Rehman [address] [place] [address] Psychologist 06/27/23 Larry Zaldivar Psychiatrist 06/27/24 documented as of this encounter
--- OUTSIDE RECORDS SUMMARY | 2025-07-29 09:14 | XMS_ITS | Encounter Summary ---
Author Organization [employer] Address [address] [facility] [facility] [address] 7t [place] [address] Care Team Providers Care Transportation Security Officer Name Role Phone Shannen Orellana MD Primary Care Provider [phone] Reason for Visit * Reason Onset Date Comments PT-1 05/09/2024 Encounter Details Date Type Department Care Team ([facility] st Contact Info) Description 05/09/2024 Telephone [facility] MEDICINE 230 [place] [address] Shannen Orellana MD [address] [place] [address] PT-1 Social History Tobacco Use Types Packs/Day [...] thats nothing had changed. Contact pt at [phone] * Telephone Encounter - Tello Frazier - 05/09/2024 3:13 PM EDT Patient calling requesting PT1 Home Address verified: Y/N: Yes Provider name or facility name: [facility] Facility Address: [address] [place] [address] Escort needed: Y/N: No Do you have a wheelchair: Y/N: No If yes- Manual or electric: N/A Visits: 6 monthly Pt requesting call back if there are any issues with PT1. Contact pt at [phone]. documented in this encounter Plan of Treatment Upcoming Encounters Date Type Department Care Team (Late st Contact Info) Description 08/06/2025 8:00 AM EST Office Visit [facility] ADULT DENTAL 505 [place] [address] Kvng Wang 505 [place] [address] 09/07/2025 9:00 AM EST Office Visit [facility] MED & PEDS [address] [place] [address] Shannen Orellana MD 505 [place] [address] 01/01/2026 8:00 AM EDT Office Visit [facility] ADULT DENTAL 505 [place] [address] Lydia Carter documented as of this encounter Visit Diagnoses Not on filedocumented in this encounter Additional Health Concerns Assessment Noted Time PHQ-9 Depression Total Score: 27 024 2:13 PM EST documented as of this encounter Care Teams Transportation Security Officer Relationship Specialty Start Date End Date Shannen Orellana MD [address] [place] [address] PCP - General Family Medicine 08/24/22 Geno Arriaga Aircraft RiveterSchool Resource Officer 02/05/24 Maribell Rehman [address] [place] [address] Psychologist 06/27/23 Larry Zaldivar Psychiatrist 06/27/24 documented as of this encounter
--- OUTSIDE RECORDS SUMMARY | 2025-07-29 09:15 | XMS_ITS | Encounter Summary ---
Author Organization [employer] Address [address] [facility] [address] [address] 7t [place] [address] Care Team Providers Care Landscaping Specialist Name Role Phone Shannen Orellana MD Primary Care Provider [phone] Reason for Visit * Reason Onset Date Comments Call Back Request 07/28/2025 Encounter Details Date Type Department Care Team ([facility] Contact Info) Description 07/28/2025 Telephone [facility] MED & PEDS [address] [place] [address] Shannen Orellana MD 505 [place] [address] Call Back Request Social History Tobacco Use [...] Miscellaneous Notes * Telephone Encounter - Inderjit Garaz - 07/28/2025 12:50 PM EST Tc from pt stating he was referred to [facility] podiatry and PT1 was denied , he is requesting for it be reinstated as last year or be referred too new independent marketing consultant Contact pt at [phone] documented in this encounter Plan of Treatment Upcoming Encounters Date Type Department Care Team ([facility] st Contact Info) Description 08/06/2025 8:00 AM EST Office Visit [facility] ADULT DENTAL 505 [place] [address] Kvng Wang 505 [place] [address] 09/07/2025 9:00 AM EST Office Visit [facility] MED & PEDS [address] [place] [address] Shannen Orellana MD 505 [place] [address] 01/01/2026 8:00 AM EDT Office Visit [facility] ADULT DENTAL [address] [place] [address] Lydia Carter documented as of this encounter Visit Diagnoses Not on filedocumented in this encounter Additional Health Concerns Assessment Noted Time PHQ-9 Depression Total Score: 24 025 8:54 AM EST documented as of this encounter Care Teams Landscaping Specialist Relationship Specialty Start Date End Date Shannen Orellana MD [address] [place] [address] PCP - General Family Medicine 08/24/22 Geno Arriaga It Architecture AnalystDrywall Hanger 02/05/24 Maribell Rehman [address] [place] [address] Psychologist 06/27/23 Larry Zaldivar Psychiatrist 06/27/24 documented as of this encounter
== END 2025-07-29 09:51 | disposition home or self-care (01) ==
LOC: HO.RHES 08:51
PROVIDERS: PCP Family Medicine; Visit Provider Student in an Organized Health Care Education/Training Program
DX: M54.50 Low back pain, unspecified (principal); M25.50 Pain in unspecified joint; M79.7 Fibromyalgia
CPT/HCPCS: 99204

== ENCOUNTER → 2025-07-29 08:50 | Outpatient (BNVA) | payer MEDICAID, SELFPAY | PROVIDERS: PCP Family Medicine; Visit Provider Student in an Organized Health Care Education/Training Program | DX: M79.7 Fibromyalgia (principal); M54.50 Low back pain, unspecified; M79.641 Pain in right hand; M79.642 Pain in left hand; M25.532 Pain in left wrist; M54.2 Cervicalgia; M25.561 Pain in right knee; M25.562 Pain in left knee; M25.531 Pain in right wrist | CPT/HCPCS: 99202 ==

== ENCOUNTER 2025-08-25 09:28 | Outpatient (REF) | payer MEDICAID, SELFPAY ==
--- OUTSIDE RECORDS SUMMARY | 2025-08-25 12:09 | XMS_ITS | Encounter Summary ---
Author Organization [employer] Address [address] [facility] [address] 7t [place] [address] Care Team Providers Care Spool Salvager Name Role Phone Shannen Orellana MD Primary Care Provider [phone] Reason for Visit * Reason Onset Date Comments Call Back Request 03/26/2024 Encounter Details Date Type Department Care Team ([facility] Contact Info) Description 03/26/2024 Telephone [facility] MEDICINE 230 [place] [address] Shannen Orellana MD [address] [place], [place] [phone] Call Back Request Social History Tobacco Use [...] Care Team (Late st Contact Info) Description 09/07/2025 9:00 AM EST Office Visit [facility] MED & PEDS 505 [place] [address] Shannen Orellana MD 505 [place] [address] 09/25/2025 8:00 AM EST Office Visit [facility] ADULT DENTAL [address] [place] [address] Kvng Wang 505 [place] [address] 01/01/2026 8:00 AM EDT Office Visit [facility] ADULT DENTAL [address] [place] [address] Lydia Carter documented as of this encounter Visit Diagnoses Not on filedocumented in this encounter Additional Health Concerns Assessment Noted Time PHQ-9 Depression Total Score: 27 024 2:13 PM EST documented as of this encounter Care Teams Spool Salvager Relationship Specialty Start Date End Date Shannen Orellana MD 230 [place] [address] PCP - General Family Medicine 08/24/22 Geno Arriaga Sprinkler InspectorHealthcare Advisory Services Manager 02/05/24 Maribell Rehman [address] [place] [address] Psychologist 06/27/23 Larry Zaldivar Psychiatrist 06/27/24 documented as of this encounter
--- OUTSIDE RECORDS SUMMARY | 2025-08-25 12:09 | XMS_ITS | Encounter Summary ---
Author Organization [employer] Address [address] [facility] [address] 7t [place] [address] Care Team Providers Care Liner Roll Changer Name Role Phone Shannen Orellana MD Primary Care Provider [phone] Reason for Visit * Reason Onset Date Comments PT-1 07/18/2023 Encounter Details Date Type Department Care Team ([facility] Contact Info) Description 07/18/2023 Telephone [facility] MEDICINE 230 [place] [address] Shannen Orellana MD [address] [place] [address] PT-1 Social History Tobacco Use Types Packs/Day [...] Date: 08/07/2023 Time: 1:00 pm Visits:6 Address: [address] [place] [address] Facility: podiatry Dr. Watson Wheel Chair: no Road Hogger Operator Needed: no documented in this encounter Plan of Treatment Upcoming Encounters Date Type Department Care Team (Late st Contact Info) Description 09/07/2025 9:00 AM EST Office Visit [facility] MED & PEDS 505 [place] [address] Shannen Orellana MD 505 [place] [address] 09/25/2025 8:00 AM EST Office Visit [facility] ADULT DENTAL [address] [place] [address] Kvng Wang 505 [place] [address] 01/01/2026 8:00 AM EDT Office Visit [facility] ADULT DENTAL [address] [place] [address] Lydia Carter documented as of this encounter Visit Diagnoses Not on filedocumented in this encounter Additional Health Concerns Assessment Noted Time PHQ-9 Depression Total Score: 24 022 4:05 PM EST documented as of this encounter Care Teams Liner Roll Changer Relationship Specialty Start Date End Date Shannen Orellana MD 230 [place] [address] PCP - General Family Medicine 08/24/22 Geno Arriaga Director CallLife Science Technician 02/05/24 Maribell Rehman [address] [place] [address] Psychologist 06/27/23 Larry Zaldivar Psychiatrist 06/27/24 documented as of this encounter
--- OUTSIDE RECORDS SUMMARY | 2025-08-25 12:09 | XMS_ITS | Encounter Summary ---
Author Organization [employer] Address [address] [facility] [address] 7t [place] [address] Care Team Providers Care Seo Manager Name Role Phone Shannen Orellana MD Primary Care Provider [phone] Reason for Visit * Reason Onset Date Comments Med Refill 12/20/2023 Encounter Details Date Type Department Care Team ([facility] st Contact Info) Description 12/20/2023 Refill [facility] MED & PEDS 505 [place] [address] Shannen Orellana MD 505 [place] [address] Pruritic rash Social History Tobacco Use Types [...] Description 09/07/2025 9:00 AM EST Office Visit [facility] MED & PEDS 505 [place] [address] Shannen Orellana MD 505 [place] [address] 09/25/2025 8:00 AM EST Office Visit [facility] ADULT DENTAL 505 [place] [address] Kvng Wang 505 [place] [address] 01/01/2026 8:00 AM EDT Office Visit [facility] ADULT DENTAL 505 [place] [address] Lydia Carter documented as of this encounter Visit Diagnoses Diagnosis Pruritic rash documented in this encounter Additional Health Concerns Assessment Noted Time PHQ-9 Depression Total Score: 27 024 2:13 PM EST documented as of this encounter Care Teams Seo Manager Relationship Specialty Start Date End Date Shannen Orellana MD [address] [place] [address] PCP - General Family Medicine 08/24/22 Geno Arriaga Casing FlusherBag Loader Machine Operator 02/05/24 Maribell Rehman [address] [place] [address] Psychologist 06/27/23 Larry Zaldivar Psychiatrist 06/27/24 documented as of this encounter
--- OUTSIDE RECORDS SUMMARY | 2025-08-25 12:09 | XMS_ITS | Encounter Summary ---
Author Organization [employer] Address [address] [facility] [address] 7t [place] [address] Care Team Providers Care Longshore Equipment Operator Name Role Phone Shannen Orellana MD Primary Care Provider [phone] Reason for Visit * Reason Comments Med Refill Encounter Details Date Type Department Care Team ([facility] st Contact Info) Description 08/22/2025 Refill [facility] MEDICINE 230 [place] [address] Shannen Orellana MD [address] [place], [place] [phone] On pre-exposure prophylaxis for HIV Social History [...] Description 09/07/2025 9:00 AM EST Office Visit [facility] MED & PEDS 505 [place] [address] Shannen Orellana MD 505 [place] [address] 09/25/2025 8:00 AM EST Office Visit [facility] ADULT DENTAL 505 [place] [address] Kvng Wang 505 [place] [address] 01/01/2026 8:00 AM EDT Office Visit [facility] ADULT DENTAL 505 [place] [address] Lydia Carter documented as of this encounter Visit Diagnoses Diagnosis On pre-exposure prophylaxis for HIV documented in this encounter Additional Health Concerns Assessment Noted Time PHQ-9 Depression Total Score: 24 025 8:54 AM EST documented as of this encounter Care Teams Longshore Equipment Operator Relationship Specialty Start Date End Date Shannen Orellana MD [address] [place] [address] PCP - General Family Medicine 08/24/22 Geno Arriaga Deckhand Crab BoatWire Winding Machine Operator 02/05/24 Maribell Rehman [address] [place] [address] Psychologist 06/27/23 Larry Zaldivar Psychiatrist 06/27/24 documented as of this encounter
--- OUTSIDE RECORDS SUMMARY | 2025-08-25 12:09 | XMS_ITS | Encounter Summary ---
Author Organization [employer] Address [address] [facility] [address] 7t [place] [address] Care Team Providers Care Field Service Engineer Name Role Phone Shannen Orellana MD Primary Care Provider [phone] Reason for Visit * Reason Onset Date Comments Med Refill 02/19/2024 Encounter Details Date Type Department Care Team ([facility] st Contact Info) Description 02/19/2024 Refill [facility] MED[facility]INE 230 [place] [address] Shannen Orellana MD [address] [place], [place] [phone] On pre-exposure prophylaxis for HIV Social History [...] Description 09/07/2025 9:00 AM EST Office Visit [facility] MED & PEDS 505 [place] [address] Shannen Orellana MD 505 [place] [address] 09/25/2025 8:00 AM EST Office Visit [facility] ADULT DENTAL 505 [place] [address] Kvng Wang 505 [place] [address] 01/01/2026 8:00 AM EDT Office Visit [facility] ADULT DENTAL 505 [place] [address] Lydia Carter documented as of this encounter Visit Diagnoses Diagnosis On pre-exposure prophylaxis for HIV documented in this encounter Additional Health Concerns Assessment Noted Time PHQ-9 Depression Total Score: 27 024 2:13 PM EST documented as of this encounter Care Teams Field Service Engineer Relationship Specialty Start Date End Date Shannen Orellana MD [address] [place] [address] PCP - General Family Medicine 08/24/22 Geno Arriaga Cartography TechnicianMechanic Chief 02/05/24 Maribell Rehman [address] [place] [address] Psychologist 06/27/23 Larry Zaldivar Psychiatrist 06/27/24 documented as of this encounter
--- OUTSIDE RECORDS SUMMARY | 2025-08-25 12:09 | XMS_ITS | Encounter Summary ---
Author Organization [employer] Address [address] [facility] [address] 7t [place] [address] Care Team Providers Care Hemotherapist Name Role Phone Shannen Orellana MD Primary Care Provider [phone] Reason for Visit * Reason Onset Date Comments PT-1 07/09/2025 Encounter Details Date Type Department Care Team ([facility] Contact Info) Description 07/09/2025 Telephone [facility] MEDICINE 230 [place] [address] Shannen Orellana MD [address] [place] [address] PT-1 Social History Tobacco Use Types Packs/Day [...] Y/N: Yes Provider name or facility name: [facility] Facility Address: [address] [address] Escort needed: Y/N: Yes Do you have a wheelchair: Y/N: No If yes- Manual or electric: / Visits: (amount of visits) ( x monthly, weekly, daily) Patient calling requesting PT1 Home Address verified: Y/N: Yes Provider name or facility name: [facility] Facility Address: [address] [place] [address] Escort needed: Y/N: No Do you have a wheelchair: Y/N: No If yes- Manual or electric: / Visits: (amount of visits) ( x monthly, weekly, daily) PCP DR. Orellana documented in this encounter Plan of Treatment Upcoming Encounters Date Type Department Care Team ([facility] st Contact Info) Description 09/07/2025 9:00 AM EST Office Visit [facility] MED & PEDS 505 [place] [address] Shannen Orellana MD 505 [place] [address] 09/25/2025 8:00 AM EST Office Visit [facility] ADULT DENTAL 505 [place] [address] Kvng Wang 505 [place] [address] 01/01/2026 8:00 AM EDT Office Visit [facility] ADULT DENTAL 505 [place] [address] Lydia Carter documented as of this encounter Visit Diagnoses Not on filedocumented in this encounter Additional Health Concerns Assessment Noted Time PHQ-9 Depression Total Score: 27 024 9:53 AM EDT documented as of this encounter Care Teams Hemotherapist Relationship Specialty Start Date End Date Shannen Orellana MD [address] [place] [address] PCP - General Family Medicine 08/24/22 Geno Arriaga Delivery AgentMaterial Disposition Inspector 02/05/24 Maribell Rehman [address] [place] [address] Psychologist 06/27/23 Larry Zaldivar Psychiatrist 06/27/24 documented as of this encounter
--- OUTSIDE RECORDS SUMMARY | 2025-08-25 12:09 | XMS_ITS | Encounter Summary ---
Author Organization [employer] Address [address] [facility] [address] 7t [place] [address] Care Team Providers Care Evidence Custodian Name Role Phone Shannen Orellana MD Primary Care Provider [phone] Reason for Visit * Reason Onset Date Comments PT-1 05/09/2024 Encounter Details Date Type Department Care Team ([facility] st Contact Info) Description 05/09/2024 Telephone [facility] MEDICINE 230 [place] [address] Shannen Orellana MD [address] [place] [address] PT-1 Social History Tobacco Use Types Packs/Day [...] thats nothing had changed. Contact pt at [phone] * Telephone Encounter - Tello Frazier - 05/09/2024 3:13 PM EDT Patient calling requesting PT1 Home Address verified: Y/N: Yes Provider name or facility name: [facility] Facility Address: [address] [place] [address] Escort needed: Y/N: No Do you have a wheelchair: Y/N: No If yes- Manual or electric: N/A Visits: 6 monthly Pt requesting call back if there are any issues with PT1. Contact pt at [phone]. documented in this encounter Plan of Treatment Upcoming Encounters Date Type Department Care Team (Late st Contact Info) Description 09/07/2025 9:00 AM EST Office Visit [facility] MED & PEDS 505 [place] [address] Shannen Orellana MD 505 [place] [address] 09/25/2025 8:00 AM EST Office Visit [facility] ADULT D[facility]AL 505 [place] [address] Kvng Wang 505 [place] [address] 01/01/2026 8:00 AM EDT Office Visit [facility] ADULT DENTAL 505 [place] [address] Lydia Carter documented as of this encounter Visit Diagnoses Not on filedocumented in this encounter Additional Health Concerns Assessment Noted Time PHQ-9 Depression Total Score: 27 024 2:13 PM EST documented as of this encounter Care Teams Evidence Custodian Relationship Specialty Start Date End Date Shannen Orellana MD [address] [place] [address] PCP - General Family Medicine 08/24/22 Geno Arriaga Emt I/99Diagnostic Sales Specialist 02/05/24 Maribell Rehman [address] [place] [address] Psychologist 06/27/23 Larry Zaldivar Psychiatrist 06/27/24 documented as of this encounter
--- OUTSIDE RECORDS SUMMARY | 2025-08-25 12:09 | XMS_ITS | Encounter Summary ---
Author Organization [employer] Address [address] [facility] [address] 7t [place] [address] Care Team Providers Care Bulbs Farmworker Name Role Phone Shannen Orellana MD Primary Care Provider [phone] Reason for Visit * Reason Onset Date Comments Call Back Request 04/21/2024 Encounter Details Date Type Department Care Team ([facility] Contact Info) Description 04/21/2024 Telephone [facility] MEDICINE 230 [place] [address] Shannen Orellana MD [address] [place], [place] [phone] Call Back Request Social History Tobacco Use [...] the am. Maribell agrees with plan and [phone] is her direct number. * Telephone Encounter [...] in regards to pt mental health andconcerns, promotion writer tried communicating with RN but call disconnected. documented in this encounter Plan of Treatment Upcoming Encounters Date Type Department Care Team (Late st Contact Info) Description 09/07/2025 9:00 AM EST Office Visit [facility] MED & PEDS 505 [place] [address] Shannen Orellana MD 505 [place], [place] [phone] 09/25/2025 8:00 AM EST Office Visit [facility] ADULT DENTAL 505 [place], [place] [phone] Kvng Wang 505 [place] [address] 01/01/2026 8:00 AM EDT Office Visit [facility] ADULT DENTAL 505 [place] [address] Lydia Carter documented as of this encounter Visit Diagnoses Not on filedocumented in this encounter Additional Health Concerns Assessment Noted Time PHQ-9 Depression Total Score: 27 024 2:13 PM EST documented as of this encounter Care Teams Bulbs Farmworker Relationship Specialty Start Date End Date Shannen Orellana MD [address] [place] [address] PCP - General Family Medicine 08/24/22 Geno Arriaga Sap Bw ArchitectCarousel Operator 02/05/24 Maribell Rehman [address] [place] [address] Psychologist 06/27/23 Larry Zaldivar Psychiatrist 06/27/24 documented as of this encounter
--- OUTSIDE RECORDS SUMMARY | 2025-08-25 12:09 | XMS_ITS | Clinical Summary ---
Author Organization [facility] Address [address] [place] [address] Phone Care Team Providers Care Health Promotion Manager Name Role Phone Shannen Orellana MD Primary Care Provider [phone] Allergies Active Allergy Reactions Criticality Noted Date [...] ACO C3 ACO C3 ACO C3 ACO [facility] INSURANCE Care Teams Health Promotion Manager Relationship Specialty Start Date End Date Shannen Orellana MD [address] [place] [address] PCP - General Family Medicine 11/27/23 Additional Source Comments The information contained in this document represents components of the legal health record. It is not the complete legal health record.[facility]
--- OUTSIDE RECORDS SUMMARY | 2025-08-25 12:09 | XMS_ITS | Encounter Summary ---
Author Organization [employer] Address [address] [facility] [address] 7t [place] [address] Care Team Providers Care Golf Professional Name Role Phone Shannen Orellana MD Primary Care Provider [phone] Reason for Visit * Reason Onset Date Comments Med Refill 06/11/2024 Encounter Details Date Type Department Care Team ([facility] st Contact Info) Description 06/11/[address] [facility] MEDICINE 230 [place], [place] [phone] Carolynn Rodriguez MD 230 [place], [place] [phone] Social History Tobacco Use Types Packs/Day Years [...] 9:00 AM EST Office Visit [facility] MED & PEDS 505 [place] [address] Shannen Orellana MD 505 [place] [address] 09/25/2025 8:00 AM EST Office Visit [facility] ADULT DENTAL 505 [place] [address] Kvng Wang 505 [place] [address] 01/01/2026 8:00 AM EDT Office Visit [facility] ADULT DENTAL 505 [place] [address] Lydia Carter documented as of this encounter Visit Diagnoses Not on filedocumented in this encounter Additional Health Concerns Assessment Noted Time PHQ-9 Depression Total Score: 27 024 2:13 PM EST documented as of this encounter Care Teams Golf Professional Relationship Specialty Start Date End Date Shannen Orellana MD 230 [place] [address] PCP - General Family Medicine 08/24/22 Geno Arriaga Communication Equipment MechanicSewage Screen Operator 02/05/24 Maribell Rehman [address] [place] [address] Psychologist 06/27/23 Larry Zaldivar Psychiatrist 06/27/24 documented as of this encounter
--- OUTSIDE RECORDS SUMMARY | 2025-08-25 12:09 | XMS_ITS | Encounter Summary ---
Author Organization [employer] Address [address] [facility] [address] 7t [place] [address] Care Team Providers Care Qa Architect Name Role Phone Shannen Orellana MD Primary Care Provider [phone] Reason for Visit * Reason Onset Date Comments ER Follow-up 08/14/2023 Encounter Details Date Type Department Care Team ([facility] Contact Info) Description 08/14/2023 Telephone [facility] MED & PEDS 505 [place], [place] [phone] Shannen Orellana MD 505 [place] [address] ER Follow-up Social History Tobacco Use Types [...] LM to call us back. Routing backto [facility] nurses to try again. * Telephone Encounter - Tello Frazier - 08/14/2023 8:26 AM EST Tc from pt calling to report ED visit on : Date: 08/14/23 Hospital: [facility] Seen for: Groin Pain documented in this encounter Plan of Treatment Upcoming Encounters Date Type Department Care Team (Late st Contact Info) Description 09/07/2025 9:00 AM EST Office Visit [facility] MED & PEDS 505 [place] [address] Shannen Orellana MD 505 [place] [address] 09/25/2025 8:00 AM EST Office Visit [facility] ADULT DENTAL 505 [place] [address] Kvng Wang 505 [place] [address] 01/01/2026 8:00 AM EDT Office Visit [facility] ADULT DENTAL 505 [place] [address] Lydia Carter documented as of this encounter Visit Diagnoses Not on filedocumented in this encounter Additional Health Concerns Assessment Noted Time PHQ-9 Depression Total Score: 24 022 4:05 PM EST documented as of this encounter Care Teams Qa Architect Relationship Specialty Start Date End Date Shannen Orellana MD [address] [place] [address] PCP - General Family Medicine 08/24/22 Geno Arriaga Database AdminPlumbing Hardware Assembler 02/05/24 Maribell Rehman [address] [place] [address] Psychologist 06/27/23 Larry Zaldivar Psychiatrist 06/27/24 documented as of this encounter
--- OUTSIDE RECORDS SUMMARY | 2025-08-25 12:09 | XMS_ITS | Encounter Summary ---
Author Organization [employer] Address [address] [facility] [address] 7t [place] [address] Care Team Providers Care Global Chief Experience Officer Name Role Phone Shannen Orellana MD Primary Care Provider [phone] Encounter Details Date Type Department Care Team (Late Contact Info) Description 09/22/2022 Telephone [facility] MEDICINE 230 [place], [place] [phone] Shannen Orellana MD 505 [place], [place] [phone] Social History Tobacco Use Types Packs/Day Years [...] Department Care Team (Late Contact Info) Description 09/07/2025 9:00 AM EST Office Visit [facility] MED & PEDS 505 [place], [place] [phone] Shannen Orellana MD 505 [place] [address] 09/25/2025 8:00 AM EST Office Visit [facility] ADULT DENTAL 505 [place] [address] Kvng Wang 505 [place] [address] 01/01/2026 8:00 AM EDT Office Visit [facility] ADULT DENTAL 505 [place] [address] Lydia Carter documented as of this encounter Visit Diagnoses Not on filedocumented in this encounter Additional Health Concerns Assessment Noted Time PHQ-9 Depression Total Score: 24 022 4:05 PM EST documented as of this encounter Care Teams Global Chief Experience Officer Relationship Specialty Start Date End Date Shannen Orellana MD [address] [place] [address] PCP - General Family Medicine 08/24/22 Geno Arriaga Felt PullerPoint Of Care Specialist 02/05/24 Maribell Rehman [address] [place] [address] Psychologist 06/27/23 Larry Zaldivar Psychiatrist 06/27/24 documented as of this encounter
--- OUTSIDE RECORDS SUMMARY | 2025-08-25 12:09 | XMS_ITS | Encounter Summary ---
Author Organization [employer] Address [address] [facility] [address] 7t [place] [address] Care Team Providers Care Stoker Erector Name Role Phone Shannen Orellana MD Primary Care Provider Reason for Visit * Reason Onset Date Comments Pt-1 04/08/2025 Encounter Details Date Type Department Care Team ([facility] Contact Info) Description 04/08/2025 Telephone [facility] MEDICINE [address] [place] [address] Shannen Orellana MD [address] [place] [address] Pt-1 Social History Tobacco Use Types Packs/Day [...] Y/N: Yes Provider name or facility name: [facility] Facility Address: [address] [facility] Escort needed: Y/N: Yes Do you have a wheelchair: Y/N: No If yes- Manual or electric: N/A Visits: Twice a month - Patient calling requesting PT1 Home Address verified: Y/N: Yes Provider name or facility name: [facility] Facility Address: [address] [facility] Escort needed: Y/N: Yes Do you have a wheelchair: Y/N: No If yes- Manual or electric: N/A Visits: Twice a month - Patient calling requesting PT1 Home Address verified: Y/N: Yes Provider name or facility name: [facility] Facility Address: [address] [facility] Escort needed: Y/N: Yes Do you have a wheelchair: Y/N: No If yes- Manual or electric: N/A Visits: Once a month - Patient calling requesting PT1 Home Address verified: Y/N: Yes Provider name or facility name: [facility] Facility Address: [address] [place] [address] [place] [address] Escort needed: Y/N: Yes Do you have a wheelchair: Y/N: No If yes- Manual or electric: N/A Visits: Once a month documented in this encounter Plan of Treatment Upcoming Encounters Date Type Department Care Team (Late st Contact Info) Description 09/07/2025 9:00 AM EST Office Visit [facility] MED & PEDS 505 [place] [address] Shannen Orellana MD 505 [place] [address] 09/25/2025 8:00 AM EST Office Visit [facility] ADULT DENTAL 505 [place] [address] Kvng Wang 505 [place] [address] 01/01/2026 8:00 AM EDT Office Visit [facility] ADULT DENTAL 505 [place] [address] Lydia Carter documented as of this encounter Visit Diagnoses Not on filedocumented in this encounter Additional Health Concerns Assessment Noted Time PHQ-9 Depression Total Score: 27 024 9:53 AM EDT documented as of this encounter Care Teams Stoker Erector Relationship Specialty Start Date End Date Shannen Orellana MD [address] [place] [address] PCP - General Family Medicine 08/24/22 Geno Arriaga Deaf And Hard Of Hearing TeacherMedia Developer 02/05/24 Maribell Rehman [address] [place] [address] Psychologist 06/27/23 Larry Zaldivar Psychiatrist 06/27/24 documented as of this encounter
--- OUTSIDE RECORDS SUMMARY | 2025-08-25 12:09 | XMS_ITS | Encounter Summary ---
Author Organization [employer] Address [address] [facility] [address] 7t [place] [address] Care Team Providers Care Manager Of Change Name Role Phone Shannen Orellana MD Primary Care Provider Encounter Details Date Type Department Care Team (Late st Contact Info) Description 07/31/2025 Telephone [facility] MEDICINE 230 [place] [address] Shannen Orellana MD [address] [place] [address] Social History Tobacco Use Types Packs/Day Years [...] Upcoming Encounters Date Type Department Care Team ([facility] st Contact Info) Description 09/07/2025 9:00 AM EST Office Visit [facility] MED & PEDS 505 [place] [address] Shannen Orellana MD 505 [place] [address] 09/25/2025 8:00 AM EST Office Visit [facility] ADULT DENTAL 505 [place] [address] Kvng Wang 505 [place] [address] 01/01/2026 8:00 AM EDT Office Visit [facility] ADULT DENTAL 505 [place] [address] Lydia Carter documented as of this encounter Visit Diagnoses Not on filedocumented in this encounter Additional Health Concerns Assessment Noted Time PHQ-9 Depression Total Score: 24 025 8:54 AM EST documented as of this encounter Care Teams Manager Of Change Relationship Specialty Start Date End Date Shannen Orellana MD 230 [place] [address] PCP - General Family Medicine 08/24/22 Geno Arriaga Online User Experience StrategistSafety Spec 02/05/24 Maribell Rehman [address] [place] [address] Psychologist 06/27/23 Larry Zaldivar Psychiatrist 06/27/24 documented as of this encounter
--- OUTSIDE RECORDS SUMMARY | 2025-08-25 12:09 | XMS_ITS | Encounter Summary ---
Author Organization [employer] Address [address] [facility] [address] 7[address] [place] [address] Care Team Providers Care Dredge Worker Name Role Phone Shannen Orellana MD Primary Care Provider [phone] Reason for Visit * Reason Comments Med Refill Encounter Details Date Type Department Care Team ([facility] st Contact Info) Description 02/22/2024 Refill [facility] MEDICINE 230 [place] [address] Shannen Orellana MD [address] [place] [address] Social History Tobacco Use Types Packs/Day Years [...] Description 09/07/2025 9:00 AM EST Office Visit [facility] MED & PEDS 505 [place] [address] Shannen Orellana MD 505 [place] [address] 09/25/2025 8:00 AM EST Office Visit [facility] ADULT DENTAL 505 [place] [address] Kvng Wang 505 [place] [address] 01/01/2026 8:00 AM EDT Office Visit [facility] ADULT DENTAL 505 [place] [address] Lydia Carter documented as of this encounter Visit Diagnoses Not on filedocumented in this encounter Additional Health Concerns Assessment Noted Time PHQ-9 Depression Total Score: 27 024 2:13 PM EST documented as of this encounter Care Teams Dredge Worker Relationship Specialty Start Date End Date Shannen Orellana MD [address] [place] [address] PCP - General Family Medicine 08/24/22 Geno Arriaga Peoplesoft Fscm DeveloperAccounting Instructor 02/05/24 Maribell Rehman [address] [place] [address] Psychologist 06/27/23 Larry Zaldivar Psychiatrist 06/27/24 documented as of this encounter
--- OUTSIDE RECORDS SUMMARY | 2025-08-25 12:09 | XMS_ITS | Encounter Summary ---
Author Organization [employer] Address [address] [facility] 7t [place] [address] Care Team Providers Care Delinquency Prevention Social Worker Name Role Phone Shannen Orellana MD Primary Care Provider [phone] Encounter Details Date Type Department Care Team (Late st Contact Info) Description 02/29/2024 Orders Only [facility] MED & PEDS 505 [place], [place] [phone] Maame Espinal MD 505 [place] [address] Social History Tobacco Use Types Packs/Day Years [...] Upcoming Encounters Date Type Department Care Team ([facility] st Contact Info) Description 09/07/2025 9:00 AM EST Office Visit [facility] MED & PEDS 505 [place] [address] Shannen Orellana MD 505 [place] [address] 09/25/2025 8:00 AM EST Office Visit [facility] ADULT DENTAL 505 [place] [address] Kvng Wang 505 [place] [address] 01/01/2026 8:00 AM EDT Office Visit [facility] ADULT DENTAL 505 [place] [address] Lydia Carter documented as of this encounter Visit Diagnoses Not on filedocumented in this encounter Additional Health Concerns Assessment Noted Time PHQ-9 Depression Total Score: 27 024 2:13 PM EST documented as of this encounter Care Teams Delinquency Prevention Social Worker Relationship Specialty Start Date End Date Shannen Orellana MD 230 [place] [address] PCP - General Family Medicine 08/24/22 Geno Arriaga Filter Pulp WasherMarine Engineer Cpvec 02/05/24 Maribell Rehman [address] [place] [address] Psychologist 06/27/23 Larry Zaldivar Psychiatrist 06/27/24 documented as of this encounter
--- OUTSIDE RECORDS SUMMARY | 2025-08-25 12:09 | XMS_ITS | Encounter Summary ---
Author Organization [employer] Address [address] [facility] [address] 7[address] [place] [address] Care Team Providers Care Critical Care Transport Nurse Name Role Phone Shannen Orellana MD Primary Care Provider [phone] Reason for Visit * Reason Onset Date Comments Created in error 02/22/2024 Encounter Details Date Type Department Care Team ([facility] Contact Info) Description 02/22/2024 Telephone [facility] MEDICINE 230 [place] [address] Shannen Orellana MD [address] [place] [address] Created in error Social History Tobacco Use [...] Description 09/07/2025 9:00 AM EST Office Visit [facility] MED & PEDS 505 [place] [address] Shannen Orellana MD 505 [place] [address] 09/25/2025 8:00 AM EST Office Visit [facility] ADULT DENTAL 505 [place] [address] Kvng Wang 505 [place] [address] 01/01/2026 8:00 AM EDT Office Visit [facility] ADULT DENTAL 505 [place] [address] Lydia Carter documented as of this encounter Visit Diagnoses Not on filedocumented in this encounter Additional Health Concerns Assessment Noted Time PHQ-9 Depression Total Score: 27 024 2:13 PM EST documented as of this encounter Care Teams Critical Care Transport Nurse Relationship Specialty Start Date End Date Shannen Orellana MD 230 [place] [address] PCP - General Family Medicine 08/24/22 Geno Arriaga Tool Grinder Operator ExternalMachine Clipper 02/05/24 Maribell Rehman [address] [place] [address] Psychologist 06/27/23 Larry Zaldivar Psychiatrist 06/27/24 documented as of this encounter
--- OUTSIDE RECORDS SUMMARY | 2025-08-25 12:09 | XMS_ITS | Encounter Summary ---
Author Organization [employer] Address [address] [facility] [address] 7t [place] [address] Care Team Providers Care Talent Acquisition Operations Manager Name Role Phone Shannen Orellana MD Primary Care Provider [phone] Reason for Visit * Reason Comments Med Refill Encounter Details Date Type Department Care Team ([facility] st Contact Info) Description 01/09/2025 Refill [facility] MEDICINE 230 [place] [address] hSannen Orellana MD [address] [place], [place] [phone] Social History Tobacco Use Types Packs/Day Years [...] Upcoming Encounters Date Type Department Care Team ([facility] st Contact Info) Description 09/07/2025 9:00 AM EST Office Visit [facility] MED & PEDS 505 [place] [address] Shannen Orellana MD 505 [place] [address] 09/25/2025 8:00 AM EST Office Visit [facility] ADULT DENTAL 505 [place] [address] Kvng Wang 505 [place] [address] 01/01/2026 8:00 AM EDT Office Visit [facility] ADULT DENTAL 505 [place] [address] Lydia Carter documented as of this encounter Visit Diagnoses Not on filedocumented in this encounter Additional Health Concerns Assessment Noted Time PHQ-9 Depression Total Score: 27 024 9:53 AM EDT documented as of this encounter Care Teams Talent Acquisition Operations Manager Relationship Specialty Start Date End Date Shannen Orellana MD 230 [place] [address] PCP - General Family Medicine 08/24/22 Geno Arriaga Distance Education Faculty LiaisonHome Health Cna 02/05/24 Maribell Rehman [address] [place] [address] Psychologist 06/27/23 Larry Zaldivar Psychiatrist 06/27/24 documented as of this encounter
--- OUTSIDE RECORDS SUMMARY | 2025-08-25 12:09 | XMS_ITS | Encounter Summary ---
Author Organization [employer] Address [address] [facility] [address] 7t [place] [address] Care Team Providers Care Boarder Steam Name Role Phone Shannen Orellana MD Primary Care Provider [phone] Encounter Details Date Type Department Care Team (Late st Contact Info) Description 10/03/2024 Telephone [facility] MEDICINE 230 [place] [address] Shanenn Orellana MD [address] [place] [address] Social History Tobacco Use Types Packs/Day Years [...] Description 09/07/2025 9:00 AM EST Office Visit [facility] PEDS 505 [place] [address] Shannen Orellana MD 505 [place] [address] 09/25/2025 8:00 AM EST Office Visit [facility] ADULT DENTAL 505 [place] [address] Oksana Wangricio 505 [place] [address] 01/01/2026 8:00 AM EDT Office Visit [facility] ADULT DENTAL 505 [place] [address] Lydia Carter documented as of this encounter Visit Diagnoses Not on filedocumented in this encounter Additional Health Concerns Assessment Noted Time PHQ-9 Depression Total Score: 27 024 9:53 AM EDT documented as of this encounter Care Teams Boarder Steam Relationship Specialty Start Date End Date Shannen Orellana MD 230 [place] [address] PCP - General Family Medicine 08/24/22 Geno Arriaga Clinical Project LeaderVortex Operator 02/05/24 Maribell Rehman [address] [place] [address] Psychologist 06/27/23 Larry Zaldivar Psychiatrist 06/27/24 documented as of this encounter
--- OUTSIDE RECORDS SUMMARY | 2025-08-25 12:09 | XMS_ITS | Encounter Summary ---
Author Organization [employer] Address [address] [facility] [address] 7t [place] [address] Care Team Providers Care Hackler Doll Wigs Name Role Phone Shannen Orelalna MD Primary Care Provider [phone] Reason for Visit * Reason Comments Med Refill Encounter Details Date Type Department Care Team ([facility] st Contact Info) Description 03/08/2025 Refill [facility] MEDICINE 230 [place] [address] Margarita Villanueva MD [address] [place] [address] On pre-exposure prophylaxis for HIV Social History [...] [facility] 505 [place] [address] Shannen Orellana MD 505 [place] [address] 09/25/2025 8:00 AM EST [facility] 505 [place] [address] Kvng Wang 505 [place] [address] 01/01/2026 8:00 AM EDT [facility] 505 [place] [address] Lydia Carter documented as of this encounter Visit Diagnoses Diagnosis On pre-exposure prophylaxis for HIV documented in this encounter Additional Health Concerns Assessment Noted Time PHQ-9 Depression Total Score: 27 024 9:53 AM EDT documented as of this encounter Care Teams Hackler Doll Wigs Relationship Specialty Start Date End Date Shannen Orellana MD 230 [place] [address] PCP - General Family Medicine 08/24/22 Geno Arriaga Power Wood SawyerStave Machine Tender 02/05/24 Maribell Rehman [address] [place] [address] Psychologist 06/27/23 Larry Zaldivar Psychiatrist 06/27/24 documented as of this encounter
--- OUTSIDE RECORDS SUMMARY | 2025-08-25 12:09 | XMS_ITS | Encounter Summary ---
Author Organization [facility] Address [address] [place] [address] Phone Care Team Providers Care B2B Managed Service Sales Exec Name Role Phone Shannen Orellana MD Primary Care Provider [phone] Reason for Referral * MRI/CAT Scan - Closed Specialty Diagnoses / Procedures Referred By Contac t Referred To Contact Radiology Diagnoses Mid back pain Procedures MRI Total Spine MRI Lumbar Spine MRI THORACIC SPINE MRI CERVICAL SPINE Shannen Orellana MD [address] [place] [address] Phone: tel: fax: Referral ID Status Reason Start Date Expiration Date Visits Re quested Visits Authorized [id number] Closed 11/28/2023 11/26/2024 1 1 Encounter Details Date Type Department Care Team (Latest Contact Info) Description 11/28/2023 Transcribe Orders Virtual Department 30 [place] [address] Shannen Orellana MD 230 [place] [address] Mid back pain (Primary Dx) Social History [...] Primary documented in this encounter Care Teams B2B Managed Service Sales Exec Relationship Specialty Start Date End Date Shannen Orellana MD [address] [place] [address] PCP - General Family Medicine 11/27/23 documented as of this encounter Additional Source Comments The information contained in this document represents components of the legal health record. It is not the complete legal health record.[facility]
--- OUTSIDE RECORDS SUMMARY | 2025-08-25 12:09 | XMS_ITS | Encounter Summary ---
Author Organization [employer] Address [address] [facility] [address] 7t [place] [address] Care Team Providers Care Cork Cutter Name Role Phone Shannen Orellana MD Primary Care Provider [phone] Encounter Details Date Type Department Care Team ([facility] st Contact Info) Description 11/27/2023 Telephone [facility] MED & PEDS 505 [place], [place] [phone] Shannen Orellana MD [address] [place] [address] Social History Tobacco Use Types Packs/Day Years [...] MRI ordered by the pain specialist to [facility] he was scheduled a month from now for the MRI. Pt states he cannot wait for a whole month beforegetting his MRI done. [facility] reached out to fredis Wagner and spoke with Argentine who states pt is scheduled for December and that appt will be kept. Pt should call to cancel an appt if able to get a sooner appt at [facility]. Per Argentine orders from the pain specialist includes MRI of the lumbar spine, MRI of thoracic spine and MRI of cervical spine with contrast. Per VM received, pt also requested for MRI of the hip. CM reached out to pt for clarification and also reason for request for referral to small business sales representative but pt did not answer. PERCY LVM requesting a return call. * Telephone Encounter - Anu Owens - 12/03/2023 11:48 AM EDT Please sign office note of 11/25 to complete referrals. Thank you. * Telephone Encounter - Aziza Morales RN - 11/28/2023 3:49 PM EDT Please see referral for 04/02/23. Pt was referred for pruritic rash. PERCY reached out to the small business sales representative office and was able to schedule pt an appt on 01/19/24 at 10:45am at their [place] office on [address] [place] [address]. P# [phone]. The small business sales representative office is requesting for recent office note [...] please and thanks! * Telephone Encounter - Azzia Morales RN - 11/28/2023 11:53 AM EDT [...] 9:00 AM EST Office Visit [facility] MED & PEDS 505 [place] [address] Shannen Orellana MD 505 [place] [address] 09/25/2025 8:00 AM EST Office Visit [facility] ADULT DENTAL 505 [place] [address] Kvng Wang 505 [place] [address] 01/01/2026 8:00 AM EDT Office Visit [facility] ADULT DENTAL 505 [place] [address] Lydia Carter documented as of this encounter Visit Diagnoses Not on filedocumented in this encounter Additional Health Concerns Assessment Noted Time PHQ-9 Depression Total Score: 27 024 2:13 PM EST documented as of this encounter Care Teams Cork Cutter Relationship Specialty Start Date End Date Shannen Orellana MD 230 [place] [address] PCP - General Family Medicine 08/24/22 Geno Arriaga Converting OperatorTelevision Cameraman 02/05/24 Maribell Rehman [address] [place] [address] Psychologist 06/27/23 Larry Zaldivar Psychiatrist 06/27/24 documented as of this encounter
--- OUTSIDE RECORDS SUMMARY | 2025-08-25 12:09 | XMS_ITS | Encounter Summary ---
Author Organization [employer] Address [address] [facility] [address] 7t [place] [address] Care Team Providers Care Hydrographical Technical Officer Name Role Phone Shannen Orellana MD Primary Care Provider [phone] Encounter Details Date Type Department Care Team ([facility] st Contact Info) Description 06/11/2023 Telephone [facility] CHC MED & PEDS [address] [place], [place] [phone] Shannen Orellana MD [address] [place] [address] Social History Tobacco Use Types Packs/Day Years [...] Description 09/07/2025 9:00 AM EST Office Visit [facility] MED & PEDS 505 [place] [address] Shannen Orellana MD 505 [place] [address] 09/25/2025 8:00 AM EST Office Visit [facility] ADULT DENTAL 505 [place] [address] Kvng Wang 505 [place] [address] 01/01/2026 8:00 AM EDT Office Visit [facility] ADULT DENTAL [address] [place] [address] Lydia Carter documented as of this encounter Visit Diagnoses Not on filedocumented in this encounter Additional Health Concerns Assessment Noted Time PHQ-9 Depression Total Score: 24 022 4:05 PM EST documented as of this encounter Care Teams Hydrographical Technical Officer Relationship Specialty Start Date End Date Shannen Orellana MD [address] [place] [address] PCP - General Family Medicine 08/24/22 Geno Arriaga Land Development Project ManagerPrivate Mortgage Banker Safe 02/05/24 Maribell Rehman [address] [place] [address] Psychologist 06/27/23 Larry Zaldivar Psychiatrist 06/27/24 documented as of this encounter
--- OUTSIDE RECORDS SUMMARY | 2025-08-25 12:09 | XMS_ITS | Encounter Summary ---
Author Organization [employer] Address [address] [facility] [address] [address] 7t [place] [address] Care Team Providers Care Ward Supervisor Name Role Phone Shannen Orellana MD Primary Care Provider [phone] Reason for Visit * Reason Onset Date Comments Referral 06/11/2023 Encounter Details Date Type Department Care Team ([facility] Contact Info) Description 06/11/2023 Telephone [facility] MED & PEDS 505 [place], [place] [phone] Shannen Orellana MD 505 [place] [address] Referral Social History Tobacco Use Types Packs/Day [...] [facility] 505 [place] [address] Shannen Orellana MD 505 [place] [address] 09/25/2025 8:00 AM EST Office Visit [facility] ADULT DENTAL 505 [place] [address] Kvng Wang 505 [place] [address] 01/01/2026 8:00 AM EDT Office Visit [facility] ADULT DENTAL 505 [place] [address] Lydia Carter documented as of this encounter Visit Diagnoses Not on filedocumented in this encounter Additional Health Concerns Assessment Noted Time PHQ-9 Depression Total Score: 24 08/24/ 022 4:05 PM EST documented as of this encounter Care Teams Ward Supervisor Relationship Specialty Start Date End Date Shannen Orellana MD [address] [place] [address] PCP - General Family Medicine 08/24/22 Geno Arriaga Biofuels ManagerQuality Assurance Associate 02/05/24 Maribell Rehman [address] [place] [address] Psychologist 06/27/23 Larry Zaldivar Psychiatrist 06/27/24 documented as of this encounter
--- OUTSIDE RECORDS SUMMARY | 2025-08-25 12:09 | XMS_ITS | Encounter Summary ---
Author Organization [employer] Address 75 [facility] 7t [place] [address] Care Team Providers Care Freight Loading Supervisor Name Role Phone Shannen Orellana MD Primary Care Provider [phone] Encounter Details Date Type Department Care Team ([facility] st Contact Info) Description 06/15/2025 Orders Only [facility] CHC MED & PEDS [address] [place], [place] [phone] Maame Espinal MD 505 [place] [address] Normocytic anemia (Primary Dx) Social History Tobacco [...] Description 09/07/2025 9:00 AM EST Office Visit [facility] MED & PEDS [address] [place] [address] Shannen Orellana MD 505 [place] [address] 09/25/2025 8:00 AM EST Office Visit [facility] ADULT DENTAL [address] [place] [address] Kvng Wang 505 [place] [address] 01/01/2026 8:00 AM EDT Office Visit [facility] ADULT DENTAL [address] [place] [address] Lydia Carter Scheduled Orders Name Type Priority [...] documented as of this encounter Care Teams Freight Loading Supervisor Relationship Specialty Start Date End Date Shannen Orellana MD [address] [place] [address] PCP - General Family Medicine 08/24/22 Geno Arriaga Batch Or Continuous Still OperatorCredit Risk Associate 02/05/24 Maribell Rehman [address] [place] [address] Psychologist 06/27/23 Larry Zaldivar Psychiatrist 06/27/24 documented as of this encounter
--- OUTSIDE RECORDS SUMMARY | 2025-08-25 12:09 | XMS_ITS | Encounter Summary ---
Author Organization [employer] Address [address] [facility] 7t [place] [address] Care Team Providers Care Software Quality Assurance Specialist Name Role Phone Shannen Orellana MD Primary Care Provider [phone] Encounter Details Date Type Department Care Team (Late Contact Info) Description 01/29/2023 Orders Only [facility] MEDICINE [address] [place], [place] [phone] Carolynn Rodriguez MD [address] [place] [address] Social History Tobacco Use Types Packs/Day Years [...] Description 09/07/2025 9:00 AM EST Office Visit [facility] MED & PEDS 505 [place] [address] Shannen Orellana MD 505 [place] [address] 09/25/2025 8:00 AM EST Office [facility] ADULT DENTAL [address] [place] [address] KathleenToreyio 505 [place] [address] 01/01/2026 8:00 AM EDT Office Visit [facility] CHC ADULT DENTAL [address] [place] [address] Lydia Carter documented as of this encounter Visit Diagnoses Not on filedocumented in this encounter Additional Health Concerns Assessment Noted Time PHQ-9 Depression Total Score: 24 022 4:05 PM EST documented as of this encounter Care Teams Software Quality Assurance Specialist Relationship Specialty Start Date End Date Shannen Orellana MD [address] [place] [address] PCP - General Family Medicine 08/24/22 Geno Arriaga Mounter HandService Technician Copier 02/05/24 Maribell Rehman [address] [place] [address] Psychologist 06/27/23 Larry Zaldivar Psychiatrist 06/27/24 documented as of this encounter
--- OUTSIDE RECORDS SUMMARY | 2025-08-25 12:09 | XMS_ITS | Encounter Summary ---
Author Organization [employer] Address [address] [facility] [address] 7t [place] [address] Care Team Providers Care Coke Burner Name Role Phone Shannen Orellana MD Primary Care Provider [phone] Reason for Visit * Reason Onset Date Comments PT1 02/11/2024 Encounter Details Date Type Department Care Team ([facility] Contact Info) Description 02/11/2024 Telephone [facility] CHC MED & PEDS 505 [place] [address] Shannen Orellana MD 505 [place] [address] PT1 Social History Tobacco Use Types Packs/Day [...] requesting increase visits to the max for [facility] and other locations. Pt stated if any questions please contact at [phone] * Telephone Encounter - Tello Frazier - 02/11/2024 10:11 AM EDT Tc from pt calling in regards to message prior, also wanted to increase frequency in visits to the maximum amount of visit. This includes PT-1 for [facility] radiologist ([address] [place] [address]). If any questions please contact [t at [phone]. * Telephone Encounter - Rose Zuluaga - 02/11/2024 9:49 AM EDT Tc from pt requesting an increase on visits for two Pt1's. Location: [facility] and Curtis Wagner on [address] documented in this encounter Plan of Treatment Upcoming Encounters Date Type Department Care Team ([facility] st Contact Info) Description 09/07/2025 9:00 AM EST Office Visit [facility] CHC MED & PEDS 505 [place] [address] Shannen Orellana MD [address] [place] [address] 09/25/2025 8:00 AM EST Office Visit [facility] ADULT DENTAL [address] [place], [place] [phone] Kvng Wang 505 [place] [address] 01/01/2026 8:00 AM EDT Office Visit [facility] ADULT DENTAL 505 [place] [address] Lydia Carter documented as of this encounter Visit Diagnoses Not on filedocumented in this encounter Additional Health Concerns Assessment Noted Time PHQ-9 Depression Total Score: 27 024 2:13 PM EST documented as of this encounter Care Teams Coke Burner Relationship Specialty Start Date End Date Shannen Orellana MD [address] [place] [address] PCP - General Family Medicine 08/24/22 Geno Arriaga Printing Plate ClerkMussel Farmer 02/05/24 Maribell Rehman [address] [place] [address] Psychologist 06/27/23 Larry Zaldivar Psychiatrist 06/27/24 documented as of this encounter
--- OUTSIDE RECORDS SUMMARY | 2025-08-25 12:09 | XMS_ITS | Encounter Summary ---
Author Organization [employer] Address [address] [facility] [address] 7t [place] [address] Care Team Providers Care Garland Maker Name Role Phone Shannen Orellana MD Primary Care Provider [phone] Reason for Visit * Reason Onset Date Comments PT1 03/10/2024 Encounter Details Date Type Department Care Team ([facility] st Contact Info) Description 03/10/2024 Telephone [facility] MEDICINE 230 [place] [address] Shannen Orellana MD [address] [place] [address] PT1 Social History Tobacco Use Types Packs/Day [...] name: Orthopedics [facility] Team Rehab Facility Address: [facility] [address], [place] [address] [address] [place] [address] Escort needed: Y/N: No Do you have a wheelchair: Y/N: No If yes- Manual or electric: No Visits: n/a documented in this encounter Plan of Treatment Upcoming Encounters Date Type Department Care Team (Late st Contact Info) Description 09/07/2025 9:00 AM EST Office Visit [facility] MED & PEDS 505 [place] [address] Shannen Orellana MD 505 [place] [address] 09/25/2025 8:00 AM EST Office Visit [facility] ADULT DENTAL 505 [place] [address] Kvng Wang 505 [place] [address] 01/01/2026 8:00 AM EDT Office Visit [facility] ADULT DENTAL 505 [place] [address] Lydia Carter documented as of this encounter Visit Diagnoses Not on filedocumented in this encounter Additional Health Concerns Assessment Noted Time PHQ-9 Depression Total Score: 27 024 2:13 PM EST documented as of this encounter Care Teams Garland Maker Relationship Specialty Start Date End Date Shannen Orellana MD 230 [place] [address] PCP - General Family Medicine 08/24/22 Geno Arriaga Forming Roll OperatorOutreach Director 02/05/24 Maribell Rehman [address] [place] [address] Psychologist 06/27/23 Larry Zaldivar Psychiatrist 06/27/24 documented as of this encounter
--- OUTSIDE RECORDS SUMMARY | 2025-08-25 12:09 | XMS_ITS | Encounter Summary ---
Author Organization [email or web address] Address [address] [facility] [address] 7t [place] [address] Care Team Providers Care Environmental Monitoring Specialist Name Role Phone Shannen Orellana MD Primary Care Provider [phone] Reason for Visit * Reason Onset Date Comments Referral 07/02/2023 PT 1 1 Encounter Details Date Type Department [facility] Description 07/02/2023 Telephone [facility] MEDICINE 230 [place] [address] Shannen Orellana MD [address] [place], [place] [phone] Referral (PT 1 1 of 2) Social [...] Date: 07/24 Time: 10:30 Visits: 6 Address: [address] [place] [address] Facility: [facility], Specialty: Pain Management with Wheel Chair: no Farmworker Fryer Farm Needed: no documented in this encounter Plan of Treatment Upcoming Encounters Date Type Department Care Team (Late st Contact Info) Description 09/07/2025 9:00 AM EST Office Visit [facility] MED & PEDS 505 [place] [address] Shannen Orellana MD 505 [place] [address] 09/25/2025 8:00 AM EST Office Visit [facility] ADULT DENTAL 505 [place] [address] Kvng Wang 505 [place] [address] 01/01/2026 8:00 AM EDT Office Visit [facility] ADULT DENTAL 505 [place] [address] Lydia Carter documented as of this encounter Visit Diagnoses Not on filedocumented in this encounter Additional Health Concerns Assessment Noted Time PHQ-9 Depression Total Score: 24 022 4:05 PM EST documented as of this encounter Care Teams Environmental Monitoring Specialist Relationship Specialty Start Date End Date Shannen Orellana MD [address] [place] [address] PCP - General Family Medicine 08/24/22 Geno Arriaga Shelf StockerIrrigation Manager 02/05/24 Maribell Rehman [address] [place] [address] Psychologist 06/27/23 Larry Zaldivar Psychiatrist 06/27/24 documented as of this encounter
--- OUTSIDE RECORDS SUMMARY | 2025-08-25 12:09 | XMS_ITS | Encounter Summary ---
Author Organization [employer] Address [address] [facility] [address] 7t h [place] [address] Care Team Providers Care Financial Aid Officer Name Role Phone Shannen Orellana MD Primary Care Provider [phone] Reason for Visit * Reason Onset Date Comments Referral 06/11/2023 Encounter Details Date Type Department Care Team ([facility] Contact Info) Description 06/11/2023 Telephone [facility] CHC MED & PEDS [address] [place], [place] [phone] Shannen Orellana MD 505 [place] [address] Referral Social History Tobacco Use Types Packs/Day [...] Description 09/07/2025 9:00 AM EST Office Visit [facility] MED & PEDS 505 [place] [address] Shannen Orellana MD 505 [place] [address] 09/25/2025 8:00 AM EST Office Visit [facility] ADULT DENTAL [address] [place] [address] Kvng Wang 505 [place] [address] 01/01/2026 8:00 AM EDT Office Visit [facility] ADULT DENTAL [address] [place] [address] Lydia Carter documented as of this encounter Visit Diagnoses Not on filedocumented in this encounter Additional Health Concerns Assessment Noted Time PHQ-9 Depression Total Score: 24 022 4:05 PM EST documented as of this encounter Care Teams Financial Aid Officer Relationship Specialty Start Date End Date Shannen Orellana MD 230 [place] [address] PCP - General Family Medicine 08/24/22 Geno Arriaga Supervisor PublicationsLean Manufacturing Coordinator 02/05/24 Maribell Rehman [address] [place] [address] Psychologist 06/27/23 Larry Zaldivar Psychiatrist 06/27/24 documented as of this encounter
--- OUTSIDE RECORDS SUMMARY | 2025-08-25 12:09 | XMS_ITS | Encounter Summary ---
Author Organization [employer] Address [address] [facility] [address] 7t [place] [address] Care Team Providers Care Technician Chemical Cleaning Name Role Phone Shannen Orellana MD Primary Care Provider [phone] Reason for Visit * Reason Onset Date Comments PT-1 08/13/2024 Encounter Details Date Type Department Care Team ([facility] Contact Info) Description 08/13/2024 Telephone [facility] MEDICINE [address] [place] [address] Shannen Orellana MD [address] [place] [address] PT-1 Social History Tobacco Use Types Packs/Day [...] Y/N: Yes Provider name or facility name: [facility] Facility Address: [address] [place] [address] Escort needed: Y/N: No Do you have a wheelchair: Y/N: No If yes- Manual or electric: N/A Visits: 4 times a month documented in this encounter Plan of Treatment Upcoming Encounters Date Type Department Care Team ([facility] st Contact Info) Description 09/07/2025 9:00 AM EST Office Visit [facility] MED & PEDS 505 [place] [address] Shannen Orellana MD 505 [place] [address] 09/25/2025 8:00 AM EST Office Visit [facility] ADULT DENTAL 505 [place] [address] Kvng Wang 505 [place] [address] 01/01/2026 8:00 AM EDT Office Visit [facility] ADULT DENTAL 505 [place] [address] Lydia Carter documented as of this encounter Visit Diagnoses Not on filedocumented in this encounter Additional Health Concerns Assessment Noted Time PHQ-9 Depression Total Score: 27 024 9:53 AM EDT documented as of this encounter Care Teams Technician Chemical Cleaning Relationship Specialty Start Date End Date Shannen Orellana MD 230 [place] [address] PCP - General Family Medicine 08/24/22 Geno Arriaga Post SplitterAutoclave Operator 02/05/24 Maribell Rehman [address] [place] [address] Psychologist 06/27/23 Larry Zaldivar Psychiatrist 06/27/24 documented as of this encounter
--- OUTSIDE RECORDS SUMMARY | 2025-08-25 12:09 | XMS_ITS | Encounter Summary ---
Author Organization [employer] Address [address] [facility] [address] 7t [place] [address] Care Team Providers Care Hose Tester Name Role Phone Shannen Orellana MD Primary Care Provider Reason for Visit * Reason Comments Med Refill Encounter Details Date Type Department Care Team (Late Contact Info) Description 03/12/2023 Refill [facility] MED & PEDS [address] [place], [place] [phone] Name, MD Krzysztof 230 [place] [address] Social History Tobacco Use Types Packs/Day Years [...] AM EST Office Visit [facility] MED & PEDS 505 [place] [address] Shannen Orellana MD 505 [place] [address] 09/25/2025 8:00 AM EST Office Visit [facility] ADULT DENTAL [address] [place] [address] Kvng Wang 505 [place] [address] 01/01/2026 8:00 AM EDT Office Visit [facility] ADULT DENTAL 505 [place] [address] Lydia Carter documented as of this encounter Visit Diagnoses Not on filedocumented in this encounter Additional Health Concerns Assessment Noted Time PHQ-9 Depression Total Score: 24 022 4:05 PM EST documented as of this encounter Care Teams Hose Tester Relationship Specialty Start Date End Date Shannen Orellana MD [address] [place] [address] PCP - General Family Medicine 08/24/22 Geno Arriaga Chain Maker Loom ControlRetail Stock Clerk 02/05/24 Maribell Rehman [address] [place] [address] Psychologist 06/27/23 Larry Zaldivar Psychiatrist 06/27/24 documented as of this encounter
--- OUTSIDE RECORDS SUMMARY | 2025-08-25 12:09 | XMS_ITS | Encounter Summary ---
Author Organization [employer] Address [address] [facility] [address] 7t [place] [address] Care Team Providers Care Batter Scaler Name Role Phone Shannen Orellana MD Primary Care Provider [phone] Reason for Visit * Reason Onset Date Comments Referral 07/02/2023 PT 1 2 of 2 Encounter Details Date Type Department Care Team ([facility] Contact Info) Description 07/02/2023 Telephone [facility] MEDICINE 230 [place] [address] Shannen Orellana MD [address] [place], [place] [phone] Referral (PT 1 2 of 2) Social [...] PT1 Date: 07/23 Time: 9:00 Visits:6 Address: [address] [place] [address] Facility: [facility], Specialty : Orthopedic surgery with Dr. Galeas Wheel Chair: no Economics Teacher Needed: no documented in this encounter Plan of Treatment Upcoming Encounters Date Type Department Care Team (Late st Contact Info) Description 09/07/2025 9:00 AM EST Office Visit [facility] MED & PEDS 505 [place] [address] Shannen Orellana MD 505 [place] [address] 09/25/2025 8:00 AM EST Office Visit [facility] ADULT DENTAL 505 [place] [address] Kvng Wang 505 [place], [place] 01/01/2026 8:00 AM EDT Office Visit [facility] ADULT DENTAL 505 [place], [place] [phone] Lydia Carter documented as of this encounter Visit Diagnoses Not on filedocumented in this encounter Additional Health Concerns Assessment Noted Time PHQ-9 Depression Total Score: 24 022 4:05 PM EST documented as of this encounter Care Teams Batter Scaler Relationship Specialty Start Date End Date Shannen Orellana MD 230 [place] [address] PCP - General Family Medicine 08/24/22 Geno Arriaga Behavioral Health AssociateSteel Wheel Engraver 02/05/24 Maribell Rehman [address] [place] [address] Psychologist 06/27/23 Larry Zaldivar Psychiatrist 06/27/24 documented as of this encounter
--- OUTSIDE RECORDS SUMMARY | 2025-08-25 12:09 | XMS_ITS | Encounter Summary ---
Author Organization [facility] Address [address] [place] [address] Phone Care Team Providers Care Doctor Of Pharmacy Name Role Phone Shannen Orellana MD Primary Care Provider [phone] Encounter Details Date Type Department Care Team (Late st Contact Info) Description 11/28/2023 Procedure Pass [facility], [address] [address] Social History Tobacco Use Types Packs/Day Years [...] on filedocumented in this encounter Care Teams Doctor Of Pharmacy Relationship Specialty Start Date End Date Shannen Orellana MD [address] [place] [address] PCP - General Family Medicine 11/27/23 documented as of this encounter Additional Source Comments The information contained in this document represents components of the legal health record. It is not the complete legal health record.[facility]
--- OUTSIDE RECORDS SUMMARY | 2025-08-25 12:09 | XMS_ITS | Encounter Summary ---
Author Organization [employer] Address [address] [facility] [address] 7t [place] [address] Care Team Providers Care Tax Representative Name Role Phone Shannen Orellana MD Primary Care Provider [phone] Reason for Visit * Reason Onset Date Comments Med Refill 02/19/2024 Encounter Details Date Type Department Care Team ([facility] st Contact Info) Description 02/19/2024 Refill [facility] OPTOMETRY [address] [place], [place] [phone] Dominick, Catia, OD [address] [place] [address] Social History Tobacco Use Types Packs/Day Years [...] [facility] 505 [place] [address] Shannen Orellana MD 505 [place] [address] 09/25/2025 8:00 AM EST Office Visit [facility] ADULT DENTAL 505 [place] [address] Kvng Wang 505 [place] [address] 01/01/2026 8:00 AM EDT Office Visit [facility] ADULT DENTAL 505 [place] [address] Lydia Carter documented as of this encounter Visit Diagnoses Not on filedocumented in this encounter Additional Health Concerns Assessment Noted Time PHQ-9 Depression Total Score: 27 024 2:13 PM EST documented as of this encounter Care Teams Tax Representative Relationship Specialty Start Date End Date Shannen Orellana MD 230 [place] [address] PCP - General Family Medicine 08/24/22 Geno Arriaga Asphalt Paving Machine OperatorBody Straightener 02/05/24 Maribell Rehman [address] [place] [address] Psychologist 06/27/23 Larry Zaldivar Psychiatrist 06/27/24 documented as of this encounter
--- OUTSIDE RECORDS SUMMARY | 2025-08-25 12:09 | XMS_ITS | Encounter Summary ---
Author Organization [employer] Address [address] [facility] [address] 7t [place] [address] Care Team Providers Care Special Education Classroom Aide Name Role Phone Shannen Orellana MD Primary Care Provider [phone] Reason for Visit * Reason Onset Date Comments Med Refill 01/06/2025 Encounter Details Date Type Department Care Team ([facility] Contact Info) Description 01/06/2025 Refill [facility] CHC MED & PEDS [address] [place] [address] Suzanne Monique MD 505 [place] [address] Social History Tobacco Use Types Packs/Day Years [...] [facility] MED & PEDS [address] [place] [address] Shannen Orellana MD 505 [place] [address] 09/25/2025 8:00 AM EST Office Visit [facility] ADULT DENTAL 505 [place] [address] Kvng Wang 505 [place] [address] 01/01/2026 8:00 AM EDT Office Visit [facility] ADULT DENTAL 505 [place] [address] Lydia Carter documented as of this encounter Visit Diagnoses Not on filedocumented in this encounter Additional Health Concerns Assessment Noted Time PHQ-9 Depression Total Score: 27 024 9:53 AM EDT documented as of this encounter Care Teams Special Education Classroom Aide Relationship Specialty Start Date End Date Shannen Orellana MD [address] [place] [address] PCP - General Family Medicine 08/24/22 Geno Arriaga Gold Leaf LayerCabinet Assembler 02/05/24 Maribell Rehman [address] [place] [address] Psychologist 06/27/23 Larry Zaldivar Psychiatrist 06/27/24 documented as of this encounter
--- OUTSIDE RECORDS SUMMARY | 2025-08-25 12:09 | XMS_ITS | Encounter Summary ---
Author Organization [employer] Address [address] [facility] [address] [place] [address] Care Team Providers Care Sand Polisher Name Role Phone Shannen Orellana MD Primary Care Provider [phone] Reason for Visit * Reason Onset Date Comments call back needed 05/04/2025 Encounter Details Date Type Department Care Team ([facility] Contact Info) Description 05/04/2025 Telephone [facility] MEDICINE [address] [place] [address] Shannen Orellana MD [address] [place] [address] call back needed Social History Tobacco Use [...] pt wanting a call back from Nurse Gypsum Roofer regarding PA for RABEprazole (Aciphex) 20 MG EC tablet . Pt was advised that Provider is not going forward with Pa and recommended to schedule a visit with PCP to go over alternatives. Per pt : This is unacceptable and is requesting a call back from manager van as soon as tomorrow. 05/05/25 If does not receive a call from manager van by tomorrow will show up on Sunday. Pt reports I have a curriculum advisory teacher documented in this encounter Plan of Treatment Upcoming Encounters Date Type Department Care Team (Late st Contact Info) Description 09/07/2025 9:00 AM EST Office Visit [facility] MED & PEDS [address] [place] [address] Shannen Orellana MD [address] [place] [address] 09/25/2025 8:00 AM EST Office Visit [facility] ADULT DENTAL [address] [place] [address] Kvng Wang 505 [place] [address] 01/01/2026 8:00 AM EDT Office Visit [facility] ADULT DENTAL [address] [place] [address] Lydia Carter documented as of this encounter Visit Diagnoses Not on filedocumented in this encounter Additional Health Concerns Assessment Noted Time PHQ-9 Depression Total Score: 27 024 9:53 AM EDT documented as of this encounter Care Teams Sand Polisher Relationship Specialty Start Date End Date Shannen Orellana MD [address] [place] [address] PCP - General Family Medicine 08/24/22 Geno Arriaga Supervisor Tunnel HeadingShade Hanger 02/05/24 Maribell Rehman [address] [place] [phone] Psychologist 06/27/23 Larry Zaldivar Psychiatrist 06/27/24 documented as of this encounter
--- OUTSIDE RECORDS SUMMARY | 2025-08-25 12:10 | XMS_ITS | Encounter Summary ---
Author Organization [employer] Address [address] [facility] [address] [place] [address] Care Team Providers Care Senior Project Controls Specialist Name Role Phone Shannen Orellana MD Primary Care Provider Reason for Visit * Reason Onset Date Comments Call Back Request 07/28/2025 Encounter Details Date Type Department Care Team ([facility] Contact Info) Description 07/28/2025 Telephone [facility] MED & PEDS [address] [place] [address] Shannen Orellana MD [address] [place] [address] Call Back Request Social History Tobacco Use [...] encounter Miscellaneous Notes * Telephone Encounter - Layne Frazier - 07/31/2025 1:05 PM EST Tc from pt call back regarding message prior. * Telephone Encounter - Inderjit Garza - 07/28/2025 12:50 PM EST Tc from pt stating he was referred to [facility] podiatry and PT1 was denied , he is requesting for it be reinstated as last year or be referred too new merchandise director Contact pt at [phone] documented in this encounter Plan of Treatment Upcoming Encounters Date Type Department Care Team (Late st Contact Info) Description 09/07/2025 9:00 AM EST Office Visit [facility] MED & PEDS [address] [place] [address] Shannen Orellana MD [address] [place] [address] 09/25/2025 8:00 AM EST Office Visit [facility] ADULT DENTAL [address] [place] [address] Kvng Wang [address] [place] [address] 01/01/2026 8:00 AM EDT Office Visit [facility] ADULT DENTAL [address] [place] [address] Lydia Carter documented as of this encounter Visit Diagnoses Not on filedocumented in this encounter Additional Health Concerns Assessment Noted Time PHQ-9 Depression Total Score: 24 025 8:54 AM EST documented as of this encounter Care Teams Senior Project Controls Specialist Relationship Specialty Start Date End Date Shannen Orellana MD [address] [place] [address] PCP - General Family Medicine 08/24/22 Geno Arriaga Distribution DispatcherTelevision Servicer 02/05/24 Maribell Rehman [address] [place] [address] Psychologist 06/27/23 Larry Zaldivar Psychiatrist 06/27/24 documented as of this encounter
--- OUTSIDE RECORDS SUMMARY | 2025-08-25 12:10 | XMS_ITS | Encounter Summary ---
Author Organization [employer] Address [address] [facility] [address] [place] [address] Care Team Providers Care Engineering Group Leader Name Role Phone Shannen Orellana MD Primary Care Provider [phone] Reason for Visit * Reason Onset Date Comments Med Refill 11/22/2023 Encounter Details Date Type Department Care Team ([facility] st Contact Info) Description 11/22/2023 Refill [facility] MEDICINE [address] [place], [place] [id number] Name, MD Krzysztof [address] [place] [address] Social History Tobacco Use Types Packs/Day Years [...] [facility] MED & PED[facility] [address] [place] [address] Shannen Orellana MD 505 [place] [address] 09/25/2025 8:00 AM EST Office Visit [facility] ADULT DENTAL [address] [place] [address] Kvng Wang [address] [place] [address] 01/01/2026 8:00 AM EDT Office Visit [facility] ADULT DENTAL [address] [place] [address] Lydia Carter documented as of this encounter Visit Diagnoses Not on filedocumented in this encounter Additional Health Concerns Assessment Noted Time PHQ-9 Depression Total Score: 27 024 2:13 PM EST documented as of this encounter Care Teams Engineering Group Leader Relationship Specialty Start Date End Date Shannen Orellana MD [address] [place] [address] PCP - General Family Medicine 08/24/22 Geno Arraiga Supervisor Assembly And PackingFsr 02/05/24 Maribell Rehman [address] [place] [address] Psychologist 06/27/23 Larry Zaldivar Psychiatrist 06/27/24 documented as of this encounter
--- OUTSIDE RECORDS SUMMARY | 2025-08-25 12:10 | XMS_ITS | Encounter Summary ---
Author Organization [employer] Address [address] [facility] [address] [place] [address] Care Team Providers Care Tile Layer Drainage Name Role Phone Shannen Orellana MD Primary Care Provider [phone] Reason for Visit * Reason Onset Date Comments Referral 07/18/2024 Encounter Details Date Type Department Care Team ([facility] st Contact Info) Description 07/18/2024 Telephone [facility] MEDICINE [address] [place] [address] Shannen Orellana MD [address] [place] [address] Referral Social History Tobacco Use Types Packs/Day [...] stated he is willing to go to [place] for podiatry. * Telephone Encounter - Anu Owens - 07/18/2024 2:46 PM EST Message left for patient asking if he is willing to travel to [place] for podiatry. * Telephone Encounter - Tello Frazier - 07/18/2024 12:15 PM EST Tc from pt calling in regards to podiatry referral stating he is unable to be [facility] with [facility]. If any questions you can contact pt at [phone]. documented in this encounter Plan of Treatment Upcoming Encounters Date Type Department Care Team ([facility] st Contact Info) Description 09/07/2025 9:00 AM EST Office Visit [facility] MED & PEDS [address] [place] [address] Shannen Orellana MD 505 [place] [address] 09/25/2025 8:00 AM EST Office Visit [facility] ADULT D[facility]AL [address] [place] [address] Kvng Wang [address] [place] [address] 01/01/2026 8:00 AM EDT Office Visit [facility] AD[facility] [address] [place] [address] Lydia Carter documented as of this encounter Visit Diagnoses Not on filedocumented in this encounter Additional Health Concerns Assessment Noted Time PHQ-9 Depression Total Score: 27 024 9:53 AM EDT documented as of this encounter Care Teams Tile Layer Drainage Relationship Specialty Start Date End Date Shannen Orellana MD [address] [place] [address] PCP - General Family Medicine 08/24/22 Geno Arriaga Air Hoist OperatorSpace Controller 02/05/24 Maribell Rehman [address] [place] [address] Psychologist 06/27/23 Larry Zaldivar Psychiatrist 06/27/24 documented as of this encounter
--- OUTSIDE RECORDS SUMMARY | 2025-08-25 12:10 | XMS_ITS | Clinical Summary ---
Author Organization [employer] Address [address] [facility] [address] [place] [address] Care Team Providers Care Travelers' Aid Worker Name Role Phone Shannen Orellana MD Primary Care Provider [phone] Allergies Active Allergy Reactions Criticality Noted Date [...] lozenge every 4-8 hours for 2 weeks. 022 Active sucralfate (Carafate) 1 g tablet Take [...] area 2x/day prn 200 g 023 Active atomoxetine (Strattera) 80 MG capsule Take [...] 024 Active Sodium Fluoride 1.1 % cream Floyd teeth for 2 minutes, morning and night. [...] WHILE USING PATCH. 30 patch 025 Active omega-3 acid ethyl esters (Lovaza) 1 g capsule TAKE ONE CAPSULE TWICE DAILY 180 capsule 1 025 Active acetaminophen (Tylenol) 500 MG tablet Take 500 mg by mouth every 8 (eight) hours if needed. 024 Active montelukast (Singulair) 10 MG tablet TAKE ONE TABLET AT BEDTIME 90 tablet 1 Active promethazine (Phenergan) 12.5 MG tablet TAKE ONE TABLET EVERY 6 HOURS NEEDED FOR NAUSEA AND VOMITING 120 tablet 5 5 9:53 AM EST Active Simethicone Ultra Strength 180 MG capsule TAKE ONE CAPSULE THREE TIMES DAILY IN THE MORNING, AT NOON, AND AT BEDTIME FOR flatulence 90 capsule 3 5 9:53 AM EST Active celecoxib (CeleBREX) 200 MG capsuleIndication s:Other chronic pain,Continuous RUQ abdominal pain TAKE ONE CAPSULE TWICE DAILY 60 capsule 2 5 8:58 AM EST Active pantoprazole (Protonix) 20 MG EC tablet Take 1 tablet (20 mg) by mouth in the morning and at bedtime. Do not crush, chew, or split. 60 tablet 11 025 2025 Active doxycycline (Vibra-Tabs) 100 MG tablet TAKE TWO TABLETS BY MOUTH WITHIN 72 HOURS AFTER SEXUAL ACTIVITY, TAKE WITH full GLASS OF WATER AND food DO not lie down FOR AT least 30 MINUTES AFTER 20 tablet 11 5 9:53 AM EST 025 Active azithromycin (Zithromax) 250 MG tabletIndications :COPD exacerbation (CMS/HCC) ([facility]) 500 mg in a single loading dose on day 1, followed by 250 mg once daily on days 2 to 5 5 tablet Active predniSONE (Deltasone) 50 MG tabletIndications :Chronic obstructive pulmonary disease with acute exacerbation (CMS/HCC) (HCC) Take 1 tablet (50 mg) by mouth Once per day. 5 tablet 5 10:06 AM EST 025 Active buPROPion SR (Wellbutrin SR) 150 MG 12 hr tablet Take 1 tablet (150 mg) by mouth 2 times daily. Do not crush, chew, or split. 60 tablet 3 5 9:53 AM EST 025 Active dicyclomine (Bentyl) 20 MG tabletIndications :Irritable bowel syndrome with diarrhea TAKE ONE TABLET BEFORE BREAKFAST, LUNCH AND dinner AND AT BEDTIME 120 tablet 5 5 8:58 AM EST 025 Active levocetirizine (Xyzal) 5 MG tabletIndications :Rhinosinusitis TAKE ONE TABLET AT BEDTIME 90 tablet 5 5 9:53 AM EST 025 Active diphenoxylate-atr opine (Lomotil) 2.5-0.025 MG tabletIndications :Irritable bowel syndrome with diarrhea TAKE ONE TABLET FOUR TIMES DAILY NEEDED FOR DIARRHEA 120 tablet 5 025 Active vardenafil (Levitra) 10 MG tablet TAKE 1 TABLET 1 HOUR BEFORE SEXUAL RELATIONS ONCE DAILY NEEDED. 10 tablet 1 025 Active Ascorbic Acid (vitamin C) 250 MG tabletIndications :Aphthous ulcer TAKE ONE TABLET EVERY MORNING 90 tablet 1 5 8:58 AM EST 025 Active doxepin (SINEquan) 50 MG capsuleIndication s:Pruritic rash TAKE ONE CAPSULE EVERY NIGHT AT BEDTIME 90 capsule 1 5 8:58 AM EST 025 Active pregabalin (Lyrica) 50 MG capsule Take 1 capsule (50 mg) by mouth 2 times daily. 60 capsule 1 5 8:58 AM EST 025 Active RABEprazole (Aciphex) 20 MG EC tablet TAKE 1 TABLET BY MOUTH TWICE A DAY 180 tablet 5 8:58 AM EST 025 Active ibuprofen 600 MG tabletIndications :Acute nonintractable headache, unspecified headache type TAKE 1 TABLET BY MOUTH 3 TIMES DAILY. 90 tablet 025 Active Ventolin HFA 108 (90 Base) MCG/ACT inhalerIndication s:COPD exacerbation (CMS/HCC) ([facility]) INHALE 2 PUFFS BY MOUTH EVERY 4 HOURS IF NEEDED FOR WHEEZING. 18 g 025 Active emtricitabine-ten ofovir DF (Truvada) 200-300 MG tabletIndications :On pre-exposure prophylaxis for HIV TAKE ONE TABLET EVERY MORNING 30 tablet 2 5 8:58 AM EST Active albuterol 108 (90 Base) MCG/ACT inhaler Inhale 2 puffs every 6 (six) hours if needed. 2024 Discontinued diphenoxylate-atr opine (Lomotil) 2.5-0.025 MG tabletIndications :Irritable [...] eorder (will not trigger notification to Pharmacy)) levocetirizine (Xyzal) 5 MG tabletIndications :Rhinosinusitis TAKE ONE TABLET AT BEDTIME 90 tablet 1 025 2024 Discontinued(R eorder (will not trigger notification to Pharmacy)) Ascorbic Acid (vitamin C) 250 MG tabletIndications :Aphthous ulcer TAKE ONE TABLET EVERY MORNING 90 tablet 1 025 2024 Discontinued doxepin (SINEquan) 50 MG capsuleIndication s:Pruritic rash Take 1 capsule (50 mg) by mouth at bedtime. 90 capsule 1 025 2024 Discontinued RABEprazole (Aciphex) 20 MG EC tablet TAKE 1 TABLET BY MOUTH TWICE A DAY 180 tablet 025 2024 Discontinued pregabalin (Lyrica) 25 MG capsule TAKE 1 CAPSULE BY MOUTH EVERY DAY 30 capsule 2 025 2024 Discontinued vardenafil (Levitra) 10 MG tablet TAKE 1 TABLET 1 HOUR BEFORE SEXUAL RELATIONS ONCE DAILY NEEDED. 10 tablet 1 5 10:06 AM EST 025 2024 Discontinued emtricitabine-ten ofovir DF (Truvada) 200-300 MG tabletIndications :On pre-exposure prophylaxis for HIV Take 1 tablet by mouth in the morning. 30 tablet 2 5 10:06 AM EST 025 2024 Discontinued albuterol 108 (90 Base) MCG/ACT inhalerIndication s:COPD exacerbation (CMS/HCC) ([facility]) Inhale 2 puffs every 4 (four) hours if needed for wheezing. 18 g 025 2024 Discontinued ibuprofen 600 MG tabletIndications :Acute nonintractable headache, unspecified headache type Take 1 tablet (600 mg) by mouth 3 times daily. 90 tablet 025 2024 Discontinued doxycycline (Vibra-Tabs) 100 MG tabletIndications :Chronic obstructive pulmonary disease with acute exacerbation (CMS/HCC) ([facility]) Take 1 tablet (100 mg) by mouth 2 times daily for 5 days. Take with a full glass of water and do not lie down for at least 30 minutes after. 10 tablet 5 10:06 AM EST 025 2024 Active Problems Problem Noted Date [...] of macrocytosis noticed on labs drawn by DEHYDROGENATION SUPERVISOR. Will workup and f/up with results Abnormal [...] , benadryl 25 mg and refer to housing inspectors for further evaluation. Will resend x 5 [...] transaminitis, will order RUQ US Stat to [facility]. Sleep apnea 10/09/2022 Assessment & Plan (10/09/2022 5:19 PM EST): Hx of insomnia, reports prior hx of snoring, apneic episodes and waking up not well rested, will test for sleep apnea. Liver cyst 08/24/2022 Irritable bowel syndrome with diarrhea Assessment & Plan (02/06/2023 2:27 PM EDT): Patient with exacerbation of symptoms. Reports feels current GI in [facility] has not helped his symptoms and will want to see alternative provider in [facility]. Assessment & Plan (08/24/2022 2:47 PM EST): [...] to Curtis Garcia (reports poor rapport in [facility]). Numbness of hand 03/06/2017 Assessment & [...] Encounters Date Type Department Care Team Description 08/22/2025 Refill [facility] [address] [place] [address] Shannen Orellana MD On pre-exposure prophylaxis for HIV 08/19/2025 Refill [facility] [address] [place] [address] Ricardo Stephenson CNP Acute nonintractable headache, unspecified headache type; COPD exacerbation (CMS/HCC) (HCC) 08/12/2025 Refill [facility] & PEDS [address] [place] [address] Shannen Orellana MD 08/12/2025 Telephone [facility] WALK-IN [address] [address] Kathy Jones, RIYA 08/11/2025 Telephone [facility] [address] [place] [address] Shannen Orellana MD Medication Question 08/06/2025 Refill [facility] [address] [place], [place] [phone] Shannen Orellana MD Aphthous ulcer; Pruritic rash 08/02/2025 Refill [facility] [address] [place] [address] Shannen Orellana MD 07/31/2025 Telephone [facility] [address] [place] [address] Shannen Orellana MD 07/28/2025 Telephone [facility] [address] [place] [address] Shannen Orellana MD Call Back Request 07/28/2025 Telephone [facility] [address] [place] [address] Shannen Orellana MD Medication Question 07/28/2025 Refill [facility] [address] [place] [address] Shannen Orellana MD Irritable bowel syndrome with diarrhea; Rhinosinusitis 07/27/2025 9:00 AM EST Telemedicine [facility] [address] [place] [address] Shannen Orellana MD Chronic obstructive pulmonary disease with acute exacerbation (CMS/HCC) (HCC) (Primary Dx); Atypical chest pain 07/27/2025 Travel 07/21/2025 Telephone [facility] [address] [place] [address] Shannen Orellana MD chart prep 07/14/2025 5:20 PM EST Office Visit [facility] [address] [address] Ricardo Stephenson, ENEDELIA Acute nonintractable headache, unspecified headache type (Primary Dx); COPD exacerbation (CMS/HCC) (HCC) 07/14/2025 Travel 07/14/[address] [address] Shannen Orellana MD Nurse Triage 07/09/2025 Patient Outreach [address] [address] Shannen Orellana MD Care Coordination ([facility] outreach for SDOH PT-1 and food needs-referral completed /) 07/09/[address] [address] Shannen Orellana MD Nurse Triage 07/09/[address] [address] Shannen Orellana MD PT-1 07/01/2025 9:00 AM EST Office Visit [facility] AD[facility] [address] [place] [address] Judy Coley 07/01/2025 Travel 06/24/2025 Refill [facility] [address] [place] [address] Shannen Orellana MD 06/16/2025 Results Follow-Up [facility] [address] [place] [address] Linnea Cobos, RIYA CBC auto differential, Comprehensive Metabolic Panel, TSH with Reflex to Free T4 06/15/2025 11:15 AM EDT Office Visit [facility] [address] [place] [address] Maame Espinal MD Unintentional weight loss (Primary Dx); Chronic maxillary sinusitis; Smoking addiction; Encounter for immunization 06/15/2025 Orders Only [facility] [address] [place] [address] Maame Espinal MD Normocytic anemia (Primary Dx) 06/15/2025 Travel 06/10/2025 Telephone [facility] [address] [place] [address] Shannen Orellana MD Appointment Request 05/28/2025 Telephone [facility] [address] [place] [address] Shannen Orellana MD PT-1 05/28/2025 Telephone [facility] [address] [place] [address] Shannen Orellana MD PT-1 from Last 3 Months Immunizations Immunization Administration [...] Description 09/07/2025 9:00 AM EST Office Visit [facility] [address] [place] [address] Shannen Orellana MD [address] [place] [address] 09/25/2025 8:00 AM EST Office Visit [facility] ADULT [facility] [address] [place] [address] Kvng Wang [address] [place] [address] 01/01/2026 8:00 AM EDT Office Visit [facility] AD[facility] [address] [place] [address] Lydia Carter Health Maintenance Due Date Last [...] EDT Unintentional weight loss Chronic maxillary sinusitis HEPATITIS C ANTIBODY ([place] [facility]) Routine 05/13/2025 HIV ANTIBODY/ANTIGEN ([place] [facility]) Routine 05/13/2025 BITEWINGS - 4 RADIOGRAPHIC IMAGES [...] PM EST) Influenza B Negative Negative, Indeterminate [facility] QC Media Lot # [id number] [facility] Lot# Expiration Date [facility] Swab 07/14/2025 5:47 PM EST Shereen Bishop DO POINT OF CARE TEST ENTER/YUE T ORDERABLES Final Result [facility] [address] [place] [address] [phone] * POCT Rapid Influenza A GELLER ID NOW (07/14/2025 5:47 PM EST) Influenza A Negative Negative, Indeterminate [facility] QC Media Lot # [id number] [facility] Lot# Expiration Date [facility] Swab 07/14/2025 5:47 PM EST Shereen Bishop DO POINT OF CARE TEST ENTER/YUE T ORDERABLES Final Result [facility] [address] [place] [phone] * POCT Rapid Strep A GELLER ID NOW (07/14/2025 5:46 PM EST) [facility] Rapid Strep A Screen Negative Negative, None Detected QC Media Lot # [id number] Lot# Expiration Date Swab 07/14/2025 5:46 PM EST Shereen Bishop DO POINT OF CARE TEST ENTER/YUE T ORDERABLES Final Result * POCT Rapid Covid-19 BinaxNOW (07/14/2025 5:43 PM EST) [facility] Rapid COVID Ag Negative QC Media Lot # [id number] Lot# Expiration Date Swab 07/14/2025 5:43 PM EST Shereen Bishop DO POINT OF CARE TEST ENTER/YUE T ORDERABLES Final Result * TSH with Reflex to Free T4 (06/15/2025 11:57 AM EDT) [facility] TSH reflex Free T4 2.21 0.32 - 4.0 uIU/mL [facility] Blood Venous blood specimen / Unknown 06/15/2025 11:57 AM EDT 06/15/2025 2:40 PM EDT Maame Espinal MD LAB BLOOD ORDERABLES Final Result Performing Organization Address City/[facility]/ZIP Co de Phone Number [facility] [address] [place] [phone] * (ABNORMAL) CBC auto differential (06/15/2025 11:57 AM EDT) White Blood Count 8.5 4.8 - 10.8 X10*3/uL [facility] Red Blood Count 4.24(L) 4.60 - 5.80 X10*6/uL [facility] Hemoglobin 13.6(L) 14.0 - 18.0 g/dl [facility] Hematocrit 40.7(L) 42.0 - 52.0 % [facility] Mean Corpuscular Volume 96.0 80.0 - 98.0 fL [facility] Mean Corpuscular Hemoglobin 32.1 27.0 - 33.0 pg [facility] Mean Corpuscular HGB Conc 33.4 31.0 - 36.0 g/dl [facility] Red Cell Distribution Width 12.1 11.0 - 16.0 % [facility] Platelet Count 250 160 - 400 X10*3/uL [facility] Mean Platelet Volume 10.2 9.4 - 12.4 [facility] Neutrophils Percent Auto 57.4 45 - 73 % [facility] Imm Gran Pct Auto 0.2 0.0 - 0.4 % [facility] Lymphocytes Percent Auto 29.4 20 - 40 % [facility] Monocytes Percent Auto 8.3 2 - 11 % [facility] Eosinophils Percent Auto 3.9 0 - 4 % [facility] Basophils Percent Auto 0.8 0 - 2 % [facility] NRBC Pct Auto 0.0 0.0 - 0.2 /100WBC [facility] Neutrophils Absolute Auto 4.9 2.0 - 8.3 x10*3/uL [facility] Imm Gran Abs Auto 0.02 0.00 - 0.03 X10*3/uL [facility] Lymphocytes Absolute Auto 2.5 1.2 - 4.9 X10*3/uL [facility] Monocytes Absolute Auto 0.7 0.1 - 1.2 X10*3/uL [facility] Eosinophils Absolute Auto 0.3 0.0 - 0.4 X10*3/uL [facility] Basophils Absolute Auto 0.1 0.0 - 0.2 X10*3/uL [facility] NRBC Abs Auto 0.000 0.0 - 0.012 X10*3/uL [facility] Blood Venous blood specimen / Unknown 06/15/2025 11:57 AM EDT 06/15/2025 2:35 PM EDT us Maame Espinal MD LAB BLOOD ORDERABLES Final Result [facility] [address] [place] [address] [phone] * (ABNORMAL) Comprehensive Metabolic Panel (06/15/2025 11:57 AM EDT) Sodium 141 135 - 145 mmol/L [facility] Potassium 3.9 3.3 - 5.1 mmol/L [facility] Chloride 106 96 - 108 mmol/L [facility] Carbon Dioxide 26 22 - 29 mmol/L [facility] Anion Gap 13 12 - 20 [facility] Urea Nitrogen (BUN) 12 9 - 16 mg/dL [facility] Creatinine, Serum 1.17 0.5 - 1.4 mg/dL [facility] Estimated Glomerular Filt Rate >60 [facility] Comment:Chronic Kidney Disea se: Estimated GFR < 60 mL/min/1.01v9Hfmtjv Kidney Disease: Estimated GFR < 15 mL/min/1.73m2 Glucose 75 60 - 115 mg/dL [facility] Calcium 9.7 8.4 - 10.2 mg/dL [facility] Bilirubin, Total 0.5 0.0 - 1.0 mg/dL [facility] Aspartate Amino Transferase 21 5 - 37 U/L [facility] Alanine Aminotransferase 24 0 - 40 U/L [facility] Total Protein 7.5 6.5 - 8.0 g/dL [facility] Albumin Level 5.2(H) 3.5 - 5.0 g/dL [facility] Alkaline Phosphatase 65 39 - 117 U/L [facility] Blood Venous blood specimen / Unknown 06/15/2025 11:57 AM EDT 06/15/2025 2:40 PM EDT Maame Espinal MD LAB BLOOD ORDERABLES Final Result [facility] [address] [place] [phone] * Hepatitis C Antibody ([facility]) (05/13/2025) Hepatitis C Ab Nonreactive Blood 05/13/2025 Historical Provider LAB BLOOD ORDERABLES Sandy l Result * HIV Ab/Ag ([facility]) (05/13/2025) Pathologist [facility] HIV Ag/Ab Nonreactive Blood 05/13/2025 Historical Provider LAB BLOOD ORDERABLES Sandy l Result * (ABNORMAL) Lipid Panel, Standard (10/11/2023 3:14 PM EST) Triglycerides 209(H) <150 mg/dL [facility] Comment:Desirable Triglyceri de: less than 150 mg/dLBorderline High Triglyceride 150-199 mg/dLHigh Triglyceride: 200-499 mg/dLVery High Triglyceride: greater than or equal to 5OO mg/dL Cholesterol 190 <200 mg/dL [facility] Comment:Desirable Cholestero l: less than 200 mg/dLBorderline High Cholesterol: 200-239 mg/dLHigh Cholesterol: greater than 239 mg/dL LDL Cholesterol Calculated 117(H) <100 mg/dL [facility] Comment:Desirable LDL: less than 100 mg/dLNear Optimal/Above Optimal LDL: 110- 129 mg/dLBorderline High LDL: 130-159 mg/dLHigh LDL: 160-189 mg/dLVery High LDL: greater than or equal to 190 mg/dL HDL Cholesterol 32(L) >40 mg/dL [facility] Comment:Desirable HDL: great er than 40 mg/dL Note: This HDL assay may give artificially low results in patients with liver disease. Blood Venous blood specimen / Unknown 10/11/2023 3:14 PM EST 10/11/2023 5:21 PM EST us Shannen Orellana MD LAB BLOOD ORDERABLES Final Re sult [facility] [address] [place] [address] [phone] from Last 3 Months or Most Recently Relevant to Health Maintenance Insurance [facility] C3 DENTAL-[facility] MEDICA[employer] STAND ADULT Care Teams Travelers' Aid Worker Relationship Specialty Start Date End Date Shannen Orellana MD [address] [place] [phone] PCP - General Family Medicine 08/24/22 Geon Arriaga Pet CaretakerFireman 02/05/24 Maribell Rehman [address] [place] [phone] Psychologist 06/27/23 Larry Zaldivar Psychiatrist 06/27/24
--- OUTSIDE RECORDS SUMMARY | 2025-08-25 12:10 | XMS_ITS | Encounter Summary ---
Author Organization [employer] Address [address] [place] [address] 7[address] [place] [address] Care Team Providers Care Institute Scientist Name Role Phone Shannen Orellana MD Primary Care Provider [phone] Encounter Details Date Type Department Care Team (Late Contact Info) Description 01/08/2023 Orders Only [facility] [address] [place] [address] Patricia De Jesus LPN Social History Tobacco [...] [facility] [address] [place] [address] Shannen Orellana MD [address] [place] [address] 09/25/2025 8:00 AM EST Office Visit [facility] AD[facility] [address] [place] [address] Kvng Wang [address] [place] [address] 01/01/2026 8:00 AM EDT Office Visit [facility] AD[facility] [address] [place] [address] Lydia Carter documented as of this encounter Procedures Procedure Name Priority Date/Time Associated Diagnosis Comments MR LUMBAR SPINE WO CONTRAST Routine 01/11/2023 3:42 PM EDT documented in this encounter Results * MR Lumbar Spine w/o Contrast (01/11/2023 3:42 PM EDT) Anatomical Region Laterality Modality Spine, L-spine Magnetic Resonan ce 01/11/2023 3:42 PM EDT Narrative 01/26/2023 4:37 AM EDT [facility] [address] [place] [phone] Magnetic Resonance Report Signed Patient: Jonas Birmingham MR#: [id number] 25 : 1980 Acct:[id number] Age/Sex: 42 / M ADM Date: 01/11/23 Loc: HO.MRI Attending Dr: Shannen Orellana MD Ordering Physician: Shannen Orellana MD Date of Service: 01/11/23 Procedure(s): MR lumbar spine wo con Accession Number(s): [id number] cc: Shannen Orellana MD EXAMINATION: MR LUMBAR [...] in OV> 01/26/23 0434 DD/ 1542 TD/TT: Distributor Of Directories: [employer] Procedure Note Donotuseinterpreter, Image - 01/26/2023 [place] [address] Magnetic Resonance Report Signed Patient: Jonas BirminghamMR#: [id number] 25 : 1980Acct:[id number] Age/Sex: 42 / MADM Date: 01/11/23 Loc: HO.MRI Attending Dr: Shannen Orellana MD Ordering Physician: Shannen Orellana MD Date of Service: 01/11/23 Procedure(s): MR lumbar spine wo con Accession Number(s): [id number] cc: Shannen Orellana MD EXAMINATION: MR LUMBAR [...] in OV> 01/26/23 0434 DD/ 1542 TD/TT: Distributor Of Directories: [employer] [facility] External Provider IMG MRI PROCEDURES Final Result documented in this encounter Visit Diagnoses Not on filedocumented in this encounter Additional Health Concerns Assessment Noted Time PHQ-9 Depression Total Score: 24 08/24/ 022 4:05 PM EST documented as of this encounter Care Teams Institute Scientist Relationship Specialty Start Date End Date Shannen Orellana MD [address] [place] [phone] PCP - General Family Medicine 08/24/22 Geno Arriaga Senior Military AnalystCounty Program Technician 02/05/24 Maribell Rehman [address] [place] [phone] Psychologist 06/27/23 Larry Zaldivar Psychiatrist 06/27/24 documented as of this encounter
[2025-08-25 15:18] LABS: Reticulocytes Absolute 0.054 X10*6/uL (0.026-0.095)
[2025-08-25 15:53] LABS: Iron 91 mcg/dL (45-160); Percent Iron Saturation 33 % (15-50); Total Iron Binding Capacity 279 mcg/dL (228-428); Unsaturated Iron Binding 188 ug/dL
[2025-08-25 16:10] LABS: Ferritin 93 ng/mL (20-250)
[2025-08-25 16:20] LABS: Folate 10.0 ng/mL (> or = 4.0); Vitamin B12 496 pg/mL (200-900)
== END 2025-08-25 09:29 | disposition home or self-care (01) ==
LOC: HO.CHCLDS 09:28
PROVIDERS: PCP Family Medicine; Referring Provider Student in an Organized Health Care Education/Training Program; Visit Provider Internal Medicine
DX: R76.0 Raised antibody titer (principal); M46.1 Sacroiliitis, not elsewhere classified; D64.9 Anemia, unspecified
CPT/HCPCS: 36415; 82607; 82728; 82746; 83540; 85045; 85652; 86140; 86200; 86431; 86812

== ENCOUNTER → 2025-08-26 08:11 | Outpatient (REF) | payer MEDICAID, SELFPAY ==
--- OUTSIDE RECORDS SUMMARY | 2025-08-26 08:15 | XMS_ITS | Encounter Summary ---
Author Organization [employer] Address [address] [place] [address] Care Team Providers Care Building Services Engineer Name Role Phone Shannen Orellana MD Primary Care Provider [phone] Encounter Details Date Type Department Care Team (Late st Contact Info) Description 07/31/2025 Telephone [facility] [address] [place] [address] Shannen Orellana MD [address] [place] [address] Social History Tobacco Use Types Packs/Day Years [...] Upcoming Encounters Date Type Department Care Team ([facility] st Contact Info) Description 09/07/2025 9:00 AM EST Office Visit [facility] [address] [place] [address] Shannen Orellana MD [address] [place] [address] 09/25/2025 8:00 AM EST Office Visit [facility] ADULT DENTAL [address] [place] [address] Kvng Wang [address] [place] [address] 01/01/2026 8:00 AM EDT Office Visit [facility] ADULT DENTAL [address] [place] [address] Lydia Carter documented as of this encounter Visit Diagnoses Not on filedocumented in this encounter Additional Health Concerns Assessment Noted Time PHQ-9 Depression Total Score: 24 025 8:54 AM EST documented as of this encounter Care Teams Building Services Engineer Relationship Specialty Start Date End Date Shannen Orellana MD [address] [place] [address] PCP - General Family Medicine 08/24/22 Geno Arriaga Multifocal Lens InspectorDie Attacher 02/05/24 Maribell Rehman [address] [place] [phone] Psychologist 06/27/23 Larry Zaldivar Psychiatrist 06/27/24 documented as of this encounter
--- OUTSIDE RECORDS SUMMARY | 2025-08-26 08:15 | XMS_ITS | Encounter Summary ---
Author Organization [facility] Address [address] [place] [address] Phone Care Team Providers Care Casing Machine Operator Name Role Phone Shannen Orellana MD Primary Care Provider [phone] Reason for Referral * MRI/CAT Scan - Closed Specialty Diagnoses / Procedures Referred By Contac t Referred To Contact Radiology Diagnoses Mid back pain Procedures MRI Total Spine MRI Lumbar Spine MRI THORACIC SPINE MRI CERVICAL SPINE Shannen Orellana MD [address] [place] [address] Phone: tel: fax: Referral ID Status Reason Start Date Expiration Date Visits Re quested Visits Authorized [id number] Closed 11/28/2023 11/26/2024 1 1 Encounter Details Date Type Department Care Team (Latest Contact Info) Description 11/28/2023 Transcribe Orders Virtual Department 30 [place] [address] Shannen Orellana MD 230 [place] [address] Mid back pain (Primary Dx) Social History [...] thoracic, and lumbar spine. Shannen Orellana MD [facility] MR XSPECIALTY Final Resul t documented in this encounter Visit Diagnoses Diagnosis Mid back pain- Primary documented in this encounter Care Teams Casing Machine Operator Relationship Specialty Start Date End Date Shannen Orellana MD [address] [place] [address] PCP - General Family Medicine 11/27/23 documented as of this encounter Additional Source Comments The information contained in this document represents components of the legal health record. It is not the complete legal health record.[facility]
--- OUTSIDE RECORDS SUMMARY | 2025-08-26 08:15 | XMS_ITS | Encounter Summary ---
Author Organization [facility] Address [address] [place] [address] Phone Care Team Providers Care Transitional Studies Instructor Name Role Phone Shannen Orellana MD Primary Care Provider [phone] Encounter Details Date Type Department Care Team (Late st Contact Info) Description 11/28/2023 Procedure Pass [facility], [address] [address] Social History Tobacco Use Types Packs/Day Years [...] on filedocumented in this encounter Care Teams Transitional Studies Instructor Relationship Specialty Start Date End Date Shannen Orellana MD [address] [place] [address] PCP - General Family Medicine 11/27/23 documented as of this encounter Additional Source Comments The information contained in this document represents components of the legal health record. It is not the complete legal health record.[facility]
--- OUTSIDE RECORDS SUMMARY | 2025-08-26 08:15 | XMS_ITS | Encounter Summary ---
Author Organization [employer] Address [address] [facility] [address]t [place] [address] Care Team Providers Care Booster Operator Name Role Phone Shannen Orellana MD Primary Care Provider [phone] Reason for Visit * Reason Onset Date Comments PT-1 08/13/2024 Encounter Details Date Type Department Care Team ([facility] Contact Info) Description 08/13/[address] [facility] MEDICINE [address] [place] [address] Shannen Orellana MD [address] [place] [address] PT-1 Social History Tobacco Use Types Packs/Day [...] Yes Provider name or facility name: [facility] Facility Address: [address] [place] [address] Escort needed: Y/N: No Do you have a wheelchair: Y/N: No If yes- Manual or electric: N/A Visits: 4 times a month documented in this encounter Plan of Treatment Upcoming Encounters Date Type Department Care Team ([facility] st Contact Info) Description 09/07/2025 9:00 AM EST Office Visit [facility] MED & PEDS 505 [place] [address] Shannen Orellana MD 505 [place] [address] 09/25/2025 8:00 AM EST Office Visit [facility] ADULT DENTAL [address] [place] [address] Kvng Wang 505 [place] [address] 01/01/2026 8:00 AM EDT Office Visit [facility] ADULT DENTAL [address] [place] [address] Lydia Carter documented as of this encounter Visit Diagnoses Not on filedocumented in this encounter Additional Health Concerns Assessment Noted Time PHQ-9 Depression Total Score: 27 024 9:53 AM EDT documented as of this encounter Care Teams Booster Operator Relationship Specialty Start Date End Date Shannen Orellana MD [address] [place] [address] PCP - General Family Medicine 08/24/22 Geno Arriaga Corporate Planning ManagerCity Recorder 02/05/24 Maribell Rehman [address] [place] [address] Psychologist 06/27/23 Larry Zaldivar Psychiatrist 06/27/24 documented as of this encounter
--- OUTSIDE RECORDS SUMMARY | 2025-08-26 08:16 | XMS_ITS | Encounter Summary ---
Author Organization [employer] Address [address] [facility] [address] 7t [place] [address] Care Team Providers Care Mold Yarn Supervisor Name Role Phone Shannen Orellaan MD Primary Care Provider [phone] Reason for Visit * Reason Onset Date Comments Med Refill 02/19/2024 Encounter Details Date Type Department Care Team ([facility] st Contact Info) Description 02/19/2024 Refill [facility] MEDICINE [address] [place] [address] Shannen Orellana MD [address] [place], [place] [phone] On pre-exposure prophylaxis for HIV Social History [...] [facility] 505 [place] [address] Shannen Orellana MD 505 [place] [address] 09/25/2025 8:00 AM EST Office Visit [facility] ADULT DENTAL 505 [place] [address] Kvng Wang 505 [place] [address] 01/01/2026 8:00 AM EDT Office Visit [facility] ADULT DENTAL 505 [place] [address] Lydia Carter documented as of this encounter Visit Diagnoses Diagnosis On pre-exposure prophylaxis for HIV documented in this encounter Additional Health Concerns Assessment Noted Time PHQ-9 Depression Total Score: 27 024 2:13 PM EST documented as of this encounter Care Teams Mold Yarn Supervisor Relationship Specialty Start Date End Date Shannen Orellana MD [address] [place] [address] PCP - General Family Medicine 08/24/22 Geno Arriaga Lion HunterMc Kay Machine Operator 02/05/24 Maribell Rehman [address] [place] [address] Psychologist 06/27/23 Larry Zaldivar Psychiatrist 06/27/24 documented as of this encounter
--- OUTSIDE RECORDS SUMMARY | 2025-08-26 08:16 | XMS_ITS | Encounter Summary ---
Author Organization [employer] Address [address] 7[address] [place] [address] Care Team Providers Care Field Organizer Name Role Phone Shannen Orellana MD Primary Care Provider [phone] Encounter Details Date Type Department Care Team ([facility] st Contact Info) Description 11/27/2023 Telephone [facility] MED & PEDS [address] [place], [place] [phone] Shannen Orellana MD [address] [place] [address] Social History Tobacco Use Types Packs/Day Years [...] MRI ordered by the pain specialist to [facility] he was scheduled a month from now for the MRI. Pt states he cannot wait for a whole month beforegetting his MRI done. [facility] reached out to fredis Wagner and spoke with [facility] [place] who states pt is scheduled for December and that appt will be kept. Pt should call to cancel an appt if able to get a sooner appt at [facility]. Per [facility] [place] orders from the pain specialist includes MRI of the lumbar spine, MRI of thoracic spine and MRI of cervical spine with contrast. Per VM received, pt also requested for MRI of the hip. CM reached out to pt for clarification and also reason for request for referral to weatherization and housing inspector but pt did not answer. [facility] LVM requesting a return call. * Telephone Encounter - Anu Owens - 12/03/2023 11:48 AM EDT Please sign office note of 11/25 to complete referrals. Thank you. * Telephone Encounter - Aziza Morales RN - 11/28/2023 3:49 PM EDT Please see referral for 04/02/23. Pt was referred for pruritic rash. [facility] reached out to the weatherization and housing inspector office and was able to schedule pt an appt on 01/19/24 at 10:45am at their [place] office on [address] [place] [address]. P# [phone]. The weatherization and housing inspector office is requesting for recent office note [...] Description 09/07/2025 9:00 AM EST Office Visit [facility] MED & PEDS 505 [place] [address] Shannen Orellana MD 505 [place] [address] 09/25/2025 8:00 AM EST Office Visit [facility] ADULT DENTAL 505 [place] [address] Kvng Wang 505 [place] [address] 01/01/2026 8:00 AM EDT Office Visit [facility] ADULT DENTAL [address] [place] [address] Lydia Carter documented as of this encounter Visit Diagnoses Not on filedocumented in this encounter Additional Health Concerns Assessment Noted Time PHQ-9 Depression Total Score: 27 024 2:13 PM EST documented as of this encounter Care Teams Field Organizer Relationship Specialty Start Date End Date Shannen Orellana MD 230 [place] [address] PCP - General Family Medicine 08/24/22 Geno Arriaga Hot PatcherSurvey Crew Chief 02/05/24 Maribell Rehman [address] [place] [address] Psychologist 06/27/23 Larry Zaldivar Psychiatrist 06/27/24 documented as of this encounter
--- OUTSIDE RECORDS SUMMARY | 2025-08-26 08:16 | XMS_ITS | Encounter Summary ---
Author Organization [employer] Address [address] [facility] [address] 7t [place] [address] Care Team Providers Care Curbing Stonecutter Name Role Phone Shannen Orellana MD Primary Care Provider [phone] Encounter Details Date Type Department Care Team ([facility] st Contact Info) Description 06/11/2023 Telephone [facility] MED & PEDS 505 [place], [place] [phone] Shannen Orellana MD [address] [place] [address] Social History Tobacco Use Types Packs/Day Years [...] [facility] 505 [place] [address] Shannen Orellana MD 505 [place] [address] 09/25/2025 8:00 AM EST Office Visit [facility] ADULT DENTAL 505 [place] [address] Kvng Wang 505 [place] [address] 01/01/2026 8:00 AM EDT Office Visit [facility] ADULT DENTAL 505 [place] [address] Lydia Carter documented as of this encounter Visit Diagnoses Not on filedocumented in this encounter Additional Health Concerns Assessment Noted Time PHQ-9 Depression Total Score: 24 022 4:05 PM EST documented as of this encounter Care Teams Curbing Stonecutter Relationship Specialty Start Date End Date Shannen Orellana MD [address] [place] [address] PCP - General Family Medicine 08/24/22 Geno Arriaga Yard CleanerInsole Tack Puller Hand 02/05/24 Maribell Rehman [address] [place] [address] Psychologist 06/27/23 Larry Zaldivar Psychiatrist 06/27/24 documented as of this encounter
--- OUTSIDE RECORDS SUMMARY | 2025-08-26 08:16 | XMS_ITS | Encounter Summary ---
Author Organization [employer] Address [address] [facility] [address] [facility] [address] 7t [place] [address] Care Team Providers Care Desizing Machine Operator Name Role Phone Shannen Orellana MD Primary Care Provider [phone] Reason for Visit * Reason Onset Date Comments Referral 06/11/2023 Encounter Details Date Type Department Care Team ([facility] Contact Info) Description 06/11/2023 Telephone [facility] MED & PEDS [address] [place], [place] [phone] Shannen Orellana MD 505 [place] [address] Referral Social History Tobacco Use Types Packs/Day [...] Description 09/07/2025 9:00 AM EST Office Visit [facility] MED & PEDS [address] [place] [address] Shannen Orellana MD 505 [place] [address] 09/25/2025 8:00 AM EST Office Visit [facility] ADULT DENTAL [address] [place] [address] Kvng Wang 505 [place] [address] 01/01/2026 8:00 AM EDT Office Visit [facility] ADULT DENTAL [address] [place] [address] Lydia Carter documented as of this encounter Visit Diagnoses Not on filedocumented in this encounter Additional Health Concerns Assessment Noted Time PHQ-9 Depression Total Score: 24 022 4:05 PM EST documented as of this encounter Care Teams Desizing Machine Operator Relationship Specialty Start Date End Date Shannen Orellana MD 230 [place] [address] PCP - General Family Medicine 08/24/22 Geno Arriaga Knife OperatorClay Machine Operator 02/05/24 Maribell Rehman [address] [place] [address] Psychologist 06/27/23 Larry Zaldivar Psychiatrist 06/27/24 documented as of this encounter
--- OUTSIDE RECORDS SUMMARY | 2025-08-26 08:16 | XMS_ITS | Encounter Summary ---
Author Organization [employer] Address [address] [facility] [address] 7t [place] [address] Care Team Providers Care Caretaker Resort Name Role Phone Shannen Orellana MD Primary Care Provider [phone] Reason for Visit * Reason Comments Med Refill Encounter Details Date Type Department Care Team ([facility] st Contact Info) Description 02/22/[address] [facility] MEDICINE 230 [place] [address] Shannen Orellana MD [address] [place] [address] Social History Tobacco Use Types Packs/Day Years [...] Upcoming Encounters Date Type Department Care Team ([facility] st Contact Info) Description 09/07/2025 9:00 AM EST Office Visit [facility] MED & PEDS 505 [place] [address] Shannen Orellana MD 505 [place] [address] 09/25/2025 8:00 AM EST Office Visit [facility] ADULT DENTAL 505 [place] [address] Kvng Wang 505 [place] [address] 01/01/2026 8:00 AM EDT Office Visit [facility] ADULT DENTAL 505 [place] [address] Lydia Carter documented as of this encounter Visit Diagnoses Not on filedocumented in this encounter Additional Health Concerns Assessment Noted Time PHQ-9 Depression Total Score: 27 024 2:13 PM EST documented as of this encounter Care Teams Caretaker Resort Relationship Specialty Start Date End Date Shannen Orellana MD [address] [place] [address] PCP - General Family Medicine 08/24/22 Geno Arriaga Shrub GrowerFlavorer 02/05/24 Maribell Rehman [address] [place] [address] Psychologist 06/27/23 Larry Zaldivar Psychiatrist 06/27/24 documented as of this encounter
--- OUTSIDE RECORDS SUMMARY | 2025-08-26 08:16 | XMS_ITS | Encounter Summary ---
Author Organization [facility] Address [address] [place] [address] Care Team Providers Care Hot Tar Roofer Helper Name Role Phone Shannen Orellana MD Primary Care Provider [phone] Reason for Visit * Reason Onset Date Comments Med Refill 01/06/2025 Encounter Details Date Type Department Care Team ([facility] Contact Info) Description 01/06/2025 Refill [facility] MED & PEDS 505 [place] [address] Suzanne Monique MD 505 [place] [address] Social History Tobacco Use Types Packs/Day Years [...] Description 09/07/2025 9:00 AM EST Office Visit [facility] MED & PEDS 505 [place] [address] Shannen Orellana MD 505 [place] [address] 09/25/2025 8:00 AM EST Office Visit [facility] ADULT DENTAL 505 [place] [address] Kvng Wang 505 [place] [address] 01/01/2026 8:00 AM EDT Office Visit [facility] ADULT DENTAL 505 [place] [address] Lydia Carter documented as of this encounter Visit Diagnoses Not on filedocumented in this encounter Additional Health Concerns Assessment Noted Time PHQ-9 Depression Total Score: 27 024 9:53 AM EDT documented as of this encounter Care Teams Hot Tar Roofer Helper Relationship Specialty Start Date End Date Shannen Orellana MD [address] [place] [address] PCP - General Family Medicine 08/24/22 Geno Arriaga Oil Pump Station Operator ChiefDrop Man 02/05/24 Maribell Rehman [address] [place] [address] Psychologist 06/27/23 Larry Zaldivar Psychiatrist 06/27/24 documented as of this encounter
--- OUTSIDE RECORDS SUMMARY | 2025-08-26 08:16 | XMS_ITS | Encounter Summary ---
Author Organization [employer] Address [address] 7t [place] [address] Care Team Providers Care Chocolate Production Machine Operator Name Role Phone hSannen Orellana MD Primary Care Provider [phone] Reason for Visit * Reason Onset Date Comments PT1 03/10/2024 Encounter Details Date Type Department Care Team ([facility] st Contact Info) Description 03/10/2024 Telephone [facility] [address] [place] [address] Shannen Orellana MD [address] [place] [address] PT1 Social History Tobacco Use Types Packs/Day [...] name: Orthopedics [facility] Team Rehab Facility Address: [facility] [address], [place] [address] [address] [place] [address] Escort needed: Y/N: No Do you have a wheelchair: Y/N: No If yes- Manual or electric: No Visits: n/a documented in this encounter Plan of Treatment Upcoming Encounters Date Type Department Care Team (Late st Contact Info) Description 09/07/2025 9:00 AM EST Office Visit [facility] MED & PEDS 505 [place] [address] Shannen Orellana MD 505 [place] [address] 09/25/2025 8:00 AM EST Office Visit [facility] ADULT DENTAL 505 [place] [address] Kvng Wang 505 [place] [address] 01/01/2026 8:00 AM EDT Office Visit [facility] ADULT DENTAL 505 [place] [address] Lydia Carter documented as of this encounter Visit Diagnoses Not on filedocumented in this encounter Additional Health Concerns Assessment Noted Time PHQ-9 Depression Total Score: 27 024 2:13 PM EST documented as of this encounter Care Teams Chocolate Production Machine Operator Relationship Specialty Start Date End Date Shannen Orellana MD 230 [place] [address] PCP - General Family Medicine 08/24/22 Geno Arriaga Fabrication WelderForestry Hunter 02/05/24 Maribell Rehman [address] [place] [address] Psychologist 06/27/23 Larry Zaldivar Psychiatrist 06/27/24 documented as of this encounter
--- OUTSIDE RECORDS SUMMARY | 2025-08-26 08:16 | XMS_ITS | Encounter Summary ---
Author Organization [employer] Address [address] [facility] [facility] [address] 7t [place] [address] Care Team Providers Care Layout Operator Name Role Phone Shannen Orellana MD Primary Care Provider [phone] Encounter Details Date Type Department Care Team (Late Contact Info) Description 09/22/2022 Telephone [facility] MEDICINE 230 [place], [place] [phone] Shannen Orellana MD 505 [place], [place] [phone] Social History Tobacco Use Types Packs/Day Years [...] Description 09/07/2025 9:00 AM EST Office Visit [facility] MED & PEDS [address] [place], [place] [phone] Shannen Orellana MD 505 [place] [address] 09/25/2025 8:00 AM EST Office Visit [facility] ADULT DENTAL [address] [place] [address] Kvng Wang 505 [place] [address] 01/01/2026 8:00 AM EDT Office Visit [facility] ADULT DENTAL [address] [place] [address] Lydia Carter documented as of this encounter Visit Diagnoses Not on filedocumented in this encounter Additional Health Concerns Assessment Noted Time PHQ-9 Depression Total Score: 24 022 4:05 PM EST documented as of this encounter Care Teams Layout Operator Relationship Specialty Start Date End Date Shannen Orellana MD [address] [place] [address] PCP - General Family Medicine 08/24/22 Geno Arriaga Family Nurse PractitionerProcedure Writer 02/05/24 Maribell Rehman [address] [place] [address] Psychologist 06/27/23 Larry Zaldivar Psychiatrist 06/27/24 documented as of this encounter
--- OUTSIDE RECORDS SUMMARY | 2025-08-26 08:16 | XMS_ITS | Encounter Summary ---
Author Organization [employer] Address [address] [facility] [address] 7t [place] [address] Care Team Providers Care Director Toxicology Name Role Phone Shannen Orellana MD Primary Care Provider [phone] Reason for Visit * Reason Comments Med Refill Encounter Details Date Type Department Care Team ([facility] st Contact Info) Description 01/09/2025 Refill [facility] MEDICINE 230 [place] [address] Shannen Orellana MD [address] [place], [place] [phone] Social History Tobacco Use Types Packs/Day Years [...] Upcoming Encounters Date Type Department Care Team ([facility] st Contact Info) Description 09/07/2025 9:00 AM EST Office Visit [facility] MED & PEDS 505 [place] [address] Shannen Orellana MD 505 [place] [address] 09/25/2025 8:00 AM EST Office Visit [facility] ADULT DENTAL 505 [place] [address] Kvng Wang 505 [place] [address] 01/01/2026 8:00 AM EDT Office Visit [facility] ADULT DENTAL 505 [place] [address] Lydia Carter documented as of this encounter Visit Diagnoses Not on filedocumented in this encounter Additional Health Concerns Assessment Noted Time PHQ-9 Depression Total Score: 27 024 9:53 AM EDT documented as of this encounter Care Teams Director Toxicology Relationship Specialty Start Date End Date Shannen Orellana MD 230 [place] [address] PCP - General Family Medicine 08/24/22 Geno Arriaga Clinical SpecialistQa Software Tester 02/05/24 Maribell Rehman [address] [place] [address] Psychologist 06/27/23 Larry Zaldivar Psychiatrist 06/27/24 documented as of this encounter
--- OUTSIDE RECORDS SUMMARY | 2025-08-26 08:16 | XMS_ITS | Encounter Summary ---
Author Organization [employer] Address [address] [facility] [address] 7t [place] [address] Care Team Providers Care Wire Tester Name Role Phone Shannen Orellana MD Primary Care Provider [phone] Reason for Visit * Reason Comments Med Refill Encounter Details Date Type Department Care Team ([facility] st Contact Info) Description 03/08/2025 Refill [facility] MEDICINE 230 [place] [address] Margarita Villanueva MD [address] [place] [address] On pre-exposure prophylaxis for HIV Social History [...] Description 09/07/2025 9:00 AM EST Office Visit [facility] MED & PEDS [address] [place] [address] Shannen Orellana MD 505 [place] [address] 09/25/2025 8:00 AM EST Office Visit [facility] ADULT DENTAL [address] [place] [address] Kvng Wang 505 [place] [address] 01/01/2026 8:00 AM EDT Office Visit [facility] ADULT DENTAL [address] [place] [address] Lydia Carter documented as of this encounter Visit Diagnoses Diagnosis On pre-exposure prophylaxis for HIV documented in this encounter Additional Health Concerns Assessment Noted Time PHQ-9 Depression Total Score: 27 024 9:53 AM EDT documented as of this encounter Care Teams Wire Tester Relationship Specialty Start Date End Date Shannen Orellana MD 230 [place] [address] PCP - General Family Medicine 08/24/22 Geno Arriaga Manager R DSupervisor [employer] 02/05/24 Maribell Rehman [address] [place] [address] Psychologist 06/27/23 Larry Zaldivar Psychiatrist 06/27/24 documented as of this encounter
--- OUTSIDE RECORDS SUMMARY | 2025-08-26 08:16 | XMS_ITS | Encounter Summary ---
Author Organization [employer] Address [address] 7[address] [place] [address] Care Team Providers Care Certified Performance Technologist Name Role Phone Shannen Orellana MD Primary Care Provider [phone] Encounter Details Date Type Department Care Team (Late st Contact Info) Description 08/25/2025 Orders Only GENERIC EXTERNAL DATA DEPARTMENT Provider, Generic External Data Social History Tobacco Use Types Packs/Day Years [...] Office Visit [facility] MED & PEDS [address] [place] [address] Shannen Orellana MD 505 [place] [address] 09/25/2025 8:00 AM EST Office Visit [facility] ADULT DENTAL [address] [place] [address] Kathleen Kvng 505 [place] [address] 01/01/2026 8:00 AM EDT Office Visit [facility] ADULT DENTAL [address] [place] [address] Lydia Carter documented as of this encounter Procedures Procedure Name Priority Date/Time Associated Diagnosis Comments SED RATE BY MODIFIED WESTERGREN Routine 08/25/2025 9:31 AM EST RHEUMATOID FACTOR Routine 08/25/2025 9:3 1 AM EST C-REACTIVE PROTEIN Routine 08/25/2025 9: 31 AM EST documented in this encounter Results * (ABNORMAL) Sed Rate by Modified Westergren (08/25/2025 9:31 AM EST) Erythrocyte Sedimentation Rate <1(L) 1 - 15 MM/HR [facility] Comment:Patients with polycy themia and many hemoglobin abnormalitiesmay have depressed sed rates whereas patients with anemiamay have elevated sed rates. 08/25/2025 9:31 AM EST 08/25/2025 3:06 PM EST us Generic External Data Provider LAB BLOOD ORDERAB LES Final Result Performing Organization Address [facility] de Phone Number [facility] [address] [place] [phone] * Rheumatoid Factor (08/25/2025 9:31 AM EST) Rheumatoid Factor <13.0 <15.0 IU/mL [facility] 08/25/2025 9:31 AM EST 08/25/2025 3:20 PM EST us Generic External Data Provider LAB BLOOD ORDERAB LES Final Result Performing Organization Address [facility] Phone Number [facility] [address] [place] [phone] * C-reactive Protein (08/25/2025 9:31 AM EST) C Reactive Protein <0.10 < or = 0.50 mg/dL [facility] 08/25/2025 9:31 AM EST 08/25/2025 3:10 PM EST us Generic External Data Provider LAB BLOOD ORDERAB LES Final Result Performing Organization Address [facility] Phone Number [facility] [address] [place] [phone] documented in this encounter Visit Diagnoses Not on filedocumented in this encounter Additional Health Concerns Assessment Noted Time PHQ-9 Depression Total Score: 24 025 8:54 AM EST documented as of this encounter Care Teams Certified Performance Technologist Relationship Specialty Start Date End Date Shannen Orellana MD [address] [place] [address] PCP - General Family Medicine 08/24/22 Geno Arriaga Package DesignerReal Estate Closing Coordinator 02/05/24 Maribell Rehman [address] [place] [address] Psychologist 06/27/23 Larry Zaldivar Psychiatrist 06/27/24 documented as of this encounter
--- OUTSIDE RECORDS SUMMARY | 2025-08-26 08:16 | XMS_ITS | Encounter Summary ---
Author Organization [employer] Address [address] 7[address] [place] [address] Care Team Providers Care Hemodialysis Rn Name Role Phone Shannen Orellana MD Primary Care Provider [phone] Reason for Visit * Reason Onset Date Comments Created in error 02/22/2024 Encounter Details Date Type Department Care Team ([facility] Contact Info) Description 02/22/2024 Telephone [facility] MEDICINE [address] [place] [address] Shannen Orellana MD [address] [place] [address] Created in error Social History Tobacco Use [facility] [address] [place] [address] Shannen Orellana MD [address] [place] [address] 09/25/2025 8:00 AM EST Office Visit [facility] ADULT DENTAL [address] [place] [address] Kvng Wang [address] [place] [address] 01/01/2026 8:00 AM EDT Office Visit [facility] ADULT DENTAL [address] [place] [address] Lydia Carter documented as of this encounter Visit Diagnoses Not on filedocumented in this encounter Additional Health Concerns Assessment Noted Time PHQ-9 Depression Total Score: 27 024 2:13 PM EST documented as of this encounter Care Teams Hemodialysis Rn Relationship Specialty Start Date End Date Shannen Orellana MD [address] [place] [address] PCP - General Family Medicine 08/24/22 Geno Arriaga Formal Wear Rental ClerkNurse Prn 02/05/24 Maribell Rehman [address] [place] [phone] Psychologist 06/27/23 Larry Zaldivar Psychiatrist 06/27/24 documented as of this encounter
--- OUTSIDE RECORDS SUMMARY | 2025-08-26 08:16 | XMS_ITS | Encounter Summary ---
Author Organization [employer] Address [address] 7t [place] [address] Care Team Providers Care Art Professor Name Role Phone Shannen Orellana MD Primary Care Provider [phone] Reason for Visit * Reason Onset Date Comments Pt-1 04/08/2025 Encounter Details Date Type Department Care Team ([facility] Contact Info) Description 04/08/2025 Telephone [facility] MEDICINE [address] [place] [address] Shannen Orellana MD [address] [place] [address] Pt-1 Social History Tobacco Use Types Packs/Day [...] Provider name or facility name: [facility] Facility Address: [address] [facility] Escort needed: Y/N: Yes Do you have a wheelchair: Y/N: No If yes- Manual or electric: N/A Visits: Twice a month - Patient calling requesting PT1 Home Address verified: Y/N: Yes Provider name or facility name: [facility] Facility Address: [address] [facility] Escort needed: Y/N: Yes Do you have a wheelchair: Y/N: No If yes- Manual or electric: N/A Visits: Twice a month - Patient calling requesting PT1 Home Address verified: Y/N: Yes Provider name or facility name: [facility] Facility Address: [address] [facility] Escort needed: Y/N: Yes Do you have a wheelchair: Y/N: No If yes- Manual or electric: N/A Visits: Once a month - Patient calling requesting PT1 Home Address verified: Y/N: Yes Provider name or facility name: [facility] Facility Address: [address] [place] [address] [place] [address] Escort needed: Y/N: Yes Do you have a wheelchair: Y/N: No If yes- Manual or electric: N/A Visits: Once a month documented in this encounter Plan of Treatment Upcoming Encounters Date Type Department Care Team (Late st Contact Info) Description 09/07/2025 9:00 AM EST Office Visit [facility] MED & PEDS [address] [place] [address] Shannen Orellana MD 505 [place] [address] 09/25/2025 8:00 AM EST Office Visit [facility] ADULT DENTAL [address] [place] [address] Kvng Wang 505 [place] [address] 01/01/2026 8:00 AM EDT Office Visit [facility] ADULT DENTAL [address] [place] [address] Lydia Carter documented as of this encounter Visit Diagnoses Not on filedocumented in this encounter Additional Health Concerns Assessment Noted Time PHQ-9 Depression Total Score: 27 024 9:53 AM EDT documented as of this encounter Care Teams Art Professor Relationship Specialty Start Date End Date Shannen Orellana MD [address] [place] [address] PCP - General Family Medicine 08/24/22 Geno Arriaga Network ManagerPull Out Operator 02/05/24 Maribell Rehman [address] [place] [address] Psychologist 06/27/23 Larry Zaldivar Psychiatrist 06/27/24 documented as of this encounter
--- OUTSIDE RECORDS SUMMARY | 2025-08-26 08:16 | XMS_ITS | Encounter Summary ---
Author Organization [employer] Address [address] 7[address] [place] [address] Care Team Providers Care Senior Hr Manager Name Role Phone Shannen Orellana MD Primary Care Provider [phone] Encounter Details Date Type Department Care Team (Late st Contact Info) Description 10/03/2024 Telephone [facility] MEDICINE [address] [place] [address] Shannen Orellana MD [address] [place] [address] Social History Tobacco Use Types Packs/Day Years [...] [facility] MED & PEDS [address] [place] [address] Shannen Orellana MD 505 [place] [address] 09/25/2025 8:00 AM EST Office Visit [facility] ADULT D[facility]AL [address] [place] [address] Oksana Wangricio 505 [place] [address] 01/01/2026 8:00 AM EDT Office Visit [facility] ADULT DENTAL [address] [place] [address] Lydia Carter documented as of this encounter Visit Diagnoses Not on filedocumented in this encounter Additional Health Concerns Assessment Noted Time PHQ-9 Depression Total Score: 27 024 9:53 AM EDT documented as of this encounter Care Teams Senior Hr Manager Relationship Specialty Start Date End Date Shannen Orellana MD [address] [place] [address] PCP - General Family Medicine 08/24/22 Geno Arriaga Interior Plant CaretakerMetal Riveting Machine Operator 02/05/24 Maribell Rehman [address] [place] [address] Psychologist 06/27/23 Larry Zaldivar Psychiatrist 06/27/24 documented as of this encounter
--- OUTSIDE RECORDS SUMMARY | 2025-08-26 08:16 | XMS_ITS | Encounter Summary ---
Author Organization [employer] Address [address] [facility] 7t [place] [address] Care Team Providers Care Brinell Tester Name Role Phone Shannen Orellana MD Primary Care Provider [phone] Encounter Details Date Type Department Care Team ([facility] st Contact Info) Description 06/15/2025 Orders Only [facility] MED & PEDS 505 [place], [place] [phone] Maame Espinal MD [address] [place] [address] Normocytic anemia (Primary Dx) Social History Tobacco [...] [facility] 505 [place] [address] Shannen Orellana MD 505 [place] [address] 09/25/2025 8:00 AM EST Office Visit [facility] ADULT DENTAL 505 [place] [address] Kvng Wang 505 [place] [address] 01/01/2026 8:00 AM EDT Office Visit [facility] ADULT DENTAL 505 [place] [address] Lydia Carter documented as of this encounter Procedures Procedure Name Priority Date/Time Associated Diagnosis Comments VITAMIN B12/FOLATE, SERUM PANEL Routine 08/25/2025 9:31 AM EST Normocytic anemia IRON AND TOTAL IRON BINDING CAPACITY Routine 08/25/2025 9:31 AM EST Normocytic anemia RETICULOCYTE COUNT Routine 08/25/2025 9: 31 AM EST Normocytic anemia FERRITIN Routine 08/25/2025 9:31 AM EST Normocytic anemia documented in this encounter Results * (ABNORMAL) Reticulocyte Count (08/25/2025 9:31 AM EST) Reticulocytes Absolute 0.054 0.026 - 0.095 X10*6/uL [facility] Immature Retic Fraction 11.6 2.3 - 13.4 % [facility] Retic HGB Equivalent 38.6(H) 30.0 - 35.0 pg [facility] Reticulocyte Percent 1.5 0.5 - 1.8 % [facility] Blood Venous blood specimen / Unknown 08/25/2025 9:31 AM EST 08/25/2025 3:06 PM EST Maame Espinal MD LAB BLOOD ORDERABLES Final Result Performing Organization Address City/[facility]/ZIP Co de Phone Number [facility] [address] [place] [phone] * Ferritin (08/25/2025 9:31 AM EST) Ferritin 93 20 - 250 ng/mL [facility] Blood Venous blood specimen / Unknown 08/25/2025 9:31 AM EST 08/25/2025 3:10 PM EST Maame Espinal MD LAB BLOOD ORDERABLES Final Result Performing Organization Address City/[facility]/ZIP Co de Phone Number [facility] [address] [place] [phone] * Iron And Total Iron Binding Capacity (08/25/2025 9:31 AM EST) Iron 91 45 - 160 mcg/dL [facility] Total Iron Binding Capacity 279 228 - 428 mcg/dL [facility] Percent Iron Saturation 33 15 - 50 % [facility] Unsaturated Iron Binding 188 ug/dL [facility] Blood Venous blood specimen / Unknown 08/25/2025 9:31 AM EST 08/25/2025 3:10 PM EST us Maame Espinal MD LAB BLOOD ORDERABLES Final Result Performing Organization Address [facility] Co de Phone Number [facility] [address] [place] [phone] * Vitamin B12/Folate, Serum Panel (08/25/2025 9:31 AM EST) Vitamin B12 496 200 - 900 pg/mL [facility] Comment:NORMAL 200-900 PG/ML INDETERMINATE 160-199 PG/ML DEFICIENT < 160 PG/ML Folate 10.0 > or = 4.0 ng/mL [facility] Comment:Reference Values:> o r = 4.0 ng/mL< 4.0 ng/mL suggests folate deficiency Methotrexate, aminopterin and folinic acid(leucovorin) are chemotherapeutic agents whose molecularstructures are similar to folate; therefore, the Architectfolate assay cannot be used for patients using these drugs. Blood Venous blood specimen / Unknown 08/25/2025 9:31 AM EST 08/25/2025 3:20 PM EST us Maame Espinal MD LAB BLOOD ORDERABLES Final Result Performing Organization Address [facility] de Phone Number [facility] [address] [place] [phone] documented in this encounter Visit Diagnoses Diagnosis Normocytic anemia- Primary Unspecified anemia documented in this encounter Additional Health Concerns Assessment Noted Time PHQ-9 Depression Total Score: 27 024 9:53 AM EDT documented as of this encounter Care Teams Brinell Tester Relationship Specialty Start Date End Date Shannen Orellana MD [address] [place] [phone] PCP - General Family Medicine 08/24/22 Geno Arriaga Nurses EducatorGeophysical E Logger 02/05/24 Maribell Rehman [address] [place] [address] Psychologist 06/27/23 Larry Zaldivar Psychiatrist 06/27/24 documented as of this encounter
--- OUTSIDE RECORDS SUMMARY | 2025-08-26 08:16 | XMS_ITS | Clinical Summary ---
Author Organization [facility] Address [address] [place] [address] Phone Care Team Providers Care Private Secretary Name Role Phone Shannen Orellana MD Primary Care Provider [phone] Allergies Active Allergy Reactions Criticality Noted Date [...] ACO C3 ACO C3 ACO C3 ACO [facility] Care Teams Private Secretary Relationship Specialty Start Date End Date Shannen Orellana MD [address] [place] [address] PCP - General Family Medicine 11/27/23 Additional Source Comments The information contained in this document represents components of the legal health record. It is not the complete legal health record.[facility]
--- OUTSIDE RECORDS SUMMARY | 2025-08-26 08:16 | XMS_ITS | Encounter Summary ---
Author Organization [employer] Address [address] [facility] 7t [place] [address] Care Team Providers Care Toll Relief Operator Name Role Phone Shannen Orellana MD Primary Care Provider [phone] Encounter Details Date Type Department Care Team (Late st Contact Info) Description 02/29/2024 Orders Only [facility] MED & PEDS [address] [place], [place] [phone] Maame Espinal MD 505 [place] [address] Social History Tobacco Use Types Packs/Day Years [...] 09/07/2025 9:00 AM EST Office Visit [facility] MED & PEDS 505 [place] [address] Shannen Orellana MD 505 [place] [address] 09/25/2025 8:00 AM EST Office Visit [facility] ADULT DENTAL 505 [place] [address] Kvng Wang 505 [place] [address] 01/01/2026 8:00 AM EDT Office Visit [facility] ADULT DENTAL 505 [place] [address] Lydia Carter documented as of this encounter Visit Diagnoses Not on filedocumented in this encounter Additional Health Concerns Assessment Noted Time PHQ-9 Depression Total Score: 27 024 2:13 PM EST documented as of this encounter Care Teams Toll Relief Operator Relationship Specialty Start Date End Date Shannen Orellana MD [address] [place] [address] PCP - General Family Medicine 08/24/22 Geno Arriaga Print Room WorkerAutomotive Specialty Technician 02/05/24 Maribell Rehman [address] [place] [address] Psychologist 06/27/23 Larry Zaldivar Psychiatrist 06/27/24 documented as of this encounter
--- OUTSIDE RECORDS SUMMARY | 2025-08-26 08:16 | XMS_ITS | Encounter Summary ---
Author Organization [employer] Address [address] 7[address] [place] [address] Care Team Providers Care Digital Strategist Name Role Phone Shannen Orellana MD Primary Care Provider [phone] Reason for Visit * Reason Comments Med Refill Encounter Details Date Type Department Care Team (Late Contact Info) Description 03/12/2023 Refill [facility] MED & PEDS [address] [place], [place] [phone] Name, MD Krzysztof [address] [place] [address] Social History Tobacco Use Types Packs/Day Years [...] Description 09/07/2025 9:00 AM EST Office Visit [facility] MED & PEDS [address] [place] [address] Shannen Orellana MD 505 [place] [address] 09/25/2025 8:00 AM EST Office Visit [facility] ADULT DENTAL [address] [place] [address] Kvng Wang 505 [place] [address] 01/01/2026 8:00 AM EDT Office Visit [facility] ADULT DENTAL 505 [place] [address] Lydia Carter documented as of this encounter Visit Diagnoses Not on filedocumented in this encounter Additional Health Concerns Assessment Noted Time PHQ-9 Depression Total Score: 24 022 4:05 PM EST documented as of this encounter Care Teams Digital Strategist Relationship Specialty Start Date End Date Shannen Orellana MD [address] [place] [address] PCP - General Family Medicine 08/24/22 Geno Arriaga Stamping Die Maker BenchMechanical Planner 02/05/24 Maribell Rehman [address] [place] [address] Psychologist 06/27/23 Larry Zaldivar Psychiatrist 06/27/24 documented as of this encounter
--- OUTSIDE RECORDS SUMMARY | 2025-08-26 08:16 | XMS_ITS | Encounter Summary ---
Author Organization [employer] Address [address] 7[address] [place] [address] Care Team Providers Care Paste Worker Name Role Phone Shannen Orellana MD Primary Care Provider [phone] Reason for Visit * Reason Onset Date Comments Referral 07/02/2023 PT 1 2 of 2 Encounter Details Date Type Department Care Team ([facility] Contact Info) Description 07/02/2023 Telephone [facility] MEDICINE [address] [place] [address] Shannen Orellana MD [address] [place], [place] [phone] Referral (PT 1 2 of 2) Social [...] Date: 07/23 Time: 9:00 Visits:6 Address: [address] [place] [id number] Facility: [facility] Specialty : Orthopedic surgery with Dr. Galeas Wheel Chair: no Environmental Educator Needed: no documented in this encounter Plan of Treatment Upcoming Encounters Date Type Department Care Team (Late st Contact Info) Description 09/07/2025 9:00 AM EST Office Visit [facility] MED & PEDS [address] [place] [address] Shannen Orellana MD 505 [place] [address] 09/25/2025 8:00 AM EST Office Visit [facility] ADULT DENTAL 505 [place] [address] Kvng Wang 505 [place], [place] 01/01/2026 8:00 AM EDT Office Visit [facility] ADULT DENTAL [address] [place], [place] [phone] Lydia Carter documented as of this encounter Visit Diagnoses Not on filedocumented in this encounter Additional Health Concerns Assessment Noted Time PHQ-9 Depression Total Score: 24 022 4:05 PM EST documented as of this encounter Care Teams Paste Worker Relationship Specialty Start Date End Date Shannen Orellana MD 230 [place] [address] PCP - General Family Medicine 08/24/22 Geno Arriaga Cocoa Butter Filter OperatorBiscuit Machine Operator 02/05/24 Maribell Rehman [address] [place] [address] Psychologist 06/27/23 Larry Zaldivar Psychiatrist 06/27/24 documented as of this encounter
--- OUTSIDE RECORDS SUMMARY | 2025-08-26 08:16 | XMS_ITS | Encounter Summary ---
Author Organization [employer] Address [address] [place] [address] Care Team Providers Care Food Preparation Supervisor Name Role Phone Shannen Orellana MD Primary Care Provider [phone] Reason for Visit * Reason Comments Med Refill Encounter Details Date Type Department Care Team ([facility] st Contact Info) Description 08/22/2025 Refill [facility] MEDICINE [address] [place] [address] Shannen Orellana MD [address] [place], [place] [phone] On pre-exposure prophylaxis for HIV Social History [...] [facility] [address] [place] [address] Shannen Orellana MD 505 [place] [address] 09/25/2025 8:00 AM EST Office Visit [facility] ADULT DENTAL [address] [place] [address] Kvng Wang 505 [place] [address] 01/01/2026 8:00 AM EDT Office Visit [facility] ADULT DENTAL [address] [place] [address] Lydia Carter documented as of this encounter Visit Diagnoses Diagnosis On pre-exposure prophylaxis for HIV documented in this encounter Additional Health Concerns Assessment Noted Time PHQ-9 Depression Total Score: 24 025 8:54 AM EST documented as of this encounter Care Teams Food Preparation Supervisor Relationship Specialty Start Date End Date Shannen Orellana MD [address] [place] [address] PCP - General Family Medicine 08/24/22 Geno Arriaga Sales Marketing CoordinatorGeneration Manager 02/05/24 Maribell Rehman [address] [place] [address] Psychologist 06/27/23 Larry Zaldivar Psychiatrist 06/27/24 documented as of this encounter
--- OUTSIDE RECORDS SUMMARY | 2025-08-26 08:16 | XMS_ITS | Encounter Summary ---
Author Organization [employer] Address [address] [facility] [address] 7t [place] [address] Care Team Providers Care Yard Attendant Name Role Phone Shannen Orellana MD Primary Care Provider [phone] Reason for Visit * Reason Onset Date Comments PT-1 07/09/2025 Encounter Details Date Type Department Care Team ([facility] Contact Info) Description 07/09/2025 Telephone [facility] MEDICINE [address] [place] [address] Shannen Orellana MD [address] [place] [address] PT-1 Social History Tobacco Use Types Packs/Day [...] Y/N: Yes Provider name or facility name: [facility] Facility Address: [address] [address] Escort needed: Y/N: Yes Do you have a wheelchair: Y/N: No If yes- Manual or electric: / Visits: (amount of visits) ( x monthly, weekly, daily) Patient calling requesting PT1 Home Address verified: Y/N: Yes Provider name or facility name: [facility] Facility Address: [address] [place] [address] Escort needed: Y/N: No Do you have a wheelchair: Y/N: No If yes- Manual or electric: / Visits: (amount of visits) ( x monthly, weekly, daily) PCP DR. Orellana documented in this encounter Plan of Treatment Upcoming Encounters Date Type Department Care Team ([facility] st Contact Info) Description 09/07/2025 9:00 AM EST Office Visit [facility] CHC MED & PEDS 505 [place] [address] Shannen Orellana MD 505 [place] [address] 09/25/2025 8:00 AM EST Office Visit [facility] ADULT DENTAL 505 [place] [address] Kvng Wang 505 [place] [address] 01/01/2026 8:00 AM EDT Office Visit [facility] ADULT DENTAL 505 [place] [address] Lydia Carter documented as of this encounter Visit Diagnoses Not on filedocumented in this encounter Additional Health Concerns Assessment Noted Time PHQ-9 Depression Total Score: 27 024 9:53 AM EDT documented as of this encounter Care Teams Yard Attendant Relationship Specialty Start Date End Date Shannen Orellana MD [address] [place] [address] PCP - General Family Medicine 08/24/22 Geno Arriaga TyperPsychiatric Nurse Practitioner 02/05/24 Maribell Rehman [address] [place] [address] Psychologist 06/27/23 Larry Zaldivar Psychiatrist 06/27/24 documented as of this encounter
--- OUTSIDE RECORDS SUMMARY | 2025-08-26 08:16 | XMS_ITS | Encounter Summary ---
Author Organization [employer] Address [address] 7t [place] [address] Care Team Providers Care Death Claim Examiner Name Role Phone Shannen Orellana MD Primary Care Provider [phone] Reason for Visit * Reason Onset Date Comments Med Refill 12/20/2023 Encounter Details Date Type Department Care Team ([facility] st Contact Info) Description 12/20/2023 Refill [facility] CHC MED & PEDS [address] [place] [address] Shannen Orellana MD 505 [place] [address] Pruritic rash Social History Tobacco Use Types [...] [facility] [address] [place] [address] Shannen Orellana MD 505 [place] [address] 09/25/2025 8:00 AM EST Office Visit [facility] [address] [place] [address] Kvng Wang 505 [place] [address] 01/01/2026 8:00 AM EDT Office Visit [facility] ADULT DENTAL [address] [place] [address] Lydia Carter documented as of this encounter Visit Diagnoses Diagnosis Pruritic rash documented in this encounter Additional Health Concerns Assessment Noted Time PHQ-9 Depression Total Score: 27 024 2:13 PM EST documented as of this encounter Care Teams Death Claim Examiner Relationship Specialty Start Date End Date Shannen Orellana MD [address] [place] [address] PCP - General Family Medicine 08/24/22 Geno Arriaga Bulk Plant SupervisorSealing And Canceling Machine Operator 02/05/24 Maribell Rehman [address] [place] [address] Psychologist 06/27/23 Larry Zaldivar Psychiatrist 06/27/24 documented as of this encounter
--- OUTSIDE RECORDS SUMMARY | 2025-08-26 08:16 | XMS_ITS | Encounter Summary ---
Author Organization [employer] Address [address] [facility] [address] 7t [place] [address] Care Team Providers Care Buffet Server Name Role Phone Shannen Orellana MD Primary Care Provider [phone] Reason for Visit * Reason Onset Date Comments Med Refill 02/19/2024 Encounter Details Date Type Department Care Team ([facility] st Contact Info) Description 02/19/2024 Refill [facility] OPTOMETRY [address], [place] [phone] Dominick, Catia, OD [address] [place] [address] Social History Tobacco Use Types Packs/Day Years [...] [facility] 505 [place] [address] Shannen Orellana MD 505 [place] [address] 09/25/2025 8:00 AM EST [facility] 505 [place] [address] Kvng Wang 505 [place] [address] 01/01/2026 8:00 AM EDT Office Visit [facility] 505 [place] [address] Lydia Carter documented as of this encounter Visit Diagnoses Not on filedocumented in this encounter Additional Health Concerns Assessment Noted Time PHQ-9 Depression Total Score: 27 024 2:13 PM EST documented as of this encounter Care Teams Buffet Server Relationship Specialty Start Date End Date Shannen Orellana MD 230 [place] [address] PCP - General Family Medicine 08/24/22 Geno Arriaga Insecticide MakerWarp Placer 02/05/24 Maribell Rehman [address] [place] [address] Psychologist 06/27/23 Larry Zaldivar Psychiatrist 06/27/24 documented as of this encounter
--- OUTSIDE RECORDS SUMMARY | 2025-08-26 08:16 | XMS_ITS | Encounter Summary ---
Author Organization [employer] Address [address] [facility] [address] 7t [place] [address] Care Team Providers Care Hydroelectric Component Machinist Name Role Phone Shannen Orellana MD Primary Care Provider [phone] Reason for Visit * Reason Onset Date Comments PT1 02/11/2024 Encounter Details Date Type Department Care Team ([facility] Contact Info) Description 02/11/2024 Telephone [facility] CHC MED & PEDS [address] [place] [address] Shannen Orellana MD 505 [place] [address] PT1 Social History Tobacco Use Types Packs/Day [...] requesting increase visits to the max for [facility] and other locations. Pt stated if any questions please contact at [phone] * Telephone Encounter - Tello Frazier - 02/11/2024 10:11 AM EDT Tc from pt calling in regards to message prior, also wanted to increase frequency in visits to the maximum amount of visit. This includes PT-1 for [facility] radiologist ([address] [place] [address]). If any questions please contact [t at [phone]. * Telephone Encounter - Rose Zuluaga - 02/11/2024 9:49 AM EDT Tc from pt requesting an increase on visits for two Pt1's. Location: [facility] and Curtis Wagner on [address] documented in this encounter Plan of Treatment Upcoming Encounters Date Type Department Care Team ([facility] st Contact Info) Description 09/07/2025 9:00 AM EST Office Visit [facility] CHC MED & PEDS [address] [place] [address] Shannen Orellana MD [address] [place] [address] 09/25/2025 8:00 AM EST Office Visit [facility] ADULT DENTAL [address] [place], [place] [phone] Kvng Wang 505 [place] [address] 01/01/2026 8:00 AM EDT Office Visit [facility] ADULT D[facility] 505 [place] [address] Lydia Carter documented as of this encounter Visit Diagnoses Not on filedocumented in this encounter Additional Health Concerns Assessment Noted Time PHQ-9 Depression Total Score: 27 024 2:13 PM EST documented as of this encounter Care Teams Hydroelectric Component Machinist Relationship Specialty Start Date End Date Shannen Orellana MD [address] [place] [address] PCP - General Family Medicine 08/24/22 Geno Arriaga Acid Plant HelperFraming Machine Tender 02/05/24 Maribell Rehman [address] [place] [address] Psychologist 06/27/23 Larry Zaldivar Psychiatrist 06/27/24 documented as of this encounter
--- OUTSIDE RECORDS SUMMARY | 2025-08-26 08:16 | XMS_ITS | Encounter Summary ---
Author Organization [employer] Address [address] [facility] [address] 7t [place] [address] Care Team Providers Care Edge Setter Name Role Phone Shannen Orellana MD Primary Care Provider [phone] Reason for Visit * Reason Onset Date Comments Call Back Request 03/26/2024 Encounter Details Date Type Department Care Team ([facility] Contact Info) Description 03/26/2024 Telephone [facility] MEDICINE 230 [place] [address] Shannen Orellana MD [address] [place], [place] [phone] Call Back Request Social History Tobacco Use [...] [facility] 505 [place] [address] Shannen Orellana MD 505 [place] [address] 09/25/2025 8:00 AM EST Office Visit [facility] 505 [place] [address] Kvng Wang 505 [place] [address] 01/01/2026 8:00 AM EDT Office Visit [facility] 505 [place] [address] Lydia Carter documented as of this encounter Visit Diagnoses Not on filedocumented in this encounter Additional Health Concerns Assessment Noted Time PHQ-9 Depression Total Score: 27 024 2:13 PM EST documented as of this encounter Care Teams Edge Setter Relationship Specialty Start Date End Date Shannen Orellana MD 230 [place] [address] PCP - General Family Medicine 08/24/22 Geno Arriaga Private Branch Exchange Service AdvisorLast Model Maker 02/05/24 Maribell Rehman [address] [place] [address] Psychologist 06/27/23 Larry Zaldivar Psychiatrist 06/27/24 documented as of this encounter
--- OUTSIDE RECORDS SUMMARY | 2025-08-26 08:16 | XMS_ITS | Encounter Summary ---
Author Organization [employer] Address [address] [facility] 7t [place] [address] Care Team Providers Care Home Agent Name Role Phone Shannen Orellana MD Primary Care Provider [phone] Encounter Details Date Type Department Care Team (Late Contact Info) Description 01/29/2023 Orders Only [facility] MEDICINE 230 [place], [place] [phone] Carolynn Rodriguez MD 230 [place] [address] Social History Tobacco Use Types Packs/Day Years [...] [facility] 505 [place] [address] Shannen Orellana MD 505 [place] [address] 09/25/2025 8:00 AM EST Office Visit [facility] ADULT DENTAL 505 [place] [address] KathleenToreyio 505 [place] [address] 01/01/2026 8:00 AM EDT Office Visit [facility] CHC ADULT DENTAL 505 [place] [address] Lydia Carter documented as of this encounter Visit Diagnoses Not on filedocumented in this encounter Additional Health Concerns Assessment Noted Time PHQ-9 Depression Total Score: 24 022 4:05 PM EST documented as of this encounter Care Teams Home Agent Relationship Specialty Start Date End Date Shannen Orellana MD 230 [place] [address] PCP - General Family Medicine 08/24/22 Geno Arriaga Personal CounselorFrame Bander 02/05/24 Maribell Rehman [address] [place] [address] Psychologist 06/27/23 Larry Zaldivar Psychiatrist 06/27/24 documented as of this encounter
--- OUTSIDE RECORDS SUMMARY | 2025-08-26 08:17 | XMS_ITS | Encounter Summary ---
Author Organization [employer] Address [address] [facility] [address] 7t [place] [address] Care Team Providers Care Pulp Mixer Name Role Phone Shannen Orellana MD Primary Care Provider Reason for Visit * Reason Onset Date Comments Call Back Request 04/21/2024 Encounter Details Date Type Department Care Team ([facility] Contact Info) Description 04/21/2024 Telephone [facility] MEDICINE 230 [place] [address] Shannen Orellana MD [address] [place], [place] [phone] Call Back Request Social History Tobacco Use [...] the am. Maribell agrees with plan and [phone] is her direct number. * Telephone Encounter - Shannen Orellana MD - 04/22/2024 10:19 AM EDT Please verify if able to and request a call back number and appropriate time for call. If able carve out time in schedule for call will appreciate it, thanks! * Telephone Encounter - Bonnie Ansari - 04/21/2024 12:13 PM EDT Tc from [facility] Therapist requesting to speak with PCP or someone in regards to pt mental health andconcerns, editorial writer tried communicating with RN but call disconnected. documented in this encounter Plan of Treatment Upcoming Encounters Date Type Department Care Team (Late st Contact Info) Description 09/07/2025 9:00 AM EST Office Visit [facility] MED & PEDS 505 [place] [address] Shannen Orellana MD 505 [place], [place] [phone] 09/25/2025 8:00 AM EST Office Visit [facility] ADULT DENTAL 505 [place], [place] [address] Kvng Wang 505 [place] [address] 01/01/2026 8:00 AM EDT Office Visit [facility] ADULT DENTAL 505 [place] [address] Lydia Carter documented as of this encounter Visit Diagnoses Not on filedocumented in this encounter Additional Health Concerns Assessment Noted Time PHQ-9 Depression Total Score: 27 024 2:13 PM EST documented as of this encounter Care Teams Pulp Mixer Relationship Specialty Start Date End Date Shannen Orellana MD [address] [place] [address] PCP - General Family Medicine 08/24/22 Geno Arriaga Laundry Equipment OperatorAllergist/Immunologist 02/05/24 Maribell Rehman [address] [place] [address] Psychologist 06/27/23 Larry Zaldivar Psychiatrist 06/27/24 documented as of this encounter
--- OUTSIDE RECORDS SUMMARY | 2025-08-26 08:17 | XMS_ITS | Encounter Summary ---
Author Organization [email or web address] Address [address] [facility] [address] 7t [place] [address] Care Team Providers Care Human Resources Training Manager Name Role Phone Shannen Orellana MD Primary Care Provider [phone] Reason for Visit * Reason Onset Date Comments Referral 07/02/2023 PT 1 Encounter Details Date Type Department Care Team ([facility] Contact Info) Description 07/02/2023 Telephone [facility] MEDICINE 230 [place] [address] Shannen Orellana MD [address] [place], [place] [phone] Referral (PT 1 1 of 2) Social [...] Date: 07/24 Time: 10:30 Visits: 6 Address: [address] [place] [address] Facility: [facility], Specialty: Pain Management with Wheel Chair: no Fluorescent Lighting Model Maker Needed: no documented in this encounter Plan of Treatment Upcoming Encounters Date Type Department Care Team (Late st Contact Info) Description 09/07/2025 9:00 AM EST Office Visit [facility] MED & PEDS 505 [place] [address] Shannen Orellana MD 505 [place] [address] 09/25/2025 8:00 AM EST Office Visit [facility] ADULT DENTAL 505 [place] [address] Kvng Wang 505 [place] [address] 01/01/2026 8:00 AM EDT Office Visit [facility] ADULT DENTAL 505 [place] [address] Lydia Carter documented as of this encounter Visit Diagnoses Not on filedocumented in this encounter Additional Health Concerns Assessment Noted Time PHQ-9 Depression Total Score: 24 022 4:05 PM EST documented as of this encounter Care Teams Human Resources Training Manager Relationship Specialty Start Date End Date Shannen Orellana MD [address] [place] [address] PCP - General Family Medicine 08/24/22 Geno Arriaga Helicopter RepairerGenerator Operator 02/05/24 Maribell Rehman [address] [place] [address] Psychologist 06/27/23 Larry Zaldivar Psychiatrist 06/27/24 documented as of this encounter
--- OUTSIDE RECORDS SUMMARY | 2025-08-26 08:17 | XMS_ITS | Encounter Summary ---
Author Organization [employer] Address [address] [facility] [address] 7t [place] [address] Care Team Providers Care Financial Reporting Advisor Name Role Phone Shannen Orellana MD Primary Care Provider [phone] Reason for Visit * Reason Onset Date Comments call back needed 05/04/2025 Encounter Details Date Type Department Care Team ([facility] Contact Info) Description 05/04/2025 Telephone [facility] MEDICINE 230 [place] [address] Shannen Orellana MD [address] [place] [address] call back needed Social History Tobacco Use [...] pt wanting a call back from Nurse Kettle Girl regarding PA for RABEprazole (Aciphex) 20 MG EC tablet . Pt was advised that Provider is not going forward with Pa and recommended to schedule a visit with PCP to go over alternatives. Per pt : This is unacceptable and is requesting a call back from manager pricing as soon as tomorrow. 05/05/25 If does not receive a call from manager pricing by tomorrow will show up on Sunday. Pt reports I have a supply person documented in this encounter Plan of Treatment Upcoming Encounters Date Type Department Care Team (Late st Contact Info) Description 09/07/2025 9:00 AM EST Office Visit [facility] MED & PEDS 505 [place] [address] Shannen Orellana MD 505 [place] [address] 09/25/2025 8:00 AM EST Office Visit [facility] ADULT DENTAL 505 [place] [address] Kvng Wang 505 [place] [address] 01/01/2026 8:00 AM EDT Office Visit [facility] ADULT DENTAL [address] [place] [address] Lydia Carter documented as of this encounter Visit Diagnoses Not on filedocumented in this encounter Additional Health Concerns Assessment Noted Time PHQ-9 Depression Total Score: 27 024 9:53 AM EDT documented as of this encounter Care Teams Financial Reporting Advisor Relationship Specialty Start Date End Date Shannen Orellana MD [address] [place] [address] PCP - General Family Medicine 08/24/22 Geno Arriaga Rubber Goods SupervisorDirectional Drill Operator 02/05/24 Maribell Rehman [address] [place] [address] Psychologist 06/27/23 Larry Zaldivar Psychiatrist 06/27/24 documented as of this encounter
--- OUTSIDE RECORDS SUMMARY | 2025-08-26 08:17 | XMS_ITS | Encounter Summary ---
Author Organization [employer] Address [address] [facility] [address] 7t [place] [address] Care Team Providers Care Dog Handler Or Trainer Name Role Phone Shannen Orellana MD Primary Care Provider [phone] Reason for Visit * Reason Onset Date Comments Med Refill 11/22/2023 Encounter Details Date Type Department Care Team ([facility] st Contact Info) Description 11/22/2023 Refill [facility] MEDICINE 230 [place], [place] [phone] Name, MD Krzysztof 230 [place] [address] Social History Tobacco Use Types Packs/Day Years [...] 9:00 AM EST Office Visit [facility] MED & PEDS 505 [place] [address] Shannen Orellana MD 505 [place] [address] 09/25/2025 8:00 AM EST Office Visit [facility] ADULT DENTAL 505 [place] [address] Kvng Wang 505 [place] [address] 01/01/2026 8:00 AM EDT Office Visit [facility] ADULT DENTAL 505 [place] [address] Lydia Carter documented as of this encounter Visit Diagnoses Not on filedocumented in this encounter Additional Health Concerns Assessment Noted Time PHQ-9 Depression Total Score: 27 024 2:13 PM EST documented as of this encounter Care Teams Dog Handler Or Trainer Relationship Specialty Start Date End Date Shannen Orellana MD 230 [place] [address] PCP - General Family Medicine 08/24/22 Geno Arriaga Heating And Ventilation EngineerMelting Furnace Skimmer 02/05/24 Maribell Rehman [address] [place] [address] Psychologist 06/27/23 Larry Zaldivar Psychiatrist 06/27/24 documented as of this encounter
--- OUTSIDE RECORDS SUMMARY | 2025-08-26 08:17 | XMS_ITS | Encounter Summary ---
Author Organization [employer] Address [address] [facility] [facility] [facility] [address] 7t [place] [address] Care Team Providers Care Clinical Account Liaison Name Role Phone Shannen Orellana MD Primary Care Provider [phone] Reason for Visit * Reason Onset Date Comments PT-1 05/09/2024 Encounter Details Date Type Department Care Team ([facility] st Contact Info) Description 05/09/2024 Telephone [facility] MEDICINE 230 [place] [address] Shannen Orellana MD [address] [place] [address] PT-1 Social History Tobacco Use Types Packs/Day [...] thats nothing had changed. Contact pt at [phone] * Telephone Encounter - Tello Frazier - 05/09/2024 3:13 PM EDT Patient calling requesting PT1 Home Address verified: Y/N: Yes Provider name or facility name: [facility] Facility Address: [address] [place] [address] Escort needed: Y/N: No Do you have a wheelchair: Y/N: No If yes- Manual or electric: N/A Visits: 6 monthly Pt requesting call back if there are any issues with PT1. Contact pt at [phone]. documented in this encounter Plan of Treatment Upcoming Encounters Date Type Department Care Team (Late st Contact Info) Description 09/07/2025 9:00 AM EST Office Visit [facility] CHC MED & PEDS 505 [place] [address] Shannen Orellana MD 505 [place] [address] 09/25/2025 8:00 AM EST Office Visit [facility] ADULT DENTAL 505 [place] [address] Kvng Wang 505 [place] [address] 01/01/2026 8:00 AM EDT Office Visit [facility] ADULT DENTAL 505 [place] [address] Lydia Carter documented as of this encounter Visit Diagnoses Not on filedocumented in this encounter Additional Health Concerns Assessment Noted Time PHQ-9 Depression Total Score: 27 024 2:13 PM EST documented as of this encounter Care Teams Clinical Account Liaison Relationship Specialty Start Date End Date Shannen Orellana MD [address] [place] [address] PCP - General Family Medicine 08/24/22 Geno Arriaga Anatomy And Physiology InstructorMaster Ocean 02/05/24 Maribell Rehman [address] [place] [address] Psychologist 06/27/23 Larry Zaldivar Psychiatrist 06/27/24 documented as of this encounter
--- OUTSIDE RECORDS SUMMARY | 2025-08-26 08:17 | XMS_ITS | Encounter Summary ---
Author Organization [employer] Address [address] [address] [address] 7t [place] [address] Care Team Providers Care Photoengraving Retoucher Name Role Phone Shannen Orellana MD Primary Care Provider [phone] Reason for Visit * Reason Onset Date Comments Med Refill 06/11/2024 Encounter Details Date Type Department Care Team ([facility] st Contact Info) Description 06/11/2024 Refill [facility] MEDICINE 230 [place], [place] [phone] Carolynn Rodriguez MD 230 [place], [place] [phone] Social History Tobacco Use Types Packs/Day Years [...] [facility] MED & PEDS 505 [place] [address] Shannen Orellana MD 505 [place] [address] 09/25/2025 8:00 AM EST Office Visit [facility] ADULT DENTAL 505 [place] [address] Kvng Wang 505 [place] [address] 01/01/2026 8:00 AM EDT Office Visit [facility] ADULT DENTAL 505 [place] [address] Lydia Crater documented as of this encounter Visit Diagnoses Not on filedocumented in this encounter Additional Health Concerns Assessment Noted Time PHQ-9 Depression Total Score: 27 024 2:13 PM EST documented as of this encounter Care Teams Photoengraving Retoucher Relationship Specialty Start Date End Date Shannen Orellana MD 230 [place] [address] PCP - General Family Medicine 08/24/22 Geno Arriaga Hydro OperatorTaxi Servicer 02/05/24 Maribell Rehman [address] [place] [address] Psychologist 06/27/23 Larry Zaldivar Psychiatrist 06/27/24 documented as of this encounter
--- OUTSIDE RECORDS SUMMARY | 2025-08-26 08:17 | XMS_ITS | Clinical Summary ---
Author Organization [employer] Address [address] [facility] 7[address] [place] [address] Care Team Providers Care Tool Designer Name Role Phone Shannen Orellana MD Primary Care Provider [phone] Allergies Active Allergy Reactions Criticality Noted Date [...] 024 Active Sodium Fluoride 1.1 % cream [place] teeth for 2 minutes, morning and night. [...] (Zithromax) 250 MG tabletIndications :COPD exacerbation (CMS/HCC) ([facility]) 500 mg in a single loading dose [...] (90 Base) MCG/ACT inhalerIndication s:COPD exacerbation (CMS/HCC) ([facility]) INHALE 2 PUFFS BY MOUTH EVERY 4 [...] (90 Base) MCG/ACT inhalerIndication s:COPD exacerbation (CMS/HCC) ([facility]) Inhale 2 puffs every 4 (four) hours if needed for wheezing. 18 g 025 2024 Discontinued ibuprofen 600 MG tabletIndications :Acute nonintractable headache, unspecified headache type Take 1 tablet (600 mg) by mouth 3 times daily. 90 tablet 025 2024 Discontinued doxycycline (Vibra-Tabs) 100 MG tabletIndications :Chronic obstructive pulmonary disease with acute exacerbation (CMS/HCC) ([facility]) Take 1 tablet (100 mg) by mouth [...] of macrocytosis noticed on labs drawn by INFORMATION SYSTEMS OPERATOR. Will workup and f/up with results Abnormal [...] , benadryl 25 mg and refer to cemetery manager for further evaluation. Will resend x 5 [...] transaminitis, will order RUQ US Stat to [facility]. Sleep apnea 10/09/2022 Assessment & Plan (10/09/2022 5:19 PM EST): Hx of insomnia, reports prior hx of snoring, apneic episodes and waking up not well rested, will test for sleep apnea. Liver cyst 08/24/2022 Irritable bowel syndrome with diarrhea Assessment & Plan (02/06/2023 2:27 PM EDT): Patient with exacerbation of symptoms. Reports feels current GI in [facility] has not helped his symptoms and will want to see alternative provider in [facility]. Assessment & Plan (08/24/2022 2:47 PM [...] to Curtis Garcia (reports poor rapport in [facility]). Numbness of hand 03/06/2017 Assessment & Plan [...] Encounters Date Type Department Care Team Description 08/25/2025 Orders Only GENERIC EXTERNAL DATA DEPARTMENT Provider, Generic External Data 08/22/2025 Refill [facility] [address] [place] [address] Shannen Orellana MD On pre-exposure prophylaxis for HIV 08/19/2025 Refill [facility] [address] [place] [address] Ricardo Stephenson CNP Acute nonintractable headache, unspecified headache type; COPD exacerbation (CMS/HCC) (HCC) 08/12/2025 Refill [facility] [address] [place] [address] Shannen Orellana MD 08/12/2025 Telephone [facility] [address] [address] Kathy Jones, RIYA 08/11/2025 Telephone [facility] [address] [place] [address] Shannen Orellana MD Medication Question 08/06/2025 Refill [facility] [address] [place] [address] Shannen Orellana MD Aphthous ulcer; Pruritic rash 08/02/2025 Refill [facility] [address] [place] [address] Shannen Orellana MD 07/31/2025 Telephone [facility] [address] [place] [address] Shannen Orellana MD 07/28/2025 Telephone [facility] [address] [place] [address] Shannen Orellana MD Call Back Request 07/28/2025 Telephone [facility] [address] [place] [address] Shannen Orellana MD Medication Question 07/28/2025 Refill [facility] [address] [place] [address] Shannen Orellana MD Irritable bowel syndrome with diarrhea; Rhinosinusitis 07/27/2025 9:00 AM EST Telemedicine [facility] [address] [place] [address] Shannen Orellana MD Chronic obstructive pulmonary disease with acute exacerbation (CMS/HCC) (HCC) (Primary Dx); Atypical chest pain 07/27/2025 Travel 07/21/2025 Telephone [facility] [address] [place] [address] Shannen Orellana MD chart prep 07/14/2025 5:20 PM EST Office Visit [facility] [address] [address] Stephenson, Alexxis, MANNEQUIN MAKER Acute nonintractable headache, unspecified headache type (Primary Dx); COPD exacerbation (CMS/HCC) (HCC) 07/14/2025 Travel 07/14/[address] [address] Shannen Orellana MD Nurse Triage 07/09/2025 Patient Outreach [address] [address] Shannen Orellana MD Care Coordination (CH[facility] outreach for SDOH PT-1 and food needs-referral completed /) 07/09/[address] [address] Shannen Orellana MD Nurse Triage 07/09/[address] [address] Shannen Orellana MD PT-1 07/01/2025 9:00 AM EST Office Visit [facility] ADULT DENTAL [address] [place] [address] Judy Coley 07/01/2025 Travel 06/24/2025 Refill [facility] [address] [place] [address] Shannen Orellana MD 06/16/2025 Results Follow-Up [facility] [address] [place] [address] Linnea Cobos RN CBC auto differential, Comprehensive Metabolic Panel, TSH with Reflex to Free T4 06/15/2025 11:15 AM EDT Office Visit [facility] [address] [place] [address] Maame Espinal MD Unintentional weight loss (Primary Dx); Chronic maxillary sinusitis; Smoking addiction; Encounter for immunization 06/15/2025 Orders Only [facility] [address] [place] [address] Maame Espinal MD Normocytic anemia (Primary Dx) 06/15/2025 Travel 06/10/2025 Telephone [facility] [address] [place], [place] [phone] Shannen Orellana MD Appointment Request 05/28/2025 Telephone [facility] [address] [place] [address] Shannen Orellana MD PT-1 05/28/2025 Telephone [facility] [address] [place] [address] Shannen Orellana MD PT-1 from Last 3 [...] [facility] [address] [place] [address] Shannen Orellana MD [address] [place] [address] 09/25/2025 8:00 AM EST Office Visit [facility] ADULT D[facility] [address] [place] [address] Kvng Wang [address] [place] [address] 01/01/2026 8:00 AM EDT Office Visit [facility] AD[facility] [address] [place] [address] Lydia Carter Health Maintenance Due Date Last [...] Associated Diagnosis Comments SED RATE BY MODIFIED MICHEALREN Routine 08/25/2025 9:31 AM EST RHEUMATOID FACTOR Routine 08/25/2025 9:3 1 AM EST C-REACTIVE PROTEIN Routine 08/25/2025 9: 31 AM EST RETICULOCYTE COUNT Routine 08/25/2025 9: 31 AM EST Normocytic anemia FERRITIN Routine 08/25/2025 9:31 AM EST Normocytic anemia IRON AND TOTAL IRON BINDING CAPACITY Routine 08/25/2025 9:31 AM EST Normocytic anemia VITAMIN B12/FOLATE, SERUM PANEL Routine 08/25/2025 9:31 AM EST Normocytic anemia POCT INFLUENZA B (ID NOW RAPID MOLECULAR) [...] Recently Relevant to Health Maintenance Results * Vitamin B12/Folate, Serum Panel (08/25/2025 9:31 AM EST) Vitamin B12 496 200 - 900 pg/mL [facility] Comment:NORMAL 200-900 PG/ML INDETERMINATE 160-199 PG/ML DEFICIENT < 160 PG/ML Folate 10.0 > or = 4.0 ng/mL [facility] Comment:Reference Values:> o r = [...] BLOOD ORDERABLES Final Result Performing Organization Address [facility] de Phone Number [facility] [address] [place] [phone] * Iron And Total Iron Binding Capacity (08/25/2025 9:31 AM EST) [facility] Iron 91 45 - 160 mcg/dL [facility] Total Iron Binding Capacity 279 228 - 428 mcg/dL [facility] Percent Iron Saturation 33 15 - 50 % [facility] Unsaturated Iron Binding 188 ug/dL [facility] Blood Venous blood specimen / Unknown 08/25/2025 9:31 AM EST 08/25/2025 3:10 PM EST us Maame Espinal MD LAB BLOOD ORDERABLES Final Result Performing Organization Address [facility] Co de Phone Number [facility] [address] [place] [phone] * (ABNORMAL) Sed Rate by Modified Dale (08/25/2025 9:31 AM EST) [facility] Erythrocyte Sedimentation Rate <1(L) 1 - 15 MM/HR [facility] Comment:Patients with polycy themia and many hemoglobin abnormalitiesmay have depressed sed rates whereas patients with anemiamay have elevated sed rates. 08/25/2025 9:31 AM EST 08/25/2025 3:06 PM EST Generic External Data Provider LAB BLOOD ORDERAB LES Final Result Performing Organization Address [facility] Phone Number [facility] [address] [place] [phone] * (ABNORMAL) Reticulocyte Count (08/25/2025 9:31 AM EST) Pathologist [facility] Reticulocytes Absolute 0.054 0.026 - 0.095 X10*6/uL [facility] Immature Retic Fraction 11.6 2.3 - 13.4 % [facility] Retic HGB Equivalent 38.6(H) 30.0 - 35.0 pg [facility] Reticulocyte Percent 1.5 0.5 - 1.8 % [facility] Blood Venous blood specimen / Unknown 08/25/2025 9:31 AM EST 08/25/2025 3:06 PM EST us Maame Espinal MD LAB BLOOD ORDERABLES Final Result Performing Organization Address [facility] Number [facility] [address] [place] [phone] * Rheumatoid Factor (08/25/2025 9:31 AM EST) Pathologist [facility] Rheumatoid Factor <13.0 <15.0 IU/mL [facility] 08/25/2025 9:31 AM EST 08/25/2025 3:20 PM EST Generic External Data Provider LAB BLOOD ORDERAB LES Final Result Performing Organization Address [facility] Phone Number [facility] [address] [place] [phone] * C-reactive Protein (08/25/2025 9:31 AM EST) [facility] C Reactive Protein <0.10 < or = 0.50 mg/dL [facility] 08/25/2025 9:31 AM EST 08/25/2025 3:10 PM EST us Generic External Data Provider LAB BLOOD ORDERAB LES Final Result Performing Organization Address [facility] de Phone Number [facility] [address] [place] [phone] * Ferritin (08/25/2025 9:31 AM EST) [facility] Ferritin 93 20 - 250 ng/mL [facility] Blood Venous blood specimen / Unknown 08/25/2025 9:31 AM EST 08/25/2025 3:10 PM EST us Maaem Espinal MD LAB BLOOD ORDERABLES Final Result Performing Organization Address [facility] de Phone Number [facility] [address] [place] [phone] * POCT Rapid Influenza B GELLER ID NOW (07/14/2025 5:47 PM EST) [facility] Influenza B Negative Negative, Indeterminate [facility] QC Media Lot # [id number] [facility] Lot# Expiration Date 12,,026 [facility] Swab 07/14/2025 5:47 PM EST us Shereen Bishop DO POINT OF CARE TEST ENTER/YUE T ORDERABLES Final Result Performing Organization Address [facility] de Phone Number [facility] [address] [place] [phone] * POCT Rapid Influenza A GELLER ID NOW (07/14/2025 5:47 PM EST) [facility] Influenza A Negative Negative, Indeterminate [facility] QC Media Lot # [id number] [facility] Lot# Expiration Date [facility] Swab 07/14/2025 5:47 PM EST Sherene Dario DO POINT OF CARE TEST ENTER/YUE T ORDERABLES Final Result [facility] [address] [place] [phone] [phone] * POCT Rapid Strep A GELLER ID NOW (07/14/2025 5:46 PM EST) Pathologist [facility] Rapid Strep A Screen Negative Negative, None Detected QC Media Lot # [id number] Lot# Expiration Date Swab 07/14/2025 5:46 PM EST Shereen Dario DO POINT OF CARE TEST ENTER/YUE T ORDERABLES Final Result * POCT Rapid Covid-19 BinaxNOW (07/14/2025 5:43 PM EST) Pathologist [facility] Rapid COVID Ag Negative QC Media Lot # [id number] Lot# Expiration Date Swab 07/14/2025 5:43 PM EST Shereen Bishop DO POINT OF CARE TEST ENTER/YUE T ORDERABLES Final Result * TSH with Reflex to Free T4 (06/15/2025 11:57 AM EDT) [facility] TSH reflex Free T4 2.21 0.32 - 4.0 uIU/mL [facility] Blood Venous blood specimen / Unknown 06/15/2025 11:57 AM EDT 06/15/2025 2:40 PM EDT Maame Espinal MD LAB BLOOD ORDERABLES Final Result [facility] [address] [place] [phone] [phone] * (ABNORMAL) CBC auto differential (06/15/2025 11:57 AM EDT) White Blood Count 8.5 4.8 - 10.8 X10*3/uL [facility] Red Blood Count 4.24(L) 4.60 - 5.80 X10*6/uL [facility] Hemoglobin 13.6(L) 14.0 - 18.0 g/dl [facility] Hematocrit 40.7(L) 42.0 - 52.0 % [facility] Mean Corpuscular Volume 96.0 80.0 - 98.0 fL [facility] Mean Corpuscular Hemoglobin 32.1 27.0 - 33.0 pg [facility] Mean Corpuscular HGB Conc 33.4 31.0 - 36.0 g/dl [facility] Red Cell Distribution Width 12.1 11.0 - 16.0 % [facility] Platelet Count 250 160 - 400 X10*3/uL [facility] Mean Platelet Volume 10.2 9.4 - 12.4 fL [facility] Neutrophils Percent Auto 57.4 45 - 73 % [facility] Imm Gran Pct Auto 0.2 0.0 - 0.4 % [facility] Lymphocytes Percent Auto 29.4 20 - 40 % [facility] Monocytes Percent Auto 8.3 2 - 11 % [facility] Eosinophils Percent Auto 3.9 0 - 4 % [facility] Basophils Percent Auto 0.8 0 - 2 % [facility] NRBC Pct Auto 0.0 0.0 - 0.2 /100WBC [facility] Neutrophils Absolute Auto 4.9 2.0 - 8.3 x10*3/uL [facility] Imm Gran Abs Auto 0.02 0.00 - 0.03 X10*3/uL [facility] Lymphocytes Absolute Auto 2.5 1.2 - 4.9 X10*3/uL [facility] Monocytes Absolute Auto 0.7 0.1 - 1.2 X10*3/uL [facility] Eosinophils Absolute Auto 0.3 0.0 - 0.4 X10*3/uL [facility] Basophils Absolute Auto 0.1 0.0 - 0.2 X10*3/uL [facility] NRBC Abs Auto 0.000 0.0 - 0.012 X10*3/uL [facility] Blood Venous blood specimen / Unknown 06/15/2025 11:57 AM EDT 06/15/2025 2:35 PM EDT us Maame Espinal MD LAB BLOOD ORDERABLES Final Result [facility] [address] [place] [phone] * (ABNORMAL) Comprehensive Metabolic Panel (06/15/2025 11:57 AM EDT) Sodium 141 135 - 145 mmol/L [facility] Potassium 3.9 3.3 - 5.1 mmol/L [facility] Chloride 106 96 - 108 mmol/L [facility] Carbon Dioxide 26 22 - 29 mmol/L [facility] Anion Gap 13 12 - 20 [facility] Urea Nitrogen (BUN) 12 9 - 16 mg/dL [facility] Creatinine, Serum 1.17 0.5 - 1.4 mg/dL [facility] Estimated Glomerular Filt Rate >60 [facility] Comment:Chronic Kidney Disea se: Estimated GFR < 60 mL/min/[id number] Kidney Disease: Estimated GFR < 15 mL/min/1.73m2 Glucose 75 60 - 115 mg/dL [facility] Calcium 9.7 8.4 - 10.2 mg/dL [facility] Bilirubin, Total 0.5 0.0 - 1.0 mg/dL [facility] Aspartate Amino Transferase 21 5 - 37 U/L [facility] Alanine Aminotransferase 24 0 - 40 U/L [facility] Total Protein 7.5 6.5 - 8.0 g/dL [facility] Albumin Level 5.2(H) 3.5 - 5.0 g/dL [facility] Alkaline Phosphatase 65 39 - 117 U/L [facility] Blood Venous blood specimen / Unknown 06/15/2025 11:57 AM EDT 06/15/2025 2:40 PM EDT Maame Espinal MD LAB BLOOD ORDERABLES Final Result [facility] [address] [place] [phone] * Hepatitis C Antibody ([facility]) (05/13/2025) Pathologist [facility] Hepatitis C Ab Nonreactive Blood 05/13/2025 Historical Provider LAB BLOOD ORDERABLES Sandy l Result * HIV Ab/Ag ([facility]) (05/13/2025) Pathologist [facility] HIV Ag/Ab Nonreactive Blood 05/13/2025 [facility] Provider LAB BLOOD ORDERABLES Sandy l Result * (ABNORMAL) Lipid Panel, Standard (10/11/2023 3:14 PM EST) Triglycerides 209(H) <150 mg/dL [facility] Comment:Desirable Triglyceri de: less than 150 mg/dLBorderline High Triglyceride 150-199 mg/dLHigh Triglyceride: 200-499 mg/dLVery High Triglyceride: greater than or equal to 5OO mg/dL Cholesterol 190 <200 mg/dL [facility] Comment:Desirable Cholestero l: less than 200 mg/dLBorderline High Cholesterol: 200-239 mg/dLHigh Cholesterol: greater than 239 mg/dL LDL Cholesterol Calculated 117(H) <100 mg/dL [facility] Comment:Desirable LDL: less than 100 mg/dLNear Optimal/Above Optimal LDL: 110- 129 mg/dLBorderline High LDL: 130-159 mg/dLHigh LDL: 160-189 mg/dLVery High LDL: greater than or equal to 190 mg/dL HDL Cholesterol 32(L) >40 mg/dL [facility] Comment:Desirable HDL: great er than 40 mg/dL Note: This HDL assay may give artificially low results in patients with liver disease. Blood Venous blood specimen / Unknown 10/11/2023 3:14 PM EST 10/11/2023 5:21 PM EST us Shannen Orellana MD LAB BLOOD ORDERABLES Final Re sult [facility] [address] [place] [phone] from Last 3 Months or Most Recently Relevant to Health Maintenance Insurance [address] [place] [address] [facility] C3 DENTAL-[facility] MEDICAID STAND ADULT Care Teams Tool Designer Relationship Specialty Start Date End Date Shannen Orellana MD [address] [place] [phone] PCP - General Family Medicine 08/24/22 Geno Arriaga Frankfurter InspectorManager Field 02/05/24 Maribell Rehman [address] [place] [phone] Psychologist 06/27/23 Larry Zaldivar Psychiatrist 06/27/24
--- OUTSIDE RECORDS SUMMARY | 2025-08-26 08:17 | XMS_ITS | Encounter Summary ---
Author Organization [employer] Address [address] [place] [address] 7 [place] [address] Care Team Providers Care Curator Of Education Name Role Phone Shannen Orellana MD Primary Care Provider [phone] Encounter Details Date Type Department Care Team (Late Contact Info) Description 01/08/2023 Orders Only [facility] [address] [place] [address] Patricia De Jesus LPN Social History Tobacco [...] [facility] [address] [place] [address] Shannen Orellana MD [address] [place] [address] 09/25/2025 8:00 AM EST Office Visit [facility] [address] [place] [address] Kvng Wang [address] [place] [address] 01/01/2026 8:00 AM EDT Office Visit [facility] [address] [place] [address] Lydia Carter documented as of this encounter Procedures Procedure Name Priority Date/Time Associated Diagnosis Comments MR LUMBAR SPINE WO CONTRAST Routine 01/11/2023 3:42 PM EDT documented in this encounter Results * MR Lumbar Spine w/o Contrast (01/11/2023 3:42 PM EDT) Anatomical Region Laterality Modality Spine, L-spine Magnetic Resonan ce 01/11/2023 3:42 PM EDT Narrative 01/26/2023 4:37 AM EDT [facility] [address] [place] [phone] Magnetic Resonance Report Signed Patient: Jonas Birmingham MR#: [id number] 25 : 1980 Acct:[id number] Age/Sex: 42 / M ADM Date: 01/11/23 Loc: HO.MRI Attending Dr: Shannen Orellana MD Ordering Physician: Shannen Orellana MD Date of Service: 01/11/23 Procedure(s): MR lumbar spine wo con Accession Number(s): [id number] cc: Shannen Orellana MD EXAMINATION: MR LUMBAR [...] in OV> 01/26/23 0434 DD/ 1542 TD/TT: Grain Oilseed Or Pasture Farm Manager: DONTRELL Procedure Note Donotuseinterpreter, Image - 01/26/2023 [place] [id number] Magnetic Resonance Report Signed Patient: Jonas BirminghamMR#: [id number] [birth year] : 1980Acct:[id number] Age/Sex: 42 / MADM Date: 01/11/23 Loc: HO.MRI Attending Dr: Shannen Orellana MD Ordering Physician: Shannen Orellana MD Date of Service: 01/11/23 Procedure(s): MR lumbar spine wo con Accession Number(s): [id number] cc: Shannen Orellana MD EXAMINATION: MR LUMBAR [...] in OV> 01/26/23 0434 DD/ 1542 TD/TT: Grain Oilseed Or Pasture Farm Manager: DONTRELL [facility] External Provider IMG MRI PROCEDURES Final Result documented in this encounter Visit Diagnoses Not on filedocumented in this encounter Additional Health Concerns Assessment Noted Time PHQ-9 Depression Total Score: 24 08/24/ 022 4:05 PM EST documented as of this encounter Care Teams Curator Of Education Relationship Specialty Start Date End Date Shannen Orellana MD [address] [place] [phone] PCP - General Family Medicine 08/24/22 Geno Arriaga Belt Loop Machine OperatorHealth Care Facility Administrator 02/05/24 Maribell Rehman [address] [place] [phone] Psychologist 06/27/23 Larry Zaldivar Psychiatrist 06/27/24 documented as of this encounter
--- OUTSIDE RECORDS SUMMARY | 2025-08-26 08:17 | XMS_ITS | Encounter Summary ---
Author Organization [employer] Address [address] [place] [address] Care Team Providers Care Remediation Project Engineer Name Role Phone Shannen Orellana MD Primary Care Provider [phone] Reason for Visit * Reason Onset Date Comments Call Back Request 07/28/2025 Encounter Details Date Type Department Care Team ([facility] Contact Info) Description 07/28/2025 Telephone [facility] MED & PEDS [address] [place] [address] Shannen Orellana MD [address] [place] [address] Call Back Request Social History Tobacco Use [...] from pt stating he was referred to [facility] podiatry and PT1 was denied , he is requesting for it be reinstated as last year or be referred too new construction project coordinator Contact pt at [phone] documented in this encounter Plan of Treatment Upcoming Encounters Date Type Department Care Team (Late st Contact Info) Description 09/07/2025 9:00 AM EST Office Visit [facility] MED & PEDS [address] [place] [address] Shannen Orellana MD [address] [place] [address] 09/25/2025 8:00 AM EST Office Visit [facility] ADULT DENTAL [address] [place] [address] Kvng Wang 505 [place] [address] 01/01/2026 8:00 AM EDT Office Visit [facility] CH[facility] ADULT DENTAL [address] [place] [address] Lydia Carter documented as of this encounter Visit Diagnoses Not on filedocumented in this encounter Additional Health Concerns Assessment Noted Time PHQ-9 Depression Total Score: 24 025 8:54 AM EST documented as of this encounter Care Teams Remediation Project Engineer Relationship Specialty Start Date End Date Shannen Orellana MD [address] [place] [id number] PCP - General Family Medicine 08/24/22 Geno Arriaga Mental Health Social WorkerSupervisor Mill 02/05/24 Maribell Rehman [address] [place] [address] Psychologist 06/27/23 Larry Zaldivar Psychiatrist 06/27/24 documented as of this encounter
--- OUTSIDE RECORDS SUMMARY | 2025-08-26 08:17 | XMS_ITS | Encounter Summary ---
Author Organization [employer] Address [address] [place] [address] Care Team Providers Care Transportation Maintenance Operator Name Role Phone Shannen Orellana MD Primary Care Provider [phone] Reason for Visit * Reason Onset Date Comments ER Follow-up 08/14/2023 Encounter Details Date Type Department Care Team ([facility] Contact Info) Description 08/14/2023 Telephone [facility] MED & PEDS [address] [place], [place] [phone] Shannen Orellana MD [address] [place] [address] ER Follow-up Social History Tobacco Use Types [...] LM to call us back. Routing backto [facility] nurses to try again. * Telephone Encounter - Tello Frazier - 08/14/2023 8:26 AM EST Tc from pt calling to report ED visit on : Date: 08/14/23 Hospital: [facility] Seen for: Groin Pain documented in this encounter Plan of Treatment Upcoming Encounters Date Type Department Care Team (Late st Contact Info) Description 09/07/2025 9:00 AM EST Office Visit [facility] MED & PEDS [address] [place] [address] Shannen Orellana MD [address] [place] [address] 09/25/2025 8:00 AM EST Office Visit [facility] ADULT DENTAL [address] [place] [address] Kvng Wang 505 [place] [address] 01/01/2026 8:00 AM EDT Office Visit [facility] ADULT DENTAL [address] [place] [address] Lydia Carter documented as of this encounter Visit Diagnoses Not on filedocumented in this encounter Additional Health Concerns Assessment Noted Time PHQ-9 Depression Total Score: 24 022 4:05 PM EST documented as of this encounter Care Teams Transportation Maintenance Operator Relationship Specialty Start Date End Date Shannen Orellana MD [address] [place] [address] PCP - General Family Medicine 08/24/22 Geno Arriaga Wash Box OperatorRegulatory Lead 02/05/24 Maribell Rehman [address] [place] [address] Psychologist 06/27/23 Larry Zaldivar Psychiatrist 06/27/24 documented as of this encounter
--- OUTSIDE RECORDS SUMMARY | 2025-08-26 08:17 | XMS_ITS | Encounter Summary ---
Author Organization [employer] Address [address] [place] [address] Care Team Providers Care Lapping Machine Tender Name Role Phone Shannen Orellana MD Primary Care Provider [phone] Reason for Visit * Reason Onset Date Comments Referral 07/18/2024 Encounter Details Date Type Department Care Team ([facility] st Contact Info) Description 07/18/2024 Telephone [facility] MEDICINE [address] [place] [address] Shannen Orellana MD [address] [place] [address] Referral Social History Tobacco Use Types Packs/Day [...] stated he is willing to go to [place] for podiatry. * Telephone Encounter - Anu Owens - 07/18/2024 2:46 PM EST Message left for patient asking if he is willing to travel to [place] for podiatry. * Telephone Encounter - Tello Frazier - 07/18/2024 12:15 PM EST Tc from pt calling in regards to podiatry referral stating he is [facility] be [facility]. If any questions you can contact pt at [phone]. documented in this encounter Plan of Treatment Upcoming Encounters Date Type Department Care Team ([facility] st Contact Info) Description 09/07/2025 9:00 AM EST Office Visit [facility] MED & PEDS [address] [place] [address] Shannen Orellana MD 505 [place] [address] 09/25/2025 8:00 AM EST Office Visit [facility] ADULT DENTAL [address] [place] [address] Kvng Wang [address] [place] [address] 01/01/2026 8:00 AM EDT Office Visit [facility] ADULT DENTAL [address] [place] [address] Lydia Carter documented as of this encounter Visit Diagnoses Not on filedocumented in this encounter Additional Health Concerns Assessment Noted Time PHQ-9 Depression Total Score: 27 024 9:53 AM EDT documented as of this encounter Care Teams Lapping Machine Tender Relationship Specialty Start Date End Date Shannen Orellana MD [address] [place] [address] PCP - General Family Medicine 08/24/22 Geno Arriaga Pond SawyerOintment Mill Tender 02/05/24 Maribell Rehman [address] [place] [address] Psychologist 06/27/23 Larry Zaldivar Psychiatrist 06/27/24 documented as of this encounter
--- OUTSIDE RECORDS SUMMARY | 2025-08-26 08:17 | XMS_ITS | Encounter Summary ---
Author Organization [employer] Address [address] [place] [address] Care Team Providers Care Work Distributor Name Role Phone Shannen Orellana MD Primary Care Provider [phone] Reason for Visit * Reason Onset Date Comments Referral 06/11/2023 Encounter Details Date Type Department Care Team ([facility] Contact Info) Description 06/11/2023 Telephone [facility] MED & PEDS [address] [place], [place] [phone] Shannen Orellana MD [address] [place] [address] Referral Social History Tobacco Use Types Packs/Day [...] Description 09/07/2025 9:00 AM EST Office Visit [facility] MED & PEDS [address] [place] [address] Shannen Orellana MD [address] [place] [address] 09/25/2025 8:00 AM EST Office Visit [facility] ADULT DENTAL [address] [place] [address] Kvng Wang [address] [place] [address] 01/01/2026 8:00 AM EDT Office Visit [facility] ADULT DENTAL [address] [place] [address] Lydia Carter documented as of this encounter Visit Diagnoses Not on filedocumented in this encounter Additional Health Concerns Assessment Noted Time PHQ-9 Depression Total Score: 24 08/24/ 022 4:05 PM EST documented as of this encounter Care Teams Work Distributor Relationship Specialty Start Date End Date Shannen Orellana MD [address] [place] [address] PCP - General Family Medicine 08/24/22 Geno Arriaga Safekeeping ClerkRegional Marketing Director 02/05/24 Maribell Rehman [address] [place] [address] Psychologist 06/27/23 Larry Zaldivar Psychiatrist 06/27/24 documented as of this encounter
--- OUTSIDE RECORDS SUMMARY | 2025-08-26 08:17 | XMS_ITS | Encounter Summary ---
Author Organization [employer] Address [address] [place] [address] Care Team Providers Care Video Presentation Operator Name Role Phone Shannen Orellana MD Primary Care Provider Reason for Visit * Reason Onset Date Comments PT-1 07/18/2023 Encounter Details Date Type Department Care Team ([facility] Contact Info) Description 07/18/2023 Telephone [facility] MEDICINE [address] [place] [address] Shannen Orellana MD [address] [place] [address] PT-1 Social History Tobacco Use Types Packs/Day [...] 08/07/2023 Time: 1:00 pm Visits:6 Address: [address] [place] [address] Facility: podiatry Dr. Watson Wheel Chair: no Software Test Engineer Needed: no documented in this encounter Plan of Treatment Upcoming Encounters Date Type Department Care Team (Late st Contact Info) Description 09/07/2025 9:00 AM EST Office Visit [facility] MED & PEDS [address] [place] [address] Shannen Orellana MD [address] [place] [address] 09/25/2025 8:00 AM EST Office Visit [facility] ADULT DENTAL [address] [place] [address] Kvng Wang [address] [place] [address] 01/01/2026 8:00 AM EDT Office Visit [facility] ADULT DENTAL [address] [place] [address] Lydia Carter documented as of this encounter Visit Diagnoses Not on filedocumented in this encounter Additional Health Concerns Assessment Noted Time PHQ-9 Depression Total Score: 24 022 4:05 PM EST documented as of this encounter Care Teams Video Presentation Operator Relationship Specialty Start Date End Date Shannen Orellana MD [address] [place] [address] PCP - General Family Medicine 08/24/22 Geno Arriaga Accounts Receivable CollectorElementary School Social Worker 02/05/24 Maribell Rehman [address] [place] [address] Psychologist 06/27/23 Larry Zaldivar Psychiatrist 06/27/24 documented as of this encounter
--- NOTE | 2025-08-26 08:18 | CA_ITS ---
Acquisition Time: 2025-08-26 08:34:09 Total Exercise Time: 00:06:00 Test Indications: CP,Palpitations Medications: SEE H&P Protocol: BABATUNDE Max HR: 134 BPM 76% of Pred: 175 BPM Max BP: 148/80 mmHG Max Work Load: 7.0 METS Exercise stress test with exercise 6 mins of Babatunde Protocol, achieving 76% MPHR, with reports of 2/10 mid chest pressure that increased to 3/10 with exercise, with SOB and dizziness, without any arrythmias, with BP reduced with exercise from 124/70 to 102/50. Without any EKG changes at the achieved workload. In recovery, breathing improved and chest discomfort returned to baseline. Will recommend nuclear stress test for further eval. Test reviewed with Dr. Aguilar. Referred By: Shannen Orellana Electronically Signed By: Declan English
== END ==
LOC: HO.CARD 08:11
PROVIDERS: PCP Family Medicine; Visit Provider Family Medicine
DX: R07.89 Other chest pain (principal); R00.2 Palpitations
CPT/HCPCS: 93017